=== PATIENT | female | born 1980 | race African-American/Black ===

== ENCOUNTER → 2024-08-22 | Outpatient (CLI) | payer MEDICAID, SELFPAY ==
--- NOTE | 2024-08-22 14:37 | CT_ITS ---
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 TECHNIQUE: CT of the paranasal sinuses without contrast. Coronal and Sagittal reconstruction series were provided. One or more dose reduction techniques were used (e.g., Automated exposure control, adjustment of the mA and/or kV according to patient size, use of iterative reconstruction technique). COMPARISON: None FINDINGS: There is a 4.5 cm 3.9 cm by 4.2 cm soft tissue mass arising in the region of the left maxilla with bony destruction and invasion of the left maxillary sinus extending into the left nasal fossa as well as in the posterior aspect of the right nasal fossa and into the nasopharynx posteriorly. This also extends into the base of the posterior aspect of the left orbit with bony destruction. CT/Sinus/Facial Bone IMPRESSION: Large mass as described with bony destruction. Reading Location: [place] [id number]
== END | disposition home or self-care (01) ==
LOC: CT 14:35
PROVIDERS: Referring Provider Otolaryngology; Visit Provider Otolaryngology
DX: C05.0 Malignant neoplasm of hard palate (principal); C31.0 Malignant neoplasm of maxillary sinus
CPT/HCPCS: 70486

== ENCOUNTER 2024-11-08 11:38 | Emergency (ER) | payer OTHER, MEDICAID, SELFPAY ==
[2024-11-08] VITALS (13 sets, daily range): BP systolic 95–171; BP diastolic 15–107; PULSE 56–108; RESP 13–35; TEMP 36.4–37; O2SAT 98–100; BMI 16.3
--- NOTE | 2024-11-08 13:17 | RAD_ITS ---
PROCEDURE: CHEST 1 VIEW (PORTABLE) 11/08/2024 REASON FOR EXAM: SOB TECHNIQUE: Frontal view of the chest. COMPARISON: None FINDINGS: Hardware: EKG electrodes are seen. Heart: Cardiac and mediastinal contours are stable. Lungs: The lungs are clear. Bones: The bones are unremarkable. Other: RAD/Chest 1 View (Portable) IMPRESSION: No Acute Findings. Reading Location: [id number]
--- NOTE | 2024-11-08 13:17 | EKG12_ITS ---
Test Reason : SOB Blood Pressure : */* mmHG Vent. Rate : 74 BPM Atrial Rate : 74 BPM P-R Int : 166 ms QRS Dur : 74 ms QT Int : 370 ms P-R-T Axes : 63 68 57 degrees QTcB Int : 410 ms Sinus rhythm with marked sinus arrhythmia Otherwise normal ECG When compared with ECG of 22-Sep-2003 10:02, [place] interval has decreased Left anterior fascicular block is no longer Present Nonspecific T wave abnormality no longer evident in Inferior leads Confirmed by Osei Valdivia ([id number]), purchasing expeditor SHAI SHARIF ([id number]) on 11/14/2024 6:33:41 AM Referred By: Confirmed By: Osei Valdivia
--- NOTE | 2024-11-08 13:18 | EX.ED.DYSGE1 ---
HPI History of Present Illness Chief Complaint: Shortness of Breath Informant: patient Narrative Narrative: Patient is a 44-year-old female with history of left facial cancer (unclear what type) who follows with Dr. Fuller through . She recently had dental extractions and is currently on chemotherapy (last chemo 3 days ago). States she was feeling unwell yesterday but today started to feel short of breath and also left-sided abdominal pain. She has nausea and vomiting this morning is not been able to take her regular medications which include morphine sulfate and oxycodone. She tried to take Zofran but threw that up. She states she have a bowel movement this morning but was constipated. She notes she did have blood in her stool and states the blood was mixed in. She does report a history of blood clots ( 6 years also) but is not on any anticoagulation. She denies any fever or chills. She denies any chest pain, leg swelling or sick contacts. PFSH PFSH Allergy/AdvReac Type Severity Reaction Status Date / Time No Known Allergies Allergy Verified 11/08/24 11:46 Social History Smoking Status: Former smoker ROS ROS ED Constitutional Constitutional ED: Reports chills; Denies fever(s) ENT ENT ED: Reports other Details: Muffled voice?associate with her cancer. Left facial pain?chronic and cancer related ; Denies sore throat Cardiovascular Cardiovascular: Denies chest pain or palpitations Respiratory/Chest Respiratory/Chest: Reports cough and dyspnea; Denies sputum Gastrointestinal Gastrointestinal: Reports melena, nausea and vomiting; Denies abdominal pain or diarrhea Genitourinary Genitourinary ED: Denies dysuria or hematuria Musculoskeletal Musculoskeletal: Denies arthralgias or myalgias Integumentary Denies rash Neurologic Neurologic: Reports weakness Hematologic/Lymphatic Hematologic/Lymphatic: Denies easy bleeding or easy bruising EXAM Physical Exam Const Vital Signs: 11/08/24 11:39 11/08/24 11:39 11/08/24 12:21 Temperature 98.6 F Temperature Source Oral Pulse Rate 101 H 93 Respiratory Rate 17 14 Respiratory Effort Normal Non-Labored Respiratory Depth Normal Respiratory Pattern Normal Blood Pressure 127/92 H Blood Pressure Mean 103 Pulse Ox 99 100 Oxygen Delivery Method Room Air Room Air 11/08/24 12:30 11/08/24 12:45 11/08/24 13:00 Temperature Temperature Source Pulse Rate 64 81 Respiratory Rate 14 13 Respiratory Effort Respiratory Depth Respiratory Pattern Blood Pressure 131/85 H 141/92 H 145/107 H Blood Pressure Mean 100 104 120 Pulse Ox 98 98 Oxygen Delivery Method 11/08/24 13:15 11/08/24 13:30 11/08/24 13:45 Temperature Temperature Source Pulse Rate 93 108 H 82 Respiratory Rate 20 H 35 H 18 Respiratory Effort Respiratory Depth Respiratory Pattern Blood Pressure 126/15 H 95/43 L 129/85 H Blood Pressure Mean 39 54 98 Pulse Ox 99 Oxygen Delivery Method 11/08/24 15:00 11/08/24 16:00 11/08/24 17:22 Temperature Temperature Source Pulse Rate 80 56 L 78 Respiratory Rate 15 16 18 Respiratory Effort Respiratory Depth Respiratory Pattern Blood Pressure 154/85 H 171/94 H 159/92 H Blood Pressure Mean 108 119 114 Pulse Ox 100 100 100 Oxygen Delivery Method Room Air Room Air 11/08/24 18:00 11/08/24 18:56 Temperature 97.6 F L Temperature Source Pulse Rate 68 68 Respiratory Rate 18 18 Respiratory Effort Respiratory Depth Respiratory Pattern Blood Pressure 157/103 H 156/94 H Blood Pressure Mean 121 114 Pulse Ox 100 100 Oxygen Delivery Method Room Air Positive well nourished and well developed Constitutional Narrative: Mildly uncomfortable appearing. Chronically ill-appearing General Appearance ED: well developed and NAD HEENT Reports dry mucous membranes HEENT Narrative: Edentulous, no trismus. Normal visualized oropharynx. Uvula is midline. Mildly muffled speech. Mouth ED: Yes dry mucous membranes Mouth: dry mucous membranes Eyes PERRL and EOMs intact bilaterally Neck supple and no JVD Chest Wall inspection of chest normal and palpation of chest normal Resp normal respiratory effort and clear to auscultation bilaterally Cardio regular rate, regular rhythm and no murmurs GI normal to inspection, nondistended, normoactive bowel sounds GI Narrative: Mild diffuse tenderness palpation. Does not localize. No guarding or rebound tenderness. Auscultation: normoactive bowel sounds Extremity normal to inspection General Extremety ED: Negative for edema General Extremity: Negative for edema Neuro oriented x3, CN's II-XII intact bilaterally and no sensory deficits noted Sensorium / Orientation: alert Motor Exam: strength 5/5 throughout and general weakness Psych mental status grossly normal Skin no rashes or lesions noted and no wounds MDM MDM MDM Narrative Medical decision making narrative: Patient evaluated for generalized weakness, shortness of breath, nausea and vomiting. Also reports some slight blood in her stool. She is currently undergoing chemotherapy. Differential includes chemotherapy reaction, dehydration, colitis, bowel obstruction, pneumonia, ACS and pulmonary emboli. In addition she is on chronic pain medications possible with her symptoms states she is going into some opioid withdrawal as well. Patient given IV fluids, morphine and Zofran. Patient does need retreated with morphine. On repeat evaluation she states she is feeling much better and feels that she is at her baseline. Is now mildly hypertensive. Heart rate is also improved. Does have a leukocytosis of 21.6 however she did receive shot from her oncologist that could have root cause that. Her D-dimer is mildly elevated at 0.72 and CTAs obtained of the chest. Also obtain CT of the abdomen and pelvis looking for intra-abdominal abdominal process that could be causing her pain. Remainder of lab work largely normal. Urinalysis does show 150 ketones consistent with dehydration but no signs of infection. Her CT imaging does not show any acute process to explain her presentation today. No source of infection is found. I spoke with oncology at , Dr. Zach Sandoval. 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 It includes carboplatin which is a high likelihood of causing nausea and vomiting. She is at the highest time of having the symptoms. She has prescription for olanzapine and dexamethasone which she wants to ensure that she is taking to help with her nausea. Does not think she requires admission at this time or transfer. We reviewed her labs and he was not concerned about her leukocytosis. She will follow-up outpatient for infusions. Encouraged to call them if she has further complications or concerns and they can also arrange further outpatient infusions. On repeat evaluation patient is feeling much better. She would like to go home. She feels that she is at her baseline. Given return precautions. Discussed recommendations from oncology. Discharged home in stable improved condition Lab Data Attestation: I reviewed the patient's lab results. Labs: Laboratory Results - last 24 hr 11/08/24 11/08/24 11/08/24 14:05 15:44 15:45 WBC 21.6 H RBC 4.42 Hgb 12.0 Hct 37.4 MCV 84.6 MCH 27.1 MCHC 32.1 RDW Std Deviation 54.4 H RDW Coeff of Chay 18.3 H Plt Count 600 H MPV 9.3 Immature Gran % (Auto) 0.400 Neut % (Auto) 91.3 H Lymph % (Auto) 4.9 L Nelson % (Auto) 2.9 Eos % (Auto) 0.3 Baso % (Auto) 0.2 Absolute Neuts (auto) 19.8 H Absolute Lymphs (auto) 1.05 Nucleated RBC % 0 D-Dimer Quant (PE/DVT) 0.72 H* Sodium 140 Potassium 4.1 Chloride 100 Carbon Dioxide 21.9 Anion Gap 18 H BUN 12 Creatinine 0.56 L Estim Creat Clear Calc 89.25 Est GFR (MDRD) Non-Af 117 BUN/Creatinine Ratio 22.3 H Glucose 109 H Lactic Acid 1.7 Calcium 9.8 Total Bilirubin 0.29 AST 29 ALT 14 Alkaline Phosphatase 77 Troponin T High Sens 7 Troponin T Hi Sens 2 Hr 7 Total Protein 7.2 Albumin 4.2 Globulin 3.0 Albumin/Globulin Ratio 1.4 Lipase 24 Urine Color Yellow Urine Clarity Clear Urine pH 7.0 Ur Specific [place] 1.010 Urine Protein 30 H Urine Glucose (UA) Normal Urine Ketones 150 A* Urine Occult Blood Negative Urine Nitrite Negative Urine Bilirubin Negative Urine Urobilinogen Normal Ur Leukocyte Esterase Negative Urine RBC 0-5 SEEN Urine WBC 0-5 SEEN Ur Squamous Epith Cells 0-5 SEEN Urine Bacteria 0 SEEN Urine Mucus 0 SEEN Radiography Diagnostic Testing: Clinical Impression(s) from Imaging Studies Chest X-Ray 11/08/24 13:17 IMPRESSION: No Acute Findings. Reading Location: [id number] Abdomen/Pelvis CT 11/08/24 14:38 IMPRESSION: NO ACUTE FINDINGS IN THE ABDOMEN OR PELVIS. Reading Location: [id number] Chest CTA 11/08/24 14:38 IMPRESSION: No demonstrated PE, or thoracic aortic aneurysm or dissection Hyperexpanded lungs with evidence of chronic bronchitis but no superimposed infiltrate effusion or suspicious noncalcified mass or nodule No suspicious adenopathy Reading Location: [facility] Rhythm Strip Rhythm Strip: Sinus Rhythm Rate: 74 Ectopy: None EKG Initial EKG: Attestation: I personally reviewed and interpreted this EKG as follows: Interpretation: Sinus Rhythm Comments: Normal sinus rhythm at a rate of 74 bpm with marked sinus arrhythmia Normal axis Normal intervals Normal ST segments Management Discussion w/another healthcare provider: Quick Print Operator ( oncology-Dr. Zach Sandoval) Discharge Plan Triage Chief Complaint: Shortness of Breath ED Provider: Deborah Posadas Dx/Rx/DC Orders Clinical Impression: Acute dyspnea, Nausea and vomiting Instructions: ED Dyspnea, ED Vomiting (Adult) Primary Care Provider: Torie Diego Referrals: Torie Diego, [employer] [Primary Care Provider] - Activity Restrictions/Additional Instructions: Please continue to follow-up with oncology. Is very important that you continue to take your prescribed olanzapine and dexamethasone to help with your symptoms in addition to your pain medications as needed. If you have further concerns or symptoms please call the oncology nurse line for recommendations. Please follow-up with your infusion on Tuesday. Call them to see if you need your infusion sooner if your symptoms are worsening or if you have further concerns. Print Language: Bahraini Disposition Disposition: Home, Self Care Discharge Date/Time: 11/08/24 18:57
[2024-11-08] MEDS: 0.9% Normal Saline (1000mL) 1,000 ML 1000 ML IV (14:16)
[2024-11-08 14:21] LABS: Hematocrit 37.4 % (37-47); Hemoglobin 12.0 g/dL (12.0-15.0); Immature Granulocytes Count 0.080 X10^3/uL (0.0-0.0); Mean Corp Hgb Conc 32.1 g/dL (32-36); Mean Corpuscular Volume 84.6 fL (81-99); Mean Platelet Vol. 9.3 fl (6.2-12.0); NRBC Flagged by Analyzer 0 % (0-5); Platelet Count 600 K/mm3 (150-450); RBC Distribution Width CV 18.3 % (11.6-14.6); RBC Distribution Width SD 54.4 fl (35.1-43.9); Red Blood Count 4.42 M/mm3 (4.2-5.4); White Blood Count 21.6 K/mm3 (4.4-11.0)
[2024-11-08 14:30] LABS: D-Dimer Quantitative (DVT/PE) 0.72 FEU/ug/m (0.27-0.49)
--- NOTE | 2024-11-08 14:38 | CT_ITS ---
PROCEDURE: CTA CHEST W/WO CONTRAST 11/08/2024 REASON FOR EXAM: SOB, ELEVATED DIMER TECHNIQUE: CTA CHEST W/WO CONTRAST Multiplanar Sagittal and Coronal images were obtained. 3D post processing was performed CONTRAST: Isovue 370 VOLUME: 100 mL One or more dose reduction techniques were used (e.g., Automated exposure control, adjustment of the mA and/or kV according to patient size, use of iterative reconstruction technique). RADIATION DOSE SUMMARY: CTDlvol: 23.27 mGy DLP: 514.03 mGycm COMPARISON: None # of known CTs in the past 12 months: 1 # of known Cardiac Nuclear Medicine Studies in the past 12 months: 0 FINDINGS: The thoracic aorta tapers normally without aneurysm or dissection. Pulmonary arteries enhance avidly without evidence of low-density filling defect to suspect PE. The thyroid gland is unremarkable, no suspicious axillary, mediastinal or perihilar adenopathy. Lung windows show underlying emphysema with chronic bronchitis but no superimposed infiltrate or effusion, no suspicious noncalcified mass or nodule. Limited cuts through the upper abdomen do not show a suspicious abnormality. Bony structures are normal CT/CTA Chest W/WO Contrast IMPRESSION: No demonstrated PE, or thoracic aortic aneurysm or dissection Hyperexpanded lungs with evidence of chronic bronchitis but no superimposed inf iltrate effusion or suspicious noncalcified mass or nodule No suspicious adenopathy Reading Location: [id number]
--- NOTE | 2024-11-08 14:38 | CT_ITS ---
PROCEDURE: ABDOMEN/PELVIS W IV CONT ONLY 11/08/2024 REASON FOR EXAM: ABD PAIN TECHNIQUE: ABDOMEN/PELVIS W IV CONT ONLY Coronal and Sagittal reconstruction series were provided. CONTRAST: Isovue 370 VOLUME: 100 mL One or more dose reduction techniques were used (e.g., Automated exposure control, adjustment of the mA and/or kV according to patient size, use of iterative reconstruction technique. RADIATION DOSE SUMMARY: CTDlvol: 23.27, 6.04, 6.06 mGy DLP: 514.03 mGycm COMPARISON: None FINDINGS: LUNG BASES: No basilar airspace consolidation or pleural effusion. LIVER: Hypodense 5.4 mm lesion in the inferior right lobe, likely a cyst. GALLBLADDER: Unremarkable. No calcified stone. BILE DUCTS: No ductal dilation. PANCREAS: Unremarkable. SPLEEN: Unremarkable. ADRENAL GLANDS: Unremarkable. KIDNEYS: Unremarkable. The kidneys enhance symmetrically. No hydronephrosis or hydroureter. STOMACH AND BOWEL: No obstruction or perforation. No wall thickening. No CT evidence of colitis or acute diverticulitis. APPENDIX: No CT evidence for appendicitis. RETRO/PERITONEUM: Mild pelvic fluid, possibly physiologic. No free air or fluid collections. LYMPH NODES: No lymphadenopathy. PELVIC ORGANS: Unremarkable as visualized. VASCULATURE: No aortic aneurysm. ABDOMINAL WALL AND SOFT TISSUES: Unremarkable. BONES: No fracture or suspicious osseous abnormality. CT/Abdomen/Pelvis W IV Cont ONLY IMPRESSION: NO ACUTE FINDINGS IN THE ABDOMEN OR PELVIS. Reading Location: [id number]
[2024-11-08 14:59] LABS: Troponin T High Sensitivity 7 ng/L (<=14)
[2024-11-08 15:00] LABS: Lipase 24 U/L (13-75)
[2024-11-08 15:03] LABS: AST(SGOT) 29 U/L (<=31); Alanine Aminotransfer ALT/SGPT 14 U/L (<=34); Albumin, Serum 4.2 g/dL (3.5-5.0); Alkaline Phosphatase 77 U/L (35-104); Anion Gap 18 (5-15); BUN 12 mg/dL (4-19); BUN/Creat Ratio 22.3 RATIO (10-20); Calcium,Total 9.8 mg/dL (7.6-11.0); Carbon Dioxide 21.9 mmol/L (21.0-32.0); Chloride 100 mmol/L (98-108); Estimated Creatinine Clearance 89.25 ml/min (50-250); Globulin 3.0 g/dL (2.2-4.2); Glucose 109 mg/dL (70-99); Potassium 4.1 mmol/L (3.3-5.1)
[2024-11-08 15:48] LABS: Mucous, Urine 0 SEEN /hpf (<or=2+)
[2024-11-08 15:52] LABS: Color, Urine Yellow (Yellow); Glucose, Dipstick Normal (Normal); Leukocyte Esterase-Dipstick Negative /ul (Negative); Nitrite-Dipstick Negative (Negative); Occult Blood-Urine Negative /ul (Negative); Protein-Dipstick 30 mg/dl (Negative); Specific Gravity, Urine 1.010 (1.002-1.030); Urine Bilirubin Dipstick Negative (Negative)
[2024-11-08 16:02] LABS: Ketone-Dipstick 150 mg/dl (Negative)
[2024-11-08 16:27] LABS: Troponin T High Sens 2 HR 7 ng/L (<=14)
[2024-11-08 16:40] LABS: Red Blood Cells-Urine 0-5 SEEN /hpf (0-5); Squamous Epithelial Cells - UA 0-5 SEEN /hpf (5-10)
== END 2024-11-08 18:57 | disposition home or self-care (01) ==
PROVIDERS: Emergency Provider Emergency Medicine; Visit Provider Emergency Medicine
DX: R06.00 Dyspnea, unspecified (principal); R11.2 Nausea with vomiting, unspecified; G89.29 Other chronic pain; Z87.891 Personal history of nicotine dependence; Z85.89 Personal history of malignant neoplasm of other organs and systems; Z79.891 Long term (current) use of opiate analgesic
CPT/HCPCS: 71045; 71275; 74177; 80053; 81001; 83605; 83690; 84484; 85025; 85379; 93005; 96361; 96374; 96375; 96376; 99285; Q9967; A4216; J2405

== ENCOUNTER 2025-02-11 10:37 | Emergency (ER) | payer MEDICAID, SELFPAY ==
[2025-02-11] VITALS (25 sets, daily range): BP systolic 109–138; BP diastolic 81–93; PULSE 54–91; RESP 15–24; TEMP 36.4–36.9; O2SAT 97–100; BMI 13.7
--- NOTE | 2025-02-11 10:56 | EKG12_ITS ---
Test Reason : GEN ILLNESS Blood Pressure : */* mmHG Vent. Rate : 70 BPM Atrial Rate : 70 BPM P-R Int : 160 ms QRS Dur : 74 ms QT Int : 382 ms P-R-T Axes : 78 76 71 degrees QTcB Int : 412 ms Normal sinus rhythm Normal ECG Confirmed by Osei Valdivia ([id number]), offline editor SHAI SHARIF ([id number]) on 02/13/2025 8:40:14 AM Referred By: Confirmed By: Osei Valdivia
--- NOTE | 2025-02-11 11:18 | EX.ED.DYSGE1 ---
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 Thomas through presents for evaluation of general malaise. Patient states she is to be on chemotherapy in which she completed on 01/30/2025. Currently getting radiation to the left face, last treatment 1 week ago. Patient states she was scheduled to receive treatment today. Patient states she has been around a sick contact with viral type symptoms. Patient states today developed general malaise including intermittent cough/shortness of breath, body aches, chills, nausea and vomiting. She denies any fever, chest pain, abdominal pain, dysuria. States she has decreased appetite and is concerned about dehydration. Review of systems: See HPI Medications: As listed on the chart Allergies: As listed on the chart PFSH: Per chart Vital signs: As listed on the chart. Reviewed. Physical exam: Gen: A&O x3, NAD Head: Normocephalic, atraumatic Eyes: No sclera icterus, conjunctiva clear, PERRL, EOMI ENT: TMs clear BL, mdryucous membranes, posterior oropharynx unremarkable, uvula midline Neck: Trachea midline, No JVD, Full ROM, No meningismus CV: RRR, no murmurs, no peripheral edema Resp: Lungs CTA BL, no w/r/c GI: Cachectic, abd soft, non-distended, non-tender, no r/r/g Musc: Moves all extremities, no deformity Skin: Warm, dry, no rash Neuro: Alert, oriented, grossly intact, sensation intact Psych: Cooperative, appropriate mood and affect [facility] Home Medications ?Medication ?Instructions ?Recorded ?Last Taken ?Type gabapentin 300 mg capsule 300 mg PO TID 02/11/25 02/11/25 08:00 History gabapentin 600 mg tablet 600 mg PO TID 02/11/25 02/11/25 08:00 History morphine 30 mg tablet,extended 30 mg PO BID 02/11/25 02/11/25 History release olanzapine 5 mg tablet 5 mg PO QHS 02/11/25 02/10/25 History oxycodone 10 mg tablet 10 mg PO Q6H PRN PRN moderate pain 02/11/25 02/11/25 History sennosides 8.6 mg-docusate sodium 1 tab PO DAILY 02/11/25 02/11/25 08:00 History 50 mg tablet (Stimulant Laxative Plus) zinc sulfate 50 mg zinc (220 mg) 50 mg PO DAILY 02/11/25 02/11/25 08:00 History capsule Allergy/AdvReac Type Severity Reaction Status Date / Time No Known Allergies Allergy Verified 02/11/25 10:44 Social History Smoking Status: Former smoker EXAM Physical Exam Const Vital Signs: 02/11/25 10:38 02/11/25 10:43 02/11/25 11:43 Temperature 98.5 F 98.5 F 97.6 F L Temperature Source Oral Oral Temporal Pulse Rate 91 91 65 Respiratory Rate 22 H 22 H 15 Respiratory Pattern Blood Pressure 109/86 H 109/86 H 122/84 H Blood Pressure Mean 93 93 96 Pulse Ox 100 100 100 Oxygen Delivery Method Room Air Room Air 02/11/25 11:52 02/11/25 12:00 02/11/25 13:00 Temperature 98.1 F 97.9 F Temperature Source Temporal Temporal Pulse Rate 65 62 Respiratory Rate 18 15 Respiratory Pattern Normal Blood Pressure 123/85 H 138/93 H Blood Pressure Mean 97 108 Pulse Ox 97 99 Oxygen Delivery Method Room Air Room Air 02/11/25 14:00 02/11/25 14:05 02/11/25 14:36 Temperature Temperature Source Pulse Rate 67 68 71 Respiratory Rate 24 H 24 H Respiratory Pattern Blood Pressure 138/91 H Blood Pressure Mean 106 Pulse Ox 98 98 Oxygen Delivery Method 02/11/25 14:45 02/11/25 15:00 Temperature Temperature Source Pulse Rate 67 70 Respiratory Rate 20 H 21 H Respiratory Pattern Blood Pressure Blood Pressure Mean Pulse Ox 99 100 Oxygen Delivery Method MDM MDM MDM Narrative Medical decision making narrative: 45-year-old female with 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 Herrera through presents for evaluation of general malaise. Patient states she is to be on chemotherapy in which she completed on 01/30/2025. Currently getting radiation to the left face, last treatment 1 week ago. Patient states she was scheduled to receive treatment today. Patient states she has been around a sick contact with viral type symptoms. Patient states today developed general malaise including intermittent cough/shortness of breath, body aches, chills, nausea and vomiting. Differential diagnosis includes but is not limited to symptomatic cancer, viral illness, pneumonia, PE, electrolyte abnormality, dehydration, UTI. NS bolus, Zofran, morphine ordered for symptoms. Laboratory workup ordered including CTA chest. CBC with leukopenia and anemia. Platelets unremarkable. Patient not neutropenic. Coagulation panel unremarkable. CMP unremarkable without NELA. Lactic acid unremarkable. Magnesium level unremarkable. Lipase unremarkable. UA positive for ketones which is consistent with mild dehydration. Negative for UTI. However patient has leuk esterase and 1+ bacteria but no nitrates, WBC, RBCs. Will send for culture given this. CT of the chest negative for PE. Patient has tree-in-bud and airspace opacities in the lower left lobe consistent with pneumonia. Patient's vitals have remained stable. She is not hypoxic. Patient states she would like to discharge home. Will contact her oncologist to confirm if patient is okay to discharge home on p.o. antibiotics. I spoke with the patient's oncologist Dr. Herrera. Patient is in need of continued radiation for her cancer. Recommended IV antibiotics and transfer to their facility. Patient was updated of the plan and confirmed understanding. Will cover her broadly with vancomycin and Zosyn given frequent hospital visits and cancer. EKG: Interpreted by me/EM physician: EKG shows normal sinus rhythm without any acute ischemic changes. Heart rate 70 Impression: 1. Left lower lobe pneumonia 2. History of cancer, completed chemotherapy currently with radiation 3. Mild dehydration Lab Data Labs: Laboratory Results - last 24 hr 02/11/25 02/11/25 11:38 14:20 WBC 2.9 L RBC 3.63 L Hgb 10.4 L Hct 32.4 L MCV 89.3 MCH 28.7 MCHC 32.1 RDW Std Deviation 63.7 H RDW Coeff of Chay 19.6 H Plt Count 435 MPV 8.6 Immature Gran % (Auto) 0.300 Neut % (Auto) 71.8 H Lymph % (Auto) 6.[address] [place] % (Auto) 20.6 H Eos % (Auto) 0.0 Baso % (Auto) 0.7 Absolute Neuts (auto) 2.1 Absolute Lymphs (auto) 0.19 L Nucleated RBC % 0 PT 14.1 INR 1.1 APTT 31.9 Sodium 136 Potassium 3.6 Chloride 98 Carbon Dioxide 24.7 Anion Gap 14 BUN 9 Creatinine 0.34 L Estim Creat Clear Calc 122.26 Est GFR (MDRD) Non-Af 131 BUN/Creatinine Ratio 27.5 H Glucose 85 Lactic Acid < 1.0 Calcium 8.2 Magnesium 1.5 Total Bilirubin 0.26 AST 13 ALT 6 Alkaline Phosphatase 73 Total Protein 5.0 L Albumin 2.4 L Globulin 2.7 Albumin/Globulin Ratio 0.9 Lipase 15 Urine Color Yellow Urine Clarity Sl. Cloudy Urine pH 6.5 Ur Specific [place] 1.010 Urine Protein 30 H Urine Glucose (UA) Normal Urine Ketones 150 A* Urine Occult Blood 10 H Urine Nitrite Negative Urine Bilirubin Negative Urine Urobilinogen 1 H Ur Leukocyte Esterase 25 H Urine RBC 0 SEEN Urine WBC 0-5 SEEN Ur Squamous Epith Cells 10-25 SEEN Urine Bacteria 1+ Urine Mucus 0 SEEN Radiography Diagnostic Testing: Clinical Impression(s) from Imaging Studies Chest CTA 02/11/25 12:11 IMPRESSION: Tree-in-bud and airspace opacities in the lower left lobe consistent with pneumonia. No evidence of pulmonary embolism. Reading Location: [facility] Discharge Plan Triage Chief Complaint: General Illness ED Provider: Alfredo Sinclair Dx/Rx/DC Orders Prescriptions: No Action gabapentin 600 mg tablet 600 mg PO TID morphine 30 mg tablet extended release 30 mg PO BID gabapentin 300 mg capsule 300 mg PO TID zinc sulfate 50 mg zinc (220 mg) capsule 50 mg PO DAILY oxycodone 10 mg tablet 10 mg PO Q6H PRN PRN (Reason: moderate pain) sennosides-docusate sodium [Stimulant Laxative Plus] 8.6-50 mg tablet 1 tab PO DAILY olanzapine 5 mg tablet 5 mg PO QHS Primary Care Provider: Torie Diego Referrals: Torie Diego, [employer] [Primary Care Provider, Family Practice] Print Language: [place] Citizen
[2025-02-11] MEDS: 0.9% Normal Saline (1000mL) 1,000 ML 1000 ML IV (11:43)
[2025-02-11 11:51] LABS: Hematocrit 32.4 % (37-47); Hemoglobin 10.4 g/dL (12.0-15.0); Immature Granulocytes Count 0.010 X10^3/uL (0.0-0.0); Mean Corp Hgb Conc 32.1 g/dL (32-36); Mean Corpuscular Volume 89.3 fL (81-99); Mean Platelet Vol. 8.6 fl (6.2-12.0); NRBC Flagged by Analyzer 0 % (0-5); POSITIVE DIFFERENTIAL YES; Platelet Count 435 K/mm3 (150-450); RBC Distribution Width CV 19.6 % (11.6-14.6); RBC Distribution Width SD 63.7 fl (35.1-43.9); Red Blood Count 3.63 M/mm3 (4.2-5.4); White Blood Count 2.9 K/mm3 (4.4-11.0)
[2025-02-11 11:58] LABS: Differential Indicated SCAN CRITERIA MET
[2025-02-11 12:02] LABS: Prothrombin Time (Protime)PT. 14.1 SECONDS (11.7-14.9)
[2025-02-11 12:03] LABS: Partial Thromboplast Time 31.9 Seconds (24.1-36.2)
--- NOTE | 2025-02-11 12:11 | CT_ITS ---
PROCEDURE: CTA CHEST W/WO CONTRAST 02/11/2025 REASON FOR EXAM: PE, HX OF CANCER TECHNIQUE: Procedure Code: [id number] Modality: CT Procedure: CTA CHEST W/WO CONTRAST Multiplanar Sagittal and Coronal images were obtained. CONTRAST: Isovue 370 VOLUME: 75 mL One or more dose reduction techniques were used (e.g., Automated exposure control, adjustment of the mA and/or kV according to patient size, use of iterative reconstruction technique). RADIATION DOSE SUMMARY: CTDlvol:3.18 mGy DLP: 150.0 mGycm COMPARISON: CTA chest 11/08/2024. # of known CTs in the past 12 months: 1 # of known Cardiac Nuclear Medicine Studies in the past 12 months: 0 FINDINGS: Thoracic Aorta: No aneurysm. No dissection. Heart: No cardiomegaly. Pulmonary Vessels: No evidence of pulmonary embolism. Hardware: None. Lymph nodes: No lymphadenopathy. Lungs and Airways: Tree-in-bud and airspace opacities in the lower left lobe consistent with pneumonia. Pleura: No pleural effusion or pneumothorax Upper Abdomen: Unremarkable Bones: No acute bony abnormalities. CT/CTA Chest W/WO Contrast IMPRESSION: Tree-in-bud and airspace opacities in the lower left lobe consistent with pneum onia. No evidence of pulmonary embolism. Reading Location: [facility]
[2025-02-11 12:22] LABS: AST(SGOT) 13 U/L (<=31); Alanine Aminotransfer ALT/SGPT 6 U/L (<=34); Albumin, Serum 2.4 g/dL (3.5-5.0); Alkaline Phosphatase 73 U/L (35-104); Anion Gap 14 (5-15); BUN 9 mg/dL (4-19); BUN/Creat Ratio 27.5 RATIO (10-20); Calcium,Total 8.2 mg/dL (7.6-11.0); Carbon Dioxide 24.7 mmol/L (21.0-32.0); Chloride 98 mmol/L (98-108); Estimated Creatinine Clearance 122.26 ml/min (50-250); Globulin 2.7 g/dL (2.2-4.2); Glucose 85 mg/dL (70-99); Lipase 15 U/L (13-75); Magnesium 1.5 mg/dL (1.5-2.2); Potassium 3.6 mmol/L (3.3-5.1)
[2025-02-11 14:26] LABS: Mucous, Urine 0 SEEN /hpf (<or=2+); Red Blood Cells-Urine 0 SEEN /hpf (0-5)
[2025-02-11 14:39] LABS: Color, Urine Yellow (Yellow); Glucose, Dipstick Normal (Normal); Leukocyte Esterase-Dipstick 25 /ul (Negative); Nitrite-Dipstick Negative (Negative); Occult Blood-Urine 10 /ul (Negative); Protein-Dipstick 30 mg/dl (Negative); Specific Gravity, Urine 1.010 (1.002-1.030); Urine Bilirubin Dipstick Negative (Negative)
[2025-02-11 14:43] LABS: Ketone-Dipstick 150 mg/dl (Negative)
[2025-02-11 14:47] LABS: Squamous Epithelial Cells - UA 10-25 SEEN /hpf (5-10)
--- NOTE | 2025-02-11 15:18 | ED.RN ---
Patient's family member came out to the nurses station to request that patient be admitted for antibiotics due to patient's noncompliance at home with medications. Family member states that she thinks trying to add additional medications will be problematic for providing patient care due to patient's increased dependency at home. Dr. Capellan notified.
--- NOTE | 2025-02-11 15:41 | PCA ---
ACCEPTED AT [facility] @ 0756 JUST WAITING FOR A BED
[2025-02-11] MEDS: Piperacil/Tazobactam 4.5 GM in 0.9% Normal Saline (100mL MB+) 100 ML IV (16:02)
[2025-02-11] MEDS: Vancomycin HCl 1,000 MG in 0.9% Normal Saline (250mL Bag) 250 ML 250 MG IV (17:35)
--- NOTE | 2025-02-11 19:10 | ED.RN ---
THIS RN WENT IN TO PT. ROOM TO RESTART AN ULTRASOUND IV PT STATES SHE DOES NOT WANT ANY MORE IV'S. STATES SHE WILL WAIT TILL [place].
--- NOTE | 2025-02-11 20:37 | HP.PCM_ITS ---
HPI - General General Date of Admission: 02/11/25 Date of Service: 02/11/25 Chief Complaint: General malaise, cough with shortness of breath HPI Narrative LEXII KRUEGER, is a 45 F who presents who presents emergency room with chief complaint of generalized malaise, fatigue, shortness of breath with bodyaches, chills and nausea and vomiting that began yesterday. 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 Thomas at [facility]. Patient completed a course of chemotherapy on 01/30/2025 and is currently receiving radiation treatments to her face the last treatment being 1 week ago. Patient does admit to being near sick contact with some viral type symptoms.. Patient currently denies any fever, chest pain, abdominal pain or dysuria. She does have a decrease in appetite and is concerned for her dehydration. Laboratory studies reveal white blood cell count 2.9, hemoglobin 10.4, hematocrit 32.4, platelets 435, sodium 136, potassium 3.6, chloride 98, bicarb 24.7, BUN 9, creatinine 0.34, glucose 85, UA 1+ bacteria with 25 leukocyte esterase, CT angiogram of chest shows left lower lobe pneumonia. In discussing CODE STATUS with the patient she does wish to have CPR if necessary but does not want to be intubated. Transfer arrangements were made for [facility] from the emergency room however no bed was available at the time after 10 hours of waiting in the emergency room patient was admitted upstairs pending her transfer to [facility]. [facility] Medical History (Updated 02/11/25 @ 20:[address] Gurmeet Prater MD) Cancer Medical History no medical history Home Medications ?Medication ?Instructions ?Recorded ?Last Taken ?Type gabapentin 300 mg capsule 300 mg PO TID 02/11/2502/11 08:00 History gabapentin 600 mg tablet 600 mg PO TID 02/11/2502/11 08:00 History morphine 30 mg tablet,extended 30 mg PO BID 02/11/25 1 04/14/24 History release olanzapine 5 mg tablet 5 mg PO QHS 02/11/25 5 History oxycodone 10 mg tablet 10 mg PO Q6H PRN PRN moderat e pain 02/11/25 02/11/25 History sennosides 8.6 mg-docusate sodium 1 tab PO DAILY 02/1102/11/25 08:00 History 50 mg tablet (Stimulant Laxative Plus) zinc sulfate 50 mg zinc (220 mg) 50 mg PO DAILY 02/11/25 08:00 History capsule Allergy/AdvReac Type Severity Reaction Status Date / Time No Known Allergies Allergy Verified 02/11/25 10:44 Surgical History no surgical history Social History Smoking Status: Former smoker ROS Constitutional Constitutional: Reports chills, fatigue and malaise; Denies fever(s) Eyes Eyes: Denies blurry vision or erythema ENT HEENT: Denies abnormal hearing, dysphagia or sore throat Cardiovascular Cardiovascular: Denies chest pain Respiratory/Chest Respiratory/Chest: Reports cough and shortness of breath with exertion Gastrointestinal Gastrointestinal: Reports nausea and vomiting; Denies abdominal pain Genitourinary Genitourinary: Denies dysuria Musculoskeletal Musculoskeletal: Denies back pain Integumentary Integumentary: Reports dry skin Neurologic Neurologic: Denies abnormal speech Psychiatric Psychiatric: Denies anxiety Hematologic/Lymphatic Hematologic/Lymphatic: Denies anemia Vital Signs Vital Signs Vital Signs: 02/11/25 10:38 02/11/25 10:43 02/11/25 11:43 Temperature 98.5 F 98.5 F 97.6 F L Temperature Source Oral Oral Temporal Pulse Rate 91 91 65 Respiratory Rate 22 H 22 H 15 Respiratory Pattern Blood Pressure 109/86 H 109/86 H 122/84 H Blood Pressure Mean 93 93 96 Pulse Ox 100 100 100 Oxygen Delivery Method Room Air Room Air 02/11/25 11:52 02/11/25 12:00 02/11/25 13:00 Temperature 98.1 F 97.9 F Temperature Source Temporal Temporal Pulse Rate 65 62 Respiratory Rate 18 15 Respiratory Pattern Normal Blood Pressure 123/85 H 138/93 H Blood Pressure Mean 97 108 Pulse Ox 97 99 Oxygen Delivery Method Room Air Room Air 02/11/25 14:00 02/11/25 14:05 02/11/25 14:36 Temperature Temperature Source Pulse Rate 67 68 71 Respiratory Rate 24 H 24 H Respiratory Pattern Blood Pressure 138/91 H Blood Pressure Mean 106 Pulse Ox 98 98 Oxygen Delivery Method 02/11/25 14:45 02/11/25 15:00 02/11/25 15:15 Temperature Temperature Source Pulse Rate 67 70 72 Respiratory Rate 20 H 21 H 19 H Respiratory Pattern Blood Pressure Blood Pressure Mean Pulse Ox 99 100 100 Oxygen Delivery Method 02/11/25 15:30 02/11/25 15:45 02/11/25 16:00 Temperature Temperature Source Pulse Rate 70 67 70 Respiratory Rate 18 17 18 Respiratory Pattern Blood Pressure Blood Pressure Mean Pulse Ox 100 100 98 Oxygen Delivery Method 02/11/25 16:15 02/11/25 16:30 02/11/25 16:45 Temperature Temperature Source Pulse Rate 66 68 65 Respiratory Rate 17 19 H 21 H Respiratory Pattern Blood Pressure Blood Pressure Mean Pulse Ox 98 98 98 Oxygen Delivery Method 02/11/25 17:00 02/11/25 17:15 02/11/25 17:30 Temperature Temperature Source Pulse Rate 55 L 59 L 54 L Respiratory Rate 20 H 21 H 17 Respiratory Pattern Blood Pressure Blood Pressure Mean Pulse Ox 99 97 97 Oxygen Delivery Method 02/11/25 19:00 02/11/25 20:00 Temperature Temperature Source Pulse Rate 71 63 Respiratory Rate 19 H 18 Respiratory Pattern Blood Pressure 118/89 H 118/81 H Blood Pressure Mean 98 93 Pulse Ox 98 98 Oxygen Delivery Method Room Air Room Air Weight Weight: 80 lb 0.445 oz Body Mass Index (BMI) 13.7 Physical Exam Const alert and oriented x3 General Appearance: cooperative and well developed HEENT head/scalp atraumatic Eyes PERRL and EOMs intact bilaterally Neck no lymphadenopathy Lymph Lymphatic: no lymphedema noted Resp normal respiratory effort Auscultation: rhonchi left lower Cardio regular rate, regular rhythm, S1 normal heart sound, S2 normal heart sound and no murmurs GI normal to inspection, nondistended, normoactive bowel sounds Extremity normal capillary refill Skin Skin Narrative: left facial deformity from cancer Neuro CN's II-XII intact bilaterally, no focal motor deficits and no sensory deficits noted Psych thought process normal, cooperative and affect normal Results Lab / Micro Data 02/11/25 11:38 02/11/25 11:38 Labs: Laboratory Results - last 24 hr 02/11/25 11:38: WBC 2.9 L, RBC 3.63 L, Hgb 10.4 L, Hct 32.4 L, MCV 89.3, MCH 28.7, MCHC 32.1, RDW Std Deviation 63.7 H, RDW Coeff of Chay 19.6 H, Plt Count 435, MPV 8.6, Immature Gran % (Auto) 0.300, Neut % (Auto) 71.8 H, Lymph % (Auto) 6.6 L, [place] % (Auto) 20.6 H, Eos % (Auto) 0.0, Baso % (Auto) 0.7, Absolute Neuts (auto) 2.1, Absolute Lymphs (auto) 0.19 L, Nucleated RBC % 0, PT 14.1, INR 1.1, APTT 31.9, Sodium 136, Potassium 3.6, Chloride 98, Carbon Dioxide 24.7, Anion Gap 14, BUN 9, Creatinine 0.34 L, Estim Creat Clear Calc 122.26, Est GFR (MDRD) Non-Af 131, BUN/Creatinine Ratio 27.5 H, Glucose 85, Lactic Acid < 1.0, Calcium 8.2, Magnesium 1.5, Total Bilirubin 0.26, AST 13, ALT 6, Alkaline Phosphatase 73, Total Protein 5.0 L, Albumin 2.4 L, Globulin 2.7, Albumin/Globulin Ratio 0.9, Lipase 15 02/11/25 14:20: Urine Color Yellow, Urine Clarity Sl. Cloudy, Urine pH 6.5, Ur Specific [place] 1.010, Urine Protein 30 H, Urine Glucose (UA) Normal, Urine Ketones 150 A*, Urine Occult Blood 10 H, Urine Nitrite Negative, Urine Bilirubin Negative, Urine Urobilinogen 1 H, Ur Leukocyte Esterase 25 H, Urine RBC 0 SEEN, Urine WBC 0-5 SEEN, Ur Squamous Epith Cells 10-25 SEEN, Urine Bacteria 1+, Urine Mucus 0 SEEN Micro: Microbiology 02/11/25 11:09 Mucosa - Nose SARS-CoV-2, Influenza & RSV (PCR) - Final Imaging Radiology Impression Chest CTA 02/11/25 12:11 IMPRESSION: Tree-in-bud and airspace opacities in the lower left lobe consistent with pneumonia. No evidence of pulmonary embolism. Reading Location: [facility] Assessment & Plan Assessment/Plan (1) Neutropenia: (2) Cancer: (3) Pneumonia: PLAN: Plan 1 left facial cancer with known metastatic cyst to the lungs?patient has been accepted as a transfer patient to [facility] under Dr. Thomas, however, due to bed not being available at [facility] at this time patient will be admitted to general medical floor pending transfer. 2. Neutropenia?institute neutropenic cautions, repeat CBC in the a.m. 3. Pneumonia?patient is undergoing recent chemotherapy and is neutropenic therefore we will continue vancomycin and Zosyn initiated in the emergency room and continue supportive IV fluids and repeat BMP in the morning 4. DVT prophylaxis?low molecular weight heparin 5. CODE STATUS?patient wishes to have CPR but does not want intubation confirmed directly with patient Charges/Coding Visit Charges Inpatient E&M: 94689 Init Hosp L2
--- NOTE | 2025-02-11 21:00 | ED.RN ---
This RN went into the patient's room to initiate new IV access since the patient was to be admitted to our hospital to await her transfer bed inpatient. This RN educated the patient that the patient requires a new IV since the last IV infiltrated and the patient requires IV antibiotics for her pneumonia. The patient refused another IV at this time, stating you guys already poked me 7 times, I am not getting poked again because you guys don't know how to do your job, I just want to rest and not be poked, you can give me oral antibiotics and send me home. This RN educated the patient that she would lose her spot in line for a bed at . The patient states, no I won't, I have a spot at the and I'll get that bed tomorrow when I go to to my appointment tomorrow. But you are not going to stick me with another needle because clearly you guys do not know what you are doing and I am tired of it. I want to leave, I want to go home, I am not doing this. This RN educated the patient on signing out AMA and advised against it. The patient stated, I don't care, my mom will come and pick me up, but I am leaving, you guys cannot keep me here. This RN notified Dr. Donaldson. Dr. Donaldson stated that the patient cannot sign out AMA at this time without a way to leave and no family members present in order to take her home. This RN went into the patient's room, this RN talked at length with the patient and the patient's mother who is the patient's continuum of care manager, both the patient and the patient's mother verbalized understanding of this. The patient stated that her mom would be on her way to talk with the doctor.
--- OUTSIDE RECORDS SUMMARY | 2025-02-11 21:04 | XMS RPT_ITS | CCD ---
Author Organization [facility] Care Team Providers Care Spindle Frame Carver Name Role Phone Dr. Rambo Ramon MD Attending Provider Dr. Rambo Ramon MD Referring Provider [phone] DEPUT[facility], [place] Primary Care Provider Beam, [place] Primary Care Provider Rambo Ramon MD Unavailable [phone] Macrina Montano MD Unavailable [phone] Sunny Cruz MD Unavailable Sophie [place], Laura Unavailable Unava ilable EJ MARTINEZ Attending Unavailable BEAM, ZEBULUN Primary Care Unavailable Dr. Deborah Posadas DO Emergency Provider Eloisa JIMENEZW-S, Dorinda S Unavailable Unav ailable Rambo Ramon Referring Unavailable Beam, [place]ebulun Primary Care Unavailable Rambo Ramon Attending Unavailable Beam, [place]ul[place] Primary Care Unavailable Deborah Posadas Attending Unavailable Sunny Cruz MD Unavailable SIDRA ORTIZ Referring Unavailable BEAM, ZEBULUN Primary Care Unavailable SIDRA ORTIZ Referring Unavailable BEAM, ZEBULUN Primary Care Unavailable SUNNY CRUZ Attending Unavailable EJ MARTINEZ Referring Unavailable BEAM, ZEBULUN Primary Care Unavailable BEAM, ZEBULUN Primary Care Unavailable EJ MARTINEZ Referring Unavailable BEAM, ZEBULUN Primary Care Unavailable EJ MARTINEZ Attending Unavailable BEAM, ZEBULUN Primary Care Unavailable SUNNY CRUZ Referring Unavailable BEAM, ZEBULUN Primary Care Unavailable SUNNY CRUZ Referring Unavailable BEAM, ZEBULUN Primary Care Unavailable MACRINA MONTANO Attending Unavailable KYLIE MARTINEZRE Referring Unavailable BEAM, ZEBULUN Primary Care Unavailable SUNNY CRUZ Attending Unavailable SUNNY CRUZ Referring Unavailable BEAM, ZEBULUN Primary Care Unavailable KYLIE MARTINEZRE Referring Unavailable BEAM, ZEBULUN Primary Care Unavailable BEAM, ZEBULUN Primary Care Unavailable SUNNY CRUZ Referring Unavailable BEAM, ZEBULUN Primary Care Unavailable SUNNY CRUZ Referring Unavailable BEAM, ZEBULUN Primary Care Unavailable BEAM, ZEBULUN Primary Care Unavailable SIDRA ORTIZ Attending Unavailable SUNNY CRUZ Referring Unavailable BEAM, ZEBULUN Primary Care Unavailable SUNNY CRUZ Referring Unavailable BEAM, ZEBULUN Primary Care Unavailable BEAM, ZEBULUN Primary Care Unavailable SUNNY CRUZ Referring Unavailable BEAM, ZEBULUN Primary Care Unavailable SUNNY CRUZ Attending Unavailable SUNNY CRUZ Referring Unavailable BEAM, ZEBULUN Primary Care Unavailable BEAM, ZEBULUN Primary Care Unavailable SUNNY CRUZ Referring Unavailable BEAM, ZEBULUN Primary Care Unavailable BEAM, ZEBULUN Primary Care Unavailable SIDRA ORTIZ Attending Unavailable SUNNY CRUZ Referring Unavailable BEAM, ZEBULUN Primary Care Unavailable SUNNY CRUZ Referring Unavailable BEAM, ZEBULUN Primary Care Unavailable MACRINA MONTANO Referring Unavailable BEAM, ZEBULUN Primary Care Unavailable BEAM, ZEBULUN Primary Care Unavailable SIDRA ORTIZ Attending Unavailable SUNNY CRUZ Referring Unavailable BEAM, ZEBULUN Primary Care Unavailable SUNNY CRUZ Referring Unavailable BEAM, ZEBULUN Primary Care Unavailable MACRINA MONTANO Attending Unavailable KYLIE MARTINEZRE Referring Unavailable BEAM, ZEBULUN Primary Care Unavailable LAVKYLIE RGRE Referring Unavailable BEAM, ZEBULUN Primary Care Unavailable BEAM, ZEBULUN Primary Care Unavailable SIDRA ORTIZ Attending Unavailable SUNNY CRUZ Referring Unavailable BEAM, ZEBULUN Primary Care Unavailable SUNNY CRUZ Referring Unavailable BEAM, ZEBULUN Primary Care Unavailable BEAM, ZEBULUN Primary Care Unavailable SUNNY RCUZ Referring Unavailable BEAM, ZEBULUN Primary Care Unavailable MACRINA MONTANO Referring Unavailable BEAM, ZEBULUN Primary Care Unavailable MACRINA MONTANO Referring Unavailable BEAM, ZEBULUN Primary Care Unavailable BEAM, ZEBULUN Primary Care Unavailable SUNNY CRUZ Referring Unavailable BEAM, ZEBULUN Primary Care Unavailable BEAM, ZEBULUN Primary Care Unavailable LAVERTU, JE Referring Unavailable BEAM, ZEBULUN Primary Care Unavailable LAVERTU, EJ Referring Unavailable BEAM, ZEBULUN Primary Care Unavailable LAVERTU, EJ Referring Unavailable BEAM, ZEBULUN Primary Care Unavailable LAVERTU, EJ Referring Unavailable BEAM, ZEBULUN Primary Care Unavailable LAVERTU, EJ Referring Unavailable BEAM, ZEBULUN Primary Care Unavailable SUNNY CRUZ Referring Unavailable BEAM, ZEBULUN Primary Care Unavailable LAVERTU, EJ Referring Unavailable BEAM, ZEBULUN Primary Care Unavailable SUNNY CRUZ Referring Unavailable BEAM, ZEBULUN Primary Care Unavailable SUNNY CRUZ Attending Unavailable BEAM, ZEBULUN Primary Care Unavailable LAVERTU, EJ Referring Unavailable BEAM, ZEBULUN Primary Care Unavailable LAVERTU, EJ Referring Unavailable BEAM, ZEBULUN Primary Care Unavailable MACRINA MONTANO Referring Unavailable BEAM, ZEBULUN Primary Care Unavailable LAVERTU, EJ Referring Unavailable BEAM, ZEBULUN Primary Care Unavailable MACRINA MONTANO A Referring Unavailable BEAM, ZEBULUN Primary Care Unavailable SUNNY CRUZ Referring Unavailable BEAM, ZEBULUN Primary Care Unavailable BEAM, ZEBULUN Primary Care Unavailable SUNNY CRUZ Referring Unavailable BEAM, ZEBULUN Primary Care Unavailable SIDRA ORTIZ Attending Unavailable SUNNY CRUZ Referring Unavailable BEAM, ZEBULUN Primary Care Unavailable MACRINA MONTANO A Referring Unavailable BEAM, ZEBULUN Primary Care Unavailable LAVERTU, EJ Referring Unavailable BEAM, ZEBULUN Primary Care Unavailable LAVERTU, EJ Referring Unavailable BEAM, ZEBULUN Primary Care Unavailable LAVERTU, EJ Referring Unavailable BEAM, ZEBULUN Primary Care Unavailable LAVERTU, EJ Referring Unavailable BEAM, ZEBULUN Primary Care Unavailable SUNNY CRUZ Referring Unavailable BEAM, ZEBULUN Primary Care Unavailable LAVERTU, EJ Referring Unavailable BEAM, ZEBULUN Primary Care Unavailable BEAM, ZEBULUN Primary Care Unavailable SIDRA ORTIZ Attending Unavailable SUNNY CRUZ Referring Unavailable BEAM, ZEBULUN Primary Care Unavailable SUNNY CRUZ Referring Unavailable BEAM, ZEBULUN Primary Care Unavailable LAVERTU, EJ Referring Unavailable BEAM, ZEBULUN Primary Care Unavailable LAVERTU, EJ Referring Unavailable BEAM, ZEBULUN Primary Care Unavailable LAVERTU, EJ Referring Unavailable BEAM, ZEBULUN Primary Care Unavailable LAVERTU, EJ Referring Unavailable BEAM, ZEBULUN Primary Care Unavailable SUNNY CRUZ Referring Unavailable BEAM, ZEBULUN Primary Care Unavailable LAVERTU, EJ Referring Unavailable BEAM, ZEBULUN Primary Care Unavailable LAVERTU, EJ Referring Unavailable BEAM, ZEBULUN Primary Care Unavailable LAVERTU, EJ Referring Unavailable BEAM, ZEBULUN Primary Care Unavailable BEAM, ZEBULUN Primary Care Unavailable SUNNY CRUZ Referring Unavailable BEAM, ZEBULUN Primary Care Unavailable SIDRA ORTIZ Attending Unavailable SUNNY CRUZ Referring Unavailable BEAM, ZEBULUN Primary Care Unavailable LAVERTU, EJ Referring Unavailable BEAM, ZEBULUN Primary Care Unavailable LAVERTU, EJ Referring Unavailable BEAM, ZEBULUN Primary Care Unavailable LAVERTU, EJ Referring Unavailable BEAM, ZEBULUN Primary Care Unavailable SUNNY CRUZ Referring Unavailable BEAM, ZEBULUN Primary Care Unavailable LAVERTU, EJ Referring Unavailable BEAM, ZEBULUN Primary Care Unavailable LAVERTU, EJ Referring Unavailable BEAM, ZEBULUN Primary Care Unavailable LAVERTU, EJ Referring Unavailable BEAM, ZEBULUN Primary Care Unavailable BEAM, ZEBULUN Primary Care Unavailable SUNNY CRUZ Referring Unavailable BEAM, ZEBULUN Primary Care Unavailable SIDRA ORTIZ Attending Unavailable SUNNY CRUZ Referring Unavailable BEAM, ZEBULUN Primary Care Unavailable LAVERTU, EJ Referring Unavailable BEAM, ZEBULUN Primary Care Unavailable LAVERTU, EJ Referring Unavailable BEAM, ZEBULUN Primary Care Unavailable SUNNY CRUZ Referring Unavailable BEAM, ZEBULUN Primary Care Unavailable LAVERTU, EJ Referring Unavailable BEAM, ZEBULUN Primary Care Unavailable LAVERTU, EJ Referring Unavailable BEAM, ZEBULUN Primary Care Unavailable LAVERTU, EJ Referring Unavailable BEAM, ZEBULUN Primary Care Unavailable SUNNY CRUZ Referring Unavailable BEAM, ZEBULUN Primary Care Unavailable BEAM, ZEBULUN Primary Care Unavailable SIDRA ORTIZ Attending Unavailable MIRSKY, SUNNY M Referring Unavailable [facility] Primary Care Unavailable EJ MARTINEZ Referring Unavailable [facility] Primary Care Unavailable Medications Current Medications Medication Drug Class(es) Dates Sig (Normalized) Sig (Original) bisacodyl 5 mg delayed release oral tablet (10 sources) Stimulant Laxative Start: 10-16-2024 End: 11-15-2024 take 1 tablet by mouth once daily as needed for constipation bisacodyl (Dulcolax) 5 mg EC tablet Indications: Malignant 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, unspecified laterality (Multi) Take 1 tablet (5 mg) by mouth once daily as needed for constipation. Do not crush, chew, or split. 30 tablet 2 10/16/2024 5:20 PM EDT 10/16/2024 11/15/2024 Active dexamethasone 4 mg oral tablet (20 sources) Corticosteroid Start: 09-18-2024 End: 09-18-2024 take 2 tablets by mouth once daily dexAMETHasone (Decadron) 4 mg tablet Indications: Mass of hard palate Take 2 tablets (8 mg) by mouth once daily. For 3 days starting the day after treatment. 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 360 mL 3 01/15/2025 01/15/2025 Discontinued docusate sodium 50 mg / sennosides, mcc 8.6 mg oral tablet (20 sources) Start: 12-25-2024 End: 12-25-2025 take 1 tablet by mouth once daily for constipation sennosides-docusate sodium (Senokot-S) 8.6-50 mg tablet Indications: Drug-induced constipation Take 1 tablet by mouth once daily. For Constipation 30 tablet 11 01/07/2025 10:42 AM EDT 12/25/2024 12/25/2025 Active escitalopram 10 mg oral tablet (20 sources) Serotonin Reuptake Inhibitor Start: 12-07-2024 End: 03-18-2025 take 1 tablet by mouth once daily in the evening escitalopram (Lexapro) 10 mg tablet Indications: Current mild episode of major depressive disorder without prior episode Take 1 tablet (10 mg) by mouth once daily. 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 Start with 1 capsule at bedtime for 2 days, then add 1 capsule in the morning for 2 days, then add the mid-day dose. 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 Do not crush, chew, or split. 120 tablet 11 09/25/2024 4:16 PM EDT 09/25/2024 09/25/2025 Active loratadine 10 mg oral tablet (20 sources) Start: 10-16-2024 End: 10-16-2025 take 1 tablet by mouth once daily in the evening loratadine (Claritin) 10 mg tablet Indications: Malignant 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, unspecified laterality (Multi) Take 1 tablet (10 mg) by mouth once daily. 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 Do not crush, chew, or split. 56 tablet 01/21/2025 Active Start: 09-19-2024 End: 10-09-2024 take 1 tablet by mouth twice daily morphine CR (MS Contin) 15 mg 12 hr tablet Indications: Squamous cell carcinoma of maxillary sinus , Malignant 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, unspecified laterality (Multi) , Secondary malignant neoplasm of bone and bone marrow , Mass of hard palate Take 1 tablet (15 mg) by mouth 2 times a day for 14 days. Do not crush, chew, or split. 28 tablet 09/25/2024 09/28/2024 Discontinued (Reorder) Start: 09-18-2024 End: 10-18-2024 take 2 tablets by mouth twice daily morphine CR (MS Contin) 15 mg 12 hr tablet Indications: Mass of hard palate Take 2 tablets (30 mg) by mouth 2 times a day. Do not crush, chew, or split. 120 tablet 09/18/2024 10/18/2024 Active naloxone hydrochloride 40 mg/ml nasal spray (20 sources) Opioid Antagonist Start: 09-18-2024 End: 09-19-2025 naloxone (Narcan) 4 mg/0.1 mL nasal spray Indications: opioid overdose , opioid-induced respiratory depression Administer 1 spray (4 mg) into affected nostril(s) if needed for opioid reversal or respiratory depression. May repeat every 2-3 minutes if needed, alternating nostrils, until medical assistance becomes available. 2 each 11 09/19/2024 09/19/2025 Active OLANZapine 5 mg oral tablet (20 sources) Atypical Antipsychotic Start: 09-18-2024 End: 01-08-2025 take 1 tablet by mouth once daily at bedtime OLANZapine (ZyPREXA) 5 mg tablet Indications: Mass of hard palate Take 1 tablet (5 mg) by mouth once daily at bedtime. 30 tablet 2 01/08/2025 2:36 PM EDT 01/08/2025 Active ondansetron 8 mg oral tablet (20 sources) Serotonin-3 Receptor Antagonist Start: 11-26-2024 take 1 tablet by mouth every eight hours for nausea ondansetron (Zofran) 8 mg tablet Indications: Mass of hard palate Take 1 tablet (8 mg) by mouth every 8 hours if needed for nausea or vomiting. 60 tablet 2 11/27/2024 10:40 AM EDT 11/26/2024 Active Start: 09-19-2024 End: 09-19-2025 take 1 tablet by mouth every eight hours for nausea ondansetron ODT (Zofran-ODT) 8 mg disintegrating tablet Indications: Mass of hard palate Dissolve 1 tablet (8 mg) in the mouth every 8 hours if needed for nausea or vomiting. 20 tablet 09/19/2024 09/19/2025 Active Start: 09-18-2024 take 1 tablet by cate th every eight hours in the evening for nausea ondansetron (Zofran) 8 mg tablet Indications: Mass of hard palate Take 1 tablet (8 mg) by mouth every 8 hours if needed for nausea or vomiting. 30 tablet 5 09/25/2024 4:16 PM EDT 09/18/2024 Active Start: 09-18-2024 End: 09-18-2024 take 1 tablet by mouth twice daily as needed for nausea ondansetron (Zofran) 8 mg tablet Indications: Mass of hard palate Take 1 tablet (8 mg) by mouth 2 times a day as needed for nausea for up to 21 days. 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 56 tablet 11/27/2024 10:40 AM EDT 11/26/2024 12/11/2024 Active Start: 09-19-2024 End: 10-10-2024 take 0.5 tablet by mouth every six hours for pain oxyCODONE (Roxicodone) 10 mg immediate release tablet Indications: Squamous cell carcinoma of maxillary sinus , Malignant 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, unspecified laterality (Multi) , Secondary malignant neoplasm of bone and bone marrow , Mass of hard palate Take 0.5 tablets (5 mg) by mouth every 6 hours if needed for severe pain (7 - 10) for up to 15 days. 30 tablet 09/25/2024 09/28/2024 Discontinued (Reorder) Start: 09-18-2024 End: 09-18-2024 take 10 mg by mouth once as needed for pain 10 mg, oral, Once, On Tue09/18/24 at 1600, For 1 dose, If ordered PRN for pain, nurse is permitted to administer this medication for higher pain scores based on patient preference? Yes Start: 09-18-2024 End: 09-18-2024 take 10 mg by mouth once as needed for pain 10 mg, oral, Once, On Tue09/18/24 at 1600, For 1 dose, If ordered PRN for pain, nurse is permitted to administer this medication for higher pain scores based on patient preference? Yes Start: 09-18-2024 End: 11-22-2024 take 1 tablet by mouth every six hours in the evening for pain oxyCODONE (Roxicodone) 10 mg immediate release tablet Indications: Squamous cell carcinoma of maxillary sinus , Malignant 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, unspecified laterality (Multi) , Secondary malignant neoplasm of bone and bone marrow , Mass of hard palate , Neoplasm related pain Take 1 tablet (10 mg) by mouth every 6 hours if needed for severe pain (7 - 10) (Every 4-6 hours as needed for pain) for up to 21 days. 60 tablet 11/01/2024 2:41 PM EDT 11/01/2024 11/22/2024 Start: 09-11-2024 End: 09-18-2024 take 1 tablet by mouth every four hours for pain oxyCODONE (Roxicodone) 10 mg immediate release tablet Indications: Mass of hard palate Take 1 tablet (10 mg) by mouth every 4 hours if needed for severe pain (7 - 10) for up to 7 days. 42 tablet 09/11/2024 09/18/2024 Discontinued (Therapy completed) Start: 08-29-2024 End: 09-05-2024 take 1 tablet by mouth every six hours for pain oxyCODONE (Roxicodone) 5 mg immediate release tablet Indications: Mass of hard palate Take 1 tablet (5 mg) by mouth every 6 hours if needed for severe pain (7 - 10) for up to 7 days. 28 tablet 08/29/2024 09/05/2024 Active pantoprazole 40 mg delayed release oral tablet (20 sources) Proton Pump Inhibitor Start: 11-20-2024 End: 06-23-2025 take 1 tablet by mouth once daily pantoprazole (ProtoNix) 40 mg EC tablet Indications: Squamous cell carcinoma of maxillary sinus , Gastroesophageal reflux disease, unspecified whether esophagitis present Take 1 tablet (40 mg) by mouth once daily. For Acid Reflux. Do not crush, chew, or split. 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 100 tablet 12/18/2024 01/27/2025 Active prochlorperazine 10 mg oral tablet (20 sources) Phenothiazine Start: 09-18-2024 take 1 tablet by mouth every six hours in the evening for nausea prochlorperazine (Compazine) 10 mg tablet Indications: Mass of hard palate Take 1 tablet (10 mg) by mouth every 6 hours if needed for nausea or vomiting. 30 tablet 5 09/25/2024 4:16 PM EDT 09/18/2024 Active zinc sulfate 220 mg oral capsule (9 sources) Start: 01-15-2025 End: 01-15-2025 take 1 capsule by mouth once daily at mealtime zinc sulfate (Zincate) 220 mg (50 mg elemental) capsule Indications: Squamous cell carcinoma of maxillary sinus , Dysgeusia Take 1 capsule by mouth once daily. with Food. 60 capsule 2 01/16/2025 11:26 AM EST 01/15/2025 Active Completed/Discontinued Medications Medication Drug Class(es) Dates Sig (Normalized) Sig (Original) fludeoxyglucose F-18 injection 10.5 millicurie (1 source) Start: 09-18-2024 End: 09-18-2024 10.5 millicurie, intravenous, Once in imaging, Starting on Tue09/18/24 at 1238, For 1 dose, Administer 60 minutes and up to 3 hours prior to imaging unless otherwise indicated. gadoterate meglumine (Dotarem) 0.5 mmol/mL contrast injection 8 mL (1 source) Start: 11-22-2024 End: 11-22-2024 inject 8 mL intravenously once 8 mL, intravenous, Once in imaging, Starting on Marybel 11/22/24 at 1506, For 1 dose, Administer undiluted as rapid I.V. bolus injection gadoterate meglumine (Dotarem) 0.5 mmol/mL contrast injection 9 mL (2 sources) Start: 11-05-2024 End: 11-05-2024 inject 9 mL intravenously once 9 mL, intravenous, Once in imaging, Starting on Tue11/05/24 at 1630, For 1 dose, Administer undiluted as rapid I.V. bolus injection Start: 09-18-2024 End: 09-18-2024 inject 9 mL intravenously once 9 mL, intravenous, Once in imaging, Starting on Tue09/18/24 at 1758, For 1 dose, Administer undiluted as rapid I.V. bolus injection iohexol (OMNIPaque) 350 mg iodine/mL solution 72 mL (1 source) Start: 11-05-2024 End: 11-05-2024 72 mL, intravenous, Once in imaging, Starting on Tue11/05/24 at 1549, For 1 dose iohexol (OMNIPaque) 350 mg iodine/mL solution 75 mL (1 source) Start: 09-11-2024 End: 09-11-2024 75 mL, intravenous, Once in imaging, Starting on Tue09/11/24 at 1500, For 1 dose 10 ml lidocaine hydrochloride 20 mg/ml injection (6 sources) Antiarrhythmic, Amide Local Anesthetic Start: 11-06-2024 End: 11-06-2024 lidocaine PF (Xylocaine) 20 mg/mL (2 %) injection 40 mg Start: 11-06-2024 End: 11-06-2024 40 mg (2 mL), injection, Onc e, On Tue11/06/24 at 1315, For 1 dose Start: 11-06-2024 End: 11-06-2024 lidocaine PF (Xylocaine) 20 mg/mL (2 %) injection 40 mg Start: 11-06-2024 End: 11-06-2024 40 mg (2 mL), injection, Onc e, On Tue11/06/24 at 1315, For 1 dose Start: 11-06-2024 End: 11-06-2024 Starting on Tue11/06/24 at 1 312, For 1 dose, Created by eli kelly phenylephrine hydrochloride 5 mg/ml nasal spray (6 sources) alpha-1 Adrenergic Agonist Start: 11-06-2024 End: 11-06-2024 phenylephrine (Elias-Synephrine) 0.5 % nasal spray 2 spray Start: 11-06-2024 End: 11-06-2024 take 2 spray(s) nasal route once 2 spray, Each Nostril, Once, On Tue11/06/24 at 1315, For 1 dose Start: 11-06-2024 End: 11-06-2024 phenylephrine (Elias-Synephrin e) 0.5 % nasal spray 2 spray Start: 11-06-2024 End: 11-06-2024 take 2 spray(s) nasal route once 2 spray, Each Nostril, Once, On Tue11/06/24 at 1315, For 1 dose Start: 11-06-2024 End: 11-06-2024 Starting on Tue11/06/24 at 1 312, For 1 dose, Created by cabinet override sulfamethoxazole 400 mg / trimethoprim 80 mg oral tablet (14 sources) Dihydrofolate Reductase Inhibitor Antibacterial, Sulfonamide Antimicrobial Start: 12-05-2024 End: 12-25-2024 take 1 tablet by mouth once daily in the evening sulfamethoxazole-trimethoprim (Bactrim) 400-80 mg tablet Indications: 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 20 tablet 12/05/2024 5:40 PM EDT 12/05/2024 12/25/2024 Problems Active Problems Problem Classification Problem Date Documented Da te Episodic/Chronic Cancer of head and neck (20 sources) Malignant neoplasm of maxillary sinus; Translations: [Malignant neoplasm of maxillary sinus] Onset: 09-19-2024 Chronic E Codes: Adverse effects of medical care (2 sources) Radiological procedure and radiotherapy as the cause of abnormal reaction of the patient, or of later complication, without mention of misadventure at the time of the procedure; Translations: [Radiological procedure and radiotherapy as the cause of abnormal reaction of the patient, or of later complication, without mention of misadventure at the time of the procedure] Onset: Episodic E Codes: Adverse effects of medical drugs (2 sources) Adverse effect of antineoplastic and immunosuppressive drugs, initial encounter; Translations: [Adverse effect of antineoplastic and immunosuppressive drugs, initial encounter] Onset: 5 Episodic Esophageal disorders (6 sources) Gastroesophageal reflux disease; Translations: [Gastro-esophageal reflux disease without esophagitis] Onset: 5 12-25-2024 Chronic Fluid and electrolyte disorders (3 sources) Hypokalemia; Translations: [Hypokalemia] Onset: 5 01-08-2025 Episodic Maintenance chemotherapy; radiotherapy (20 sources) Patient encounter status; Translations: [Encounter for antineoplastic radiation therapy] Onset: 5 12-05-2024 Chronic Mood disorders (4 sources) Mild major depression, single episode; Translations: [Major depressive disorder, single episode, mild] Onset: 5 12-18-2024 Chronic Nausea and vomiting (7 sources) Nausea and vomiting; Translations: [Nausea with vomiting, unspecified] Onset: 5 11-08-2024 Episodic Other circulatory disease (1 source) Low blood pressure; Translations: [Hypotension, unspecified] 10-02-2024 Episodic Other gastrointestinal disorders (20 sources) Oropharyngeal dysphagia; Translations: [Dysphagia, oropharyngeal phase] Onset: 5 12-19-2024 Episodic Other gastrointestinal disorders (2 sources) Drug-induced constipation; Translations: [Drug induced constipation] 12-25-2024 Episodic Other gastrointestinal disorders (2 sources) Drug induced constipation; Translations: [Drug induced constipation] Onset: Episodic Other gastrointestinal disorders (2 sources) Dysphagia, oropharyngeal phase; Translations: [Dysphagia, oropharyngeal phase] Onset: Episodic Other lower respiratory disease (1 source) Dyspnea; Translations: [Dyspnea, unspecified] 11-08-2024 Episodic Other lower respiratory disease (1 source) Dyspnea, unspecified; Translations: [Dyspnea, unspecified] Onset: Episodic Other nervous system disorders (10 sources) Pain due to neoplastic disease; Translations: [Neoplasm related pain (acute) (chronic)] 10-02-2024 Chronic Other nervous system disorders (2 sources) Neoplasm related pain (acute) (chronic); Translations: [Neoplasm related pain (acute) (chronic)] Onset: Chronic Other nervous system disorders (5 sources) Facial nerve disorder; Translations: [Disorder of facial nerve, unspecified] 10-23-2024 Episodic Other nervous system disorders (1 source) Taste sense altered; Translations: [Parageusia] 01-15-2025 Episodic Other nervous system disorders (2 sources) Parageusia; Translations: [Parageusia] Onset: Episodic Other nutritional; endocrine; and metabolic disorders (2 sources) Hypomagnesemia; Translations: [Hypomagnesemia] Onset: Chronic Other nutritional; endocrine; and metabolic disorders (1 source) Hypomagnesemia; Translations: [Hypomagnesemia] 01-22-2025 Chronic Other nutritional; endocrine; and metabolic disorders (1 source) Loss of appetite; Translations: [Anorexia] 01-11-2025 Episodic Other nutritional; endocrine; and metabolic disorders (2 sources) Anorexia; Translations: [Anorexia] Onset: Episodic Other skin disorders (4 sources) Facial swelling ; Translations: [Localized swelling, mass and lump, head] 10-02-2024 Episodic Poisoning by other medications and drugs (5 sources) Mucositis following therapy; Translations: [Oral mucositis (ulcerative) due to radiation] Onset: 5 01-01-2025 Episodic Secondary malignancies (20 sources) Secondary malignant neoplasm of lung; Translations: [Secondary malignant neoplasm of unspecified lung] Onset: 5 09-25-2024 Chronic Secondary malignancies (20 sources) Secondary malignant neoplasm of bone; Translations: [Secondary malignant neoplasm of bone] Onset: 5 09-25-2024 Chronic Secondary malignancies (4 sources) Secondary malignant neoplasm of unspecified lung; Translations: [Secondary malignant neoplasm of unspecified lung (Multi)] Onset: 5 Chronic Secondary malignancies (4 sources) Secondary malignant neoplasm of bone; Translations: [Secondary malignant neoplasm of bone (Multi)] Onset: 5 Chronic Secondary malignancies (4 sources) Secondary malignant neoplasm of bone marrow; Translations: [Secondary malignant neoplasm of bone marrow (Multi)] Onset: 5 Chronic Unclassified (8 sources) 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 Unclassified (2 sources) OTV; Translations: [OTV] Onset: 5 Unclassified (2 sources) Error (VOID this visit); Translations: [Error (VOID this visit)] Onset: 5 Past or Other Problems Problem Classification Problem Date Documented Da te Episodic/Chronic Cardiac dysrhythmias (3 sources) Tachycardia; Translations: [Tachycardia, unspecified] Onset: 10-02-2024 10-02-2024 Episodic Conditions associated with dizziness or vertigo (3 sources) Dizziness; Translations: [Dizziness and giddiness] Onset: 10-02-2024 10-02-2024 Episodic Disorders of teeth and jaw (3 sources) Tooth disorder; Translations: [Disorder of teeth and supporting structures, unspecified] Onset: 10-23-2024 10-23-2024 Episodic Other bone disease and musculoskeletal deformities (20 sources) Other specified disorders of bone density and structure, other site; Translations: [Swelling, mass, or lump in head and neck] Onset: 08-29-2024 08-29-2024 Episodic Other circulatory disease (2 sources) Hypotension, unspecified; Translations: [Hypotension, unspecified] Onset: 10-02-2024 Episodic Other nervous system disorders (2 sources) Disorder of facial nerve, unspecified; Translations: [Disorder of facial nerve, unspecified] Onset: 10-23-2024 Episodic Other skin disorders (2 sources) Localized swelling, mass and lump, head; Translations: [Localized swelling, mass and lump, head] Onset: 10-02-2024 Episodic Unclassified (20 sources) Onset: 08-29-2024 Resolved: 09-18-2024 08-29-2024 Unclassified (7 sources) Mass of hard palate 09-11-2024 Results Test Name Value Interpretation Reference Range Facility CBC W Auto Differential pane l (Bld)on 01-22-2025 Basophils (Bld) [#/Vol] 0.02 x10*3/uL Normal 0.00-0.10 [facility] Comment on above: Performed By: #### 5 7021-8 ####LIANE [place] ([id number])[facility] (ANNA)[address] [place] [address] Basophils/100 WBC (Bld) 0.4 % Normal 0.0-2.0 [facility] Comment on above: Performed By: #### 5 7021-8 ####LIANE [place] ([id number])[facility] (ANNA)[address] [place] [address] Eosinophils (Bld) [#/Vol] 0.03 x10*3/uL Normal 0.00-0.70 [facility] Comment on above: Performed By: #### 5 7021-8 ####LIANE [place] ([id number])[facility] (ANNA)[address] [place] [address] Eosinophils/100 WBC (Bld) 0.6 % Normal 0.0-6.0 [facility] Comment on above: Performed By: #### 5 7021-8 ####LIANE [place] ([id number])[facility] (ANNA)[address] [place] [address] Erythrocyte distribution width (RBC) [Ratio] 20.1 % High 11.5-14.5 [facility] Comment on above: Performed By: #### 5 7021-8 ####LIANE [place] ([id number])[facility] (ANNA)[address] [place] [address] Hematocrit (Bld) [Volume fraction] 36.5 % Normal 36.0-46.0 [facility] Comment on above: Performed By: #### 5 7021-8 ####LIANE [place] ([id number])[facility] (ANNA)[address] [place] [address] Hemoglobin (Bld) [Mass/Vol] 11.5 g/dL Low 12.0-16.0 [facility] Comment on above: Performed By: #### 5 7021-8 ####[facility] [place] ([id number])[facility] (ANNA)[address] [place] [address] Immature granulocytes (Bld) [#/Vol] 0.02 x10*3/uL Normal 0.00-0.70 [facility] Comment on above: Performed By: #### 5 7021-8 ####[facility] [place] ([id number])[facility] (ANNA)[address] [place] [address] Immature granulocytes/100 WBC (Bld) 0.4 % Normal 0.0-0.9 [facility] Comment on above: Result Comment: Joelle ture Granulocyte Count (IG) includes promyelocytes, myelocytes and metamyelocytes but does not include bands. Percent differential counts (%) should be interpreted in the context of the absolute cell counts (cells/UL). Performed By: #### 5 7021-8 ####[facility] [place] ([id number])[facility] (ANNA)[address] [place] [address] Lymphocytes (Bld) [#/Vol] 0.13 x10*3/uL Low 1.20-4.80 [facility] Comment on above: Performed By: #### 5 7021-8 ####[facility] [place] ([id number])[facility] (ANNA)[address] [place] [address] Lymphocytes/100 WBC (Bld) 2.5 % Normal 13.0-44.0 [facility] Comment on above: Performed By: #### 5 7021-8 ####[facility] [place] ([id number])[facility] (ANNA)[address] [place] [address] MCH (RBC) [Entitic mass] 29.5 pg Normal 26.0-34.0 [facility] Comment on above: Performed By: #### 5 7021-8 ####[facility] [place] ([id number])[facility] (ANNA)[address] [place] [address] MCHC (RBC) [Mass/Vol] 31.5 g/dL Low 32.0-36.0 [facility] Comment on above: Performed By: #### 5 7021-8 ####LIANE Steinberg'PETRA ([id number])[facility] (ANNA)[address] [place] [address] MCV (RBC) [Entitic vol] 94 fL Normal 80-100 [facility] Comment on above: Performed By: #### 5 7021-8 ####LIANE Steinberg'PETRA ([id number])[facility] (ANNA)[address] [place] [address] Monocytes (Bld) [#/Vol] 0.58 x10*3/uL Normal 0.10-1.00 [facility] Comment on above: Performed By: #### 5 7021-8 ####LIANE Steinberg'PETRA ([id number])[facility] (ANNA)[address] [place] [address] Monocytes/100 WBC (Bld) 11.1 % Normal 2.0-10.0 [facility] Comment on above: Performed By: #### 5 7021-8 ####LIANE O'PETRA ([id number])[facility] (ANNA)[address] [place] [address] Neutrophils (Bld) [#/Vol] 4.46 x10*3/uL Normal 1.20-7.70 [facility] Comment on above: Result Comment: Perc ent differential counts (%) should be interpreted in the context of the absolute cell counts (cells/uL). Performed By: #### 5 7021-8 ####LIANE Steinberg'PETRA ([id number])[facility] (ANNA)[address] [place] [address] Neutrophils/100 WBC (Bld) 85.0 % Normal 40.0-80.0 [facility] Comment on above: Performed By: #### 5 7021-8 ####LIANE Steinberg'PETRA ([id number])[facility] (ANNA)[address] [place] [address] Nucleated RBC/100 WBC (Bld) [Ratio] 0.0 /100 WBCs Normal 0.0-0.0 [facility] Comment on above: Performed By: #### 5 7021-8 ####[facility] [place] ([id number])[facility] (ANNA)[address] [place] [address] Platelets (Bld) [#/Vol] 485 x10*3/uL High 150-450 [facility] Comment on above: Performed By: #### 5 7021-8 ####[facility] [place] ([id number])[facility] (ANNA)[address] [place] [address] RBC (Bld) [#/Vol] 3.90 x10*6/uL Low 4.00-5.20 [facility] Comment on above: Performed By: #### 5 7021-8 ####[facility] [place] ([id number])[facility] (ANNA)[address] [place] [address] WBC (Bld) [#/Vol] 5.2 x10*3/uL Normal 4.4-11.3 [facility] Comment on above: Performed By: #### 5 7021-8 ####[facility] [place] ([id number])[facility] (ANNA)[address] [place] [address] Comprehensive metabolic 2000 panelon 01-22-2025 Albumin BCP dye [Mass/Vol] 3.0 g/dL Low 3.4-5.0 [facility] Comment on above: Performed By: #### 2 4323-8 ####[facility] [place] ([id number])[facility] (ANNA)[address] [place] [address] ALP [Catalytic activity/Vol] 52 U/L Normal 33-110 [facility] Comment on above: Performed By: #### 2 4323-8 ####[facility] [place] ([id number])[facility] (ANNA)[address] [place] [address] ALT With P-5'-P [Catalytic activity/Vol] 10 U/L Normal 7-45 [facility] Comment on above: Result Comment: Cara ents treated with Sulfasalazine may generate falsely decreased results for ALT. Performed By: #### 2 4323-8 ####LIANE Steinberg'PETRA ([id number])[facility] (ANNA)[address] [place] [address] Anion gap [Moles/Vol] 13 mmol/L Normal 10-20 [facility] Comment on above: Performed By: #### 2 4323-8 ####LIANE Steinberg'PETRA ([id number])[facility] (ANNA)[address] [place] [address] AST With P-5'-P [Catalytic activity/Vol] 14 U/L Normal 9-39 [facility] Comment on above: Performed By: #### 2 4323-8 ####LIANE O'PETRA ([id number])[facility] (ANNA)[address] [place] [address] Bilirubin [Mass/Vol] 0.3 mg/dL Normal 0.0-1.2 [facility] Comment on above: Performed By: #### 2 4323-8 ####LIANE Steinberg'PETRA ([id number])[facility] (ANNA)[address] [place] [address] Calcium [Mass/Vol] 8.2 mg/dL Low 8.6-10.3 [facility] Comment on above: Performed By: #### 2 4323-8 ####LIANE O'PETRA ([id number])[facility] (ANNA)[address] [place] [address] Chloride [Moles/Vol] 102 mmol/L Normal 98-107 [facility] Comment on above: Performed By: #### 2 4323-8 ####LIANE O'PETRA ([id number])[facility] (ANNA)[address] [place] [address] CO2 [Moles/Vol] 28 mmol/L Normal 21-[address] [facility] Comment on above: Result Comment: Bica rbonate results may be falsely elevated when Lactate Dehydrogenase (LDH) concentrations exceed 2,000 U/L due to a temporary reagent manufacturing issue. If significantly elevated LDH levels are suspected, interpret bicarbonate results with caution, correlate with the patient's clinical status, and consider confirming CO2 values using a blood gas analyzer. Performed By: #### 2 4323-8 ####LIANE Steinberg'PETRA ([id number])[facility] (ANNA)[address] [place] [address] Creatinine [Mass/Vol] 0.41 mg/dL Low 0.50-1.05 [facility] Comment on above: Performed By: #### 2 4323-8 ####LIANE O'PETRA ([id number])[facility] (ANNA)[address] [place] [address] Glomerular filtration rate >90 Normal >60 [facility] Comment on above: Result Comment: Calc ulations of estimated GFR are performed using the 2020 CKD-EPI Study Refit equation without the race variable for the IDMS-Traceable creatinine methods.https://jasn.asnjournals.org/content/early/A SN.2314119014 Performed By: #### 2 4323-8 ####LIANE O'PETRA ([id number])[facility] (ANNA)[address] [place] [address] Glucose [Mass/Vol] 141 mg/dL High 74-99 [facility] Comment on above: Performed By: #### 2 4323-8 ####LIANE O'PETRA ([id number])[facility] (ANNA)[address] [place] [address] Potassium [Moles/Vol] 3.6 mmol/L Normal 3.5-5.3 [facility] Comment on above: Performed By: #### 2 4323-8 ####LIANE Steinberg'PETRA ([id number])[facility] (ANNA)[address] [place] [address] Protein [Mass/Vol] 5.3 g/dL Low 6.4-8.2 [facility] Comment on above: Performed By: #### 2 4323-8 ####LIANE Steinberg'PETRA ([id number])[facility] (ANNA)[address] [place] [address] Sodium [Moles/Vol] 139 mmol/L Normal 136-145 [facility] Comment on above: Performed By: #### 2 4323-8 ####LIANE Steinberg'PETRA ([id number])[facility] (ANNA)[address] [place] [address] Urea nitrogen [Mass/Vol] 10 mg/dL Normal 6-23 [facility] Comment on above: Performed By: #### 2 4323-8 ####LIANE Steinberg'PETRA ([id number])[facility] (ANNA)[address] [place] [address] Magnesiumon 01-22-2025 Magnesium [Mass/Vol] 1.53 mg/dL Low 1.60-2.40 [facility] Comment on above: Performed By: #### 1 9123-9 ####[facility] [place] ([id number])[facility] (ANNA)[address] [place] [address] RBC shape Nom (Bld)on 2024 Mika cells LM Ql (Bld) Few Normal Un [facility] Comment on above: Performed By: #### 1 8225-3 ####[facility] [place] ([id number])[facility] (ANNA)[address] [place] [address] Dacrocytes LM Ql (Bld) Few Normal Un [facility] Comment on above: Performed By: #### 1 8225-3 ####LIANE O'PETRA ([id number])[facility] (ANNA)[address] [place] [address] Ovalocytes LM Ql (Bld) Few [facility] Comment on above: Performed By: #### 1 8225-3 ####LIANE O'PETRA ([id number])[facility] (ANNA)[address] [place] [address] Polychromasia LM Ql (Bld) Mild [facility] Comment on above: Performed By: #### 1 8225-3 ####LIANE O'PETRA ([id number])[facility] (ANNA)[address] [place] [address] RBC morphology finding Nom (Bld) See Below [facility] Comment on above: Performed By: #### 1 8225-3 ####LIANE O'PETRA ([id number])[facility] (ANNA)[address] [place] [address] Schistocytes LM Ql (Bld) Few [facility] Comment on above: Performed By: #### 1 8225-3 ####LIANE O'PETRA ([id number])[facility] (ANNA)[address] [place] [address] Rad Onc Msq Treatment Summar yon 01-21-2025 Actual Fractions Delivered 8 [facility] Actual Session Delivered Dose 200 cGray [facility] Actual Total Dose 1600 [facility] Course Number 1 [facility] Elapsed Days 12 [facility] Last Date 01/21/2025 [facility] Prescribed Fractional Dose 200 cGray [facility] Prescribed Number of Fractions 19 [facility] Prescribed Technique VMAT [facility] Prescribed Total Dose 3800 cGray [facility] Prescription Pattern Comment CBCT daily, align orbit and C7, chemo [facility] Start Date 01/09/2025 [facility] Treatment Site sinonasal+neckRP [facility] Rad Onc Msq Treatment Summar yon 01-18-2025 Actual Fractions Delivered 7 [facility] Actual Session Delivered Dose 200 cGray [facility] Actual Total Dose 1400 [facility] Course Number 1 [facility] Elapsed Days 9 [facility] Last Date 01/18/2025 [facility] Prescribed Fractional Dose 200 cGray [facility] Prescribed Number of Fractions 19 [facility] Prescribed Technique VMAT [facility] Prescribed Total Dose 3800 cGray [facility] Prescription Pattern Comment CBCT daily, align orbit and C7, chemo [facility] Start Date 01/09/2025 [facility] Treatment Site sinonasal+neckRP [facility] Rad Onc Msq Treatment Summar yon 01-16-2025 Actual Fractions Delivered 6 [facility] Actual Session Delivered Dose 200 cGray [facility] Actual Total Dose 1200 [facility] Course Number 1 [facility] Elapsed Days 7 [facility] Last Date 01/16/2025 [facility] Prescribed Fractional Dose 200 cGray [facility] Prescribed Number of Fractions 19 [facility] Prescribed Technique VMAT [facility] Prescribed Total Dose 3800 cGray [facility] Prescription Pattern Comment CBCT daily, align orbit and C7, chemo [facility] Start Date 01/09/2025 [facility] Treatment Site sinonasal+neckRP [facility] CBC W Auto Differential pane l (Bld)on 01-15-2025 Basophils (Bld) [#/Vol] 0.01 x10*3/uL Normal 0.00-0.10 [facility] Comment on above: Result Comment: Auto mated WBC differential has been confirmed by manual smear review Performed By: #### 5 7021-8 ####LIANE [place] ([id number])[facility] (ANNA)[address] [place] [address] Basophils/100 WBC (Bld) 0.4 % Normal 0.0-2.0 [facility] Comment on above: Performed By: #### 5 7021-8 ####LIANE [place] ([id number])[facility] (ANNA)[address] [place] [address] Eosinophils (Bld) [#/Vol] 0.02 x10*3/uL Normal 0.00-0.70 [facility] Comment on above: Performed By: #### 5 7021-8 ####LIANE Steinberg'PETRA ([id number])[facility] (ANNA)[address] [place] [address] Eosinophils/100 WBC (Bld) 0.7 % Normal 0.0-6.0 [facility] Comment on above: Performed By: #### 5 7021-8 ####LIANE Steinberg'PETRA ([id number])[facility] (ANNA)[address] [place] [address] Erythrocyte distribution width (RBC) [Ratio] 21.1 % High 11.5-14.5 [facility] Comment on above: Performed By: #### 5 7021-8 ####LIANE [place] ([id number])[facility] (ANNA)[address] [place] [address] Hematocrit (Bld) [Volume fraction] 34.1 % Low 36.0-46.0 [facility] Comment on above: Performed By: #### 5 7021-8 ####LIANE Steinberg'PETRA ([id number])[facility] (ANNA)[address] [place] [address] Hemoglobin (Bld) [Mass/Vol] 10.7 g/dL Low 12.0-16.0 [facility] Comment on above: Performed By: #### 5 7021-8 ####LIANE Steinberg'PETRA ([id number])[facility] (ANNA)[address] [place] [address] Immature granulocytes (Bld) [#/Vol] 0.02 x10*3/uL Normal 0.00-0.70 [facility] Comment on above: Performed By: #### 5 7021-8 ####LIANE [place] ([id number])[facility] (ANNA)[address] [place] [address] Immature granulocytes/100 WBC (Bld) 0.7 % Normal 0.0-0.9 [facility] Comment on above: Result Comment: Joelle ture Granulocyte Count (IG) includes promyelocytes, myelocytes and metamyelocytes but does not include bands. Percent differential counts (%) should be interpreted in the context of the absolute cell counts (cells/UL). Performed By: #### 5 7021-8 ####LIANE [place] ([id number])[facility] (ANNA)[address] [place] [address] Lymphocytes (Bld) [#/Vol] 0.37 x10*3/uL Low 1.20-4.80 [facility] Comment on above: Performed By: #### 5 7021-8 ####LIANE [place] ([id number])[facility] (ANNA)[address] [place] [address] Lymphocytes/100 WBC (Bld) 13.5 % Normal 13.0-44.0 [facility] Comment on above: Performed By: #### 5 7021-8 ####LIANE [place] ([id number])[facility] (ANNA)[address] [place] [address] MCH (RBC) [Entitic mass] 29.5 pg Normal 26.0-34.0 [facility] Comment on above: Performed By: #### 5 7021-8 ####LIANE [place] ([id number])[facility] (ANNA)[address] [place] [address] MCHC (RBC) [Mass/Vol] 31.4 g/dL Low 32.0-36.0 [facility] Comment on above: Performed By: #### 5 7021-8 ####LIANE Steinberg'PETRA ([id number])[facility] (ANNA)[address] [place] [address] MCV (RBC) [Entitic vol] 94 fL Normal 80-100 [facility] Comment on above: Performed By: #### 5 7021-8 ####LIANE Steinberg'PETRA ([id number])[facility] (ANNA)[address]33 [place] [address] Monocytes (Bld) [#/Vol] 0.48 x10*3/uL Normal 0.10-1.00 [facility] Comment on above: Performed By: #### 5 7021-8 ####LIANE Steinberg'PETRA ([id number])[facility] (ANNA)[address] [place] [address] Monocytes/100 WBC (Bld) 17.5 % Normal 2.0-10.0 [facility] Comment on above: Performed By: #### 5 7021-8 ####LIANE Steinberg'PETRA ([id number])[facility] (ANNA)[address] [place] [address] Neutrophils (Bld) [#/Vol] 1.84 x10*3/uL Normal 1.20-7.70 [facility] Comment on above: Result Comment: Perc ent differential counts (%) should be interpreted in the context of the absolute cell counts (cells/uL). Performed By: #### 5 7021-8 ####LIANE Steinberg'PETRA ([id number])[facility] (ANNA)[address] [place] [address] Neutrophils/100 WBC (Bld) 67.2 % Normal 40.0-80.0 [facility] Comment on above: Performed By: #### 5 7021-8 ####LIANE Steinberg'PETRA ([id number])[facility] (ANNA)[address] [place] [address] Nucleated RBC/100 WBC (Bld) [Ratio] 0.0 /100 WBCs Normal 0.0-0.0 [facility] Comment on above: Performed By: #### 5 7021-8 ####LIANE FRANCE ([id number])[facility] (ANNA)[address] [place] [address] Platelets (Bld) [#/Vol] 362 x10*3/uL Normal 150-450 [facility] Comment on above: Performed By: #### 5 7021-8 ####LIANE FR[place] ([id number])[facility] (ANNA)[address] [place] [address] RBC (Bld) [#/Vol] 3.63 x10*6/uL Low 4.00-5.20 [facility] Comment on above: Performed By: #### 5 7021-8 ####LIANE FRANCE ([id number])[facility] (ANNA)[address]35 [place] [address] WBC (Bld) [#/Vol] 2.7 x10*3/uL Low 4.4-11.3 [facility] Comment on above: Performed By: #### 5 7021-8 ####LIANE FRANCE ([id number])[facility] (ANNA)[address]000 [place] [address] Comprehensive metabolic 2000 panelon 01-15-2025 Albumin BCP dye [Mass/Vol] 3.1 g/dL Low 3.4-5.0 [facility] Comment on above: Performed By: #### 2 4323-8 ####LIANE FRANEC ([id number])[facility] (ANNA)[address]97 [place] [address] ALP [Catalytic activity/Vol] 40 U/L Normal 33-110 [facility] Comment on above: Performed By: #### 2 4323-8 ####LIANE FR[place] ([id number])[facility] (ANNA)[address] [place] [address] ALT With P-5'-P [Catalytic activity/Vol] 11 U/L Normal 7-45 [facility] Comment on above: Result Comment: Cara ents treated with Sulfasalazine may generate falsely decreased results for ALT. Performed By: #### 2 4323-8 ####LIANE Steinberg'PETRA ([id number])[facility] (ANNA)[address] [place] [address] Anion gap [Moles/Vol] 11 mmol/L Normal 10-20 [facility] Comment on above: Performed By: #### 2 4323-8 ####LIANE O'PETRA ([id number])[facility] (ANNA)[address]01 [place] [address] AST With P-5'-P [Catalytic activity/Vol] 14 U/L Normal 9-39 [facility] Comment on above: Performed By: #### 2 4323-8 ####LIANE O'PETRA ([id number])[facility] (ANNA)[address]89 [place] [address] Bilirubin [Mass/Vol] 0.2 mg/dL Normal 0.0-1.2 [facility] Comment on above: Performed By: #### 2 4323-8 ####LIANE Steinberg'PETRA ([id number])[facility] (ANNA)[address] [place] [address] Calcium [Mass/Vol] 8.5 mg/dL Low 8.6-10.3 [facility] Comment on above: Performed By: #### 2 4323-8 ####LIANE O'PETRA ([id number])[facility] (ANNA)[address]808 [place] [address] Chloride [Moles/Vol] 104 mmol/L Normal 98-107 [facility] Comment on above: Performed By: #### 2 4323-8 ####LIANE O'PETRA ([id number])[facility] (ANNA)[address] [place] [address] CO2 [Moles/Vol] 30 mmol/L Normal 21-[address] [facility] Comment on above: Result Comment: Bica rbonate results may be falsely elevated when Lactate Dehydrogenase (LDH) concentrations exceed 2,000 U/L due to a temporary reagent manufacturing issue. If significantly elevated LDH levels are suspected, interpret bicarbonate results with caution, correlate with the patient's clinical status, and consider confirming CO2 values using a blood gas analyzer. Performed By: #### 2 4323-8 ####LIANE O'PETRA ([id number])[facility] (ANNA)16595 [place] [address] Creatinine [Mass/Vol] 0.38 mg/dL Low 0.50-1.05 [facility] Comment on above: Performed By: #### 2 4323-8 ####LIANE Steinberg'PETRA ([id number])[facility] (ANNA)[address] [place] [address] Glomerular filtration rate >90 Normal >60 [facility] Comment on above: Result Comment: Calc ulations of estimated GFR are performed using the 2020 CKD-EPI Study Refit equation without the race variable for the IDMS-Traceable creatinine methods.https://jasn.asnjournals.org/content/early/A SN.7055352627 Performed By: #### 2 4323-8 ####LIANE O'PETRA ([id number])[facility] (ANNA)[address] [place] [address] Glucose [Mass/Vol] 119 mg/dL High 74-99 [facility] Comment on above: Performed By: #### 2 4323-8 ####LIANE Steinberg'PETRA ([id number])[facility] (ANNA)[address] [place] [address] Potassium [Moles/Vol] 3.6 mmol/L Normal 3.5-5.3 [facility] Comment on above: Performed By: #### 2 4323-8 ####LIANE Steinberg'PETRA ([id number])[facility] (ANNA)[address]13 [place] [address] Protein [Mass/Vol] 5.4 g/dL Low 6.4-8.2 [facility] Comment on above: Performed By: #### 2 4323-8 ####LIANE Steinberg'PETRA ([id number])[facility] (ANNA)[address]42 [place] [address] Sodium [Moles/Vol] 141 mmol/L Normal 136-145 [facility] Comment on above: Performed By: #### 2 4323-8 ####LIANE Steinberg'PETRA ([id number])[facility] (ANNA)[address] [place] [address] Urea nitrogen [Mass/Vol] 13 mg/dL Normal 6-23 [facility] Comment on above: Performed By: #### 2 4323-8 ####LIANE Steinberg'PETRA ([id number])[facility] (ANNA)[address]365 [place] [address] Magnesiumon 01-15-2025 Magnesium [Mass/Vol] 1.67 mg/dL Normal 1.60-2.40 [facility] Comment on above: Performed By: #### 1 9123-9 ####LIANE [place] ([id number])[facility] (ANNA)[address]806 [place] [address] RBC shape Nom (Bld)on 2024 [place] cells LM Ql (Bld) Few Normal Un [facility] Comment on above: Performed By: #### 1 8225-3 ####LIANE Steinberg'PETRA ([id number])[facility] (ANNA)[address] [place] [address] Dacrocytes LM Ql (Bld) Few Normal Un [facility] Comment on above: Performed By: #### 1 8225-3 ####LIANE O'PETRA ([id number])[facility] (ANNA)[address] [place] [address] Ovalocytes LM Ql (Bld) Few [facility] Comment on above: Performed By: #### 1 8225-3 ####LIANE O'PETRA ([id number])[facility] (ANNA)[address]394 [place] [address] RBC morphology finding Nom (Bld) See Below [facility] Comment on above: Performed By: #### 1 8225-3 ####LIANE O'PETRA ([id number])[facility] (ANNA)[address] [place] [address] Schistocytes LM Ql (Bld) Few [facility] Comment on above: Performed By: #### 1 8225-3 ####LIANE O'PETRA ([id number])[facility] (ANNA)[address] [place] [address] Rad Onc Msq Treatment Summar yon 01-15-2025 Actual Fractions Delivered 5 [facility] Actual Session Delivered Dose 200 cGray [facility] Actual Total Dose 1000 [facility]Gray [facility] Course Number 1 [facility] Elapsed Days 6 [facility] Last Date 01/15/2025 [facility] Prescribed Fractional Dose 200 cGray [facility] Prescribed Number of Fractions 19 [facility] Prescribed Technique VMAT [facility] Prescribed Total Dose 3800 cGray [facility] Prescription Pattern Comment CBCT daily, align orbit and C7, chemo [facility] Start Date 01/09/2025 [facility] Treatment Site sinonasal+neckRP [facility] Rad Onc Msq Treatment Summar yon 01-14-2025 Actual Fractions Delivered 4 [facility] Actual Session Delivered Dose 200 cGray [facility] Actual Total Dose 800 [facility] Course Number 1 [facility] Elapsed Days 5 [facility] Last Date 01/14/2025 [facility] Prescribed Fractional Dose 200 cGray [facility] Prescribed Number of Fractions 19 [facility] Prescribed Technique VMAT [facility] Prescribed Total Dose 3800 cGray [facility] Prescription Pattern Comment CBCT daily, align orbit and C7, chemo [facility] Start Date 01/09/2025 [facility] Treatment Site sinonasal+neckRP [facility] Rad Onc Msq Treatment Summar yon 01-11-2025 Actual Fractions Delivered 3 [facility] Actual Session Delivered Dose 200 cGray [facility] Actual Total Dose 600 [facility] Course Number 1 [facility] Elapsed Days 2 [facility] Last Date 01/11/2025 [facility] Prescribed Fractional Dose 200 cGray [facility] Prescribed Number of Fractions 19 [facility] Prescribed Technique VMAT [facility] Prescribed Total Dose 3800 cGray [facility] Prescription Pattern Comment CBCT daily, align orbit and C7, chemo [facility] Start Date 01/09/2025 [facility] Treatment Site sinonasal+neckRP [facility] Rad Onc Msq Treatment Summar yon 01-10-2025 Actual Fractions Delivered 2 [facility] Actual Session Delivered Dose 200 cGray [facility] Actual Total Dose 400 [facility] Course Number 1 [facility] Elapsed Days 1 [facility] Last Date 01/10/2025 [facility] Prescribed Fractional Dose 200 cGray [facility] Prescribed Number of Fractions 19 [facility] Prescribed Technique VMAT [facility] Prescribed Total Dose 3800 cGray [facility] Prescription Pattern Comment CBCT daily, align orbit and C7, chemo [facility] Start Date 01/09/2025 [facility] Treatment Site sinonasal+neckRP [facility] Rad Onc Msq Treatment Summar yon 01-09-2025 Actual Fractions Delivered 1 [facility] Actual Session Delivered Dose 200 cGray [facility] Actual Total Dose 200 [facility] Course Number 1 [facility] Elapsed Days 0 [facility] Last Date 01/09/2025 [facility] Prescribed Fractional Dose 200 cGray [facility] Prescribed Number of Fractions 19 [facility] Prescribed Technique VMAT [facility] Prescribed Total Dose 3800 cGray [facility] Prescription Pattern Comment CBCT daily, align orbit and C7, chemo [facility] Start Date 01/09/2025 [facility] Treatment Site sinonasal+neckRP [facility] CBC W Auto Differential pane l (Bld)on 01-08-2025 Basophils (Bld) [#/Vol] 0.02 x10*3/uL Normal 0.00-0.10 [facility] Comment on above: Result Comment: Auto mated WBC differential has been confirmed by manual smear review Performed By: #### 5 7021-8 ####LIANE [place] ([id number])[facility] (ANNA)[address] [place] [address] Basophils/100 WBC (Bld) 0.8 % Normal 0.0-2.0 [facility] Comment on above: Performed By: #### 5 7021-8 ####LIANE FR[place] ([id number])[facility] (ANNA)[address]251 [place] [address] Eosinophils (Bld) [#/Vol] 0.01 x10*3/uL Normal 0.00-0.70 [facility] Comment on above: Performed By: #### 5 7021-8 ####LIANE FR[place] ([id number])[facility] (ANNA)80649 [place] [address] Eosinophils/100 WBC (Bld) 0.4 % Normal 0.0-6.0 [facility] Comment on above: Performed By: #### 5 7021-8 ####LIANE FR[place] ([id number])[facility] (ANNA)56856 [place] [address] Erythrocyte distribution width (RBC) [Ratio] 20.3 % High 11.5-14.5 [facility] Comment on above: Performed By: #### 5 7021-8 ####LIANE FR[place] ([id number])[facility] (ANNA)[address] [place] [address] Hematocrit (Bld) [Volume fraction] 35.5 % Low 36.0-46.0 [facility] Comment on above: Performed By: #### 5 7021-8 ####LIANE [place] ([id number])[facility] (ANNA)[address]22 [place] [address] Hemoglobin (Bld) [Mass/Vol] 11.1 g/dL Low 12.0-16.0 [facility] Comment on above: Performed By: #### 5 7021-8 ####LIANE [place] ([id number])[facility] (ANNA)61768 [place] [address] Immature granulocytes (Bld) [#/Vol] 0.00 x10*3/uL Normal 0.00-0.70 [facility] Comment on above: Performed By: #### 5 7021-8 ####LIANE [place] ([id number])[facility] (ANNA)47781 [place] [address] Immature granulocytes/100 WBC (Bld) 0.0 % Normal 0.0-0.9 [facility] Comment on above: Result Comment: Joelle ture Granulocyte Count (IG) includes promyelocytes, myelocytes and metamyelocytes but does not include bands. Percent differential counts (%) should be interpreted in the context of the absolute cell counts (cells/UL). Performed By: #### 5 7021-8 ####LIANE [place] ([id number])[facility] (ANNA)[address]30 [place] [address] Lymphocytes (Bld) [#/Vol] 0.21 x10*3/uL Low 1.20-4.80 [facility] Comment on above: Performed By: #### 5 7021-8 ####LIANE [place] ([id number])[facility] (ANNA)17230 [place] [address] Lymphocytes/100 WBC (Bld) 8.5 % Normal 13.0-44.0 [facility] Comment on above: Performed By: #### 5 7021-8 ####LIANE Steinberg'PETRA ([id number])[facility] (ANNA)[address] [place] [address] MCH (RBC) [Entitic mass] 28.8 pg Normal 26.0-34.0 [facility] Comment on above: Performed By: #### 5 7021-8 ####LIANE Steinberg'PETRA ([id number])[facility] (ANNA)79629 [place] [address] MCHC (RBC) [Mass/Vol] 31.3 g/dL Low 32.0-36.0 [facility] Comment on above: Performed By: #### 5 7021-8 ####LIANE Steinberg'PETRA ([id number])[facility] (ANNA)[address]89 [place] [address] MCV (RBC) [Entitic vol] 92 fL Normal 80-100 [facility] Comment on above: Performed By: #### 5 7021-8 ####LIANE Steinberg'PETRA ([id number])[facility] (ANNA)[address]44 [place] [address] Monocytes (Bld) [#/Vol] 0.34 x10*3/uL Normal 0.10-1.00 [facility] Comment on above: Performed By: #### 5 7021-8 ####LIANE Steinberg'PETRA ([id number])[facility] (ANNA)[address]175 [place] [address] Monocytes/100 WBC (Bld) 13.8 % Normal 2.0-10.0 [facility] Comment on above: Performed By: #### 5 7021-8 ####LIANE Steinberg'PETRA ([id number])[facility] (ANNA)[address]360 [place] [address] Neutrophils (Bld) [#/Vol] 1.89 x10*3/uL Normal 1.20-7.70 [facility] Comment on above: Result Comment: Perc ent differential counts (%) should be interpreted in the context of the absolute cell counts (cells/uL). Performed By: #### 5 7021-8 ####LIANE Steinberg'PETRA ([id number])[facility] (ANNA)[address] [place] [address] Neutrophils/100 WBC (Bld) 76.5 % Normal 40.0-80.0 [facility] Comment on above: Performed By: #### 5 7021-8 ####LIANE Steinberg'PETRA ([id number])[facility] (ANNA)[address]44 [place] [address] Nucleated RBC/100 WBC (Bld) [Ratio] 0.0 /100 WBCs Normal 0.0-0.0 [facility] Comment on above: Performed By: #### 5 7021-8 ####LIANE Steinberg'PETRA ([id number])[facility] (ANNA)04282 [place] [address] Platelets (Bld) [#/Vol] 340 x10*3/uL Normal 150-450 [facility] Comment on above: Performed By: #### 5 7021-8 ####LIANE Steinberg'PETRA ([id number])[facility] (ANNA)11216 [place] [address] RBC (Bld) [#/Vol] 3.86 x10*6/uL Low 4.00-5.20 [facility] Comment on above: Performed By: #### 5 7021-8 ####LIANE Steinberg'PETRA ([id number])[facility] (ANNA)37380 [place] [address] WBC (Bld) [#/Vol] 2.5 x10*3/uL Low 4.4-11.3 [facility] Comment on above: Performed By: #### 5 7021-8 ####LIANE FR[place] (30326)[facility] (ANNA)15128 [place] [address] Comprehensive metabolic 2000 panelon 01-08-2025 Albumin BCP dye [Mass/Vol] 3.1 g/dL Low 3.4-5.0 [facility] Comment on above: Performed By: #### 2 4323-8 ####LIANE [place] ([id number])[facility] (ANNA)[address]368 [place] [address] ALP [Catalytic activity/Vol] 36 U/L Normal 33-110 [facility] Comment on above: Performed By: #### 2 4323-8 ####LIANE [place] (98395)[facility] (ANNA)[address] [place] [address] ALT With P-5'-P [Catalytic activity/Vol] 13 U/L Normal 7-45 [facility] Comment on above: Result Comment: Cara ents treated with Sulfasalazine may generate falsely decreased results for ALT. Performed By: #### 2 4323-8 ####LIANE [place] (88454)[facility] (ANNA)26403 [place] [address] Anion gap [Moles/Vol] 11 mmol/L Normal 10-20 [facility] Comment on above: Performed By: #### 2 4323-8 ####LIANE [place] ([id number])[facility] (ANNA)[address] [place] [address] AST With P-5'-P [Catalytic activity/Vol] 13 U/L Normal 9-39 [facility] Comment on above: Performed By: #### 2 4323-8 ####LIANE O'PETRA ([id number])[facility] (ANNA)67609 [place] [address] Bilirubin [Mass/Vol] 0.4 mg/dL Normal 0.0-1.2 [facility] Comment on above: Performed By: #### 2 4323-8 ####LIANE O'PETRA ([id number])[facility] (ANNA)50033 [place] [address] Calcium [Mass/Vol] 8.5 mg/dL Low 8.6-10.3 [facility] Comment on above: Performed By: #### 2 4323-8 ####LIANE O'PETRA (52311)[facility] (ANNA)68863 [place] [address] Chloride [Moles/Vol] 104 mmol/L Normal 98-107 [facility] Comment on above: Performed By: #### 2 4323-8 ####LIANE O'PETRA ([id number])[facility] (ANNA)78954 [place] [address] CO2 [Moles/Vol] 30 mmol/L Normal 21-[address] [facility] Comment on above: Result Comment: Bica rbonate results may be falsely elevated when Lactate Dehydrogenase (LDH) concentrations exceed 2,000 U/L due to a temporary reagent manufacturing issue. If significantly elevated LDH levels are suspected, interpret bicarbonate results with caution, correlate with the patient's clinical status, and consider confirming CO2 values using a blood gas analyzer. Performed By: #### 2 4323-8 ####LIANE O'PETRA (76727)[facility] (ANNA)87154 [place] [address] Creatinine [Mass/Vol] 0.42 mg/dL Low 0.50-1.05 [facility] Comment on above: Performed By: #### 2 4323-8 ####LIANE O'PETRA (85240)[facility] (ANNA)[address] [place] [address] Glomerular filtration rate >90 Normal >60 [facility] Comment on above: Result Comment: Calc ulations of estimated GFR are performed using the 2020 CKD-EPI Study Refit equation without the race variable for the IDMS-Traceable creatinine methods.https://jasn.asnjournals.org/content//A SN.9054058017 Performed By: #### 2 4323-8 ####LIANE Steinberg'PETRA (64209)[facility] (ANNA)35625 [place] [address] Glucose [Mass/Vol] 85 mg/dL Normal 74-99 [facility] Comment on above: Performed By: #### 2 4323-8 ####LIANE O'PETRA ([id number])[facility] (ANNA)57739 [place] [address] Potassium [Moles/Vol] 3.4 mmol/L Low 3.5-5.3 [facility] Comment on above: Performed By: #### 2 4323-8 ####LIANE O'PETRA ([id number])[facility] (ANNA)[address] [place] [address] Protein [Mass/Vol] 5.2 g/dL Low 6.4-8.2 [facility] Comment on above: Performed By: #### 2 4323-8 ####LIANE O'PETRA ([id number])[facility] (ANNA)[address]34 [place] [address] Sodium [Moles/Vol] 142 mmol/L Normal 136-145 [facility] Comment on above: Performed By: #### 2 4323-8 ####LIANE O'PETRA (70266)[facility] (ANNA)29180 [place] [address] Urea nitrogen [Mass/Vol] 14 mg/dL Normal 6-23 [facility] Comment on above: Performed By: #### 2 4323-8 ####LIANE O'PETRA ([id number])[facility] (ANNA)57201 [place] [address] Magnesiumon 01-08-2025 Magnesium [Mass/Vol] 1.64 mg/dL Normal 1.60-2.40 [facility] Comment on above: Performed By: #### 1 9123-9 ####LIANE Steinberg'PETRA (98552)[facility] (ANNA)[address]998 [place] [address] RBC shape Nom (Bld)on 2024 [place] cells LM Ql (Bld) Few Normal [facility] Comment on above: Performed By: #### 1 8225-3 ####LIANE Steinberg'PETRA (03137)[facility] (ANAN)81304 [place] [address] Dacrocytes LM Ql (Bld) Few Normal [facility] Comment on above: Performed By: #### 1 8225-3 ####LIANE Steinberg'PETRA ([id number])[facility] (ANNA)[address] [place] [address] Ovalocytes LM Ql (Bld) Few [facility] Comment on above: Performed By: #### 1 8225-3 ####LIANE Steinberg'PETRA ([id number])[facility] (ANNA)23755 [place] [address] Platelet clump LM Ql (Bld) Present [facility] Comment on above: Performed By: #### 1 8225-3 ####LIANE Steinberg'PETRA ([id number])[facility] (ANNA)[address]31 [place] [address] Polychromasia LM Ql (Bld) Mild [facility] Comment on above: Performed By: #### 1 8225-3 ####LIANE SteinbergSEVERIANO ([id number])[facility] (ANNA)[address] [facility] [address] RBC morphology finding Nom (Bld) See Below Normal [facility] Comment on above: Performed By: #### 1 8225-3 ####LIANE [place] (58326)[facility] (ANNA)[address] [place] [address] Rad Onc Msq Treatment Summar yon 01-08-2025 Actual Fractions Delivered 16 [facility] Actual Session Delivered Dose 200 cGray [facility] Actual Total Dose 3200 [facility]Gray [facility] Course Number 1 [facility] Elapsed Days 34 [facility] Last Date 01/08/2025 [facility] Prescribed Fractional Dose 200 cGray [facility] Prescribed Number of Fractions 16 [facility] Prescribed Technique VMAT [facility] Prescribed Total Dose 3200 cGray [facility] Prescription Pattern Comment CBCT daily, align orbit and C7, chemo [facility] Start Date 12/05/2024 [facility] [place] 01-07-2025 Actual Fractions Delivered 15 [facility] Actual Session Delivered Dose 200 cGray [facility] Actual Total Dose 3000 [facility] Course Number 1 [facility] Elapsed Days 33 [facility] Last Date 01/07/2025 [facility] Prescribed Fractional Dose 200 cGray [facility] Prescribed Number of Fractions 35 [facility] Prescribed Technique VMAT [facility] Prescribed Total Dose 7000 cGray [facility] Prescription Pattern Comment CBCT daily, align orbit and C7, chemo [facility] Start Date 12/05/2024 [facility] Msq Treatment [place] yo01-04-2025 Actual Fractions Delivered 14 [facility] Actual Session Delivered Dose 200 cGray [facility] Actual Total Dose 2800 [facility] Course Number 1 [facility] Elapsed Days 30 [facility] Last Date 01/04/2025 [facility] Prescribed Fractional Dose 200 cGray [facility] Prescribed Number of Fractions 35 [facility] Prescribed Technique VMAT [facility] Prescribed Total Dose 7000 cGray [facility] Prescription Pattern Comment CBCT daily, align orbit and C7, chemo [facility] Start Date 12/05/2024 [facility] Treatment Site sinonasal+neck [facility] Rad Onc Msq Treatment [place] yon 01-03-2025 Actual Fractions Delivered 13 [facility] Actual Session Delivered Dose 200 cGray [facility] Actual Total Dose 2600 [facility] Course Number 1 [facility] Elapsed Days 29 [facility] Last Date 01/03/2025 [facility] Prescribed Fractional Dose 200 cGray [facility] Prescribed Number of Fractions 35 [facility] Prescribed Technique VMAT [facility] Prescribed Total Dose 7000 cGray [facility] Prescription Pattern Comment CBCT daily, align orbit and C7, [facility] Start Date 12/05/2024 [facility] Treatment Site sinonasal+neck [facility] Rad Onc Msq Treatment [place] yon 01-02-2025 Actual Fractions Delivered 12 [facility] Actual Session Delivered Dose 200 cGray [facility] Actual Total Dose 2400 [facility] Course Number 1 [facility] Elapsed Days 28 [facility] Last Date 01/02/2025 [facility] Prescribed Fractional Dose 200 cGray [facility] Prescribed Number of Fractions 35 [facility] Prescribed Technique VMAT [facility] Prescribed Total Dose 7000 cGray [facility] Prescription Pattern Comment CBCT daily, align orbit and C7, chemo [facility] Start Date 12/05/2024 [facility] Treatment Site sinonasal+neck [facility] CBC W Auto Differential pane l (Bld)on 01-01-2025 Basophils (Bld) [#/Vol] 0.01 x10*3/uL Normal 0.00-0.10 [facility] Comment on above: Result Comment: Auto mated WBC differential has been confirmed by manual smear review Performed By: #### 5 7021-8 ####LIANE [place] ([id number])[facility] ([facility]NA)[address] [place] [address] Basophils/100 WBC (Bld) 0.3 % Normal 0.0-2.0 [facility] Comment on above: Performed By: #### 5 7021-8 ####[facility] [place] ([id number])[facility] (ANNA)[address] [place] [address] Eosinophils (Bld) [#/Vol] 0.02 x10*3/uL Normal 0.00-0.70 [facility] Comment on above: Performed By: #### 5 7021-8 ####[facility] [place] ([id number])[facility] (ANNA)[address] [place] [address] Eosinophils/100 WBC (Bld) 0.6 % Normal 0.0-6.0 [facility] Comment on above: Performed By: #### 5 7021-8 ####[facility] [place] ([id number])[facility] (ANNA)[address] [place] [address] Erythrocyte distribution width (RBC) [Ratio] 20.4 % High 11.5-14.5 [facility] Comment on above: Performed By: #### 5 7021-8 ####[facility] [place] ([id number])[facility] (ANNA)[address] [place] [address] Hematocrit (Bld) [Volume fraction] 36.0 % Normal 36.0-46.0 [facility] Comment on above: Performed By: #### 5 7021-8 ####[facility] [place] ([id number])[facility] (ANNA)[address] [place] [address] Hemoglobin (Bld) [Mass/Vol] 11.5 g/dL Low 12.0-16.0 [facility] Comment on above: Performed By: #### 5 7021-8 ####[place] ([id number])[facility] (ANNA)[address] [place] [address] Immature granulocytes (Bld) [#/Vol] 0.01 x10*3/uL Normal 0.00-0.70 [facility] Comment on above: Performed By: #### 5 7021-8 ####LIANE Steinberg'PETRA ([id number])[facility] (ANNA)[address] [place] [address] Immature granulocytes/100 WBC (Bld) 0.3 % Normal 0.0-0.9 [facility] Comment on above: Result Comment: Joelle ture Granulocyte Count (IG) includes promyelocytes, myelocytes and metamyelocytes but does not include bands. Percent differential counts (%) should be interpreted in the context of the absolute cell counts (cells/UL). Performed By: #### 5 7021-8 ####[place] ([id number])[facility] (ANNA)[address] [place] [address] Lymphocytes (Bld) [#/Vol] 0.60 x10*3/uL Low 1.20-4.80 [facility] Comment on above: Performed By: #### 5 7021-8 ####[place] ([id number])[facility] (ANNA)[address] [place] [address] Lymphocytes/100 WBC (Bld) 19.5 % Normal 13.0-44.0 [facility] Comment on above: Performed By: #### 5 7021-8 ####LIANE Steinberg'PETRA ([id number])[facility] (ANNA)[address] [place] [address] MCH (RBC) [Entitic mass] 28.5 pg Normal 26.0-34.0 [facility] Comment on above: Performed By: #### 5 7021-8 ####[place] ([id number])[facility] (ANNA)[address] [place] [address] MCHC (RBC) [Mass/Vol] 31.9 g/dL Low 32.0-36.0 [facility] Comment on above: Performed By: #### 5 7021-8 ####LIANE Steinberg'PETRA ([id number])[facility] (ANNA)[address] [place] [address] MCV (RBC) [Entitic vol] 89 fL Normal 80-100 [facility] Comment on above: Performed By: #### 5 7021-8 ####LIANE Steinberg'PETRA ([id number])[facility] (ANNA)[address] [place] [address] Monocytes (Bld) [#/Vol] 0.23 x10*3/uL Normal 0.10-1.00 [facility] Comment on above: Performed By: #### 5 7021-8 ####[place] ([id number])[facility] (ANNA)[address] [place] [address] Monocytes/100 WBC (Bld) 7.5 % Normal 2.0-10.0 [facility] Comment on above: Performed By: #### 5 7021-8 ####LIANE Steinberg'PETRA ([id number])[facility] (ANNA)[address] [place] [address] Neutrophils (Bld) [#/Vol] 2.21 x10*3/uL Normal 1.20-7.70 [facility] Comment on above: Result Comment: Perc ent differential counts (%) should be interpreted in the context of the absolute cell counts (cells/uL). Performed By: #### 5 7021-8 ####[place] ([id number])[facility] (ANNA)[address] [place] [address] Neutrophils/100 WBC (Bld) 71.8 % Normal 40.0-80.0 [facility] Comment on above: Performed By: #### 5 7021-8 ####[place] ([id number])[facility] (ANNA)[address] [place] [address] Nucleated RBC/100 WBC (Bld) [Ratio] 0.0 /100 WBCs Normal 0.0-0.0 [facility] Comment on above: Performed By: #### 5 7021-8 ####[place] ([id number])[facility] (ANNA)[address] [place] [address] Platelets (Bld) [#/Vol] 328 x10*3/uL Normal 150-450 [facility] Comment on above: Performed By: #### 5 7021-8 ####[place] ([id number])[facility] (ANNA)[address] [place] [address] RBC (Bld) [#/Vol] 4.04 x10*6/uL Normal 4.00-5.20 [facility] Comment on above: Performed By: #### 5 7021-8 ####[place] ([id number])[facility] (ANNA)[address] [place] [address] WBC (Bld) [#/Vol] 3.1 x10*3/uL Low 4.4-11.3 [facility] Comment on above: Performed By: #### 5 7021-8 ####LIANE Steinberg'PETRA ([id number])[facility] (ANNA)[address] [place] [address] Comprehensive metabolic 2000 panelon 01-01-2025 Albumin BCP dye [Mass/Vol] 2.8 g/dL Low 3.4-5.0 [facility] Comment on above: Performed By: #### 2 4323-8 ####[place] ([id number])[facility] (ANNA)[address] [place] [address] ALP [Catalytic activity/Vol] 39 U/L Normal 33-110 [facility] Comment on above: Performed By: #### 2 4323-8 ####LIANE Steinberg'PETRA ([id number])[facility] (ANNA)[address] [place] [address] ALT With P-5'-P [Catalytic activity/Vol] 16 U/L Normal 7-45 [facility] Comment on above: Result Comment: Cara ents treated with Sulfasalazine may generate falsely decreased results for ALT. Performed By: #### 2 4323-8 ####[place] ([id number])[facility] (ANNA)[address] [place] [address] Anion gap [Moles/Vol] 11 mmol/L Normal 10-20 [facility] Comment on above: Performed By: #### 2 4323-8 ####[place] ([id number])[facility] (ANNA)[address] [place] [address] AST With P-5'-P [Catalytic activity/Vol] 14 U/L Normal 9-39 [facility] Comment on above: Performed By: #### 2 4323-8 ####[place] ([id number])[facility] (ANNA)[address] [place] [address] Bilirubin [Mass/Vol] 0.3 mg/dL Normal 0.0-1.2 [facility] Comment on above: Performed By: #### 2 4323-8 ####LIANE Steinberg'PETRA ([id number])[facility] (ANNA)[address] [place] [address] Calcium [Mass/Vol] 7.6 mg/dL Low 8.6-10.3 [facility] Comment on above: Performed By: #### 2 4323-8 ####LIANE O'PETRA ([id number])[facility] (ANNA)[address] [place] [address] Chloride [Moles/Vol] 104 mmol/L Normal 98-107 [facility] Comment on above: Performed By: #### 2 4323-8 ####LIANE O'PETRA ([id number])[facility] (ANNA)[address] [place] [address] CO2 [Moles/Vol] 29 mmol/L Normal 21-[address] [facility] Comment on above: Performed By: #### 2 4323-8 ####LIANE O'PETRA ([id number])[facility] (ANNA)[address] [place] [address] Creatinine [Mass/Vol] 0.36 mg/dL Low 0.50-1.05 [facility] Comment on above: Performed By: #### 2 4323-8 ####LIANE O'PETRA ([id number])[facility] (ANNA)[address] [place] [address] Glomerular filtration rate >90 Normal >60 [facility] Comment on above: Result Comment: Calc ulations of estimated GFR are performed using the 2020 CKD-EPI Study Refit equation without the race variable for the IDMS-Traceable creatinine methods.https://jasn.asnjournals.org/content/early/A SN.8882441415 Performed By: #### 2 4323-8 ####LIANE O'PETRA ([id number])[facility] (ANNA)[address] [place] [address] Glucose [Mass/Vol] 90 mg/dL Normal 74-99 [facility] Comment on above: Performed By: #### 2 4323-8 ####LIANE O'PETRA ([id number])[facility] (ANNA)[address] [place] [address] Potassium [Moles/Vol] 3.7 mmol/L Normal 3.5-5.3 [facility] Comment on above: Performed By: #### 2 4323-8 ####LIANE Steinberg'PETRA ([id number])[facility] (ANNA)[address] [place] [address] Protein [Mass/Vol] 4.8 g/dL Low 6.4-8.2 [facility] Comment on above: Performed By: #### 2 4323-8 ####LIANE Steinberg'PETRA ([id number])[facility] (ANNA)[address] [place] [address] Sodium [Moles/Vol] 140 mmol/L Normal 136-145 [facility] Comment on above: Performed By: #### 2 4323-8 ####LIANE Steinberg'PETRA ([id number])[facility] (ANNA)[address] [place] [address] Urea nitrogen [Mass/Vol] 17 mg/dL Normal 6-23 [facility] Comment on above: Performed By: #### 2 4323-8 ####LIANE Steinberg'PETRA ([id number])[facility] (ANNA)[address] [place] [address] Magnesiumon 01-01-2025 Magnesium [Mass/Vol] 1.51 mg/dL Low 1.60-2.40 [facility] Comment on above: Performed By: #### 1 9123-9 ####LIANE Steinberg'PETRA ([id number])[facility] (ANNA)[address] [place] [address] RBC shape Nom (Bld)on 2024 Basophilic stippling LM Ql (Bld) Present Normal [facility] Comment on above: Performed By: #### 1 8225-3 ####LIANE Steinberg'PETRA ([id number])[facility] (ANNA)[address] [place] [address] Mika cells LM Ql (Bld) Few Normal [facility] Comment on above: Performed By: #### 1 8225-3 ####LIANE O'PETRA ([id number])[facility] (ANNA)[address] [place] [address] Dacrocytes LM Ql (Bld) Few Normal [facility] Comment on above: Performed By: #### 1 8225-3 ####LIANE O'PETRA ([id number])[facility] (ANNA)[address] [place] [address] Ovalocytes LM Ql (Bld) Few Normal [facility] Comment on above: Performed By: #### 1 8225-3 ####LIANE O'[place] ([id number])[facility] (ANNA)[address] [place] [address] Polychromasia LM Ql (Bld) Mild [facility] Comment on above: Performed By: #### 1 8225-3 ####LIANE O'[place] ([id number])[facility] (ANNA)[address] [place] [address] RBC morphology finding Nom (Bld) See Below [facility] Comment on above: Performed By: #### 1 8225-3 ####LIANE O'[place] ([id number])[facility] (ANNA)[address] [place] [address] Rad Onc Msq Treatment [place]mar yon 01-01-2025 Actual Fractions Delivered 11 [facility] Actual Session Delivered Dose 200 cGray [facility] Actual Total Dose 2200 [facility]Gray [facility] Course Number 1 [facility] Elapsed Days [facility] Last Date 01/01/2025 [facility] Prescribed Fractional Dose 200 cGray [facility] Prescribed Number of Fractions 35 [facility] Prescribed Technique VMAT [facility] Prescribed Total Dose 7000 cGray [facility] Prescription Pattern Comment CBCT daily, align orbit and C7, chemo [facility] Start Date 12/05/2024 [facility] Treatment Site sinonasal+neck [facility] Rad Onc Msq Treatment [place]mar yon 12-28-2024 Actual Fractions Delivered 10 [facility] Actual Session Delivered Dose 200 cGray [facility] Actual Total Dose 2000 [facility] Course Number 1 [facility] Elapsed Days 23 [facility] Last Date 12/28/2024 [facility] Prescribed Fractional Dose 200 cGray [facility] Prescribed Number of Fractions 35 [facility] Prescribed Technique VMAT [facility] Prescribed Total Dose 7000 cGray [facility] Prescription Pattern Comment CBCT daily, align orbit and C7, chemo [facility] Start Date 12/05/2024 [facility] Treatment Site sinonasal+neck [facility] Rad Onc Msq Treatment [place] yon 12-27-2024 Actual Fractions Delivered 9 [facility] Actual Session Delivered Dose 200 cGray [facility] Actual Total Dose 1800 [facility] Course Number 1 [facility] Elapsed Days 22 [facility] Last Date 12/27/2024 [facility] Prescribed Fractional Dose 200 cGray [facility] Prescribed Number of Fractions 35 [facility] Prescribed Technique VMAT [facility] Prescribed Total Dose 7000 cGray [facility] Prescription Pattern Comment CBCT daily, align orbit and C7, chemo [facility] Start Date 12/05/2024 [facility] No Panel Informationon 12-26 These images are not reportable by radiology and will not be interpreted by Radiologists. IMAGING RAD ONC CT SIM IMAGES ONLYon 12-26-[address] SIM IMAGES ONLY These images are not reportable by radiology and will not be interpreted by Radiologists. Normal [facility] Rad Onc Msq Treatment [place]mar yon 12-26-2024 Actual Fractions Delivered 8 [facility] Actual Session Delivered Dose 200 cGray [facility] Actual Total Dose 1600 [facility]Gray [facility] Course Number 1 [facility] Elapsed Days [facility] Last Date 12/26/2024 [facility] Prescribed Fractional Dose 200 cGray [facility] Prescribed Number of Fractions 35 [facility] Prescribed Technique VMAT [facility] Prescribed Total Dose 7000 cGray [facility] Prescription Pattern Comment CBCT daily, align orbit and C7, chemo [facility] Start Date 12/05/2024 [facility] Treatment Site sinonasal+neck [facility] CBC W Auto Differential pane l (Bld)on 12-25-2024 Basophils (Bld) [#/Vol] 0.01 x10*3/uL Normal 0.00-0.10 [facility] Comment on above: Performed By: #### 5 7021-8 ####[place] ([id number])[facility] (ANNA)[address] [place] [address] Basophils/100 WBC (Bld) 0.3 % Normal 0.0-2.0 [facility] Comment on above: Performed By: #### 5 7021-8 ####[place] ([id number])[facility] (ANNA)[address] [place] [address] Eosinophils (Bld) [#/Vol] 0.02 x10*3/uL Normal 0.00-0.70 [facility] Comment on above: Performed By: #### 5 7021-8 ####LIANE Steinberg'PETRA ([id number])[facility] (ANNA)[address] [place] [address] Eosinophils/100 WBC (Bld) 0.6 % Normal 0.0-6.0 [facility] Comment on above: Performed By: #### 5 7021-8 ####LIANE Steinberg'PETRA ([id number])[facility] (ANNA)[address] [place] [address] Erythrocyte distribution width (RBC) [Ratio] 19.9 % High 11.5-14.5 [facility] Comment on above: Performed By: #### 5 7021-8 ####[place] ([id number])[facility] (ANNA)[address] [place] [address] Hematocrit (Bld) [Volume fraction] 38.4 % Normal 36.0-46.0 [facility] Comment on above: Performed By: #### 5 7021-8 ####[place] ([id number])[facility] (ANNA)[address] [place] [address] Hemoglobin (Bld) [Mass/Vol] 12.3 g/dL Normal 12.0-16.0 [facility] Comment on above: Performed By: #### 5 7021-8 ####[place] ([id number])[facility] (ANNA)[address]120 [place] [address] Immature granulocytes (Bld) [#/Vol] 0.01 x10*3/uL Normal 0.00-0.70 [facility] Comment on above: Performed By: #### 5 7021-8 ####[place] ([id number])[facility] (ANNA)[address] [place] [address] Immature granulocytes/100 WBC (Bld) 0.3 % Normal 0.0-0.9 [facility] Comment on above: Result Comment: Joelle ture Granulocyte Count (IG) includes promyelocytes, myelocytes and metamyelocytes but does not include bands. Percent differential counts (%) should be interpreted in the context of the absolute cell counts (cells/UL). Performed By: #### 5 7021-8 ####[place] (85759)[facility] (ANNA)[address] [place] [address] Lymphocytes (Bld) [#/Vol] 0.86 x10*3/uL Low 1.20-4.80 [facility] Comment on above: Performed By: #### 5 7021-8 ####[place] ([id number])[facility] (ANNA)[address] [place] [address] Lymphocytes/100 WBC (Bld) 24.6 % Normal 13.0-44.0 [facility] Comment on above: Performed By: #### 5 7021-8 ####[place] ([id number])[facility] (ANNA)[address] [place] [address] MCH (RBC) [Entitic mass] 28.4 pg Normal 26.0-34.0 [facility] Comment on above: Performed By: #### 5 7021-8 ####[place] ([id number])[facility] (ANNA)[address]60 [place] [address] MCHC (RBC) [Mass/Vol] 32.0 g/dL Normal 32.0-36.0 [facility] Comment on above: Performed By: #### 5 7021-8 ####[place] ([id number])[facility] (ANNA)[address] [place] [address] MCV (RBC) [Entitic vol] 89 fL Normal 80-100 [facility] Comment on above: Performed By: #### 5 7021-8 ####[place] ([id number])[facility] (ANNA)[address] [place] [address] Monocytes (Bld) [#/Vol] 0.39 x10*3/uL Normal 0.10-1.00 [facility] Comment on above: Performed By: #### 5 7021-8 ####[place] ([id number])[facility] (ANNA)52497 [place] [address] Monocytes/100 WBC (Bld) 11.1 % Normal 2.0-10.0 [facility] Comment on above: Performed By: #### 5 7021-8 ####LIANE Steinberg'PETRA ([id number])[facility] (ANNA)[address] [place] [address] Neutrophils (Bld) [#/Vol] 2.21 x10*3/uL Normal 1.20-7.70 [facility] Comment on above: Result Comment: Perc ent differential counts (%) should be interpreted in the context of the absolute cell counts (cells/uL). Performed By: #### 5 7021-8 ####LIANE Steinberg'PETRA ([id number])[facility] (ANNA)[address] [place] [address] Neutrophils/100 WBC (Bld) 63.1 % Normal 40.0-80.0 [facility] Comment on above: Performed By: #### 5 7021-8 ####LIANE Steinberg'PETRA ([id number])[facility] (ANNA)[address] [place] [address] Nucleated RBC/100 WBC (Bld) [Ratio] 0.0 /100 WBCs Normal 0.0-0.0 [facility] Comment on above: Performed By: #### 5 7021-8 ####LIANE Steinberg'PETRA ([id number])[facility] (ANNA)[address] [place] [address] Platelets (Bld) [#/Vol] 345 x10*3/uL Normal 150-450 [facility] Comment on above: Performed By: #### 5 7021-8 ####LIANE O'PETRA ([id number])[facility] (ANNA)[address] [place] [address] RBC (Bld) [#/Vol] 4.33 x10*6/uL Normal 4.00-5.20 [facility] Comment on above: Performed By: #### 5 7021-8 ####LIANE Steinberg'PETRA ([id number])[facility] (ANNA)[address]456 [place] [address] WBC (Bld) [#/Vol] 3.5 x10*3/uL Low 4.4-11.3 [facility] Comment on above: Performed By: #### 5 7021-8 ####LIANE [place] ([id number])[facility] (ANNA)[address] [place] [address] Comprehensive metabolic 2000 panelon 12-25-2024 Albumin BCP dye [Mass/Vol] 3.1 g/dL Low 3.4-5.0 [facility] Comment on above: Performed By: #### 2 4323-8 ####LIANE [place] ([id number])[facility] (ANNA)[address] [place] [address] ALP [Catalytic activity/Vol] 41 U/L Normal 33-110 [facility] Comment on above: Performed By: #### 2 4323-8 ####LIANE [place] ([id number])[facility] (ANNA)[address] [place] [address] ALT With P-5'-P [Catalytic activity/Vol] 20 U/L Normal 7-45 [facility] Comment on above: Result Comment: Cara ents treated with Sulfasalazine may generate falsely decreased results for ALT. Performed By: #### 2 4323-8 ####LIANE [place] ([id number])[facility] (ANNA)[address] [place] [address] Anion gap [Moles/Vol] 11 mmol/L Normal 10-20 [facility] Comment on above: Performed By: #### 2 4323-8 ####LIANE [place] ([id number])[facility] (ANNA)[address] [place] [address] AST With P-5'-P [Catalytic activity/Vol] 16 U/L Normal 9-39 [facility] Comment on above: Performed By: #### 2 4323-8 ####LIANE O'PETRA ([id number])[facility] (ANNA)[address] [place] [address] Bilirubin [Mass/Vol] 0.3 mg/dL Normal 0.0-1.2 [facility] Comment on above: Performed By: #### 2 4323-8 ####LIANE O'PETRA ([id number])[facility] (ANNA)[address] [place] [address] Calcium [Mass/Vol] 8.2 mg/dL Low 8.6-10.3 [facility] Comment on above: Performed By: #### 2 4323-8 ####LIANE O'PETRA ([id number])[facility] (ANNA)[address] [place] [address] Chloride [Moles/Vol] 106 mmol/L Normal 98-107 [facility] Comment on above: Performed By: #### 2 4323-8 ####LIANE O'PETRA ([id number])[facility] (ANNA)[address] [place] [address] CO2 [Moles/Vol] 30 mmol/L Normal 21-[address] [facility] Comment on above: Performed By: #### 2 4323-8 ####LIANE O'PETRA ([id number])[facility] (ANNA)[address] [place] [address] Creatinine [Mass/Vol] 0.44 mg/dL Low 0.50-1.05 [facility] Comment on above: Performed By: #### 2 4323-8 ####LIANE O'PERTA ([id number])[facility] (ANNA)[address] [place] [address] Glomerular filtration rate >90 Normal >60 [facility] Comment on above: Result Comment: Calc ulations of estimated GFR are performed using the 2020 CKD-EPI Study Refit equation without the race variable for the IDMS-Traceable creatinine methods.https://jasn.asnjournals.org/content//A SN.6283726144 Performed By: #### 2 4323-8 ####LIANE O'PETRA ([id number])[facility] (ANNA)[address] [place] [address] Glucose [Mass/Vol] 94 mg/dL Normal 74-99 [facility] Comment on above: Performed By: #### 2 4323-8 ####LIANE O'PETRA ([id number])[facility] (ANNA)[address] [place] [address] Potassium [Moles/Vol] 3.5 mmol/L Normal 3.5-5.3 [facility] Comment on above: Performed By: #### 2 4323-8 ####LIANE O'PETRA (49798)[facility] (ANNA)[address] [place] [address] Protein [Mass/Vol] 5.1 g/dL Low 6.4-8.2 [facility] Comment on above: Performed By: #### 2 4323-8 ####LIANE O'PETRA ([id number])[facility] (ANNA)[address] [place] [address] Sodium [Moles/Vol] 143 mmol/L Normal 136-145 [facility] Comment on above: Performed By: #### 2 4323-8 ####LIANE O'PETRA ([id number])[facility] (ANNA)[address] [place] [address] Urea nitrogen [Mass/Vol] 18 mg/dL Normal 6-23 [facility] Comment on above: Performed By: #### 2 4323-8 ####LIANE O'PETRA ([id number])[facility] (ANNA)[address] [place] [address] Magnesiumon 12-25-2024 Magnesium [Mass/Vol] 1.81 mg/dL Normal 1.60-2.40 [facility] Comment on above: Performed By: #### 1 9123-9 ####LIANE [place] ([id number])[facility] (ANNA)72046 [place] [address] SIM IMAGES ONLYon 12-21-[address] SIM IMAGES ONLY These images are not reportable by radiology and will not be interpreted by Radiologists. Normal [facility] Rad Onc CT Sim Imageson 12-12 These images are not reportable by radiology and will not be interpreted by Radiologists. IMAGING Rad Onc Msq Treatment Summar yon 12-20-2024 Actual Fractions Delivered 7 [facility] Actual Session Delivered Dose 200 cGray [facility] Actual Total Dose 1400 [facility] Course Number 1 [facility] Elapsed Days 15 [facility] Last Date 12/20/2024 [facility] Prescribed Fractional Dose 200 cGray [facility] Prescribed Number of Fractions 35 [facility] Prescribed Technique VMAT [facility] Prescribed Total Dose 7000 cGray [facility] Prescription Pattern Comment CBCT daily, align orbit and C7, chemo [facility] Start Date 12/05/2024 [facility] Treatment Site sinonasal+neck [facility] Rad Onc Msq Treatment Summar yon 12-19-2024 Actual Fractions Delivered 6 [facility] Actual Session Delivered Dose 200 cGray [facility] Actual Total Dose 1200 [facility] Course Number 1 [facility] Elapsed Days 14 [facility] Last Date 12/19/2024 [facility] Prescribed Fractional Dose 200 cGray [facility] Prescribed Number of Fractions 35 [facility] Prescribed Technique VMAT [facility] Prescribed Total Dose 7000 cGray [facility] Prescription Pattern Comment CBCT daily, align orbit and C7, chemo [facility] Start Date 12/05/2024 [facility] Treatment Site sinonasal+neck [facility] CBC W Auto Differential pane l (Bld)on 12-18-2024 Basophils (Bld) [#/Vol] 0.00 x10*3/uL Normal 0.00-0.10 [facility] Comment on above: Performed By: #### 5 7021-8 ####LIANE [place] ([id number])[facility] (ANNA)[address] [place] [address] Basophils/100 WBC (Bld) 0.0 % Normal 0.0-2.0 [facility] Comment on above: Performed By: #### 5 7021-8 ####[place]ANE [place] (85572)[facility] (ANNA)[address] [place] [address] Eosinophils (Bld) [#/Vol] 0.00 x10*3/uL Normal 0.00-0.70 [facility] Comment on above: Performed By: #### 5 7021-8 ####LIANE Steinberg'PETRA ([id number])[facility] (ANNA)[address] [place] [address] Eosinophils/100 WBC (Bld) 0.0 % Normal 0.0-6.0 [facility] Comment on above: Performed By: #### 5 7021-8 ####LIANE [place] ([id number])[facility] (ANNA)[address] [place] [address] Erythrocyte distribution width (RBC) [Ratio] 19.7 % High 11.5-14.5 [facility] Comment on above: Performed By: #### 5 7021-8 ####LIANE Steinberg'PETRA (05454)[facility] (ANNA)[address] [place] [address] Hematocrit (Bld) [Volume fraction] 39.4 % Normal 36.0-46.0 [facility] Comment on above: Performed By: #### 5 7021-8 ####[place]ANE [place] ([id number])[facility] (ANNA)[address] [place] [address] Hemoglobin (Bld) [Mass/Vol] 12.7 g/dL Normal 12.0-16.0 [facility] Comment on above: Performed By: #### 5 7021-8 ####LIANE Steinberg'PETRA ([id number])[facility] (ANNA)[address] [place] [address] Immature granulocytes (Bld) [#/Vol] 0.02 x10*3/uL Normal 0.00-0.70 [facility] Comment on above: Performed By: #### 5 7021-8 ####LIANE Steinberg'PETRA ([id number])[facility] (ANNA)[address] [place] [address] Immature granulocytes/100 WBC (Bld) 0.3 % Normal 0.0-0.9 [facility] Comment on above: Result Comment: Joelle ture Granulocyte Count (IG) includes promyelocytes, myelocytes and metamyelocytes but does not include bands. Percent differential counts (%) should be interpreted in the context of the absolute cell counts (cells/UL). Performed By: #### 5 7021-8 ####LIANE Steinberg'PETRA (49273)[facility] (ANNA)[address] [place] [address] Lymphocytes (Bld) [#/Vol] 0.56 x10*3/uL Low 1.20-4.80 [facility] Comment on above: Performed By: #### 5 7021-8 ####LIANE [place] (44036)[facility] (ANNA)[address] [place] [address] Lymphocytes/100 WBC (Bld) 9.2 % Normal 13.0-44.0 [facility] Comment on above: Performed By: #### 5 7021-8 ####LIANE Steinberg'PETRA ([id number])[facility] (ANNA)[address] [place] [address] MCH (RBC) [Entitic mass] 27.8 pg Normal 26.0-34.0 [facility] Comment on above: Performed By: #### 5 7021-8 ####LIANE [place] ([id number])[facility] (ANNA)[address] [place] [address] MCHC (RBC) [Mass/Vol] 32.2 g/dL Normal 32.0-36.0 [facility] Comment on above: Performed By: #### 5 7021-8 ####LIANE [place] ([id number])[facility] (ANNA)[address] [place] [address] MCV (RBC) [Entitic vol] 86 fL Normal 80-100 [facility] Comment on above: Performed By: #### 5 7021-8 ####LIANE [place] ([id number])[facility] (ANNA)[address] [place] [address] Monocytes (Bld) [#/Vol] 0.28 x10*3/uL Normal 0.10-1.00 [facility] Comment on above: Performed By: #### 5 7021-8 ####LIANE [place] ([id number])[facility] (ANNA)[address]34 [place] [address] Monocytes/100 WBC (Bld) 4.6 % Normal 2.0-10.0 [facility] Comment on above: Performed By: #### 5 7021-8 ####LIANE [place] ([id number])[facility] (ANNA)[address] [place] [address] Neutrophils (Bld) [#/Vol] 5.21 x10*3/uL Normal 1.20-7.70 [facility] Comment on above: Result Comment: Perc ent differential counts (%) should be interpreted in the context of the absolute cell counts (cells/uL). Performed By: #### 5 7021-8 ####LIANE Steinberg'PETRA ([id number])[facility] (ANNA)[address] [place] [address] Neutrophils/100 WBC (Bld) 85.9 % Normal 40.0-80.0 [facility] Comment on above: Performed By: #### 5 7021-8 ####LIANE Steinberg'PETRA ([id number])[facility] (ANNA)[address] [place] [address] Nucleated RBC/100 WBC (Bld) [Ratio] 0.0 /100 WBCs Normal 0.0-0.0 [facility] Comment on above: Performed By: #### 5 7021-8 ####LIANE Steinberg'PETRA ([id number])[facility] (ANNA)[address] [place] [address] Platelets (Bld) [#/Vol] 378 x10*3/uL Normal 150-450 [facility] Comment on above: Performed By: #### 5 7021-8 ####LIANE Steinberg'PETRA ([id number])[facility] (ANNA)[address] [place] [address] RBC (Bld) [#/Vol] 4.57 x10*6/uL Normal 4.00-5.20 [facility] Comment on above: Performed By: #### 5 7021-8 ####LIANE Steinberg'PETRA (39555)[facility] (ANNA)[address] [place] [address] WBC (Bld) [#/Vol] 6.1 x10*3/uL Normal 4.4-11.3 [facility] Comment on above: Performed By: #### 5 7021-8 ####LIANE Steinberg'PETRA ([id number])[facility] (ANNA)[address] [place] [address] Comprehensive metabolic 2000 panelon 12-18-2024 Albumin BCP dye [Mass/Vol] 3.3 g/dL Low 3.4-5.0 [facility] Comment on above: Performed By: #### 2 4323-8 ####LIANE [place] ([id number])[facility] (ANNA)[address] [place] [address] ALP [Catalytic activity/Vol] 33 U/L Normal 33-110 [facility] Comment on above: Performed By: #### 2 4323-8 ####LIANE Steinberg'PETRA (15265)[facility] (ANNA)[address] [place] [address] ALT With P-5'-P [Catalytic activity/Vol] 15 U/L Normal 7-45 [facility] Comment on above: Result Comment: Cara ents treated with Sulfasalazine may generate falsely decreased results for ALT. Performed By: #### 2 4323-8 ####LIANE Steinberg'PETRA (38750)[facility] (ANNA)[address] [place] [address] Anion gap [Moles/Vol] 10 mmol/L Normal 10-20 [facility] Comment on above: Performed By: #### 2 4323-8 ####LIANE [place] ([id number])[facility] (ANNA)[address]014 [place] [address] AST With P-5'-P [Catalytic activity/Vol] 16 U/L Normal 9-39 [facility] Comment on above: Performed By: #### 2 4323-8 ####LIANE Steinberg'PETRA (41950)[facility] (ANNA)[address] [place] [address] Bilirubin [Mass/Vol] 0.4 mg/dL Normal 0.0-1.2 [facility] Comment on above: Performed By: #### 2 4323-8 ####LIANE Steinberg'PETRA ([id number])[facility] (ANNA)[address] [place] [address] Calcium [Mass/Vol] 8.5 mg/dL Low 8.6-10.3 [facility] Comment on above: Performed By: #### 2 4323-8 ####LIANE O'PETRA (68121)[facility] (ANNA)[address] [place] [address] Chloride [Moles/Vol] 103 mmol/L Normal 98-107 [facility] Comment on above: Performed By: #### 2 4323-8 ####LIANE O'PETRA ([id number])[facility] (ANNA)[address] [place] [address] CO2 [Moles/Vol] 30 mmol/L Normal 21-[address] [facility] Comment on above: Performed By: #### 2 4323-8 ####LIANE O'PETRA (49262)[facility] (ANNA)[address] [place] [address] Creatinine [Mass/Vol] 0.49 mg/dL Low 0.50-1.05 [facility] Comment on above: Performed By: #### 2 4323-8 ####LIANE O'PETRA (16779)[facility] (ANNA)[address] [place] [address] Glomerular filtration rate >90 Normal >60 [facility] Comment on above: Result Comment: Calc ulations of estimated GFR are performed using the 2020 CKD-EPI Study Refit equation without the race variable for the IDMS-Traceable creatinine methods.https://jasn.asnjournals.org/content/early//A SN.4131089117 Performed By: #### 2 4323-8 ####LIANE O'PETRA (37962)[facility] (ANNA)[address] [place] [address] Glucose [Mass/Vol] 95 mg/dL Normal 74-99 [facility] Comment on above: Performed By: #### 2 4323-8 ####LIANE O'PETRA (69425)[facility] (ANNA)[address] [place] [address] Potassium [Moles/Vol] 3.2 mmol/L Low 3.5-5.3 [facility] Comment on above: Performed By: #### 2 4323-8 ####LIANE O'PETRA (14063)[facility] (ANNA)634[address] [place] [address] Protein [Mass/Vol] 5.1 g/dL Low 6.4-8.2 [facility] Comment on above: Performed By: #### 2 4323-8 ####LIANE O'PETRA (67304)[facility] (ANNA)[address] [place] [address] Sodium [Moles/Vol] 140 mmol/L Normal 136-145 [facility] Comment on above: Performed By: #### 2 4323-8 ####LIANE O'PETRA ([id number])[facility] (ANNA)[address] [place] [address] Urea nitrogen [Mass/Vol] 17 mg/dL Normal 6-23 [facility] Comment on above: Performed By: #### 2 4323-8 ####LIANE O'PETRA ([id number])[facility] (ANNA)[address] [place] [address] Magnesiumon 12-18-2024 Magnesium [Mass/Vol] 1.87 mg/dL Normal 1.60-2.40 [facility] Comment on above: Performed By: #### 1 9123-9 ####LIANE O'PETRA (74879)[facility] (ANNA)[address] [place] [address] Rad Onc Msq Treatment Summar yon 12-18-2024 Actual Fractions Delivered 5 [facility] Actual Session Delivered Dose 200 cGray [facility] Actual Total Dose 1000 [facility] Course Number 1 [facility] Elapsed Days 13 [facility] Last Date 12/18/2024 [facility] Prescribed Fractional Dose 200 cGray [facility] Prescribed Number of Fractions 35 [facility] Prescribed Technique VMAT [facility] Prescribed Total Dose 7000 cGray [facility] Prescription Pattern Comment CBCT daily, align orbit and C7, chemo [facility] Start Date 12/05/2024 [facility] Msq Treatment Summar yon 12-17-2024 Actual Fractions Delivered 4 [facility] Actual Session Delivered Dose 200 cGray [facility] Actual Total Dose 800 [facility] Course Number 1 [facility] Elapsed Days 12 [facility] Last Date 12/17/2024 [facility] Prescribed Fractional Dose 200 cGray [facility] Prescribed Number of Fractions 35 [facility] Prescribed Technique VMAT [facility] Prescribed Total Dose 7000 cGray [facility] Prescription Pattern Comment CBCT daily, align orbit and C7, chemo [facility] Start Date 12/05/2024 [facility] Treatment Site sinonasal+neck [facility] Rad Onc Msq Treatment Summar yon 12-07-2024 Actual Fractions Delivered 3 [facility] Actual Session Delivered Dose 200 cGray [facility] Actual Total Dose 600 [facility] Course Number 1 [facility] Elapsed Days 2 [facility] Last Date 12/07/2024 [facility] Prescribed Fractional Dose 200 cGray [facility] Prescribed Number of Fractions 35 [facility] Prescribed Technique VMAT [facility] Prescribed Total Dose 7000 cGray [facility] Prescription Pattern Comment CBCT daily, align orbit and C7, [facility] Start Date 12/05/2024 [facility] Rad Onc Msq Treatment Summar yon 12-06-2024 Actual Fractions Delivered 2 [facility] Actual Session Delivered Dose 200 cGray [facility] Actual Total Dose 400 [facility] Course Number 1 [facility] Elapsed Days 1 [facility] Last Date 12/06/2024 [facility] Prescribed Fractional Dose 200 cGray [facility] Prescribed Number of Fractions 35 [facility] Prescribed Technique VMAT [facility] Prescribed Total Dose 7000 cGray [facility] Prescription Pattern Comment CBCT daily, align orbit and C7, chemo [facility] Start Date 12/05/2024 [facility] Treatment Site sinonasal+neck [facility] CBC W Auto Differential pane l (Bld)on 12-05-2024 Basophils (Bld) [#/Vol] 0.04 x10*3/uL Normal 0.00-0.10 [facility] Comment on above: Performed By: #### 5 7021-8 ####LIANE [place] ([id number])[facility] (ANNA)[address] [place] [address] Basophils/100 WBC (Bld) 0.2 % Normal 0.0-2.0 [facility] Comment on above: Performed By: #### 5 7021-8 ####LIANE [place] ([id number])[facility] (ANNA)[address]73 [place] [address] Eosinophils (Bld) [#/Vol] 0.08 x10*3/uL Normal 0.00-0.70 [facility] Comment on above: Performed By: #### 5 7021-8 ####LIANE [place] ([id number])[facility] (ANNA)[address] [place] [address] Eosinophils/100 WBC (Bld) 0.5 % Normal 0.0-6.0 [facility] Comment on above: Performed By: #### 5 7021-8 ####LIANE [place] ([id number])[facility] (ANNA)[address] [place] [address] Erythrocyte distribution width (RBC) [Ratio] 18.2 % High 11.5-14.5 [facility] Comment on above: Performed By: #### 5 7021-8 ####LIANE [place] ([id number])[facility] (ANNA)[address]133 [place] [address] Hematocrit (Bld) [Volume fraction] 40.6 % Normal 36.0-46.0 [facility] Comment on above: Performed By: #### 5 7021-8 ####LIANE [place] ([id number])[facility] (ANNA)[address] [place] [address] Hemoglobin (Bld) [Mass/Vol] 13.6 g/dL Normal 12.0-16.0 [facility] Comment on above: Performed By: #### 5 7021-8 ####LIANE [place] ([id number])[facility] (ANNA)[address] [place] [address] Immature granulocytes (Bld) [#/Vol] 0.10 x10*3/uL Normal 0.00-0.70 [facility] Comment on above: Performed By: #### 5 7021-8 ####LIANE [place] (74608)[facility] (ANNA)[address] [place] [address] Immature granulocytes/100 WBC (Bld) 0.6 % Normal 0.0-0.9 [facility] Comment on above: Result Comment: Joelle ture Granulocyte Count (IG) includes promyelocytes, myelocytes and metamyelocytes but does not include bands. Percent differential counts (%) should be interpreted in the context of the absolute cell counts (cells/UL). Performed By: #### 5 7021-8 ####LIANE [place] ([id number])[facility] (ANNA)[address] [place] [address] Lymphocytes (Bld) [#/Vol] 1.17 x10*3/uL Low 1.20-4.80 [facility] Comment on above: Performed By: #### 5 7021-8 ####LIANE Steinberg'PETRA ([id number])[facility] (ANNA)[address]1985 [place] [address] Lymphocytes/100 WBC (Bld) 7.2 % Normal 13.0-44.0 [facility] Comment on above: Performed By: #### 5 7021-8 ####LIANE Steinberg'PETRA (15904)[facility] (ANNA)[address] [place] [address] MCH (RBC) [Entitic mass] 27.6 pg Normal 26.0-34.0 [facility] Comment on above: Performed By: #### 5 7021-8 ####LIANE Steinberg'PETRA (24799)[facility] (ANNA)[address] [place] [address] MCHC (RBC) [Mass/Vol] 33.5 g/dL Normal 32.0-36.0 [facility] Comment on above: Performed By: #### 5 7021-8 ####LIANE Steinberg'PETRA (70051)[facility] (ANNA)[address] [place] [address] MCV (RBC) [Entitic vol] 82 fL Normal 80-100 [facility] Comment on above: Performed By: #### 5 7021-8 ####LIANE Steinberg'PETRA (55596)[facility] (ANNA)[address]77 [place] [address] Monocytes (Bld) [#/Vol] 0.90 x10*3/uL Normal 0.10-1.00 [facility] Comment on above: Performed By: #### 5 7021-8 ####LIANE Steinberg'PETRA (21627)[facility] (ANNA)[address]304 [place] [address] Monocytes/100 WBC (Bld) 5.5 % Normal 2.0-10.0 [facility] Comment on above: Performed By: #### 5 7021-8 ####LIANE Steinberg'PETRA (90710)[facility] (ANNA)[address] [place] [address] Neutrophils (Bld) [#/Vol] 14.07 x10*3/uL High 1.20-7.70 [facility] Comment on above: Result Comment: Perc ent differential counts (%) should be interpreted in the context of the absolute cell counts (cells/uL). Performed By: #### 5 7021-8 ####LIANE Steinberg'PETRA (57265)[facility] (ANNA)[address]35 [place] [address] Neutrophils/100 WBC (Bld) 86.0 % Normal 40.0-80.0 [facility] Comment on above: Performed By: #### 5 7021-8 ####LIANE Steinberg'PETRA ([id number])[facility] (ANNA)[address] [place] [address] Nucleated RBC/100 WBC (Bld) [Ratio] 0.0 /100 WBCs Normal 0.0-0.0 [facility] Comment on above: Performed By: #### 5 7021-8 ####LIANE Steinberg'PETRA ([id number])[facility] (ANNA)[address] [place] [address] Platelets (Bld) [#/Vol] 533 x10*3/uL High 150-450 [facility] Comment on above: Performed By: #### 5 7021-8 ####LINAE O'PETRA ([id number])[facility] (ANNA)[address] [place] [address] RBC (Bld) [#/Vol] 4.93 x10*6/uL Normal 4.00-5.20 [facility] Comment on above: Performed By: #### 5 7021-8 ####LIANE Steinberg'PETRA ([id number])[facility] (ANNA)[address]750 [place] [address] WBC (Bld) [#/Vol] 16.4 x10*3/uL High 4.4-11.3 [facility] Comment on above: Performed By: #### 5 7021-8 ####LIANE FRANCE ([id number])[facility] (ANNA)55586 [place] [address] Choriogonadotropin.beta subu niton 12-05-2024 HCG.beta subunit Qn m[IU]/mL Normal <5 [facility] Comment on above: Order Comment: Total HCG measurement is performed using the [employer] immunoassay which detects intact HCG and free beta HCG subunit. This test is not indicated for use as a tumor marker. HCG testing is performed using a different test methodology at [facility] than other [facility]. Direct result comparison should only be made within the same method. Performed By: #### 2 1198-7 ####REESE Baez ([id number])[facility] ([facility])[address] [place] [address] Comprehensive metabolic 2000 panelon 12-05-2024 Albumin BCP dye [Mass/Vol] 2.7 g/dL Low 3.4-5.0 [facility] Comment on above: Performed By: #### 2 4323-8 ####LIANE FRANCE ([id number])[facility] (ANNA)[address]236 [place] [address] ALP [Catalytic activity/Vol] 44 U/L Normal 33-110 [facility] Comment on above: Performed By: #### 2 4323-8 ####LIANE FRANCE ([id number])[facility] (ANNA)52786 [place] [address] ALT With P-5'-P [Catalytic activity/Vol] 7 U/L Normal 7-45 [facility] Comment on above: Result Comment: Cara ents treated with Sulfasalazine may generate falsely decreased results for ALT. Performed By: #### 2 4323-8 ####LIANE FRANCE ([id number])[facility] (ANNA)[address] [place] [address] Anion gap [Moles/Vol] 13 mmol/L Normal 10-20 [facility] Comment on above: Performed By: #### 2 4323-8 ####LIANE Steinberg'PETRA ([id number])[facility] (ANNA)[address] [place] [address] AST With P-5'-P [Catalytic activity/Vol] 15 U/L Normal 9-39 [facility] Comment on above: Performed By: #### 2 4323-8 ####LIANE Steinberg'PETRA ([id number])[facility] (ANNA)[address]241 [place] [address] Bilirubin [Mass/Vol] 0.3 mg/dL Normal 0.0-1.2 [facility] Comment on above: Performed By: #### 2 4323-8 ####LIANE Steinberg'PETRA ([id number])[facility] (ANNA)[address] [place] [address] Calcium [Mass/Vol] 8.2 mg/dL Low 8.6-10.3 [facility] Comment on above: Performed By: #### 2 4323-8 ####LIANE Steinberg'PETRA ([id number])[facility] (ANNA)26038 [place] [address] Chloride [Moles/Vol] 95 mmol/L Low 98-107 [facility] Comment on above: Performed By: #### 2 4323-8 ####LIANE Steinberg'PETRA ([id number])[facility] (ANNA)[address] [place] [address] CO2 [Moles/Vol] 26 mmol/L Normal 21-[address] [facility] Comment on above: Performed By: #### 2 4323-8 ####LIANE Steinberg'PETRA ([id number])[facility] (ANNA)[address] [place] [address] Creatinine [Mass/Vol] 0.47 mg/dL Low 0.50-1.05 [facility] Comment on above: Performed By: #### 2 4323-8 ####LIANE Steinberg'PETRA ([id number])[facility] (ANNA)[address] [place] [address] Glomerular filtration rate >90 Normal >60 [facility] Comment on above: Result Comment: Calc ulations of estimated GFR are performed using the 2020 CKD-EPI Study Refit equation without the race variable for the IDMS-Traceable creatinine methods.https://jasn.asnjournals.org/content//A SN.0444836873 Performed By: #### 2 4323-8 ####LIANE O'PETRA (61050)[facility] (ANNA)[address]657 [place] [address] Glucose [Mass/Vol] 94 mg/dL Normal 74-99 [facility] Comment on above: Performed By: #### 2 4323-8 ####LIANE O'PETRA ([id number])[facility] (ANNA)49433 [place] [address] Potassium [Moles/Vol] 3.7 mmol/L Normal 3.5-5.3 [facility] Comment on above: Performed By: #### 2 4323-8 ####LIANE O'PETRA ([id number])[facility] (ANNA)[address] [place] [address] Protein [Mass/Vol] 4.9 g/dL Low 6.4-8.2 [facility] Comment on above: Performed By: #### 2 4323-8 ####LIANE O'PETRA ([id number])[facility] (ANNA)[address] [place] [address] Sodium [Moles/Vol] 130 mmol/L Low 136-145 [facility] Comment on above: Performed By: #### 2 4323-8 ####LIANE FRANCE ([id number])[facility] (ANNA)[address] [place] [address] Urea nitrogen [Mass/Vol] 15 mg/dL Normal 6-23 [facility] Comment on above: Performed By: #### 2 4323-8 ####LIANE Steinberg'PETRA ([id number])[facility] (ANNA)[address] [place] [address] Magnesiumon 12-05-2024 Magnesium [Mass/Vol] 1.62 mg/dL Normal 1.60-2.40 [facility] Comment on above: Performed By: #### 1 9123-9 ####LIANE Steinberg'PETRA ([id number])[facility] (ANNA)[address] [place] [address] Rad Onc Msq Treatment Summar yon 12-05-2024 Actual Fractions Delivered 1 [facility] Actual Session Delivered Dose 200 cGray [facility] Actual Total Dose 200 [facility] Course Number 1 [facility] Elapsed Days 0 [facility] Last Date 12/05/2024 [facility] Prescribed Fractional Dose 200 cGray [facility] Prescribed Number of Fractions 35 [facility] Prescribed Technique VMAT [facility] Prescribed Total Dose 7000 cGray [facility] Prescription Pattern Comment CBCT daily, align orbit and C7, chemo [facility] Start Date 12/05/2024 [facility] Treatment Site sinonasal+neck [facility] TSH WITH REFLEX TO FREE T4 I F ABNORMALon 12-05-2024 TSH Qn 1.28 m[IU]/L Normal 0.44-3.98 [facility] Comment on above: Order Comment: TSH t esting is performed using different testing methodology at [facility] than at other [facility]. Direct result comparisons should only be made within the same method. Performed By: #### T HYDS ####REESE Baez ([id number])[facility] ([facility])[address] [place] [address] MR CERVICAL SPINE W AND WO I V CONTRASTon 11-22-2024 MR CERVICAL SPINE W AND WO IV CONTRAST Normal [facility] MR THORACIC SPINE W AND WO I V CONTRASTon 11-22-2024 MR THORACIC SPINE W AND WO IV CONTRAST Normal [facility] CBC W Auto Differential pane l (Bld)on 11-20-2024 Basophils (Bld) [#/Vol] 0.07 x10*3/uL Normal 0.00-0.10 [facility] Comment on above: Performed By: #### 5 7021-8 ####LIANE FRANCE ([id number])[facility] ([facility])[address] [place] [address] Basophils/100 WBC (Bld) 0.5 % Normal 0.0-2.0 [facility] Comment on above: Performed By: #### 5 7021-8 ####LIANE FRANCE ([id number])[facility] (ANNA)[address]53 [place] [address] Eosinophils (Bld) [#/Vol] 0.23 x10*3/uL Normal 0.00-0.70 [facility] Comment on above: Performed By: #### 5 7021-8 ####LIANE FRANCE ([id number])[facility] (ANNA)[address]160 [place] [address] Eosinophils/100 WBC (Bld) 1.5 % Normal 0.0-6.0 [facility] Comment on above: Performed By: #### 5 7021-8 ####LIANE FRANCE ([id number])[facility] (ANNA)78996 [place] [address] Erythrocyte distribution width (RBC) [Ratio] 19.2 % High 11.5-14.5 [facility] Comment on above: Performed By: #### 5 7021-8 ####LIANE FRANCE ([id number])[facility] (ANNA)[address]47 [place] [address] Hematocrit (Bld) [Volume fraction] 42.5 % Normal 36.0-46.0 [facility] Comment on above: Performed By: #### 5 7021-8 ####LIANE Steinberg'PETRA ([id number])[facility] (ANNA)[address]95 [place] [address] Hemoglobin (Bld) [Mass/Vol] 14.0 g/dL Normal 12.0-16.0 [facility] Comment on above: Performed By: #### 5 7021-8 ####LIANE Steinberg'PETRA ([id number])[facility] (ANNA)[address]24 [place] [address] Immature granulocytes (Bld) [#/Vol] 0.04 x10*3/uL Normal 0.00-0.70 [facility] Comment on above: Performed By: #### 5 7021-8 ####LIANE Steinberg'PETRA ([id number])[facility] (ANNA)[address]97 [place] [address] Immature granulocytes/100 WBC (Bld) 0.3 % Normal 0.0-0.9 [facility] Comment on above: Result Comment: Joelle ture Granulocyte Count (IG) includes promyelocytes, myelocytes and metamyelocytes but does not include bands. Percent differential counts (%) should be interpreted in the context of the absolute cell counts (cells/UL). Performed By: #### 5 7021-8 ####LIANE Steinberg'PETRA ([id number])[facility] (ANNA)[address]958 [place] [address] Lymphocytes (Bld) [#/Vol] 1.51 x10*3/uL Normal 1.20-4.80 [facility] Comment on above: Performed By: #### 5 7021-8 ####LIANE Steinberg'PETRA ([id number])[facility] (ANNA)[address]50 [place] [address] Lymphocytes/100 WBC (Bld) 9.7 % Normal 13.0-44.0 [facility] Comment on above: Performed By: #### 5 7021-8 ####LIANE Steinberg'PETRA ([id number])[facility] (ANNA)35383 [place] [address] MCH (RBC) [Entitic mass] 27.8 pg Normal 26.0-34.0 [facility] Comment on above: Performed By: #### 5 7021-8 ####LIANE Steinberg'PETRA ([id number])[facility] (ANNA)[address]27 [place] [address] MCHC (RBC) [Mass/Vol] 32.9 g/dL Normal 32.0-36.0 [facility] Comment on above: Performed By: #### 5 7021-8 ####LIANE Steinberg'PETRA (14871)[facility] (ANNA)[address] [place] [address] MCV (RBC) [Entitic vol] 84 fL Normal 80-100 [facility] Comment on above: Performed By: #### 5 7021-8 ####LIANE Steinberg'PETRA (99273)[facility] (ANNA)[address]71 [place] [address] Monocytes (Bld) [#/Vol] 1.55 x10*3/uL High 0.10-1.00 [facility] Comment on above: Performed By: #### 5 7021-8 ####LIANE Steinberg'PETRA (24261)[facility] (ANNA)[address] [place] [address] Monocytes/100 WBC (Bld) 10.0 % Normal 2.0-10.0 [facility] Comment on above: Performed By: #### 5 7021-8 ####LIANE Steinberg'PETRA ([id number])[facility] (ANNA)[address] [place] [address] Neutrophils (Bld) [#/Vol] 12.15 x10*3/uL High 1.20-7.70 [facility] Comment on above: Result Comment: Perc ent differential counts (%) should be interpreted in the context of the absolute cell counts (cells/uL). Performed By: #### 5 7021-8 ####LIANE Steinberg'PETRA (07808)[facility] (ANNA)[address] [place] [address] Neutrophils/100 WBC (Bld) 78.0 % Normal 40.0-80.0 [facility] Comment on above: Performed By: #### 5 7021-8 ####LIANE Steinberg'PETRA (28599)[facility] (ANNA)[address] [place] [address] Nucleated RBC/100 WBC (Bld) [Ratio] 0.0 /100 WBCs Normal 0.0-0.0 [facility] Comment on above: Performed By: #### 5 7021-8 ####LIANE Steinberg'PETRA (54717)[facility] (ANNA)62000 [place] [address] Platelets (Bld) [#/Vol] 609 x10*3/uL High 150-450 [facility] Comment on above: Performed By: #### 5 7021-8 ####LIANE FRANCE ([id number])[facility] (ANNA)[address] [place] [address] RBC (Bld) [#/Vol] 5.04 x10*6/uL Normal 4.00-5.20 [facility] Comment on above: Performed By: #### 5 7021-8 ####LIANE Steinberg'PETRA ([id number])[facility] (ANNA)[address]23 [place] [address] WBC (Bld) [#/Vol] 15.6 x10*3/uL High 4.4-11.3 [facility] Comment on above: Performed By: #### 5 7021-8 ####LIANE FRANCE (77299)[facility] (ANNA)[address] [place] [address] Comprehensive metabolic 2000 panelon 11-20-2024 Albumin BCP dye [Mass/Vol] 3.6 g/dL Normal 3.4-5.0 [facility] Comment on above: Performed By: #### 2 4323-8 ####LIANE FRANCE (02530)[facility] (ANNA)[address] [place] [address] ALP [Catalytic activity/Vol] 33 U/L Normal 33-110 [facility] Comment on above: Performed By: #### 2 4323-8 ####LIANE FRANCE (23091)[facility] (ANNA)[address] [place] [address] ALT With P-5'-P [Catalytic activity/Vol] 6 U/L Low 7-45 [facility] Comment on above: Result Comment: Cara ents treated with Sulfasalazine may generate falsely decreased results for ALT. Performed By: #### 2 4323-8 ####LIANE FRANCE (76025)[facility] (ANNA)[address] [place] [address] Anion gap [Moles/Vol] 16 mmol/L Normal 10-20 [facility] Comment on above: Performed By: #### 2 4323-8 ####LIANE FRANCE ([id number])[facility] (ANNA)[address] [place] [address] AST With P-5'-P [Catalytic activity/Vol] 15 U/L Normal 9-39 [facility] Comment on above: Performed By: #### 2 4323-8 ####LIANE FRANCE (69931)[facility] (ANNA)[address] [place] [address] Bilirubin [Mass/Vol] 0.5 mg/dL Normal 0.0-1.2 [facility] Comment on above: Performed By: #### 2 4323-8 ####LIANE O'PETRA (93059)[facility] (ANNA)[address] [place] [address] Calcium [Mass/Vol] 9.1 mg/dL Normal 8.6-10.3 [facility] Comment on above: Performed By: #### 2 4323-8 ####LIANE O'PETRA (37965)[facility] (ANNA)[address] [place] [address] Chloride [Moles/Vol] 98 mmol/L Normal 98-107 [facility] Comment on above: Performed By: #### 2 4323-8 ####LIANE O'PETRA (79443)[facility] (ANNA)[address] [place] [address] CO2 [Moles/Vol] 26 mmol/L Normal 21-[address] [facility] Comment on above: Performed By: #### 2 4323-8 ####LIANE O'PETRA (04026)[facility] (ANNA)[address] [place] [address] Creatinine [Mass/Vol] 0.67 mg/dL Normal 0.50-1.05 [facility] Comment on above: Performed By: #### 2 4323-8 ####LIANE O'PETRA (69786)[facility] (ANNA)[address] [place] [address] Glomerular filtration rate >90 Normal >60 [facility] Comment on above: Result Comment: Calc ulations of estimated GFR are performed using the 2020 CKD-EPI Study Refit equation without the race variable for the IDMS-Traceable creatinine methods.https://jasn.asnjournals.org/content//A SN.6647446737 Performed By: #### 2 4323-8 ####LIANE Steinberg'PETRA ([id number])[facility] (NANA)[address] [place] [address] Glucose [Mass/Vol] 120 mg/dL High 74-99 [facility] Comment on above: Performed By: #### 2 4323-8 ####LIANE O'PETRA (56041)[facility] (ANNA)[address] [place] [address] Potassium [Moles/Vol] 3.8 mmol/L Normal 3.5-5.3 [facility] Comment on above: Performed By: #### 2 4323-8 ####LIANE O'PETRA (36503)[facility] (ANNA)[address] [place] [address] Protein [Mass/Vol] 5.7 g/dL Low 6.4-8.2 [facility] Comment on above: Performed By: #### 2 4323-8 ####LIANE O'PETRA (67351)[facility] (ANNA)[address] [place] [address] Sodium [Moles/Vol] 136 mmol/L Normal 136-145 [facility] Comment on above: Performed By: #### 2 4323-8 ####LIANE O'PETRA (87002)[facility] (ANNA)[address] [place] [address] Urea nitrogen [Mass/Vol] 24 mg/dL High 6-23 [facility] Comment on above: Performed By: #### 2 4323-8 ####LIANE O'PETRA (49512)[facility] (ANNA)[address] [place] [address] Magnesiumon 11-20-2024 Magnesium [Mass/Vol] 1.72 mg/dL Normal 1.60-2.40 [facility] Comment on above: Performed By: #### 1 9123-9 ####LIANE Steinberg'PETRA (51744)[facility] (ANNA)[address] [place] [address] CBC W Auto Differential pane l (Bld)on 11-13-2024 Basophils (Bld) [#/Vol] 0.07 x10*3/uL Normal 0.00-0.10 [facility] Comment on above: Performed By: #### 5 7021-8 ####LIANE FRANCE (27225)[facility] (ANNA)[address] [place] [address] Basophils/100 WBC (Bld) 0.4 % Normal 0.0-2.0 [facility] Comment on above: Performed By: #### 5 7021-8 ####LIANE FRANCE (53408)[facility] (ANNA)[address]60 [place] [address] Eosinophils (Bld) [#/Vol] 0.43 x10*3/uL Normal 0.00-0.70 [facility] Comment on above: Performed By: #### 5 7021-8 ####LIANE FRANCE (79432)[facility] (ANNA)[address] [place] [address] Eosinophils/100 WBC (Bld) 2.2 % Normal 0.0-6.0 [facility] Comment on above: Performed By: #### 5 7021-8 ####LIANE FRANCE (69219)[facility] (ANNA)[address] [place] [address] Erythrocyte distribution width (RBC) [Ratio] 18.7 % High 11.5-14.5 [facility] Comment on above: Performed By: #### 5 7021-8 ####LIANE FRANCE (32052)[facility] (ANNA)[address] [place] [address] Hematocrit (Bld) [Volume fraction] 42.5 % Normal 36.0-46.0 [facility] Comment on above: Performed By: #### 5 7021-8 ####LIANE Steinberg'PETRA (34288)[facility] (ANNA)[address]82 [place] [address] Hemoglobin (Bld) [Mass/Vol] 13.7 g/dL Normal 12.0-16.0 [facility] Comment on above: Performed By: #### 5 7021-8 ####LIANE Steinberg'PETRA (55158)[facility] (ANNA)[address] [place] [address] Immature granulocytes (Bld) [#/Vol] 0.09 x10*3/uL Normal 0.00-0.70 [facility] Comment on above: Performed By: #### 5 7021-8 ####LIANE Steinberg'PETRA (80654)[facility] (ANNA)[address] [place] [address] Immature granulocytes/100 WBC (Bld) 0.5 % Normal 0.0-0.9 [facility] Comment on above: Result Comment: Joelle ture Granulocyte Count (IG) includes promyelocytes, myelocytes and metamyelocytes but does not include bands. Percent differential counts (%) should be interpreted in the context of the absolute cell counts (cells/UL). Performed By: #### 5 7021-8 ####LIANE Steinberg'PETRA ([id number])[facility] (ANNA)[address] [place] [address] Lymphocytes (Bld) [#/Vol] 1.40 x10*3/uL Normal 1.20-4.80 [facility] Comment on above: Performed By: #### 5 7021-8 ####LIANE Steinberg'PETRA (66669)[facility] (ANNA)[address]47 [place] [address] Lymphocytes/100 WBC (Bld) 7.1 % Normal 13.0-44.0 [facility] Comment on above: Performed By: #### 5 7021-8 ####LIANE Steinberg'PETRA (94913)[facility] (ANNA)19759 [place] [address] MCH (RBC) [Entitic mass] 27.5 pg Normal 26.0-34.0 [facility] Comment on above: Performed By: #### 5 7021-8 ####LIANE FRANCE (81654)[facility] (ANNA)[address] [place] [address] MCHC (RBC) [Mass/Vol] 32.2 g/dL Normal 32.0-36.0 [facility] Comment on above: Performed By: #### 5 7021-8 ####LIANE Steinberg'PETRA ([id number])[facility] (ANNA)[address]24 [place] [address] MCV (RBC) [Entitic vol] 85 fL Normal 80-100 [facility] Comment on above: Performed By: #### 5 7021-8 ####LIANE FRANCE (24032)[facility] (ANNA)[address]800 [place] [address] Monocytes (Bld) [#/Vol] 1.69 x10*3/uL High 0.10-1.00 [facility] Comment on above: Performed By: #### 5 7021-8 ####LIANE FR[place] (31445)[facility] (ANNA)[address] [place] [address] Monocytes/100 WBC (Bld) 8.6 % Normal 2.0-10.0 [facility] Comment on above: Performed By: #### 5 7021-8 ####LIANE Steinberg'PETRA (50506)[facility] (ANNA)[address] [place] [address] Neutrophils (Bld) [#/Vol] 16.05 x10*3/uL High 1.20-7.70 [facility] Comment on above: Result Comment: Perc ent differential counts (%) should be interpreted in the context of the absolute cell counts (cells/uL). Performed By: #### 5 7021-8 ####LIANE Steinberg'PETRA (66086)[facility] (ANNA)[address] [place] [address] Neutrophils/100 WBC (Bld) 81.2 % Normal 40.0-80.0 [facility] Comment on above: Performed By: #### 5 7021-8 ####LIANE Steinberg'PETRA (08334)[facility] (ANNA)[address]65 [place] [address] Nucleated RBC/100 WBC (Bld) [Ratio] 0.0 /100 WBCs Normal 0.0-0.0 [facility] Comment on above: Performed By: #### 5 7021-8 ####LIANE Steinberg'PETRA (63486)[facility] (ANNA)[address]75 [place] [address] Platelets (Bld) [#/Vol] 602 x10*3/uL High 150-450 [facility] Comment on above: Performed By: #### 5 7021-8 ####LIANE Steinberg'PETRA (39412)[facility] (ANNA)[address]679 [place] [address] RBC (Bld) [#/Vol] 4.98 x10*6/uL Normal 4.00-5.20 [facility] Comment on above: Performed By: #### 5 7021-8 ####LIANE Steinberg'PETRA (35228)[facility] (ANNA)11272 [place] [address] WBC (Bld) [#/Vol] 19.7 x10*3/uL High 4.4-11.3 [facility] Comment on above: Performed By: #### 5 7021-8 ####LIANE Steinberg'PETRA (78531)[facility] (ANNA)[address] [place] [address] Comprehensive metabolic 2000 panelon 11-13-2024 Albumin BCP dye [Mass/Vol] 4.1 g/dL Normal 3.4-5.0 [facility] Comment on above: Performed By: #### 2 4323-8 ####LIANE [place] ([id number])[facility] (ANNA)[address] [place] [address] ALP [Catalytic activity/Vol] 44 U/L Normal 33-110 [facility] Comment on above: Performed By: #### 2 4323-8 ####[facility] [place] ([id number])[facility] (ANNA)[address]114 [place] [address] ALT With P-5'-P [Catalytic activity/Vol] 8 U/L Normal 7-45 [facility] Comment on above: Result Comment: Cara ents treated with Sulfasalazine may generate falsely decreased results for ALT. Performed By: #### 2 4323-8 ####[facility] [place] ([id number])[facility] (ANNA)[address]88 [place] [address] Anion gap [Moles/Vol] 13 mmol/L Normal 10-20 [facility] Comment on above: Performed By: #### 2 4323-8 ####[facility] [place] ([id number])[facility] (ANNA)[address]120 [place] [address] AST With P-5'-P [Catalytic activity/Vol] 14 U/L Normal 9-39 [facility] Comment on above: Performed By: #### 2 4323-8 ####[facility] [place] ([id number])[facility] (ANNA)[address]014 [place] [address] Bilirubin [Mass/Vol] 0.5 mg/dL Normal 0.0-1.2 [facility] Comment on above: Performed By: #### 2 4323-8 ####[facility] [place] ([id number])[facility] (ANNA)[address]324 [place] [address] Calcium [Mass/Vol] 9.5 mg/dL Normal 8.6-10.3 [facility] [facility] Comment on above: Performed By: #### 2 4323-8 ####LIANE Steinberg'PETRA ([id number])[facility] (ANNA)[address] [place] [address] Chloride [Moles/Vol] 97 mmol/L Low 98-107 [facility] Comment on above: Performed By: #### 2 4323-8 ####LIANE Steinberg'PETRA ([id number])[facility] (ANNA)[address] [place] [address] CO2 [Moles/Vol] 28 mmol/L Normal 21-[address] [facility] Comment on above: Performed By: #### 2 4323-8 ####LIANE Steinberg'PETRA ([id number])[facility] (ANNA)[address]958 [place] [address] Creatinine [Mass/Vol] 0.71 mg/dL Normal 0.50-1.05 [facility] Comment on above: Performed By: #### 2 4323-8 ####LIANE Steinberg'PETRA ([id number])[facility] (ANNA)[address]34 [place] [address] Glomerular filtration rate >90 Normal >60 [facility] Comment on above: Result Comment: Calc ulations of estimated GFR are performed using the 2020 CKD-EPI Study Refit equation without the race variable for the IDMS-Traceable creatinine methods.https://jasn.asnjournals.org/content//A SN.1282774455 Performed By: #### 2 4323-8 ####LIANE Steinberg'PETRA ([id number])[facility] (ANNA)[address] [place] [address] Glucose [Mass/Vol] 141 mg/dL High 74-99 [facility] Comment on above: Performed By: #### 2 4323-8 ####LIANE O'PETRA ([id number])[facility] (ANNA)[address] [place] [address] Potassium [Moles/Vol] 3.7 mmol/L Normal 3.5-5.3 [facility] Comment on above: Performed By: #### 2 4323-8 ####LIANE O'PETRA ([id number])[facility] (ANNA)[address] [place] [address] Protein [Mass/Vol] 6.6 g/dL Normal 6.4-8.2 [facility] Comment on above: Performed By: #### 2 4323-8 ####LIANE O'PETRA ([id number])[facility] (ANNA)[address] [place] [address] Sodium [Moles/Vol] 134 mmol/L Low 136-145 [facility] Comment on above: Performed By: #### 2 4323-8 ####LIANE Steinbreg'PETRA ([id number])[facility] (ANNA)[address] [place] [address] Urea nitrogen [Mass/Vol] 26 mg/dL High 6-23 [facility] Comment on above: Performed By: #### 2 4323-8 ####LIANE O'PETRA ([id number])[facility] (ANNA)[address] [place] [address] Magnesiumon 11-13-2024 Magnesium [Mass/Vol] 1.79 mg/dL Normal 1.60-2.40 [facility] Comment on above: Performed By: #### 1 9123-9 ####LIANE O'PETRA ([id number])[facility] (ANNA)[address] [place] [address] 12 Lead EKGon 11-08-2024 12 Lead EKG [facility] Cardiovascular Services [address] [place] [address] 12 Lead EKG 11/08/24 1417 MR#: [id number] Acct: [id number] Name: ARLINE KRUEGER Rep #: [id number] : 1980 44 From: Osei Valdivia MD Attending Dr: Dr. Deborah Posadas DO Status: DEP ER Ordering Dr: Deborah Posadas DO Date: 11/08/24 Location: ED Sex: F AA Admitted: Test Reason : SOB Blood Pressure : */* mmHG Vent. Rate : 74 BPM Atrial Rate : 74 BPM P-R Int : 166 ms QRS Dur : 74 ms QT Int : 370 ms P-R-T Axes : 63 68 57 degrees QTcB Int : 410 ms Sinus rhythm with marked sinus arrhythmia Otherwise normal ECG When compared with ECG of 22-Sep-2003 10:02, NM interval has decreased Left anterior fascicular block is no longer Present Nonspecific T wave abnormality no longer evident in Inferior leads Confirmed by Osei Valdivia ([id number]), makeup editor SHAI SHARIF ([id number]) on 11/14/2024 6:33:41 AM Referred By: Confirmed By: Osei Valdivia 11/14/24 0633 Date Osei Valdivia MD CC: Dr. Deborah Posadas DO; Torie PAEZ COURT DEPUTY-C Johnathon Signed Normal [facility] Abdomen/Pelvis W IV Cont ONLY [facility] Imaging Services [address] [place] [address] Abdomen/Pelvis W IV Cont ONLY MR#: [id number] Acct: [id number] Name: ARLINE KRUEGER Rep #: [id number] : 1980 F 44 From: Mylene Willson MD PCP: Torie Diego COURT DEPUTY-C Status: REG ER Study: Abdomen/Pelvis W IV Cont ONLY Date of Exam: Exam# [id number] Ordering Dr: Deborah Posadas DO PROCEDURE: ABDOMEN/PELVIS W IV CONT ONLY 11/08/2024 REASON FOR EXAM: ABD PAIN TECHNIQUE: ABDOMEN/PELVIS W IV CONT ONLY Coronal and Sagittal reconstruction series were provided. CONTRAST: Isovue 370 VOLUME: 100 mL One or more dose reduction techniques were used (e.g., Automated exposure control, adjustment of the mA and/or kV according to patient size, use of iterative reconstruction technique. RADIATION DOSE SUMMARY: CTDlvol: 23.27, 6.04, 6.06 mGy DLP: 514.03 mGycm COMPARISON: None FINDINGS: LUNG BASES: No basilar airspace consolidation or pleural effusion. LIVER: Hypodense 5.4 mm lesion in the inferior right lobe, likely a cyst. GALLBLADDER: Unremarkable. No calcified stone. BILE DUCTS: No ductal dilation. PANCREAS: Unremarkable. SPLEEN: Unremarkable. ADRENAL GLANDS: Unremarkable. KIDNEYS: Unremarkable. The kidneys enhance symmetrically. No hydronephrosis or hydroureter. STOMACH AND BOWEL: No obstruction or perforation. No wall thickening. No CT evidence of colitis or acute diverticulitis. APPENDIX: No CT evidence for appendicitis. RETRO/PERITONEUM: Mild pelvic fluid, possibly physiologic. No free air or fluid collections. LYMPH NODES: No lymphadenopathy. PELVIC ORGANS: Unremarkable as visualized. VASCULATURE: No aortic aneurysm. ABDOMINAL WALL AND SOFT TISSUES: Unremarkable. BONES: No fracture or suspicious osseous abnormality. CT/Abdomen/Pelvis W IV Cont ONLY IMPRESSION: NO ACUTE FINDINGS IN THE ABDOMEN OR PELVIS. Reading Location: [facility] CC: POPPY Haque [facility] COURT DEPUTY-C Beam Pole Inspector: Signed Normal [facility] Absolute lymphocyte countOrd ered By: Deborah Posadas on 11-08-2024 Lymphocytes Auto (Unsp spec) [#/Vol] 1.05 10*3/uL 0.83-4.51 [facility] Absolute neutrophil countOrd ered By: Deborah Posadas on 11-08-2024 Neutrophils (Bld) [#/Vol] 19.8 10*3/uL High 2.0-7.7 [facility] Anion gap in Serum or Plasma Ordered By: Deborah Posadas on 11-08-2024 Anion gap [Moles/Vol] 18 mmol/L High 5-15 [facility] Automated lymphocyte count a s percentage of total leukocytesOrdered By: Deborah Posadas on 11-08-2024 Lymphocytes/100 WBC Auto (Unsp spec) 4.9 % Low 19-41 [facility] BUN/creatinine ratioOrdered By: Deborah Posadas on 11-08-2024 Urea nitrogen/Creatinine [Mass ratio] 22.3 mg/mg High 10-20 [facility] Basophil percentageOrdered B y: Deborah Posadas on 11-08-2024 Basophils/100 WBC (Bld) 0.2 % 0-1 [facility] Bilirubin Test strip Ql (U)O rdered By: Deborah Posadas on 11-08-2024 Bilirubin Ql (U) Negative Negative [facility] Bilirubin, totalOrdered By: Deborah Posadas on 11-08-2024 Bilirubin [Mass/Vol] 0.29 mg/dL 0.00-1.30 [facility] CBC W/Diff, Automatedon 10-13 Absolute Lymph 1.05 X10 3/uL Normal 0.83-4.51 [facility] Comment on above: Performed By: #### L 500.4050, L503.6005, L501.2450, L100.0100, L300.8000 #### [facility] [address] [place], [address] Absolute Neut 19.8 X10 3/uL High 2.0-7.7 [facility] Comment on above: Performed By: #### L 500.4050, L503.6005, L501.2450, L100.0100, L300.8000 #### [facility] [address] [place], [address] Basophils/100 WBC (Bld) 0.2 % Normal 0-1 [facility] Comment on above: Performed By: #### L 500.4050, L503.6005, L501.2450, L100.0100, L300.8000 #### [facility] [address] [place], [address] Eosinophils/100 WBC (Bld) 0.3 % Normal 0-5 [facility] Comment on above: Performed By: #### L 500.4050, L503.6005, L501.2450, L100.0100, L300.8000 #### [facility] [address] [place], [address] Erythrocyte distribution width (RBC) [Ratio] 18.3 % High 11.6-14.6 [facility] Comment on above: Performed By: #### L 500.4050, L503.6005, L501.2450, L100.0100, L300.8000 #### [facility] [address] [place], [address] Hematocrit (Bld) [Volume fraction] 37.4 % Normal 37-47 [facility] Comment on above: Performed By: #### L 500.4050, L503.6005, L501.2450, L100.0100, L300.8000 #### [facility] [address] [place], [address] Hemoglobin (Bld) [Mass/Vol] 12.0 g/dL Normal 12.0-15.0 [facility] Comment on above: Performed By: #### L 500.4050, L503.6005, L501.2450, L100.0100, L300.8000 #### [facility] [address] [place], [address] IG% 0.400 Normal 0.0-0.9 [facility] Comment on above: Result Comment: IG% - Immature Granulocytes (promyelocytes, myelocytes and metamyelocytes) > 1% indicates that a LEFT SHIFT is Present. Performed By: #### L 500.4050, L503.6005, L501.2450, L100.0100, L300.8000 #### [facility] [address] [place], [address] Lymphocytes/100 WBC (Bld) 4.9 % Low 19-41 [facility] Comment on above: Performed By: #### L 500.4050, L503.6005, L501.2450, L100.0100, L300.8000 #### [facility] [address] [place], [address] MCH (RBC) [Entitic mass] 27.1 pg Normal 27.0-32.0 [facility] Comment on above: Performed By: #### L 500.4050, L503.6005, L501.2450, L100.0100, L300.8000 #### [facility] [address] [place], [address] MCHC (RBC) [Mass/Vol] 32.1 g/dL Normal 32-36 [facility] Comment on above: Performed By: #### L 500.4050, L503.6005, L501.2450, L100.0100, L300.8000 #### [facility] [address] [place], [address] MCV (RBC) [Entitic vol] 84.6 fL Normal 81-99 [facility] Comment on above: Performed By: #### L 500.4050, L503.6005, L501.2450, L100.0100, L300.8000 #### [facility] [address] [place], [address] Monocytes/100 WBC (Bld) 2.9 % Normal 0-10 [facility] Comment on above: Performed By: #### L 500.4050, L503.6005, L501.2450, L100.0100, L300.8000 #### [facility] [address] [place], [address] Neutrophils/100 WBC (Bld) 91.3 % High 47-70 [facility] Comment on above: Performed By: #### L 500.4050, L503.6005, L501.2450, L100.0100, L300.8000 #### [facility] [address] [place], [address] Nucleated RBC (Bld) [#/Vol] 0 10*3/uL Normal 0-5 [facility] Comment on above: Performed By: #### L 500.4050, L503.6005, L501.2450, L100.0100, L300.8000 #### [facility] [address] [place], [address] Platelet mean volume (Bld) [Entitic vol] 9.3 fL Normal 6.2-12.0 [facility] Comment on above: Performed By: #### L 500.4050, L503.6005, L501.2450, L100.0100, L300.8000 #### [facility] [address] [place], [address] Platelets (Bld) [#/Vol] 600 10*3/uL High 150-450 [facility] Comment on above: Performed By: #### L 500.4050, L503.6005, L501.2450, L100.0100, L300.8000 #### [facility] [address] [place], [address] RBC (Bld) [#/Vol] 4.42 10*6/uL Normal 4.2-5.4 [facility] Comment on above: Performed By: #### L 500.4050, L503.6005, L501.2450, L100.0100, L300.8000 #### [facility] [address] [place], [address] RDW SD 54.4 fl High 35.1-43.9 [facility] Comment on above: Performed By: #### L 500.4050, L503.6005, L501.2450, L100.0100, L300.8000 #### [facility] [address] [place], [address] WBC (Bld) [#/Vol] 21.6 10*3/uL High 4.4-11.0 [facility] Comment on above: Performed By: #### L 500.4050, L503.6005, L501.2450, L100.0100, L300.8000 #### [facility] [address] [place], [address] CTA Chest W/WO Contraston CTA Chest W/WO Contrast [facility] Imaging Services [address] [place] [address] CTA Chest W/WO Contrast MR#: [id number] Acct: [id number] Name: ARLINE KRUEGER Rep #: [id number] : 1980 F 44 From: Dillan Gould MD PCP: Torie Diego COURT DEPUTY-C Status: [facility] ER Study: CTA Chest W/WO Contrast Date of Exam: 11/08/24 Exam# [id number] Ordering Dr: Deborah Posadas DO PROCEDURE: CTA CHEST W/WO CONTRAST 11/08/2024 REASON FOR EXAM: SOB, ELEVATED DIMER TECHNIQUE: CTA CHEST W/WO CONTRAST Multiplanar Sagittal and Coronal images were obtained. 3D post processing was performed CONTRAST: Isovue 370 VOLUME: 100 mL One or more dose reduction techniques were used (e.g., Automated exposure control, adjustment of the mA and/or kV according to patient size, use of iterative reconstruction technique). RADIATION DOSE SUMMARY: CTDlvol: 23.27 mGy DLP: 514.03 mGycm COMPARISON: None # of known CTs in the past 12 months: 1 # of known Cardiac Nuclear Medicine Studies in the past 12 months: 0 FINDINGS: The thoracic aorta tapers normally without aneurysm or dissection. Pulmonary arteries enhance avidly without evidence of low-density filling defect to suspect PE. The thyroid gland is unremarkable, no suspicious axillary, mediastinal or perihilar adenopathy. Lung windows show underlying emphysema with chronic bronchitis but no superimposed infiltrate or effusion, no suspicious noncalcified mass or nodule. Limited cuts through the upper abdomen do not show a suspicious abnormality. Bony structures are normal CT/CTA Chest W/WO Contrast IMPRESSION: No demonstrated PE, or thoracic aortic aneurysm or dissection Hyperexpanded lungs with evidence of chronic bronchitis but no superimposed infiltrate effusion or suspicious noncalcified mass or nodule No suspicious adenopathy Reading Location: [id number] CC: Dr. Deborah Posadas DO; Torie [facility] COURT DEPUTY-C Beam Pole Inspector: Signed Normal [facility] Carbon dioxide, total [Moles /volume] in Central venous bloodOrdered By: Deborah Posadas on 11-08-2024 CO2 [Moles/Vol] 21.9 mmol/L 21.0-32.0 [facility] Chest 1 View (Portable)on Chest 1 View (Portable) [facility] Imaging Services [address] [place] [address] Chest 1 View (Portable) MR#: [id number] Acct: [id number] Name: ARLINE KRUEGER Rep #: [id number] : 1980 F 44 From: Ranjit king MD PCP: Torie Diego COURT DEPUTYBenC Status: REG ER Study: Chest 1 View (Portable) Date of Exam: 11/08/24 Exam# [id number] Ordering Dr: Deborah Posadas DO PROCEDURE: CHEST 1 VIEW (PORTABLE) 11/08/2024 REASON FOR EXAM: SOB TECHNIQUE: Frontal view of the chest. COMPARISON: None FINDINGS: Hardware: EKG electrodes are seen. Heart: Cardiac and mediastinal contours are stable. Lungs: The lungs are clear. Bones: The bones are unremarkable. Other: RAD/Chest 1 View (Portable) IMPRESSION: No Acute Findings. Reading Location: [id number] CC: Dr. Deborah Posadas DO; Torie PAEZ COURT DEPUTY-C Beam Pole Inspector: Signed Normal [facility] Chloride assayOrdered By: Silvino Posadas on 11-08-2024 Chloride [Moles/Vol] 100 mmol/L 98-108 [facility] Comprehensive Metabolic Prof ilon 11-08-2024 Albumin [Mass/Vol] 4.2 g/dL Normal 3.5-5.0 [facility] Comment on above: Performed By: #### L 500.4050, L503.6005, L501.2450, L100.0100, L300.8000 #### [facility] [address] [place], [address] Albumin/Globulin [Mass ratio] 1.4 {ratio} Normal 0.9-2.4 [facility] Comment on above: Performed By: #### L 500.4050, L503.6005, L501.2450, L100.0100, L300.8000 #### [facility] [address] [place], [address] ALK PHOS 77 U/L Normal 35-104 [facility] Comment on above: Performed By: #### L 500.4050, L503.6005, L501.2450, L100.0100, L300.8000 #### [facility] [address] [place], [address] ALT [Catalytic activity/Vol] 14 U/L Normal <=34 [facility] Comment on above: Performed By: #### L 500.4050, L503.6005, L501.2450, L100.0100, L300.8000 #### [facility] [address] [place], [address] AST [Catalytic activity/Vol] 29 U/L Normal <=31 [facility] Comment on above: Result Comment: Hemo lysis present, Results??could be affected. ?? Performed By: #### L 500.4050, L503.6005, L501.2450, L100.0100, L300.8000 #### [facility] [address] [place], [address] Bilirubin [Mass/Vol] 0.29 mg/dL Normal 0.00-1.30 [facility] Comment on above: Performed By: #### L 500.4050, L503.6005, L501.2450, L100.0100, L300.8000 #### [facility] [address] [place], [address] BUN/CRE 22.3 RATIO High 10-20 [facility] Comment on above: Performed By: #### L 500.4050, L503.6005, L501.2450, L100.0100, L300.8000 #### [facility] [address] [place], [address] Calcium [Mass/Vol] 9.8 mg/dL Normal 7.6-11.0 [facility] Comment on above: Performed By: #### L 500.4050, L503.6005, L501.2450, L100.0100, L300.8000 #### [facility] [address] [place], [address] Chloride [Moles/Vol] 100 mmol/L Normal 98-108 [facility] Comment on above: Performed By: #### L 500.4050, L503.6005, L501.2450, L100.0100, L300.8000 #### [facility] [address] [place], [address] CO2 [Moles/Vol] 21.9 mmol/L Normal 21.0-32.0 [facility] Comment on above: Performed By: #### L 500.4050, L503.6005, L501.2450, L100.0100, L300.8000 #### [facility] [address] [place], [address] Creatinine [Mass/Vol] 0.56 mg/dL Low 0.70-1.20 [facility] Comment on above: Performed By: #### L 500.4050, L503.6005, L501.2450, L100.0100, L300.8000 #### [facility] [address] [place], [address] ECRCL 89.25 ml/min Normal 50-250 [facility] Comment on above: Performed By: #### L 500.4050, L503.6005, L501.2450, L100.0100, L300.8000 #### [facility] [address] [place], [address] GAP 18 High 5-15 [facility] Comment on above: Performed By: #### L 500.4050, L503.6005, L501.2450, L100.0100, L300.8000 #### [facility] [address] [place], [address] GFR/1.73 sq M.predicted among non-blacks MDRD (S/P/Bld) [Vol rate/Area] 117 mL/min/{1.73_m2} Normal >60 [facility] Comment on above: Result Comment: mL/m in/1.73m2 CKD-EPI Creatinine Equation (2020) Performed By: #### L 500.4050, L503.6005, L501.2450, L100.0100, L300.8000 #### [facility] [address] [place], [address] Globulin (S) [Mass/Vol] 3.0 g/dL Normal 2.2-4.2 [facility] Comment on above: Performed By: #### L 500.4050, L503.6005, L501.2450, L100.0100, L300.8000 #### [facility] [address] [place], [address] Glucose [Mass/Vol] 109 mg/dL High 70-99 [facility] Comment on above: Performed By: #### L 500.4050, L503.6005, L501.2450, L100.0100, L300.8000 #### [facility] [address] [place], [address] Potassium [Moles/Vol] 4.1 mmol/L Normal 3.3-5.1 [facility] Comment on above: Result Comment: Hemo lysis present, Results??could be affected. ?? Performed By: #### L 500.4050, L503.6005, L501.2450, L100.0100, L300.8000 #### [facility] [address] [place], [address] Sodium [Moles/Vol] 140 mmol/L Normal 133-145 [facility] Comment on above: Performed By: #### L 500.4050, L503.6005, L501.2450, L100.0100, L300.8000 #### [facility] [address] [place], [address] T PROT 7.2 g/dL Normal 5.9-8.4 [facility] Comment on above: Performed By: #### L 500.4050, L503.6005, L501.2450, L100.0100, L300.8000 #### [facility] [address] [place], [address] Urea nitrogen [Mass/Vol] 12 mg/dL Normal 4-19 [facility] Comment on above: Performed By: #### L 500.4050, L503.6005, L501.2450, L100.0100, L300.8000 #### [facility] [address] [place], [address] D-Dimer Quantitative (DVT/PE )on 11-08-2024 D-DIMER QUANT 0.72 FEU/ug/m Invalid Interpretation Code 0.27-0.49 [facility] Comment on above: Result Comment: D-Di dana ELEVATED (>0.49): Additional studies and clinical assessments are indicated to conclude diagnosis of: Deep Vein Thrombosis (DVT) or Pulmonary Embolism (PE) CRITICAL VALUE CALLED TO ALEJANDRA CHO (ER) 11/08/24 1430 Sunny Quinn. RESULTS READ BACK BY SAME. Performed By: #### L 500.4050, L503.6005, L501.2450, L100.0100, L300.8000 #### [facility] [address] [place], [address] Emergency Department Summary on 11-08-2024 Emergency Department Summary [facility] Medical Records Department [address] [facility] [place] [address] Emergency Department Summary 11/08/24 MR#: [id number] Acct: [id number] Name: ARLINE KRUEGER Rep #: [id number] : 1980 44 From: Deborah Posadas DO PCP: Torie Diego COURT DEPUTY-C Status:DEP ER Location: ED HPI History of Present Illness Chief Complaint: Shortness of Breath Informant: patient Narrative Narrative: Patient is a 44-year-old female with history of left facial cancer (unclear what type) who follows with Dr. Fuller through . She recently had dental extractions and is currently on chemotherapy (last chemo 3 days ago). States she was feeling unwell yesterday but today started to feel short of breath and also left-sided abdominal pain. She has nausea and vomiting this morning is not been able to take her regular medications which include morphine sulfate and oxycodone. She tried to take Zofran but threw that up. She states she have a bowel movement this morning but was constipated. She notes she did have blood in her stool and states the blood was mixed in. She does report a history of blood clots ( 6 years also) but is not on any anticoagulation. She denies any fever or chills. She denies any chest pain, leg swelling or sick contacts. PFSH PFSH Allergy/AdvReac Type Severity Reaction Status Date / Time No Known Allergies Allergy Verified 11/08/24 11:46 Social History Smoking Status: Former smoker ROS ROS ED Constitutional Constitutional ED: Reports chills; Denies fever(s) ENT ENT ED: Reports other Details: Muffled voice???associate with her cancer. Left facial pain???chronic and cancer related ; Denies sore throat Cardiovascular Cardiovascular: Denies chest pain or palpitations Respiratory/Chest Respiratory/Chest: Reports cough and dyspnea; Denies sputum Gastrointestinal Gastrointestinal: Reports melena, nausea and vomiting; Denies abdominal pain or diarrhea Genitourinary Genitourinary ED: Denies dysuria or hematuria Musculoskeletal Musculoskeletal: Denies arthralgias or myalgias Integumentary Denies rash Neurologic Neurologic: Reports weakness Hematologic/Lymphatic Hematologic/Lymphatic: Denies easy bleeding or easy bruising EXAM Physical Exam Const Vital Signs: 11/08/24 11:39 11/08/24 11:39 11/08/24 12:21 Temperature 98.6 F Temperature Source Oral Pulse Rate 101 H 93 Respiratory Rate 17 14 Respiratory Effort Normal Non-Labored Respiratory Depth Normal Respiratory Pattern Normal Blood Pressure 127/92 H Blood Pressure Mean 103 Pulse Ox 99 100 Oxygen Delivery Method Room Air Room Air 11/08/24 12:30 11/08/24 12:45 11/08/24 13:00 Temperature Temperature Source Pulse Rate 64 81 Respiratory Rate 14 13 Respiratory Effort Respiratory Depth Respiratory Pattern Blood Pressure 131/85 H 141/92 H 145/107 H Blood Pressure Mean 100 104 120 Pulse Ox 98 98 Oxygen Delivery Method 11/08/24 13:15 11/08/24 13:30 11/08/24 13:45 Temperature Temperature Source Pulse Rate 93 108 H 82 Respiratory Rate 20 H 35 H 18 Respiratory Effort Respiratory Depth Respiratory Pattern Blood Pressure 126/15 H 95/43 L 129/85 H Blood Pressure Mean 39 54 98 Pulse Ox 99 Oxygen Delivery Method 11/08/24 15:00 11/08/24 16:00 11/08/24 17:22 Temperature Temperature Source Pulse Rate 80 56 L 78 Respiratory Rate 15 16 18 Respiratory Effort Respiratory Depth Respiratory Pattern Blood Pressure 154/85 H 171/94 H 159/92 H Blood Pressure Mean 108 119 114 Pulse Ox 100 100 100 Oxygen Delivery Method Room Air Room Air 11/08/24 18:00 11/08/24 18:56 Temperature 97.6 F L Temperature Source Pulse Rate 68 68 Respiratory Rate 18 18 Respiratory Effort Respiratory Depth Respiratory Pattern Blood Pressure 157/103 H 156/94 H Blood Pressure Mean 121 114 Pulse Ox 100 100 Oxygen Delivery Method Room Air Positive well nourished and well developed Constitutional Narrative: Mildly uncomfortable appearing. Chronically ill-appearing General Appearance ED: well developed and NAD HEENT Reports dry mucous membranes HEENT Narrative: Edentulous, no trismus. Normal visualized oropharynx. Uvula is midline. Mildly muffled speech. Mouth ED: Yes dry mucous membranes Mouth: dry mucous membranes Eyes PERRL and EOMs intact bilaterally Neck supple and no JVD Chest Wall inspection of chest normal and palpation of chest normal Resp normal respiratory effort and clear to auscultation bilaterally Cardio regular rate, regular rhythm and no murmurs GI normal to inspection, nondistended, normoactive bowel sounds GI Narrative: Mild (more content not included)... Normal [facility] Eosinophil percentageOrdered By: Deborah Posadas on 11-08-2024 Eosinophils/100 WBC (Bld) 0.3 % 0-5 [facility] Erythrocyte distribution wid th ratioOrdered By: Deborah Posadas on 11-08-2024 Erythrocyte distribution width (RBC) [Ratio] 18.3 % High 11.6-14.6 [facility] Erythrocyte distribution wid th standard deviationOrdered By: Deborah Posadas on 11-08-2024 Erythrocyte distribution width (RBC) [Ratio] 54.4 fl High 35.1-43.9 [facility] Glomerular filtration rate ( GFR) estimation/1.73 sq m using serum, plasma, or whole bOrdered By: Deborah Posadas on 11-08-2024 GFR/1.73 sq M.predicted among non-blacks MDRD (S/P/Bld) [Vol rate/Area] 117 mL/min/{1.73_m2} >60 [facility] Comment on above: mL/min/1.73m2 CKD-EP I Creatinine Equation (2020) Hematocrit Auto (Bld) [Volum e fraction]Ordered By: Deborah Posdaas on 11-08-2024 Hematocrit (Bld) [Volume fraction] 37.4 % 37-47 [facility] Hemoglobin measurementOrdere d By: Deborah Posadas on 11-08-2024 Hemoglobin (Bld) [Mass/Vol] 12.0 g/dL 12.0-15.0 [facility] Immature granulocytes/100 WB C Auto (Bld)Ordered By: Deborah Posadas on 11-08-2024 Immature granulocytes/100 WBC (Bld) 0.400 % 0.0-0.9 [facility] Comment on above: IG% - Immature Granu locytes (promyelocytes, myelocytes and metamyelocytes) > 1% indicates that a LEFT SHIFT is Present. Ketones Test strip Ql (U)Ord ered By: Deborah Posadas on 11-08-2024 Ketones Ql (U) 150 mg/dl Abnormal Negative [facility] Comment on above: CRITICAL VALUE TEIXEIRA D TO TANESHA BARRIENTOSABRITE11/08/24 1600 Nena Rogers.RESULTS READ BACK BY SAME. L501.4021on 11-08-2024 Trop T High Sen 7 ng/L Normal <=14 [facility] Comment on above: Performed By: #### L 500.4050, L503.6005, L501.2450, L100.0100, L300.8000 #### [facility] [address] [place], [place], [id number] Laboratory - Chemistry and C hemistry - challengeOrdered By: Deobrah Posadas on 11-08-2024 AST [Catalytic activity/Vol] 29 U/L <32 [facility] Comment on above: Hemolysis present, R esults could be affected. Lactic Acidon 11-08-2024 Lactate [Moles/Vol] 1.7 mmol/L Normal 0.0-2.0 [facility] Comment on above: Order Comment: Y Performed By: #### L 500.4050, L503.6005, L501.2450, L100.0100, L300.8000 #### [facility] [address] [place], [place], [id number] Lactic acid measurementOrder ed By: Deborah Posadas on 11-08-2024 Lactate [Moles/Vol] 1.7 mmol/L 0.0-2.0 [facility] Lipase measurementOrdered By : Deborah Posadas on 11-08-2024 Lipase [Catalytic activity/Vol] 24 U/L Normal 13-75 [facility] Comment on above: Please note:LIPASE r evised reference range effective 22. New Lipase methodology. Expected to produce lower values than the previous assay method. NEW Reference Range: 13 - 75 U/L Result Comment: Chelita jay note: LIPASE revised reference range effective 22. New Lipase methodology. Expected to produce lower values than the previous assay method. NEW Reference Range: 13 - 75 U/L Performed By: #### L 500.4050, L503.6005, L501.2450, L100.0100, L300.8000 #### [facility] [address] [place], [address] MCV (mean corpuscular volume ) determinationOrdered By: Deborah Posadas on 11-08-2024 MCV (RBC) [Entitic vol] 84.6 fL 81-99 [facility] Mean corpuscular hemoglobin (MCH) determinationOrdered By: Deborha Posadas on 11-08-2024 MCH (RBC) [Entitic mass] 27.1 pg 27.0-32.0 [facility] Mean corpuscular hemoglobin concentration (MCHC) determinationOrdered By: Deborah Posadas on 11-08-2024 MCHC (RBC) [Mass/Vol] 32.1 g/dL 32-36 [facility] Mean platelet volume determi nationOrdered By: Deborah Posadas on 11-08-2024 Platelet mean volume (Bld) [Entitic vol] 9.3 fL 6.2-12.0 [facility] Microscopic analysis of urin e for red blood cells (RBC)Ordered By: Deborah Posadas on 11-08-2024 Microscopic analysis of urine for red blood cells (RBC) 0-5 SEEN /hpf 0-5 [facility] Monocyte percentageOrdered B y: Deborah Posadas on 11-08-2024 Monocytes/100 WBC (Bld) 2.9 % 0-10 [facility] Mucus LM Ql (Urine sed)Order ed By: Deborah Posadas on 11-08-2024 Mucus Ql (Urine sed) 0 SEEN /hpf [facility] Neutrophil percentageOrdered By: Deborah Posadas on 11-08-2024 Neutrophils/100 WBC (Bld) 91.3 % High 47-70 [facility] Nitrite Test strip Ql (U)Ord ered By: Deboarh Posadas on 11-08-2024 Nitrite Ql (U) Negative Negative [facility] Nucleated red blood cell per centageOrdered By: Deborah Posadas on 11-08-2024 Nucleated RBC/100 WBC (Bld) [Ratio] 0 % 0-5 [facility] Platelet countOrdered By: Silvino Posadas on 11-08-2024 Platelets (Bld) [#/Vol] 600 10*3/uL High 150-450 [facility] Potassium measurement (mass/ volume)Ordered By: Deborah Posadas on 11-08-2024 Potassium (Unsp spec) [Mass/Vol] 4.1 mmol/L 3.3-5.1 [facility] Comment on above: Hemolysis present, R esults could be affected. Protein Test strip Ql (U)Ord ered By: Deborah Posadas on 11-08-2024 Protein Ql (U) 30 mg/dl High Negative [facility] RBC Auto (Bld) [#/Vol]Ordere d By: Deborah Posadas on 11-08-2024 RBC (Bld) [#/Vol] 4.42 10*6/uL 4.2-5.4 [facility] Serum creatinine measurement (mass/volume)Ordered By: Deborah Posadas on 11-08-2024 Creatinine [Mass/Vol] 0.56 mg/dL Low 0.70-1.20 [facility] Serum globulin measurementOr dered By: Deborah Posadas on 11-08-2024 Globulin (S) [Mass/Vol] 3.0 g/dL 2.2-4.2 [facility] Serum glucose measurement (m ass/volume)Ordered By: Deborah Posadas on 11-08-2024 Glucose [Mass/Vol] 109 mg/dL High 70-99 [facility] Serum or plasma alanine thomas otransferase (ALT) measurementOrdered By: Deborah Posadas on 11-08-2024 ALT [Catalytic activity/Vol] 14 U/L <35 [facility] Serum or plasma albumin manjinder urement (mass/volume)Ordered By: Deborah Posadas on 11-08-2024 Albumin [Mass/Vol] 4.2 g/dL 3.5-5.0 [facility] Serum or plasma albumin/glob ulin mass ratioOrdered By: Deborah Posadas on 11-08-2024 Albumin/Globulin [Mass ratio] 1.4 {ratio} 0.9-2.4 [facility] Serum or plasma alkaline maria antonia sphatase measurementOrdered By: Deborah Posadas on 11-08-2024 ALP [Catalytic activity/Vol] 77 U/L 35-104 [facility] Serum or plasma calcium manjinder urement (mass/volume)Ordered By: Deborah Posadas on 11-08-2024 Calcium [Mass/Vol] 9.8 mg/dL 7.6-11.0 [facility] Serum or plasma urea nitroge n measurement (mass/volume)Ordered By: Deborah Posadas on 11-08-2024 Urea nitrogen [Mass/Vol] 12 mg/dL 4-19 [facility] Sodium levelOrdered By: Guero Posadas on 11-08-2024 Sodium [Moles/Vol] 140 mmol/L 133-145 [facility] Squamous epithelial cells de tection in urine sediment by light microscopyOrdered By: Deborah Posadas on 11-08-2024 Epithelial cells.squamous LM Ql (Urine sed) 0-5 SEEN /hpf 5-10 [facility] Total proteinOrdered By: Georgina Posadas on 11-08-2024 Protein [Mass/Vol] 7.2 g/dL 5.9-8.4 [facility] Troponin T HS 2 HRon 025 Trop T High Sen 7 ng/L Normal <=14 [facility] Comment on above: Performed By: #### L 500.4050, L503.6005, L501.2450, L100.0100, L300.8000 #### [facility] [place], [address] Troponin T HS 4 HRon 025 Trop T High Sen Normal <=14 [facility] Comment on above: Result Comment: CARA ENT DISCHARGED Performed By: #### L 500.4050, L503.6005, L501.2450, L100.0100, L300.8000 #### [facility] [address] [place], [address] Troponin T.cardiac [Mass/vol ume] in Serum or Plasma by High sensitivity methodOrdered By: Deborah Posadas on 11-08-2024 Troponin T.cardiac High sensitivity method [Mass/Vol] 7 ng/L <14 [facility] Troponin T.cardiac High sensitivity method [Mass/Vol] 7 ng/L <14 [facility] Urinalysis, Completeon 11-08 EPI,SQUAMOUS 0-5 SEEN Normal 5-10 [facility] Comment on above: Order Comment: CLEAN CATCH Performed By: #### L 500.4050, L503.6005, L501.2450, L100.0100, L300.8000 #### [facility] [address] [place], [address] RBC 0-5 SEEN Normal 0-5 [facility] Comment on above: Order Comment: CLEAN CATCH Performed By: #### L 500.4050, L503.6005, L501.2450, L100.0100, L300.8000 #### [facility] [address] [place], [address] WBC 0-5 SEEN Normal 0-5 [facility] Comment on above: Order Comment: CLEAN CATCH Performed By: #### L 500.4050, L503.6005, L501.2450, L100.0100, L300.8000 #### [facility] [address] [place], [address] BACTERIA 0 SEEN Normal None Seen [facility] Comment on above: Order Comment: CLEAN CATCH Performed By: #### L 500.4050, L503.6005, L501.2450, L100.0100, L300.8000 #### [facility] [address] [place], [address] Mucus Ql (Urine sed) 0 SEEN Normal [facility] Comment on above: Order Comment: CLEAN CATCH Performed By: #### L 500.4050, L503.6005, L501.2450, L100.0100, L300.8000 #### [facility] [address] [place], [address] Urine clarityOrdered By: Georgina Posadas on 11-08-2024 Clarity (U) Clear Clear [facility] Urine color determinationOrd ered By: Deborah Posadas on 11-08-2024 Color (U) Yellow Yellow [facility] Urine glucose detectionOrder ed By: Deborah Posadas on 11-08-2024 Glucose Ql (U) Normal mg/dl Normal [facility] Urine leukocyte esterase det ection by dipstickOrdered By: Deborah Posadas on 11-08-2024 Leukocyte esterase Test strip Ql (U) Negative Negative [facility] Urine pHOrdered By: Deborah crocker on 11-08-2024 pH (U) 7.0 [pH] 5.0 - 8.0 [facility] Urine sediment bacteria coun t by microscopy (number/high power field)Ordered By: Deborah Posadas on 11-08-2024 Bacteria LM.HPF (Urine sed) [#/Area] 0 /[HPF] None Seen [facility] Urine specific gravity measu rementOrdered By: Deborah Posadas on 11-08-2024 Specific gravity (U) [Rel density] 1.010 1.002-1.030 [facility] Urine urobilinogen measureme ntOrdered By: Deborah Posadas on 11-08-2024 Urobilinogen Ql (U) Normal mg/dl Normal [facility] White blood cell (WBC) count Ordered By: Deborah Posadas on 11-08-2024 WBC (Bld) [#/Vol] 21.6 10*3/uL High 4.4-11.0 [facility] White blood cell countOrdere d By: Deborah Posadas on 11-08-2024 White blood cell count 0-5 SEEN /hpf 0-5 [facility] CBC W Auto Differential pane l (Bld)on 11-06-2024 Basophils (Bld) [#/Vol] 0.05 x10*3/uL Normal 0.00-0.10 [facility] Comment on above: Performed By: #### 5 7021-8 ####LIANE FR[place] ([id number])[facility] (ANNA)[address] [place] [address] Basophils/100 WBC (Bld) 0.3 % Normal 0.0-2.0 [facility] Comment on above: Performed By: #### 5 7021-8 ####LIANE [place] ([id number])[facility] (ANNA)[address] [place] [address] Eosinophils (Bld) [#/Vol] 0.10 x10*3/uL Normal 0.00-0.70 [facility] Comment on above: Performed By: #### 5 7021-8 ####LIANE [place] ([id number])[facility] (ANNA)[address] [place] [address] Eosinophils/100 WBC (Bld) 0.6 % Normal 0.0-6.0 [facility] Comment on above: Performed By: #### 5 7021-8 ####LIANE [place] ([id number])[facility] (ANNA)[address] [place] [address] Erythrocyte distribution width (RBC) [Ratio] 17.7 % High 11.5-14.5 [facility] Comment on above: Performed By: #### 5 7021-8 ####LIANE [place] ([id number])[facility] (ANNA)[address] [place] [address] Hematocrit (Bld) [Volume fraction] 34.5 % Low 36.0-46.0 [facility] Comment on above: Performed By: #### 5 7021-8 ####LIANE [place] ([id number])[facility] (ANNA)[address] [place] [address] Hemoglobin (Bld) [Mass/Vol] 11.0 g/dL Low 12.0-16.0 [facility] Comment on above: Performed By: #### 5 7021-8 ####LIANE [place] ([id number])[facility] (ANNA)[address] [place] [address] Immature granulocytes (Bld) [#/Vol] 0.05 x10*3/uL Normal 0.00-0.70 [facility] Comment on above: Performed By: #### 5 7021-8 ####[place] [place] ([id number])[facility] (ANNA)[address] [place] [address] Immature granulocytes/100 WBC (Bld) 0.3 % Normal 0.0-0.9 [facility] Comment on above: Result Comment: Joelle ture Granulocyte Count (IG) includes promyelocytes, myelocytes and metamyelocytes but does not include bands. Percent differential counts (%) should be interpreted in the context of the absolute cell counts (cells/UL). Performed By: #### 5 7021-8 ####[facility] [place] ([id number])[facility] (ANNA)[address] [place] [address] Lymphocytes (Bld) [#/Vol] 1.17 x10*3/uL Low 1.20-4.80 [facility] Comment on above: Performed By: #### 5 7021-8 ####[place] ([id number])[facility] (ANNA)[address] [place] [address] Lymphocytes/100 WBC (Bld) 7.6 % Normal 13.0-44.0 [facility] Comment on above: Performed By: #### 5 7021-8 ####[place] ([id number])[facility] (ANNA)[address] [place] [address] MCH (RBC) [Entitic mass] 27.2 pg Normal 26.0-34.0 [facility] Comment on above: Performed By: #### 5 7021-8 ####[facility] [place] ([id number])[facility] (ANNA)[address] [place] [address] MCHC (RBC) [Mass/Vol] 31.9 g/dL Low 32.0-36.0 [facility] Comment on above: Performed By: #### 5 7021-8 ####LIANE [place] ([id number])[facility] (ANNA)[address] [place] [address] MCV (RBC) [Entitic vol] 85 fL Normal 80-100 [facility] Comment on above: Performed By: #### 5 7021-8 ####[place] ([id number])[facility] (ANNA)[address] [place] [address] Monocytes (Bld) [#/Vol] 1.10 x10*3/uL High 0.10-1.00 [facility] Comment on above: Performed By: #### 5 7021-8 ####[place] ([id number])[facility] (ANNA)[address] [place] [address] Monocytes/100 WBC (Bld) 7.1 % Normal 2.0-10.0 [facility] Comment on above: Performed By: #### 5 7021-8 ####[place] ([id number])[facility] (ANNA)[address] [place] [address] Neutrophils (Bld) [#/Vol] 13.00 x10*3/uL High 1.20-7.70 [facility] Comment on above: Result Comment: Perc ent differential counts (%) should be interpreted in the context of the absolute cell counts (cells/uL). Performed By: #### 5 7021-8 ####[place] ([id number])[facility] (ANNA)[address] [place] [address] Neutrophils/100 WBC (Bld) 84.1 % Normal 40.0-80.0 [facility] Comment on above: Performed By: #### 5 7021-8 ####[place] ([id number])[facility] (ANNA)[address] [place] [address] Nucleated RBC/100 WBC (Bld) [Ratio] 0.0 /100 WBCs Normal 0.0-0.0 [facility] Comment on above: Performed By: #### 5 7021-8 ####[place] ([id number])[facility] (ANNA)[address] [place] [address] Platelets (Bld) [#/Vol] 505 x10*3/uL High 150-450 [facility] Comment on above: Performed By: #### 5 7021-8 ####[place] ([id number])[facility] (ANNA)[address] [place] [address] RBC (Bld) [#/Vol] 4.04 x10*6/uL Normal 4.00-5.20 [facility] Comment on above: Performed By: #### 5 7021-8 ####[place] ([id number])[facility] (ANNA)[address] [place] [address] WBC (Bld) [#/Vol] 15.5 x10*3/uL High 4.4-11.3 [facility] Comment on above: Performed By: #### 5 7021-8 ####[place] ([id number])[facility] (ANNA)[address] [place] [address] Choriogonadotropin.beta subu niton 11-06-2024 HCG.beta subunit Qn m[IU]/mL Normal <5 [facility] Comment on above: Order Comment: Total HCG measurement is performed using the [employer] immunoassay which detects intact HCG and free beta HCG subunit. This test is not indicated for use as a tumor marker. HCG testing is performed using a different test methodology at [facility] than other [facility]. Direct result comparison should only be made within the same method. Performed By: #### 2 1198-7 ####REESE Baez ([id number])[facility] ([facility])[address] [place] [address] Comprehensive metabolic 2000 panelon 11-06-2024 Albumin BCP dye [Mass/Vol] 4.2 g/dL Normal 3.4-5.0 [facility] Comment on above: Performed By: #### 2 4323-8 ####LIANE Steinberg'PETRA ([id number])[facility] ([facility])[address] [place] [address] ALP [Catalytic activity/Vol] 69 U/L Normal 33-110 [facility] Comment on above: Performed By: #### 2 4323-8 ####LIANE Steinberg'PETRA ([id number])[facility] ([facility])[address] [place] [address] ALT With P-5'-P [Catalytic activity/Vol] 13 U/L Normal 7-45 [facility] Comment on above: Result Comment: Cara ents treated with Sulfasalazine may generate falsely decreased results for ALT. Performed By: #### 2 4323-8 ####LIANE Steinberg'PETRA ([id number])[facility] (ANNA)[address] [place] [address] Anion gap [Moles/Vol] 15 mmol/L Normal 10-20 [facility] Comment on above: Performed By: #### 2 4323-8 ####LIANE Steinberg'PETRA ([id number])[facility] (ANNA)[address] [place] [address] AST With P-5'-P [Catalytic activity/Vol] 23 U/L Normal 9-39 [facility] Comment on above: Performed By: #### 2 4323-8 ####LIANE Steinberg'PETRA ([id number])[facility] (ANNA)[address] [place] [address] Bilirubin [Mass/Vol] 0.5 mg/dL Normal 0.0-1.2 [facility] Comment on above: Performed By: #### 2 4323-8 ####LIANE O'PETRA ([id number])[facility] (ANNA)[address] [place] [address] Calcium [Mass/Vol] 9.8 mg/dL Normal 8.6-10.3 [facility] Comment on above: Performed By: #### 2 4323-8 ####LIANE O'PETRA (86276)[facility] (ANNA)[address] [place] [address] Chloride [Moles/Vol] 97 mmol/L Low 98-107 [facility] Comment on above: Performed By: #### 2 4323-8 ####LIANE O'PETRA (70230)[facility] (ANNA)[address] [place] [address] CO2 [Moles/Vol] 28 mmol/L Normal 21-[address] [facility] Comment on above: Performed By: #### 2 4323-8 ####LIANE O'PETRA ([id number])[facility] (ANNA)[address] [place] [address] Creatinine [Mass/Vol] 0.66 mg/dL Normal 0.50-1.05 [facility] Comment on above: Performed By: #### 2 4323-8 ####LIANE O'PETRA ([id number])[facility] (ANNA)[address] [place] [address] Glomerular filtration rate >90 Normal >60 [facility] Comment on above: Result Comment: Calc ulations of estimated GFR are performed using the 2020 CKD-EPI Study Refit equation without the race variable for the IDMS-Traceable creatinine methods.https://sadesn.asnjournals.org/content/early//A SN.6087432828 Performed By: #### 2 4323-8 ####LIANE Steinberg'PETRA ([id number])[facility] (ANNA)[address] [place] [address] Glucose [Mass/Vol] 87 mg/dL Normal 74-99 [facility] Comment on above: Performed By: #### 2 4323-8 ####LIANE Steinberg'PETRA ([id number])[facility] (ANNA)[address] [place] [address] Potassium [Moles/Vol] 4.0 mmol/L Normal 3.5-5.3 [facility] Comment on above: Performed By: #### 2 4323-8 ####LIANE Steinberg'PETRA ([id number])[facility] (ANNA)[address] [place] [address] Protein [Mass/Vol] 7.1 g/dL Normal 6.4-8.2 [facility] Comment on above: Performed By: #### 2 4323-8 ####LIANE Steinberg'PETRA ([id number])[facility] (ANNA)[address] [place] [address] Sodium [Moles/Vol] 136 mmol/L Normal 136-145 [facility] Comment on above: Performed By: #### 2 4323-8 ####LIANE Steinberg'PETRA ([id number])[facility] (ANNA)[address] [place] [address] Urea nitrogen [Mass/Vol] 16 mg/dL Normal 6-23 [facility] Comment on above: Performed By: #### 2 4323-8 ####LIANE Steinberg'PETRA ([id number])[facility] (ANNA)[address] [place] [address] Corticotropinon 11-06-2024 Corticotropin (P) [Mass/Vol] 40.1 pg/mL Normal 7.2-63.3 [facility] Comment on above: Result Comment: INTE RPRETIVE INFORMATION: Adrenocorticotropic HormoneReference interval based on samples collected between 7 a.m. and10 a.m. No reference intervals established for p.m. collections.Pediatric reference values are the same as adults (Acta PaediatrScand 1981;70:341-345). This assay measures intact ACTH 1-39;some types of synthetic ACTH and ACTH fragments are not detectedby this assay.Performed By: [id number] [place], [place] [id number] Director: Shaheen Rueda MD, PhDCLIA Number: [id number] Performed By: #### 2 141-0 ####[facility] (DIANA) ([id number])[address] [place] [address] Cortisol^AM peak specimenon 11-06-2024 Cortisol AM peak specimen [Mass/Vol] 22.6 ug/dL High 5.0-20.0 [facility] Health Comment on above: Performed By: #### 9 813-7 ####REESE Baez ([id number])[facility] ([facility])[address] [place] [address] Magnesiumon 11-06-2024 Magnesium [Mass/Vol] 1.52 mg/dL Low 1.60-2.40 [facility] Comment on above: Performed By: #### 1 9123-9 ####LIANE FRANCE ([id number])[facility] (ANNA)[address] [place] [address] No Panel Informationon 11-06 These images are not reportable by radiology and will not be interpreted by Radiologists. IMAGING RAD ONC CT SIM IMAGES ONLYon 11-06-[address] SIM IMAGES ONLY These images are not reportable by radiology and will not be interpreted by Radiologists. Normal [facility] TSH WITH REFLEX TO FREE T4 I F ABNORMALon 11-06-2024 TSH Qn 0.25 m[IU]/L Low 0.44-3.98 [facility] Comment on above: Order Comment: TSH t esting is performed using different testing methodology at [facility] than at other [facility]. Direct result comparisons should only be made within the same method. Performed By: #### T HYDS ####REESE Baez ([id number])[facility] ([facility])[address] [place] [address] Thyroxine.freeon 11-06-2024 Free T4 [Mass/Vol] 1.13 ng/dL Normal 0.78-1.48 [facility] Comment on above: Order Comment: Thyro xine Free testing is performed using different testing methodology at [facility] than at [facility]. Direct result comparisons should only be made within the same method. 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 FDG PET-CT 09/18/2024. MR sinus 09/18/2024.. ACCESSION NUMBER(S): [id number] ORDERING CLINICIAN: SIDRA ORTIZ TECHNIQUE: Axial CT images of the neck were obtained. The patient received 72 ML of Omnipaque 350 intravenous contrast agent. The images were reformatted in angled axial, coronal and sagittal planes. FINDINGS: Oral Cavity, Pharynx and Larynx: Evaluation oral cavity is limited by streak artifact from dental hardware. There is interval decrease in size previously seen heterogenous lesion arising in the left nasal fossa and maxillary sinus. Posttherapy changes with soft tissue thickening and edema is seen within left maxillary sinus, left alignment technician, left pterygopalatine fossa and pterygoid muscles. Interval resolution previously seen thickening and expansion of left cavernous sinus. Nonenhancing soft tissue thickening and edematous changes within the soft palate. Bilateral nasal cavities are clear. Interval increase in asymmetrical thickening within left tonsillar region causing effacement of left vallecula. Redemonstration of erosive changes involving left maxillary sinus swanson, left pterygoid plates, left zygomatic arch and floor of left orbit. Interval extraction of left mandibular dentition and bilateral maxillary dentition. Retropharyngeal and Prevertebral Soft Tissues: Unremarkable. Lymph nodes: Interval decrease in size with persistent peripherally enhancing necrotic bilateral cervical (left more than right) lymph nodes. For example: Left level 1 B measuring 1.3 x 1.2 cm (series 3, image 64), previously 1.4 x 1.2 cm; left level 2A 1 cm x 0.8 cm, previously 1 cm x 0.9 cm), left level 2 B 1.4 cm x 0.8 cm, previously 2 cm x 1.5 cm), right level 2A 0.8 cm x 0.7 cm, previously 1.4 cm x 1.0 cm. Neck vessels: Bilateral neck vessels are normal in course and caliber and appear patent. Thyroid gland: The thyroid gland is unremarkable in size and appearance. Parotid and submandibular glands: Bilateral parotid and submandibular glands are unremarkable in appearance. Paranasal Sinuses and Mastoids: Opacification of left mastoid air cells. Polypoidal mucosal thickening within bilateral sphenoid sinuses. Mild circumferential thickening within right maxillary sinus. Rest of the visualized paranasal sinuses and right mastoid air cells are clear. Visualized orbital structures are unremarkable. Mild scarring bilateral apical regions. No suspicious pulmonary nodule. No suspicious bony lesion. IMPRESSION: 1. Interval decrease in size of heterogeneously enhancing lesion arising within left maxillary sinus. Non enhancing soft tissue thickening/edematous changes are seen within left maxillary sinus, left alignment technician space, left pterygopalatine fossa, pterygoid muscles and soft palate when compared to prior CT 09/11/2024, likely posttherapy. No residual measurable mass appreciated. 2. Interval decreased with persistent enlarged necrotic bilateral cervical (left more than right) lymph nodes as detailed above, consistent with treatment response but persistent disease. 3. Stable erosive changes involving left maxillary sinus swanson, left pterygoid plate, left zygomatic arch and floor of left wall orbit when compared to prior. I personally reviewed the images/study and I agree with the findings as stated by Sherron Campos MD. This study was interpreted at [facility], [place], [place]. 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 ACCESSION NUMBER(S): [id number] ORDERING CLINICIAN: SIDRA ORTIZ TECHNIQUE: The paranasal sinuses, supra hyoid neck and adjacent structures were studied in the axial and coronal planes utilizing T1 and T2 weighted images both before and after contrast injection. INTRAVENOUS CONTRAST DOSE: 10 ML Dotarem. FINDINGS: Significant interval decrease in size of heterogeneously enhancing 7 cm mass arising in the left maxillary sinus. Persistent ill-defined enhancement without measurable enhancing lesion seen within left nasal cavity and maxillary sinus on current imaging. Diffuse T2 hypointense signal with mild post contrast enhancement involving left pterygomaxillary fissure, pterygopalatine fossa, left parapharyngeal space, alignment technician space, pre maxillary and zygomatic region. Altered signal intensity is seen within left soft palate. No measurable enhancing lesion is seen. Redemonstration of postobstructive changes in the left middle ear and mastoid air cells. Decreased extension tumor into the left inferior extraconal space currently measuring approximate 3 mm in thickness (series 7, image 28), previously 5 mm.. Left cavernous sinus appears unremarkable. There is interval decrease in size of previously seen bilateral cervical lymph node (left more than right) at level 2 and 3. For example: Left level 2A, measuring 1.3 cm x 1.3 cm (series 9, image 1), previously 1.4 cm x 1.3 cm, left level 2 B, measuring 1.2 cm x 1.1 cm (series 9, image 7), previously 1.5 cm x 1.3 cm. No new significant cervical lymph node seen. Status post extraction of left posterior mandibular dentition. Decreased T1 signal within the left mandibular body noted. Bilateral parotid and submandibular glands appear unremarkable. Large left mastoid effusion. ORBITS: The globes, retrobulbar fat, extraocular muscles, and optic nerve sheath complexes are intact and normal in morphology. VISUALIZED BRAIN: Unremarkable. IMPRESSION: 1. 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 Altered signal intensity with mild post contrast enhancement seen involving left parapharyngeal and alignment technician space with extensions as described, likely posttherapy changes. No measurable enhancing lesion seen. 2. Persistent abnormal appearance but interval decrease in size of cervical lymph nodes at level 2 and 3 bilaterally (left more than right), consistent with treatment response. 3. Status post extraction multiple left mandibular dentition. Edema/enhancement within the left mandibular body may represent a combination of postsurgical and posttreatment change. I personally reviewed the images/study and I agree with the findings as stated by Sherron Campos MD. This study was interpreted at [facility], [place], [place]. Signed by: Denny Head 11/07/2024 10:02 AM Dictation workstation: [id number] Normal [facility] CBC W Auto Differential pane l (Bld)on 10-23-2024 Basophils (Bld) [#/Vol] 0.12 x10*3/uL High 0.00-0.10 [facility] Comment on above: Result Comment: Auto mated WBC differential has been confirmed by manual smear review Performed By: #### 5 7021-8 ####LIANE FRANCE ([id number])[facility] (ANNA)[address] [place] [address] Basophils/100 WBC (Bld) 0.6 % Normal 0.0-2.0 [facility] Comment on above: Performed By: #### 5 7021-8 ####LIANE FRANCE ([id number])[facility] ([facility]NA)[address] [place] [place] [address] Eosinophils (Bld) [#/Vol] 0.11 x10*3/uL Normal 0.00-0.70 [facility] Comment on above: Performed By: #### 5 7021-8 ####LIANE FRANCE ([id number])[facility] (ANNA)[address] [place] [address] Eosinophils/100 WBC (Bld) 0.6 % Normal 0.0-6.0 [facility] Comment on above: Performed By: #### 5 7021-8 ####LIANE FRANCE ([id number])[facility] (ANNA)[address] [place] [address] Erythrocyte distribution width (RBC) [Ratio] 16.8 % High 11.5-14.5 [facility] Comment on above: Performed By: #### 5 7021-8 ####LIANE Steinberg'PETRA ([id number])[facility] (ANNA)[address] [place] [address] Hematocrit (Bld) [Volume fraction] 33.5 % Low 36.0-46.0 [facility] Comment on above: Performed By: #### 5 7021-8 ####LIANE FRANCE ([id number])[facility] (ANNA)[address] [place] [address] Hemoglobin (Bld) [Mass/Vol] 10.5 g/dL Low 12.0-16.0 [facility] Comment on above: Performed By: #### 5 7021-8 ####LIANE FRANCE ([id number])[facility] (ANNA)[address] [place] [address] Immature granulocytes (Bld) [#/Vol] 0.20 x10*3/uL Normal 0.00-0.70 [facility] Comment on above: Performed By: #### 5 7021-8 ####LIANE Steinberg'PETRA ([id number])[facility] (ANNA)[address] [place] [address] Immature granulocytes/100 WBC (Bld) 1.0 % High 0.0-0.9 [facility] Comment on above: Result Comment: Joelle ture Granulocyte Count (IG) includes promyelocytes, myelocytes and metamyelocytes but does not include bands. Percent differential counts (%) should be interpreted in the context of the absolute cell counts (cells/UL). Performed By: #### 5 7021-8 ####LIANE FRANCE ([id number])[facility] (ANNA)[address] [place] [address] Lymphocytes (Bld) [#/Vol] 1.20 x10*3/uL Normal 1.20-4.80 [facility] Comment on above: Performed By: #### 5 7021-8 ####LIANE FRANCE ([id number])[facility] (ANNA)[address] [place] [address] Lymphocytes/100 WBC (Bld) 6.1 % Normal 13.0-44.0 [facility] Comment on above: Performed By: #### 5 7021-8 ####LIANE FRANCE ([id number])[facility] (ANNA)[address] [place] [address] MCH (RBC) [Entitic mass] 26.9 pg Normal 26.0-34.0 [facility] Comment on above: Performed By: #### 5 7021-8 ####LIANE FRANCE ([id number])[facility] (ANNA)[address] [place] [address] MCHC (RBC) [Mass/Vol] 31.3 g/dL Low 32.0-36.0 [facility] Comment on above: Performed By: #### 5 7021-8 ####LIANE FRANCE ([id number])[facility] (ANNA)[address] [place] [address] MCV (RBC) [Entitic vol] 86 fL Normal 80-100 [facility] Comment on above: Performed By: #### 5 7021-8 ####LIANE FRANCE ([id number])[facility] (ANNA)[address] [place] [address] Monocytes (Bld) [#/Vol] 1.98 x10*3/uL High 0.10-1.00 [facility] Comment on above: Performed By: #### 5 7021-8 ####LIANE Steinberg'PETRA ([id number])[facility] (ANNA)[address] [place] [address] Monocytes/100 WBC (Bld) 10.0 % Normal 2.0-10.0 [facility] Comment on above: Performed By: #### 5 7021-8 ####LIANE Steinberg'PETRA ([id number])[facility] (ANNA)[address] [place] [address] Neutrophils (Bld) [#/Vol] 16.19 x10*3/uL High 1.20-7.70 [facility] Comment on above: Result Comment: Perc ent differential counts (%) should be interpreted in the context of the absolute cell counts (cells/uL). Performed By: #### 5 7021-8 ####LIANE FRANCE ([id number])[facility] (ANNA)[address] [place] [address] Neutrophils/100 WBC (Bld) 81.7 % Normal 40.0-80.0 [facility] Comment on above: Performed By: #### 5 7021-8 ####LIANE FARNCE ([id number])[facility] (NANA)[address] [place] [address] Nucleated RBC/100 WBC (Bld) [Ratio] 0.0 /100 WBCs Normal 0.0-0.0 [facility] Comment on above: Performed By: #### 5 7021-8 ####LIANE Steinberg'PETRA ([id number])[facility] (ANNA)[address] [place] [address] Platelets (Bld) [#/Vol] 479 x10*3/uL High 150-450 [facility] Comment on above: Performed By: #### 5 7021-8 ####LIANE FRANCE ([id number])[facility] (ANNA)[address] [place] [address] RBC (Bld) [#/Vol] 3.90 x10*6/uL Low 4.00-5.20 [facility] Comment on above: Performed By: #### 5 7021-8 ####LIANE FRANCE (98606)[facility] (ANNA)[address] [place] [address] WBC (Bld) [#/Vol] 19.8 x10*3/uL High 4.4-11.3 [facility] Comment on above: Performed By: #### 5 7021-8 ####LIANE FRANCE ([id number])[facility] (ANNA)[address] [place] [address] Comprehensive metabolic 2000 panelon 10-23-2024 Albumin BCP dye [Mass/Vol] 4.4 g/dL Normal 3.4-5.0 [facility] Comment on above: Performed By: #### 2 4323-8 ####LIANE FRANCE ([id number])[facility] (ANNA)[address] [place] [address] ALP [Catalytic activity/Vol] 123 U/L High 33-110 [facility] Comment on above: Performed By: #### 2 4323-8 ####LIANE FRANCE ([id number])[facility] (ANNA)[address] [place] [address] ALT With P-5'-P [Catalytic activity/Vol] 13 U/L Normal 7-45 [facility] Comment on above: Result Comment: Cara ents treated with Sulfasalazine may generate falsely decreased results for ALT. Performed By: #### 2 4323-8 ####LIANE FRANCE ([id number])[facility] (ANNA)[address] [place] [address] Anion gap [Moles/Vol] 12 mmol/L Normal 10-20 [facility] Comment on above: Performed By: #### 2 4323-8 ####LIANE Steinberg'PETRA ([id number])[facility] (ANNA)[address] [place] [address] AST With P-5'-P [Catalytic activity/Vol] 20 U/L Normal 9-39 [facility] Comment on above: Performed By: #### 2 4323-8 ####LIANE Steinberg'PETRA ([id number])[facility] (ANNA)[address] [place] [address] Bilirubin [Mass/Vol] 0.2 mg/dL Normal 0.0-1.2 [facility] Comment on above: Performed By: #### 2 4323-8 ####LIANE Steinberg'PETRA ([id number])[facility] (ANNA)[address] [place] [address] Calcium [Mass/Vol] 9.9 mg/dL Normal 8.6-10.3 [facility] Comment on above: Performed By: #### 2 4323-8 ####LIANE Steinberg'PETRA ([id number])[facility] (ANNA)[address] [place] [address] Chloride [Moles/Vol] 99 mmol/L Normal 98-107 [facility] Comment on above: Performed By: #### 2 4323-8 ####LIANE Steinberg'PETRA ([id number])[facility] (ANNA)[address] [place] [address] CO2 [Moles/Vol] 29 mmol/L Normal 21-[address] [facility] Comment on above: Performed By: #### 2 4323-8 ####LIANE Steinberg'PETRA ([id number])[facility] (ANNA)[address] [place] [address] Creatinine [Mass/Vol] 0.62 mg/dL Normal 0.50-1.05 [facility] Comment on above: Performed By: #### 2 4323-8 ####LIANE Steinberg'PETRA ([id number])[facility] (ANNA)[address] [place] [address] Glomerular filtration rate >90 Normal >60 [facility] Comment on above: Result Comment: Calc ulations of estimated GFR are performed using the 2020 CKD-EPI Study Refit equation without the race variable for the IDMS-Traceable creatinine methods.https://jasn.asnjournals.org/content///A SN.3453259762 Performed By: #### 2 4323-8 ####LIANE Steinberg'PETRA ([id number])[facility] (ANNA)[address] [place] [address] Glucose [Mass/Vol] 83 mg/dL Normal 74-99 [facility] Comment on above: Performed By: #### 2 4323-8 ####LIANE Steinberg'PETRA ([id number])[facility] (ANNA)[address] [place] [address] Potassium [Moles/Vol] 4.3 mmol/L Normal 3.5-5.3 [facility] Comment on above: Performed By: #### 2 4323-8 ####LIANE Steinberg'PETRA ([id number])[facility] (ANNA)[address] [place] [address] Protein [Mass/Vol] 7.6 g/dL Normal 6.4-8.2 [facility] Comment on above: Performed By: #### 2 4323-8 ####LIANE O'PETRA ([id number])[facility] (ANNA)[address] [place] [address] Sodium [Moles/Vol] 136 mmol/L Normal 136-145 [facility] Comment on above: Performed By: #### 2 4323-8 ####LIANE Steinberg'PETRA ([id number])[facility] (ANNA)[address] [place] [address] Urea nitrogen [Mass/Vol] 19 mg/dL Normal 6-23 [facility] Comment on above: Performed By: #### 2 4323-8 ####LIANE Steinberg'PETRA ([id number])[facility] (ANNA)[address] [place] [address] Magnesiumon 10-23-2024 Magnesium [Mass/Vol] 1.85 mg/dL Normal 1.60-2.40 [facility] Comment on above: Performed By: #### 1 9123-9 ####LIANE Steinberg'PETRA ([id number])[facility] (ANNA)[address] [place] [address] RBC shape Nom (Bld)on 2024 Dohle body LM Ql (Bld) Present Normal [facility] Comment on above: Performed By: #### 1 8225-3 ####LIANE Steinberg'PETRA ([id number])[facility] (ANNA)[address] [place] [address] Ovalocytes LM Ql (Bld) Few Normal [facility] Comment on above: Performed By: #### 1 8225-3 ####LIANE Steinberg'PETRA ([id number])[facility] (ANNA)[address] [place] [address] RBC morphology finding Nom (Bld) See Below Normal [facility] Comment on above: Performed By: #### 1 8225-3 ####LIANE Steinberg'PETRA ([id number])[facility] (ANNA)[address] [place] [address] CBC W Auto Differential pane l (Bld)on 10-16-2024 Basophils (Bld) [#/Vol] 0.04 x10*3/uL Normal 0.00-0.10 [facility] Comment on above: Performed By: #### 5 7021-8 ####LIANE FRANCE ([id number])[facility] (ANNA)[address] [place] [address] Basophils/100 WBC (Bld) 0.3 % Normal 0.0-2.0 [facility] Comment on above: Performed By: #### 5 7021-8 ####LIANE FRANCE ([id number])[facility] (ANNA)[address] [place] [address] Eosinophils (Bld) [#/Vol] 0.08 x10*3/uL Normal 0.00-0.70 [facility] Comment on above: Performed By: #### 5 7021-8 ####LIANE FRANCE ([id number])[facility] (ANNA)[address] [place] [address] Eosinophils/100 WBC (Bld) 0.6 % Normal 0.0-6.0 [facility] Comment on above: Performed By: #### 5 7021-8 ####LIANE FRANCE ([id number])[facility] (ANNA)[address] [place] [address] Erythrocyte distribution width (RBC) [Ratio] 16.7 % High 11.5-14.5 [facility] Comment on above: Performed By: #### 5 7021-8 ####LIANE FRANCE (54324)[facility] (ANNA)[address] [place] [address] Hematocrit (Bld) [Volume fraction] 33.0 % Low 36.0-46.0 [facility] Comment on above: Performed By: #### 5 7021-8 ####LIANE FRANCE ([id number])[facility] (ANNA)[address] [place] [address] Hemoglobin (Bld) [Mass/Vol] 10.1 g/dL Low 12.0-16.0 [facility] Comment on above: Performed By: #### 5 7021-8 ####LIANE Steinberg'PETRA (17689)[facility] (ANNA)[address] [place] [address] Immature granulocytes (Bld) [#/Vol] 0.06 x10*3/uL Normal 0.00-0.70 [facility] Comment on above: Performed By: #### 5 7021-8 ####LIANE Steinberg'PETRA ([id number])[facility] (ANNA)[address] [place] [address] Immature granulocytes/100 WBC (Bld) 0.5 % Normal 0.0-0.9 [facility] Comment on above: Result Comment: Joelle ture Granulocyte Count (IG) includes promyelocytes, myelocytes and metamyelocytes but does not include bands. Percent differential counts (%) should be interpreted in the context of the absolute cell counts (cells/UL). Performed By: #### 5 7021-8 ####LIANE Steinberg'PETRA ([id number])[facility] (ANNA)[address] [place] [address] Lymphocytes (Bld) [#/Vol] 1.30 x10*3/uL Normal 1.20-4.80 [facility] Comment on above: Performed By: #### 5 7021-8 ####LIANE Steinberg'PETRA ([id number])[facility] (ANNA)[address] [place] [address] Lymphocytes/100 WBC (Bld) 9.8 % Normal 13.0-44.0 [facility] Comment on above: Performed By: #### 5 7021-8 ####LIANE Steinberg'PETRA ([id number])[facility] (ANNA)[address] [place] [address] MCH (RBC) [Entitic mass] 27.1 pg Normal 26.0-34.0 [facility] Comment on above: Performed By: #### 5 7021-8 ####LIANE Steinberg'PETRA ([id number])[facility] (ANNA)[address] [place] [address] MCHC (RBC) [Mass/Vol] 30.6 g/dL Low 32.0-36.0 [facility] Comment on above: Performed By: #### 5 7021-8 ####LIANE Steinberg'PETRA (12760)[facility] (ANNA)[address] [place] [address] MCV (RBC) [Entitic vol] 89 fL Normal 80-100 [facility] Comment on above: Performed By: #### 5 7021-8 ####LIANE Steinberg'PETRA ([id number])[facility] (ANNA)[address] [place] [address] Monocytes (Bld) [#/Vol] 1.28 x10*3/uL High 0.10-1.00 [facility] Comment on above: Performed By: #### 5 7021-8 ####LIANE Steinberg'PETRA ([id number])[facility] (ANNA)[address] [place] [address] Monocytes/100 WBC (Bld) 9.7 % Normal 2.0-10.0 [facility] Comment on above: Performed By: #### 5 7021-8 ####LIANE Steinberg'PETRA ([id number])[facility] (ANNA)[address] [place] [address] Neutrophils (Bld) [#/Vol] 10.49 x10*3/uL High 1.20-7.70 [facility] Comment on above: Result Comment: Perc ent differential counts (%) should be interpreted in the context of the absolute cell counts (cells/uL). Performed By: #### 5 7021-8 ####LIANE Steinberg'PETRA ([id number])[facility] (ANNA)[address] [place] [address] Neutrophils/100 WBC (Bld) 79.1 % Normal 40.0-80.0 [facility] Comment on above: Performed By: #### 5 7021-8 ####LIANE FRANCE ([id number])[facility] (ANNA)[address] [place] [address] Nucleated RBC/100 WBC (Bld) [Ratio] 0.0 /100 WBCs Normal 0.0-0.0 [facility] Comment on above: Performed By: #### 5 7021-8 ####LIANE FRANCE ([id number])[facility] (ANNA)[address] [place] [address] Platelets (Bld) [#/Vol] 621 x10*3/uL High 150-450 [facility] Comment on above: Performed By: #### 5 7021-8 ####LIANE FRANCE ([id number])[facility] (ANNA)[address] [place] [address] RBC (Bld) [#/Vol] 3.73 x10*6/uL Low 4.00-5.20 [facility] Comment on above: Performed By: #### 5 7021-8 ####LIANE FRANCE ([id number])[facility] (ANNA)[address] [place] [address] WBC (Bld) [#/Vol] 13.3 x10*3/uL High 4.4-11.3 [facility] Comment on above: Performed By: #### 5 7021-8 ####LIANE FRANCE ([id number])[facility] (ANNA)[address] [place] [address] Choriogonadotropin.beta subu niton 10-16-2024 HCG.beta subunit Qn 3 m[IU]/mL Normal <5 [facility] Comment on above: Order Comment: Total HCG measurement is performed using the Siemens Atellica immunoassay which detects intact HCG and free beta HCG subunit. This test is not indicated for use as a tumor marker. HCG testing is performed using a different test methodology at [facility] than other [facility]. Direct result comparison should only be made within the same method. Performed By: #### 2 1198-7 ####REESE Baez ([id number])[facility] ([facility])[address] [place] [address] Comprehensive metabolic 2000 panelon 10-16-2024 Albumin BCP dye [Mass/Vol] 3.9 g/dL Normal 3.4-5.0 [facility] Comment on above: Performed By: #### 2 4323-8 ####LIANE FRANCE ([id number])[facility] (ANNA)[address] [place] [address] ALP [Catalytic activity/Vol] 77 U/L Normal 33-110 [facility] Comment on above: Performed By: #### 2 4323-8 ####LIANE Steinberg'PETRA ([id number])[facility] (ANNA)[address] [place] [address] ALT With P-5'-P [Catalytic activity/Vol] 11 U/L Normal 7-45 [facility] Comment on above: Result Comment: Cara ents treated with Sulfasalazine may generate falsely decreased results for ALT. Performed By: #### 2 4323-8 ####LIANE FRANCE ([id number])[facility] (ANNA)[address] [place] [address] Anion gap [Moles/Vol] 12 mmol/L Normal 10-20 [facility] Comment on above: Performed By: #### 2 4323-8 ####LIANE Steinberg'PETRA ([id number])[facility] (ANNA)[address] [place] [address] AST With P-5'-P [Catalytic activity/Vol] 15 U/L Normal 9-39 [facility] Comment on above: Performed By: #### 2 4323-8 ####LIANE Steinberg'PETRA ([id number])[facility] (ANNA)[address] [place] [address] Bilirubin [Mass/Vol] 0.2 mg/dL Normal 0.0-1.2 [facility] Comment on above: Performed By: #### 2 4323-8 ####LIANE Steinberg'PETRA ([id number])[facility] (ANNA)[address] [place] [address] Calcium [Mass/Vol] 9.6 mg/dL Normal 8.6-10.3 [facility] Comment on above: Performed By: #### 2 4323-8 ####LIANE Steinberg'PETRA ([id number])[facility] (ANNA)[address] [place] [address] Chloride [Moles/Vol] 101 mmol/L Normal 98-107 [facility] Comment on above: Performed By: #### 2 4323-8 ####LIANE Steinberg'PETRA ([id number])[facility] (ANNA)[address] [place] [address] CO2 [Moles/Vol] 30 mmol/L Normal 21-[address] [facility] Comment on above: Performed By: #### 2 4323-8 ####LIANE O'PETRA ([id number])[facility] (ANNA)[address] [place] [address] Creatinine [Mass/Vol] 0.69 mg/dL Normal 0.50-1.05 [facility] Comment on above: Performed By: #### 2 4323-8 ####LIANE Steinberg'PETRA ([id number])[facility] (ANNA)[address] [place] [address] Glomerular filtration rate >90 Normal >60 [facility] Comment on above: Result Comment: Calc ulations of estimated GFR are performed using the 2020 CKD-EPI Study Refit equation without the race variable for the IDMS-Traceable creatinine methods.https://jasn.asnjournals.org/content//A .5992193347 Performed By: #### 2 4323-8 ####LIANE O'PETRA (02563)[facility] (ANNA)[address] [place] [address] Glucose [Mass/Vol] 72 mg/dL Low 74-99 [facility] Comment on above: Performed By: #### 2 4323-8 ####LIANE O'PETRA ([id number])[facility] (ANNA)[address] [place] [address] Potassium [Moles/Vol] 4.2 mmol/L Normal 3.5-5.3 [facility] Comment on above: Performed By: #### 2 4323-8 ####LIANE O'PETRA ([id number])[facility] (ANNA)[address] [place] [address] Protein [Mass/Vol] 7.4 g/dL Normal 6.4-8.2 [facility] Comment on above: Performed By: #### 2 4323-8 ####LIANE O'PETRA ([id number])[facility] (ANNA)[address] [place] [address] Sodium [Moles/Vol] 139 mmol/L Normal 136-145 [facility] Comment on above: Performed By: #### 2 4323-8 ####LIANE O'PETRA (45930)[facility] (ANNA)[address] [place] [address] Urea nitrogen [Mass/Vol] 11 mg/dL Normal 6-23 [facility] Comment on above: Performed By: #### 2 4323-8 ####LIANE O'PETRA ([id number])[facility] (ANNA)[address] [place] [address] Corticotropinon 10-16-2024 Corticotropin (P) [Mass/Vol] 5.1 pg/mL Low 7.2-63.3 [facility] Comment on above: Result Comment: INTE RPRETIVE INFORMATION: Adrenocorticotropic HormoneReference interval based on samples collected between 7 a.m. and10 a.m. No reference intervals established for p.m. collections.Pediatric reference values are the same as adults (Acta PaediatrScand 1981;70:341-345). This assay measures intact ACTH 1-39;some types of synthetic ACTH and ACTH fragments are not detectedby this assay.Performed By: [address] [place], [place] [address]Gegnuvnqrs Director: Shaheen Rueda MD, PhDCLIA Number: [id number] Performed By: #### 2 141-0 ####[facility] (DIANA) ([id number])[address] [place] [address] Cortisol^AM peak specimenon 10-16-2024 Cortisol AM peak specimen [Mass/Vol] 8.3 ug/dL Normal 5.0-20.0 [facility] Comment on above: Performed By: #### 9 813-7 ####REESE Baez ([id number])[facility] ([facility])[address] [place] [address] Magnesiumon 10-16-2024 Magnesium [Mass/Vol] 1.68 mg/dL Normal 1.60-2.40 [facility] Comment on above: Performed By: #### 1 9123-9 ####LIANE FRANCE ([id number])[facility] (ANNA)[address] [place] [address] TSH WITH REFLEX TO FREE T4 I F ABNORMALon 10-16-2024 TSH Qn 0.71 m[IU]/L Normal 0.44-3.98 [facility] Comment on above: Order Comment: TSH t esting is performed using different testing methodology at [facility] than at other [facility]. Direct result comparisons should only be made within the same method. Performed By: #### T HYDS ####REESE Baez ([id number])[facility] ([facility])[address] [place] [address] CBC W Auto Differential pane l (Bld)on 10-09-2024 Basophils (Bld) [#/Vol] 0.04 x10*3/uL Normal 0.00-0.10 [facility] Comment on above: Performed By: #### 5 7021-8 ####LIANE FRANCE (49909)[facility] (ANNA)[address] [place] [address] Basophils/100 WBC (Bld) 0.3 % Normal 0.0-2.0 [facility] Comment on above: Performed By: #### 5 7021-8 ####LIANE FRANCE ([id number])[facility] (ANNA)[address] [place] [address] Eosinophils (Bld) [#/Vol] 0.02 x10*3/uL Normal 0.00-0.70 [facility] Comment on above: Performed By: #### 5 7021-8 ####LIANE FRANCE ([id number])[facility] (ANNA)[address] [place] [address] Eosinophils/100 WBC (Bld) 0.1 % Normal 0.0-6.0 [facility] Comment on above: Performed By: #### 5 7021-8 ####LIANE FR[place] ([id number])[facility] (ANNA)[address] [place] [address] Erythrocyte distribution width (RBC) [Ratio] 15.9 % High 11.5-14.5 [facility] Comment on above: Performed By: #### 5 7021-8 ####LIANE FRANCE ([id number])[facility] (ANNA)[address] [place] [address] Hematocrit (Bld) [Volume fraction] 30.4 % Low 36.0-46.0 [facility] Comment on above: Performed By: #### 5 7021-8 ####LIANE Steinberg'PETRA ([id number])[facility] (ANNA)[address] [place] [address] Hemoglobin (Bld) [Mass/Vol] 9.2 g/dL Low 12.0-16.0 [facility] Comment on above: Performed By: #### 5 7021-8 ####LIANE FRANCE ([id number])[facility] (ANNA)[address] [place] [address] Immature granulocytes (Bld) [#/Vol] 0.10 x10*3/uL Normal 0.00-0.70 [facility] Comment on above: Performed By: #### 5 7021-8 ####LIANE FR[place] (96513)[facility] (ANNA)[address] [place] [address] Immature granulocytes/100 WBC (Bld) 0.7 % Normal 0.0-0.9 [facility] Comment on above: Result Comment: Joelle ture Granulocyte Count (IG) includes promyelocytes, myelocytes and metamyelocytes but does not include bands. Percent differential counts (%) should be interpreted in the context of the absolute cell counts (cells/UL). Performed By: #### 5 7021-8 ####LIANE FRANCE ([id number])[facility] (ANNA)[address] [place] [address] Lymphocytes (Bld) [#/Vol] 1.85 x10*3/uL Normal 1.20-4.80 [facility] Comment on above: Performed By: #### 5 7021-8 ####LIANE FRANCE ([id number])[facility] (ANNA)[address] [place] [address] Lymphocytes/100 WBC (Bld) 12.2 % Normal 13.0-44.0 [facility] Comment on above: Performed By: #### 5 7021-8 ####LIANE FRANCE ([id number])[facility] (ANNA)[address] [place] [address] MCH (RBC) [Entitic mass] 26.8 pg Normal 26.0-34.0 [facility] Comment on above: Performed By: #### 5 7021-8 ####LIANE FRANCE ([id number])[facility] (ANNA)[address] [place] [address] MCHC (RBC) [Mass/Vol] 30.3 g/dL Low 32.0-36.0 [facility] Comment on above: Performed By: #### 5 7021-8 ####LIANE Steinberg'PETRA (08057)[facility] (ANNA)[address] [place] [address] MCV (RBC) [Entitic vol] 89 fL Normal 80-100 [facility] Comment on above: Performed By: #### 5 7021-8 ####LIANE FRANCE ([id number])[facility] (ANNA)[address] [place] [address] Monocytes (Bld) [#/Vol] 1.10 x10*3/uL High 0.10-1.00 [facility] Comment on above: Performed By: #### 5 7021-8 ####LIANE Steinberg'PETRA (87237)[facility] (ANNA)[address] [place] [address] Monocytes/100 WBC (Bld) 7.2 % Normal 2.0-10.0 [facility] Comment on above: Performed By: #### 5 7021-8 ####LIANE Steinberg'PETRA (60995)[facility] (ANNA)[address] [place] [address] Neutrophils (Bld) [#/Vol] 12.10 x10*3/uL High 1.20-7.70 [facility] Comment on above: Result Comment: Perc ent differential counts (%) should be interpreted in the context of the absolute cell counts (cells/uL). Performed By: #### 5 7021-8 ####LIANE Steinberg'PETRA (74469)[facility] (ANNA)[address] [place] [address] Neutrophils/100 WBC (Bld) 79.5 % Normal 40.0-80.0 [facility] Comment on above: Performed By: #### 5 7021-8 ####LIANE FRANCE (16349)[facility] (ANNA)[address] [place] [address] Nucleated RBC/100 WBC (Bld) [Ratio] 0.0 /100 WBCs Normal 0.0-0.0 [facility] Comment on above: Performed By: #### 5 7021-8 ####LIANE FRANCE (65566)[facility] (ANNA)[address] [place] [address] Platelets (Bld) [#/Vol] 485 x10*3/uL High 150-450 [facility] Comment on above: Performed By: #### 5 7021-8 ####LIANE FRANCE (76051)[facility] (ANNA)[address] [place] [address] RBC (Bld) [#/Vol] 3.43 x10*6/uL Low 4.00-5.20 [facility] Comment on above: Performed By: #### 5 7021-8 ####LIANE FRANCE (90045)[facility] (ANNA)[address] [place] [address] WBC (Bld) [#/Vol] 15.2 x10*3/uL High 4.4-11.3 [facility] Comment on above: Performed By: #### 5 7021-8 ####LIANE FRANCE (48967)[facility] (ANNA)[address] [place] [address] Comprehensive metabolic 2000 panelon 10-09-2024 Albumin BCP dye [Mass/Vol] 3.8 g/dL Normal 3.4-5.0 [facility] Comment on above: Performed By: #### 2 4323-8 ####LIANE FRANCE ([id number])[facility] (ANNA)[address] [place] [address] ALP [Catalytic activity/Vol] 96 U/L Normal 33-110 [facility] Comment on above: Performed By: #### 2 4323-8 ####LIANE Steinberg'PETRA (22955)[facility] (ANNA)[address] [place] [address] ALT With P-5'-P [Catalytic activity/Vol] 15 U/L Normal 7-45 [facility] Comment on above: Result Comment: Cara ents treated with Sulfasalazine may generate falsely decreased results for ALT. Performed By: #### 2 4323-8 ####LIANE Steinberg'PETRA (95157)[facility] (ANNA)[address] [place] [address] Anion gap [Moles/Vol] 12 mmol/L Normal 10-20 [facility] Comment on above: Performed By: #### 2 4323-8 ####LIANE Steinberg'PETRA (32384)[facility] (ANNA)[address] [place] [address] AST With P-5'-P [Catalytic activity/Vol] 14 U/L Normal 9-39 [facility] Comment on above: Performed By: #### 2 4323-8 ####LIANE Steinberg'PETRA (50750)[facility] (ANNA)[address] [place] [address] Bilirubin [Mass/Vol] 0.2 mg/dL Normal 0.0-1.2 [facility] Comment on above: Performed By: #### 2 4323-8 ####LIANE Steinberg'PETRA (03135)[facility] (ANNA)[address] [place] [address] Calcium [Mass/Vol] 9.7 mg/dL Normal 8.6-10.3 [facility] Comment on above: Performed By: #### 2 4323-8 ####LIANE O'PETRA (24643)[facility] (ANNA)[address] [place] [address] Chloride [Moles/Vol] 100 mmol/L Normal 98-107 [facility] Comment on above: Performed By: #### 2 4323-8 ####LIANE O'PETRA (36762)[facility] (ANNA)[address] [place] [address] CO2 [Moles/Vol] 33 mmol/L High 21-[address] [facility] Comment on above: Performed By: #### 2 4323-8 ####LIANE O'PETRA (06745)[facility] (ANNA)[address] [place] [address] Creatinine [Mass/Vol] 0.67 mg/dL Normal 0.50-1.05 [facility] Comment on above: Performed By: #### 2 4323-8 ####LIANE O'PETRA (12996)[facility] (ANNA)[address] [place] [address] Glomerular filtration rate >90 Normal >60 [facility] Comment on above: Result Comment: Calc ulations of estimated GFR are performed using the 2020 CKD-EPI Study Refit equation without the race variable for the IDMS-Traceable creatinine methods.https://jasn.asnjournals.org/content//A .6584960712 Performed By: #### 2 4323-8 ####LIANE O'PETRA (00423)[facility] (ANNA)[address] [place] [address] Glucose [Mass/Vol] 110 mg/dL High 74-99 [facility] Comment on above: Performed By: #### 2 4323-8 ####LIANE O'PETRA (17076)[facility] (ANNA)[address] [place] [address] Potassium [Moles/Vol] 3.9 mmol/L Normal 3.5-5.3 [facility] Comment on above: Performed By: #### 2 4323-8 ####LIANE FRANCE (56786)[facility] (ANNA)[address] [place] [address] Protein [Mass/Vol] 7.3 g/dL Normal 6.4-8.2 [facility] Comment on above: Performed By: #### 2 4323-8 ####LIANE FRANCE (77144)[facility] (ANNA)[address] [place] [address] Sodium [Moles/Vol] 141 mmol/L Normal 136-145 [facility] Comment on above: Performed By: #### 2 4323-8 ####LIANE FRANCE ([id number])[facility] (ANNA)[address] [place] [address] Urea nitrogen [Mass/Vol] 13 mg/dL Normal 6-23 [facility] Comment on above: Performed By: #### 2 4323-8 ####LIANE FRANCE (37872)[facility] (ANNA)[address] [place] [address] Magnesiumon 10-09-2024 Magnesium [Mass/Vol] 1.82 mg/dL Normal 1.60-2.40 [facility] Comment on above: Performed By: #### 1 9123-9 ####LIANE FRANCE (65820)[facility] (ANNA)[address] [place] [address] CBC W Auto Differential pane l (Bld)on 10-02-2024 Erythrocyte distribution width (RBC) [Ratio] 15.9 % High 11.5 - 14.5 % [facility] Hematocrit (Bld) [Volume fraction] 36.0 % 36.0 - 46.0 % [facility] Hemoglobin (Bld) [Mass/Vol] 11.1 g/dL Low 12.0 - 16.0 g/dL [facility] Immature granulocytes (Bld) [#/Vol] 0.28 10*3/uL [facility] Immature granulocytes/100 WBC (Bld) 1.6 % High 0.0 - 0.9 % [facility] Comment on above: Immature Granulocyte Count (IG) includes promyelocytes, myelocytes and metamyelocytes but does not include bands. Percent differential counts (%) should be interpreted in the context of the absolute cell counts (cells/UL). Interpretation and review of laboratory results Abnormal [facility] MCH (RBC) [Entitic mass] 26.9 pg 26.0 - 34.0 pg [facility] MCHC (RBC) [Mass/Vol] 30.8 g/dL Low 32.0 - 36.0 g/dL [facility] MCV (RBC) [Entitic vol] 87 fL 80 - 100 fL [facility] Nucleated RBC/100 WBC (Bld) [Ratio] 0.0 % [facility] Platelets (Bld) [#/Vol] 580 10*3/uL High [facility] RBC (Bld) [#/Vol] 4.13 10*6/uL [facility] WBC (Bld) [#/Vol] 17.3 10*3/uL High [facility] The previously reported component Neutrophils % is no longer being reported.The previously reported component Lymphocytes % is no longer being reported.The previously reported component Monocytes % is no longer being reported.The previously reported component Eosinophils % is no longer being reported.The previously reported component Basophils % is no longer being reported.The previously reported component Absolute Neutrophils is no longer being reported.The previously reported component Absolute Lymphocytes is no longer being reported.The previously reported component Absolute Monocytes is no longer being reported.The previously reported component Absolute Eosinophils is no longer being reported.The previously reported component Absolute Basophils is no longer being reported. [facility] Erythrocyte distribution width (RBC) [Ratio] 15.9 % High 11.5-14.5 [facility] Comment on above: Order Comment: The p reviously reported component Neutrophils % is no longer being reported.The previously reported component Lymphocytes % is no longer being reported.The previously reported component Monocytes % is no longer being reported.The previously reported component Eosinophils % is no longer being reported.The previously reported component Basophils % is no longer being reported.The previously reported component Absolute Neutrophils is no longer being reported.The previously reported component Absolute Lymphocytes is no longer being reported.The previously reported component Absolute Monocytes is no longer being reported.The previously reported component Absolute Eosinophils is no longer being reported.The previously reported component Absolute Basophils is no longer being reported. Performed By: #### 5 7021-8 ####LIANE FRANCE ([id number])[facility] (ANNA)[address]70 [place] [address] Hematocrit (Bld) [Volume fraction] 36.0 % Normal 36.0-46.0 [facility] Comment on above: Order Comment: The p reviously reported component Neutrophils % is no longer being reported.The previously reported component Lymphocytes % is no longer being reported.The previously reported component Monocytes % is no longer being reported.The previously reported component Eosinophils % is no longer being reported.The previously reported component Basophils % is no longer being reported.The previously reported component Absolute Neutrophils is no longer being reported.The previously reported component Absolute Lymphocytes is no longer being reported.The previously reported component Absolute Monocytes is no longer being reported.The previously reported component Absolute Eosinophils is no longer being reported.The previously reported component Absolute Basophils is no longer being reported. Performed By: #### 5 7021-8 ####LIANE FRANCE ([id number])[facility] (ANNA)[address] [place] [address] Hemoglobin (Bld) [Mass/Vol] 11.1 g/dL Low 12.0-16.0 [facility] Comment on above: Order Comment: The p reviously reported component Neutrophils % is no longer being reported.The previously reported component Lymphocytes % is no longer being reported.The previously reported component Monocytes % is no longer being reported.The previously reported component Eosinophils % is no longer being reported.The previously reported component Basophils % is no longer being reported.The previously reported component Absolute Neutrophils is no longer being reported.The previously reported component Absolute Lymphocytes is no longer being reported.The previously reported component Absolute Monocytes is no longer being reported.The previously reported component Absolute Eosinophils is no longer being reported.The previously reported component Absolute Basophils is no longer being reported. Performed By: #### 5 7021-8 ####LIANE FRANCE ([id number])[facility] (ANNA)[address]60 [place] [address] Immature granulocytes (Bld) [#/Vol] 0.28 x10*3/uL Normal 0.00-0.70 [facility] Comment on above: Order Comment: The p reviously reported component Neutrophils % is no longer being reported.The previously reported component Lymphocytes % is no longer being reported.The previously reported component Monocytes % is no longer being reported.The previously reported component Eosinophils % is no longer being reported.The previously reported component Basophils % is no longer being reported.The previously reported component Absolute Neutrophils is no longer being reported.The previously reported component Absolute Lymphocytes is no longer being reported.The previously reported component Absolute Monocytes is no longer being reported.The previously reported component Absolute Eosinophils is no longer being reported.The previously reported component Absolute Basophils is no longer being reported. Performed By: #### 5 7021-8 ####LIANE FRANCE ([id number])[facility] (ANNA)[address]17 [place] [address] Immature granulocytes/100 WBC (Bld) 1.6 % High 0.0-0.9 [facility] Comment on above: Order Comment: The p reviously reported component Neutrophils % is no longer being reported.The previously reported component Lymphocytes % is no longer being reported.The previously reported component Monocytes % is no longer being reported.The previously reported component Eosinophils % is no longer being reported.The previously reported component Basophils % is no longer being reported.The previously reported component Absolute Neutrophils is no longer being reported.The previously reported component Absolute Lymphocytes is no longer being reported.The previously reported component Absolute Monocytes is no longer being reported.The previously reported component Absolute Eosinophils is no longer being reported.The previously reported component Absolute Basophils is no longer being reported. Result Comment: Joelle ture Granulocyte Count (IG) includes promyelocytes, myelocytes and metamyelocytes but does not include bands. Percent differential counts (%) should be interpreted in the context of the absolute cell counts (cells/UL). Performed By: #### 5 7021-8 ####LIANE FRANCE ([id number])[facility] (ANNA)[address] [place] [place] [address] MCH (RBC) [Entitic mass] 26.9 pg Normal 26.0-34.0 [facility] Comment on above: Order Comment: The p reviously reported component Neutrophils % is no longer being reported.The previously reported component Lymphocytes % is no longer being reported.The previously reported component Monocytes % is no longer being reported.The previously reported component Eosinophils % is no longer being reported.The previously reported component Basophils % is no longer being reported.The previously reported component Absolute Neutrophils is no longer being reported.The previously reported component Absolute Lymphocytes is no longer being reported.The previously reported component Absolute Monocytes is no longer being reported.The previously reported component Absolute Eosinophils is no longer being reported.The previously reported component Absolute Basophils is no longer being reported. Performed By: #### 5 7021-8 ####LIANE FRANCE ([id number])[facility] ([facility])[address] [facility] [address] MCHC (RBC) [Mass/Vol] 30.8 g/dL Low 32.0-36.0 [facility] Comment on above: Order Comment: The p reviously reported component Neutrophils % is no longer being reported.The previously reported component Lymphocytes % is no longer being reported.The previously reported component Monocytes % is no longer being reported.The previously reported component Eosinophils % is no longer being reported.The previously reported component Basophils % is no longer being reported.The previously reported component Absolute Neutrophils is no longer being reported.The previously reported component Absolute Lymphocytes is no longer being reported.The previously reported component Absolute Monocytes is no longer being reported.The previously reported component Absolute Eosinophils is no longer being reported.The previously reported component Absolute Basophils is no longer being reported. Performed By: #### 5 7021-8 ####LIANE FRANCE ([id number])[facility] (ANNA)[address] [place] [address] MCV (RBC) [Entitic vol] 87 fL Normal 80-100 [facility] Comment on above: Order Comment: The p reviously reported component Neutrophils % is no longer being reported.The previously reported component Lymphocytes % is no longer being reported.The previously reported component Monocytes % is no longer being reported.The previously reported component Eosinophils % is no longer being reported.The previously reported component Basophils % is no longer being reported.The previously reported component Absolute Neutrophils is no longer being reported.The previously reported component Absolute Lymphocytes is no longer being reported.The previously reported component Absolute Monocytes is no longer being reported.The previously reported component Absolute Eosinophils is no longer being reported.The previously reported component Absolute Basophils is no longer being reported. Performed By: #### 5 7021-8 ####LIANE FRANCE ([id number])[facility] (ANNA)[address]01 [place] [address] Nucleated RBC/100 WBC (Bld) [Ratio] 0.0 /100 WBCs Normal 0.0-0.0 [facility] Comment on above: Order Comment: The p reviously reported component Neutrophils % is no longer being reported.The previously reported component Lymphocytes % is no longer being reported.The previously reported component Monocytes % is no longer being reported.The previously reported component Eosinophils % is no longer being reported.The previously reported component Basophils % is no longer being reported.The previously reported component Absolute Neutrophils is no longer being reported.The previously reported component Absolute Lymphocytes is no longer being reported.The previously reported component Absolute Monocytes is no longer being reported.The previously reported component Absolute Eosinophils is no longer being reported.The previously reported component Absolute Basophils is no longer being reported. Performed By: #### 5 7021-8 ####LIANE FRANCE ([id number])[facility] (ANNA)[address] [place] [address] Platelets (Bld) [#/Vol] 580 x10*3/uL High 150-450 [facility] Comment on above: Order Comment: The p reviously reported component Neutrophils % is no longer being reported.The previously reported component Lymphocytes % is no longer being reported.The previously reported component Monocytes % is no longer being reported.The previously reported component Eosinophils % is no longer being reported.The previously reported component Basophils % is no longer being reported.The previously reported component Absolute Neutrophils is no longer being reported.The previously reported component Absolute Lymphocytes is no longer being reported.The previously reported component Absolute Monocytes is no longer being reported.The previously reported component Absolute Eosinophils is no longer being reported.The previously reported component Absolute Basophils is no longer being reported. Performed By: #### 5 7021-8 ####LIANE FRANCE ([id number])[facility] (ANNA)[address] [facility] [address] RBC (Bld) [#/Vol] 4.13 x10*6/uL Normal 4.00-5.20 [facility] Comment on above: Order Comment: The p reviously reported component Neutrophils % is no longer being reported.The previously reported component Lymphocytes % is no longer being reported.The previously reported component Monocytes % is no longer being reported.The previously reported component Eosinophils % is no longer being reported.The previously reported component Basophils % is no longer being reported.The previously reported component Absolute Neutrophils is no longer being reported.The previously reported component Absolute Lymphocytes is no longer being reported.The previously reported component Absolute Monocytes is no longer being reported.The previously reported component Absolute Eosinophils is no longer being reported.The previously reported component Absolute Basophils is no longer being reported. Performed By: #### 5 7021-8 ####LIANE FRANCE ([id number])[facility] (ANNA)[address] [facility] [address] WBC (Bld) [#/Vol] 17.3 x10*3/uL High 4.4-11.3 [facility] Comment on above: Order Comment: The p reviously reported component Neutrophils % is no longer being reported.The previously reported component Lymphocytes % is no longer being reported.The previously reported component Monocytes % is no longer being reported.The previously reported component Eosinophils % is no longer being reported.The previously reported component Basophils % is no longer being reported.The previously reported component Absolute Neutrophils is no longer being reported.The previously reported component Absolute Lymphocytes is no longer being reported.The previously reported component Absolute Monocytes is no longer being reported.The previously reported component Absolute Eosinophils is no longer being reported.The previously reported component Absolute Basophils is no longer being reported. Performed By: #### 5 7021-8 ####LIANE FRANCE ([id number])[facility] (ANNA)[address] [place] [address] Comprehensive metabolic 2000 panelon 10-02-2024 Albumin BCP dye [Mass/Vol] 4.0 g/dL 3.4 - 5.0 g/dL [facility] ALP [Catalytic activity/Vol] 115 U/L High 33 - 110 U/L [facility] ALT With P-5'-P [Catalytic activity/Vol] 18 U/L 7 - 45 U/L [facility] Comment on above: Patients treated wit h Sulfasalazine may generate falsely decreased results for ALT. Anion gap [Moles/Vol] 13 mmol/L 10 - 2 0 mmol/L [facility] AST With P-5'-P [Catalytic activity/Vol] 14 U/L 9 - 39 U/L [facility] Bilirubin [Mass/Vol] 0.3 mg/dL 0.0 - 1 .2 mg/dL [facility] Calcium [Mass/Vol] 9.9 mg/dL 8.6 - 10. 3 mg/dL [facility] Chloride [Moles/Vol] 94 mmol/L Low 98 - 10 7 mmol/L [facility] CO2 [Moles/Vol] 32 mmol/L 21 - 32 mmol/L [facility] Creatinine [Mass/Vol] 0.66 mg/dL 0.50 - 1.05 mg/dL [facility] eGFR - PINF [facility] Comment on above: Calculations of lauren mated GFR are performed using the 2020 CKD-EPI Study Refit equation without the race variable for the IDMS-Traceable creatinine methods. https://jasn.asnjournals.org/content//ASN.43210 19018 Glucose [Mass/Vol] 155 mg/dL High 74 - 99 mg/dL [facility] Interpretation and review of laboratory results Abnormal [facility] Potassium [Moles/Vol] 3.7 mmol/L 3.5 - 5.3 mmol/L [facility] Protein [Mass/Vol] 7.9 g/dL 6.4 - 8.2 g/dL [facility] Sodium [Moles/Vol] 135 mmol/L Low 136 - 145 mmol/L [facility] Urea nitrogen [Mass/Vol] 20 mg/dL 6 - 23 mg/dL [facility] Albumin BCP dye [Mass/Vol] 4.0 g/dL Normal 3.4-5.0 [facility] Comment on above: Performed By: #### 2 4323-8 ####LIANE FRANCE ([id number])[facility] (ANNA)[address] [place] [address] ALP [Catalytic activity/Vol] 115 U/L High 33-110 [facility] Comment on above: Performed By: #### 2 4323-8 ####LIANE FRANCE ([id number])[facility] (ANNA)[address]23 [place] [address] ALT With P-5'-P [Catalytic activity/Vol] 18 U/L Normal 7-45 [facility] Comment on above: Result Comment: Cara ents treated with Sulfasalazine may generate falsely decreased results for ALT. Performed By: #### 2 4323-8 ####LIANE FRANCE ([id number])[facility] (ANNA)[address] [place] [address] Anion gap [Moles/Vol] 13 mmol/L Normal 10-20 [facility] Comment on above: Performed By: #### 2 4323-8 ####LIANE FRANCE ([id number])[facility] (ANNA)[address] [place] [address] AST With P-5'-P [Catalytic activity/Vol] 14 U/L Normal 9-39 [facility] Comment on above: Performed By: #### 2 4323-8 ####LIANE FRANCE ([id number])[facility] (ANNA)[address] [place] [address] Bilirubin [Mass/Vol] 0.3 mg/dL Normal 0.0-1.2 [facility] Comment on above: Performed By: #### 2 4323-8 ####LIANE FRANCE ([id number])[facility] (ANNA)[address]99 [place] [address] Calcium [Mass/Vol] 9.9 mg/dL Normal 8.6-10.3 [facility] Comment on above: Performed By: #### 2 4323-8 ####LIANE O'PETRA ([id number])[facility] (ANNA)[address]90 [place] [address] Chloride [Moles/Vol] 94 mmol/L Low 98-107 [facility] Comment on above: Performed By: #### 2 4323-8 ####LIANE O'PETRA ([id number])[facility] (ANNA)[address] [place] [address] CO2 [Moles/Vol] 32 mmol/L Normal 21-[address] [facility] Comment on above: Performed By: #### 2 4323-8 ####LIANE O'PETRA ([id number])[facility] (ANNA)[address] [place] [address] Creatinine [Mass/Vol] 0.66 mg/dL Normal 0.50-1.05 [facility] Comment on above: Performed By: #### 2 4323-8 ####LIANE O'PETRA ([id number])[facility] (ANNA)[address]70 [place] [address] GFR/1.73 sq M.predicted MDRD (S/P/Bld) [Vol rate/Area] mL/min/{1.73_m2} Normal >60 [facility] Comment on above: Result Comment: Calc ulations of estimated GFR are performed using the 2020 CKD-EPI Study Refit equation without the race variable for the IDMS-Traceable creatinine methods.https://jasn.asnjournals.org/content/early/A SN.2607987935 Performed By: #### 2 4323-8 ####LIANE O'PETRA ([id number])[facility] (ANNA)[address]95 [place] [address] Glucose [Mass/Vol] 155 mg/dL High 74-99 [facility] Comment on above: Performed By: #### 2 4323-8 ####LIANE FRANCE ([id number])[facility] (ANNA)94709 [place] [address] Potassium [Moles/Vol] 3.7 mmol/L Normal 3.5-5.3 [facility] Comment on above: Performed By: #### 2 4323-8 ####LIANE Steinberg'PETRA ([id number])[facility] (ANNA)31396 [place] [address] Protein [Mass/Vol] 7.9 g/dL Normal 6.4-8.2 [facility] Comment on above: Performed By: #### 2 4323-8 ####LIANE Steinberg'PETRA ([id number])[facility] (ANNA)[address]856 [place] [address] Sodium [Moles/Vol] 135 mmol/L Low 136-145 [facility] Comment on above: Performed By: #### 2 4323-8 ####LIANE Steinberg'PETRA ([id number])[facility] (ANNA)[address] [place] [address] Urea nitrogen [Mass/Vol] 20 mg/dL Normal 6-23 [facility] Comment on above: Performed By: #### 2 4323-8 ####LIANE Steinberg'PETRA ([id number])[facility] (ANNA)[address]36 [place] [address] Magnesiumon 10-02-2024 Magnesium [Mass/Vol] 2.02 mg/dL 1.60 - 2.40 mg/dL [facility] Magnesium [Mass/Vol] 2.02 mg/dL Normal 1.60-2.40 [facility] Comment on above: Performed By: #### 1 9123-9 ####LIANE FRANCE ([id number])[facility] (ANNA)[address]11 [place] [address] Magnesium [Mass/Vol]on 10-02 Interpretation and review of laboratory results Normal [facility] Manual differential performe d Ql (Bld)on 10-02-2024 Band form neutrophils (Bld) [#/Vol] 4.50 x10*3/uL High 0.00-0.70 [facility] Comment on above: Performed By: #### 5 0957-0 ####LIANE Steinberg'PETRA ([id number])[facility] (ANNA)[address]17 [place] [address] Band form neutrophils/100 WBC (Bld) 26.0 % Normal 0.0-5.0 [facility] Comment on above: Performed By: #### 5 0957-0 ####LIANE Steinberg'PETRA ([id number])[facility] (ANNA)[address]247 [place] [address] Basophils (Bld) [#/Vol] 0.00 x10*3/uL Normal 0.00-0.10 [facility] Comment on above: Performed By: #### 5 0957-0 ####LIANE FRANCE ([id number])[facility] (ANNA)56035 [place] [address] Basophils/100 WBC (Bld) 0.0 % Normal 0.0-2.0 [facility] Comment on above: Performed By: #### 5 0957-0 ####LIANE Steinberg'PETRA ([id number])[facility] (ANNA)[address] [place] [address] Cells Counted Total (Bld) [#] 100 Normal [facility] Comment on above: Performed By: #### 5 0957-0 ####LIANE FRANCE ([id number])[facility] (ANNA)[address]64 [place] [address] Dohle body LM Ql (Bld) Present Normal Un [facility] Comment on above: Performed By: #### 5 0957-0 ####LIANE Steinberg'PETRA ([id number])[facility] (ANNA)33283 [place] [address] Eosinophils (Bld) [#/Vol] 0.17 x10*3/uL Normal 0.00-0.70 [facility] Comment on above: Performed By: #### 5 57-0 ####LIANE Steinberg'PETRA ([id number])[facility] (ANNA)[address]328 [place] [address] Eosinophils/100 WBC (Bld) 1.0 % Normal 0.0-6.0 [facility] Comment on above: Performed By: #### 5 57-0 ####LIANE Steinberg'PETRA (25206)[facility] (ANNA)41455 [place] [address] Lymphocytes (Bld) [#/Vol] 1.90 x10*3/uL Normal 1.20-4.80 [facility] Comment on above: Performed By: #### 5 57-0 ####LIANE Steinberg'PETRA ([id number])[facility] (ANNA)[address]771 [place] [address] Lymphocytes/100 WBC (Bld) 11.0 % Normal 13.0-44.0 [facility] Comment on above: Performed By: #### 5 57-0 ####LIANE Steinberg'PETRA ([id number])[facility] (ANNA)23531 [place] [address] Metamyelocytes (Bld) [#/Vol] 0.52 x10*3/uL Normal 0.00-0.00 [facility] Comment on above: Performed By: #### 5 0957-0 ####LIANE Steinberg'PETRA ([id number])[facility] (ANNA)[address]319 [place] [address] Metamyelocytes/100 WBC (Bld) 3.0 % Normal 0.0-0.0 [facility] Comment on above: Performed By: #### 5 0957-0 ####LIANE Steinberg'PETRA ([id number])[facility] (ANNA)[address]73 [place] [address] Monocytes (Bld) [#/Vol] 1.38 x10*3/uL High 0.10-1.00 [facility] Comment on above: Performed By: #### 5 0957-0 ####LIANE Steinberg'PETRA ([id number])[facility] (ANNA)27131 [place] [address] Monocytes/100 WBC (Bld) 8.0 % Normal 2.0-10.0 [facility] Comment on above: Performed By: #### 5 0957-0 ####LIANE Steinberg'PETRA ([id number])[facility] (ANNA)32568 [place] [address] Neutrophils (Bld) [#/Vol] 13.32 x10*3/uL High 1.20-7.70 [facility] Comment on above: Performed By: #### 5 0957-0 ####LIANE Steinberg'PETRA ([id number])[facility] (ANNA)[address] [place] [address] Ovalocytes LM Ql (Bld) Few [facility]: Performed By: #### 5 0957-0 ####LIANE Steinberg'PETRA ([id number])[facility] (ANNA)[address]58 [place] [address] Platelet clump LM Ql (Bld) Present [facility] Comment on above: Performed By: #### 5 0957-0 ####LIANE Steinberg'PETRA ([id number])[facility] (ANNA)29996 [place] [address] RBC morphology finding Nom (Bld) See Below [facility] Comment on above: Performed By: #### 5 0957-0 ####LIANE Steinberg'PETRA ([id number])[facility] (ANNA)76865 [place] [address] Segmented neutrophils (Bld) [#/Vol] 8.82 x10*3/uL High 1.20-7.00 [facility] Comment on above: Performed By: #### 5 0957-0 ####LIANE Steinberg'PETRA ([id number])[facility] (ANNA)[address]107 [place] [address] Segmented neutrophils/100 WBC (Bld) 51.0 % Normal 40.0-80.0 [facility] Comment on above: Result Comment: Perc ent differential counts (%) should be interpreted in the context of the absolute cell counts (cells/uL). Performed By: #### 5 0957-0 ####LIANE Steinberg'PETRA ([id number])[facility] (ANNA)[address]88 [place] [address] CBC W Auto Differential pane l (Bld)on 09-25-2024 Basophils (Bld) [#/Vol] 0.06 x10*3/uL Normal 0.00-0.10 [facility] Comment on above: Performed By: #### 5 7021-8 ####LIANE Steinberg'PETRA ([id number])[facility] (ANNA)[address]47 [place] [address] Basophils/100 WBC (Bld) 0.4 % Normal 0.0-2.0 [facility] Comment on above: Performed By: #### 5 7021-8 ####LIANE Steinberg'PETRA ([id number])[facility] (ANNA)48966 [place] [address] Eosinophils (Bld) [#/Vol] 0.30 x10*3/uL Normal 0.00-0.70 [facility] Comment on above: Performed By: #### 5 7021-8 ####LIANE Steinberg'PETRA ([id number])[facility] (ANNA)[address]47 [place] [address] Eosinophils/100 WBC (Bld) 2.1 % Normal 0.0-6.0 [facility] Comment on above: Performed By: #### 5 7021-8 ####LIANE Steinberg'PETRA ([id number])[facility] (ANNA)63058 [place] [address] Erythrocyte distribution width (RBC) [Ratio] 15.9 % High 11.5-14.5 [facility] Comment on above: Performed By: #### 5 7021-8 ####LIANE Steinberg'PETRA ([id number])[facility] (ANNA)18958 [place] [address] Hematocrit (Bld) [Volume fraction] 34.2 % Low 36.0-46.0 [facility] Comment on above: Performed By: #### 5 7021-8 ####LIANE Steinberg'PETRA ([id number])[facility] (ANNA)33602 [place] [address] Hemoglobin (Bld) [Mass/Vol] 10.8 g/dL Low 12.0-16.0 [facility] Comment on above: Performed By: #### 5 7021-8 ####LIANE Steinberg'PETRA ([id number])[facility] (ANNA)[address]47 [place] [address] Immature granulocytes (Bld) [#/Vol] 0.08 x10*3/uL Normal 0.00-0.70 [facility] Comment on above: Performed By: #### 5 7021-8 ####LIANE Steinberg'PETRA ([id number])[facility] (ANNA)[address]46 [place] [address] Immature granulocytes/100 WBC (Bld) 0.6 % Normal 0.0-0.9 [facility] Comment on above: Result Comment: Joelle ture Granulocyte Count (IG) includes promyelocytes, myelocytes and metamyelocytes but does not include bands. Percent differential counts (%) should be interpreted in the context of the absolute cell counts (cells/UL). Performed By: #### 5 7021-8 ####LIANE Steinberg'PETRA ([id number])[facility] (ANNA)[address]82 [place] [address] Lymphocytes (Bld) [#/Vol] 1.17 x10*3/uL Low 1.20-4.80 [facility] Comment on above: Performed By: #### 5 7021-8 ####LIANE Steinberg'PETRA ([id number])[facility] (ANNA)[address]18 [place] [address] Lymphocytes/100 WBC (Bld) 8.1 % Normal 13.0-44.0 [facility] Comment on above: Performed By: #### 5 7021-8 ####LIANE Steinberg'PETRA ([id number])[facility] (ANNA)50248 [place] [address] MCH (RBC) [Entitic mass] 27.3 pg Normal 26.0-34.0 [facility] Comment on above: Performed By: #### 5 7021-8 ####LIANE Steinberg'PETRA ([id number])[facility] (ANNA)[address]56 [place] [address] MCHC (RBC) [Mass/Vol] 31.6 g/dL Low 32.0-36.0 [facility] Comment on above: Performed By: #### 5 7021-8 ####LIANE Steinberg'PETRA ([id number])[facility] (ANNA)[address]94 [place] [address] MCV (RBC) [Entitic vol] 86 fL Normal 80-100 [facility] Comment on above: Performed By: #### 5 7021-8 ####LIANE Steinberg'PETRA ([id number])[facility] (ANNA)06468 [place] [address] Monocytes (Bld) [#/Vol] 1.38 x10*3/uL High 0.10-1.00 [facility] Comment on above: Performed By: #### 5 7021-8 ####LIANE FRANCE ([id number])[facility] (ANNA)05015 [place] [address] Monocytes/100 WBC (Bld) 9.5 % Normal 2.0-10.0 [facility] Comment on above: Performed By: #### 5 7021-8 ####LIANE FRANCE ([id number])[facility] (ANNA)79480 [place] [address] Neutrophils (Bld) [#/Vol] 11.47 x10*3/uL High 1.20-7.70 [facility] Comment on above: Result Comment: Perc ent differential counts (%) should be interpreted in the context of the absolute cell counts (cells/uL). Performed By: #### 5 7021-8 ####LIANE FRANCE ([id number])[facility] (ANNA)[address] [place] [address] Neutrophils/100 WBC (Bld) 79.3 % Normal 40.0-80.0 [facility] Comment on above: Performed By: #### 5 7021-8 ####LIANE FRANCE ([id number])[facility] (ANNA)56268 [place] [address] Nucleated RBC/100 WBC (Bld) [Ratio] 0.0 /100 WBCs Normal 0.0-0.0 [facility] Comment on above: Performed By: #### 5 7021-8 ####LIANE FRANCE ([id number])[facility] (ANNA)[address]558 [place] [address] Platelets (Bld) [#/Vol] 792 x10*3/uL High 150-450 [facility] Comment on above: Performed By: #### 5 7021-8 ####LIANE FRANCE ([id number])[facility] (ANNA)[address] [place] [address] RBC (Bld) [#/Vol] 3.96 x10*6/uL Low 4.00-5.20 [facility] Comment on above: Performed By: #### 5 7021-8 ####LIANE FRANCE ([id number])[facility] (ANNA)[address] [address] WBC (Bld) [#/Vol] 14.5 x10*3/uL High 4.4-11.3 [facility] Comment on above: Performed By: #### 5 7021-8 ####LIANE FRANCE ([id number])[facility] (ANNA)[address]03 [place] [address] Choriogonadotropin.beta subu niton 09-25-2024 HCG.beta subunit Qn m[IU]/mL Normal <5 [facility] Comment on above: Order Comment: Total HCG measurement is performed using the Siemens Atellica immunoassay which detects intact HCG and free beta HCG subunit. This test is not indicated for use as a tumor marker. HCG testing is performed using a different test methodology at [facility] than other [facility]. Direct result comparison should only be made within the same method. Performed By: #### 2 1198-7 ####REESE Baez ([id number])[facility] ([facility])[address] [place] [address] Comprehensive metabolic 2000 panelon 09-25-2024 Albumin BCP dye [Mass/Vol] 4.3 g/dL Normal 3.4-5.0 [facility] Comment on above: Performed By: #### 2 4323-8 ####LIANE FRANCE ([id number])[facility] (ANNA)[address] [place] [address] ALP [Catalytic activity/Vol] 59 U/L Normal 33-110 [facility] Comment on above: Performed By: #### 2 4323-8 ####LIANE Steinberg'PETRA ([id number])[facility] (ANNA)[address] [place] [address] ALT With P-5'-P [Catalytic activity/Vol] 9 U/L Normal 7-45 [facility] Comment on above: Result Comment: Cara ents treated with Sulfasalazine may generate falsely decreased results for ALT. Performed By: #### 2 4323-8 ####LIANE Steinberg'PETRA ([id number])[facility] (ANNA)[address] [place] [address] Anion gap [Moles/Vol] 15 mmol/L Normal 10-20 [facility] Comment on above: Performed By: #### 2 4323-8 ####LIANE Steinberg'PETRA ([id number])[facility] (ANNA)[address] [place] [address] AST With P-5'-P [Catalytic activity/Vol] 13 U/L Normal 9-39 [facility] Comment on above: Performed By: #### 2 4323-8 ####LIANE FRANCE ([id number])[facility] (ANNA)[address] [place] [address] Bilirubin [Mass/Vol] 0.4 mg/dL Normal 0.0-1.2 [facility] Comment on above: Performed By: #### 2 4323-8 ####LIANE FRANCE ([id number])[facility] (ANNA)[address] [place] [address] Calcium [Mass/Vol] 12.1 mg/dL High 8.6-10.3 [facility] Comment on above: Performed By: #### 2 4323-8 ####LIANE FRANCE ([id number])[facility] (ANNA)[address] [place] [address] Chloride [Moles/Vol] 95 mmol/L Low 98-107 [facility] Comment on above: Performed By: #### 2 4323-8 ####LIANE O'PETRA ([id number])[facility] (ANNA)[address] [place] [address] CO2 [Moles/Vol] 30 mmol/L Normal 21-[address] [facility] Comment on above: Performed By: #### 2 4323-8 ####LIANE O'PETRA ([id number])[facility] (ANNA)[address] [place] [address] Creatinine [Mass/Vol] 0.56 mg/dL Normal 0.50-1.05 [facility] Comment on above: Performed By: #### 2 4323-8 ####LIANE Steinberg'PETRA ([id number])[facility] (ANNA)[address] [place] [address] GFR/1.73 sq M.predicted MDRD (S/P/Bld) [Vol rate/Area] mL/min/{1.73_m2} Normal >60 [facility] Comment on above: Result Comment: Calc ulations of estimated GFR are performed using the 2020 CKD-EPI Study Refit equation without the race variable for the IDMS-Traceable creatinine methods.https://jasn.asnjournals.org/content//A SN.4558797854 Performed By: #### 2 4323-8 ####LIANE Steinberg'PETRA ([id number])[facility] (ANNA)[address] [place] [address] Glucose [Mass/Vol] 110 mg/dL High 74-99 [facility] Comment on above: Performed By: #### 2 4323-8 ####LIANE Steinberg'PETRA ([id number])[facility] (ANNA)[address] [place] [address] Potassium [Moles/Vol] 3.9 mmol/L Normal 3.5-5.3 [facility] Comment on above: Performed By: #### 2 4323-8 ####LIANE O'PETRA ([id number])[facility] (ANNA)[address] [place] [address] Protein [Mass/Vol] 8.4 g/dL High 6.4-8.2 [facility] Comment on above: Performed By: #### 2 4323-8 ####LIANE O'PETRA ([id number])[facility] (ANNA)[address] [place] [address] Sodium [Moles/Vol] 136 mmol/L Normal 136-145 [facility] Comment on above: Performed By: #### 2 4323-8 ####LIANE O'PETRA ([id number])[facility] (ANNA)[address] [place] [address] Urea nitrogen [Mass/Vol] 13 mg/dL Normal 6-23 [facility] Comment on above: Performed By: #### 2 4323-8 ####LIANE O'PETRA ([id number])[facility] (ANNA)[address] [place] [address] Corticotropinon 09-25-2024 Corticotropin (P) [Mass/Vol] 46.0 pg/mL Normal 7.2-63.3 [facility] Comment on above: Result Comment: INTE RPRETIVE INFORMATION: Adrenocorticotropic HormoneReference interval based on samples collected between 7 a.m. and10 a.m. No reference intervals established for p.m. collections.Pediatric reference values are the same as adults (Acta PaediatrScand 1981;70:341-345). This assay measures intact ACTH 1-39;some types of synthetic ACTH and ACTH fragments are not detectedby this assay.Performed By: [address] [place] [id number] Director: Shaheen Rueda MD, PhDCLIA Number: [id number] Performed By: #### 2 141-0 ####JOEUP ROHIT HARDEN) ([id number])[address] [place] [address] Cortisol^AM peak specimenon 09-25-2024 Cortisol AM peak specimen [Mass or moles/Vol] 25.8 ug/dL High 5.0-20.0 [facility] Comment on above: Performed By: #### 6 6735-2 ####REESE Baez ([id number])[facility] ([facility])[address] [place] [address] Hepatitis B virus core Abon 09-25-2024 HBV core Ab Ql (S) Non-Reactive Normal Nonreactive [facility] Comment on above: Performed By: #### 1 6933-4 ####REESE Baez ([id number])[facility] ([facility])[address] [place] [address] Hepatitis B virus surface Ab on 09-25-2024 HBV surface Ab Qn (S) 3.2 mIU/mL Normal <10.0 [facility] Comment on above: Result Comment: Inte rpretive Criteria: <10 mIU/mL Nonreactive >=10 mIU/mL ReactiveBiotin interference may cause falsely decreased results. Patients taking a Biotin dose of up to 5 mg/day should refrain from taking Biotin for 24 hours before sample collection. Providers may contact their local laboratory for further information. Performed By: #### 1 6935-9 ####REESE Baez ([id number])[facility] ([facility])[address] [place] [address] Hepatitis B virus surface Ag on 09-25-2024 HBV surface Ag IA Ql Non-Reactive Normal Nonreactive [facility] Comment on above: Result Comment: Biot in interference may cause falsely decreased results. Patients taking a Biotin dose of up to 5 mg/day should refrain from taking Biotin for 24 hours before sample collection. Providers may contact their local laboratory forfurther information. Performed By: #### 5 196-1 ####REESE Baez ([id number])[facility] ([facility])[address] [place] [address] Magnesiumon 09-25-2024 Magnesium [Mass/Vol] 1.81 mg/dL Normal 1.60-2.40 [facility] Comment on above: Performed By: #### 1 9123-9 ####LIANE FRANCE ([id number])[facility] (ANNA)[address] [place] [id number] TSH WITH REFLEX TO FREE T4 I F ABNORMALon 09-25-2024 TSH Qn 0.43 m[IU]/L Low 0.44-3.98 [facility] Comment on above: Order Comment: TSH t esting is performed using different testing methodology at [facility] than at [facility]. Direct result comparisons should only be made within the same method. Performed By: #### T DARRYL ####RESEE Baez ([id number])[facility] ([facility])[address] [place], [place] [address] Thyroxine.freeon 09-25-2024 Free T4 [Mass/Vol] 1.18 ng/dL Normal 0.78-1.48 [facility] Comment on above: Order Comment: Thyro xine Free testing is performed using different testing methodology at [facility] than at [facility]. Direct result comparisons should only be made within the same method. Performed By: #### 3 024-7 ####REESE Baez ([id number])[facility] ([facility])[address] [place], [place] [address] Glucose Test strip manual (B ld) [Mass/Vol]on 09-18-2024 Glucose [Mass/Vol] 109 mg/dL High 74 - 99 mg/dL [facility] Interpretation and review of laboratory results Abnormal [facility] Glucose [Mass/Vol] 109 mg/dL High 74-99 [facility] Comment on above: Performed By: #### 2 341-6 ####REESE Baez ([id number])[facility] ([facility])[address] [place] [address] MR SINUSES W AND WO IV CONTR Elia 09-18-2024 MR SINUSES W AND WO IV CONTRAST Normal [facility] NM PET CT FDG ONCOLOGYon NM PET CT FDG ONCOLOGY Normal Un [facility] PT Guidance for radiation tr eatment of Unspecified body regionon 09-18-2024 1. FDG avid large heterogeneous mass likely arising in the left nasal fossa or left maxillary sinus is a site of biopsy-proven squamous cell carcinoma. 2. Left level 2 cervical lymph nodes are consistent with max metastases. Right level II and left submental lymph node are also highly suspicious for max metastases. 3. FDG avid lytic changes involving the left C1 vertebral body, is suggestive of an osseous metastases. 4. FDG avid right upper lobe pulmonary nodule, is concerning for a site of lung metastases. I personally reviewed the image(s) / study and agree with the findings and interpretation as stated. This study was interpreted at [facility]. Signed by: David Rothman 09/18/2024 4:02 PM Dictation workstation: [id number] [facility] Interpreted By: David Rothman, STUDY: NM PET CT FDG ONCOLOGY; 09/18/2024 1:57 pm INDICATION: Newly diagnosed squamous cell carcinoma. Large mass involving the sinuses, orbits, skull base and avid cervical lymph nodes. COMPARISON: CT head and neck 09/11/2024 ACCESSION NUMBER(S): [id number] ORDERING CLINICIAN: SUNNY CRUZ TECHNIQUE: DIVISION OF NUCLEAR MEDICINE POSITRON EMISSION TOMOGRAPHY (PET-CT) The patient received an intravenous dose of 10.5 mCi of Fluorine-18 fluorodeoxyglucose (FDG). Positron emission tomographic (PET) images from mid thigh to skull base were then acquired after a one hour delay. Also acquired was a contemporaneous low dose non-contrast CT scan performed for attenuation correction of PET images and anatomic localization. The PET and CT images were digitally fused for display. All images were acquired on a combined PET-CT scanner unit. Some areas of FDG accumulation may be described in standardized uptake value (SUV) units. CODING: Initial Treatment Strategy (PI) CALIBRATION: Dose Xhmircski-kp-Wfrp Interval (mins): 65 min Mediastinal bloodpool SUV (normal 1.5-2.5): 1.3 Blood glucose: 109 mg/dL FINDINGS: HEAD AND NECK: Heterogeneous large FDG avid mass involving the left nasal fossa and maxillary sinus extending into the floor of left orbit, left alignment technician space, hard palate and oral cavity. Multiple bilateral FDG avid level 1 and 2 lymph node. Left level 2 cervical lymph nodes are intensely FDG avid varus contralateral cervical lymph nodes demonstrate moderate FDG avidity. An index, *Left level 2 B lymph node measures 2.6 x 1.6 cm with max SUV of 26.1. *Left level 2A lymph node measures 1.2 x 1.2 cm with max SUV of 4.1. *Left level 1A lymph node measuring about 0.7 cm with max SUV of 1.8. *Right level 2A lymph node measuring 0.9 cm in short axis with max SUV of 3.2 *Right level 2b lymph node measuring 1.4 x 0.5 cm with max SUV of 2.1. *More superiorly right level 2 lymph node measuring 0.7 x 0.4 cm with max SUV of 1.9. Unremarkable thyroid gland. CHEST: Centrally cavitating FDG avid right upper lobe lung nodule measuring 1.1 x 0.9 cm with max SUV of 2.4. No other enlarged or FDG avid pulmonary nodule identified on this low-dose CT study. No evidence of FDG avid mediastinal, hilar or axillary lymphadenopathy. ABDOMEN AND PELVIS: Physiological radiotracer uptake is seen in liver and spleen parenchyma without any focality. Unremarkable gallbladder. Physiological radiotracer uptake is seen in bilateral kidneys and bladder. Severe stool burden. Scattered colonic diverticula. Pelvic free fluid. MUSCULOSKELETAL: FDG avid lytic changes involving the left C1 vertebral body and its posterior elements with max SUV of 12.2. [facility] Davdi Rothman MD - 09/18/2024 Interpreted By: David Rothman, STUDY: NM PET CT FDG ONCOLOGY; 09/18/2024 1:57 pm INDICATION: Newly diagnosed squamous cell carcinoma. Large mass involving the sinuses, orbits, skull base and avid cervical lymph nodes. COMPARISON: CT head and neck 09/11/2024 ACCESSION NUMBER(S): [id number] ORDERING CLINICIAN: SUNNY CRUZ TECHNIQUE: DIVISION OF NUCLEAR MEDICINE POSITRON EMISSION TOMOGRAPHY (PET-CT) The patient received an intravenous dose of 10.5 mCi of Fluorine-18 fluorodeoxyglucose (FDG). Positron emission tomographic (PET) images from mid thigh to skull base were then acquired after a one hour delay. Also acquired was a contemporaneous low dose non-contrast CT scan performed for attenuation correction of PET images and anatomic localization. The PET and CT images were digitally fused for display. All images were acquired on a combined PET-CT scanner unit. Some areas of FDG accumulation may be described in standardized uptake value (SUV) units. CODING: Initial Treatment Strategy (PI) CALIBRATION: Dose Chadufjpn-xn-Ugbr Interval (mins): 65 min Mediastinal bloodpool SUV (normal 1.5-2.5): 1.3 Blood glucose: 109 mg/dL FINDINGS: HEAD AND NECK: Heterogeneous large FDG avid mass involving the left nasal fossa and maxillary sinus extending into the floor of left orbit, left alignment technician space, hard palate and oral cavity. Multiple bilateral FDG avid level 1 and 2 lymph node. Left level 2 cervical lymph nodes are intensely FDG avid varus contralateral cervical lymph nodes demonstrate moderate FDG avidity. An index, *Left level 2 B lymph node measures 2.6 x 1.6 cm with max SUV of 26.1. *Left level 2A lymph node measures 1.2 x 1.2 cm with max SUV of 4.1. *Left level 1A lymph node measuring about 0.7 cm with max SUV of 1.8. *Right level 2A lymph node measuring 0.9 cm in short axis with max SUV of 3.2 *Right level 2b lymph node measuring 1.4 x 0.5 cm with max SUV of 2.1. *More superiorly right level 2 lymph node measuring 0.7 x 0.4 cm with max SUV of 1.9. Unremarkable thyroid gland. CHEST: Centrally cavitating FDG avid right upper lobe lung nodule measuring 1.1 x 0.9 cm with max SUV of 2.4. No other enlarged or FDG avid pulmonary nodule identified on this low-dose CT study. No evidence of FDG avid mediastinal, hilar or axillary lymphadenopathy. ABDOMEN AND PELVIS: Physiological radiotracer uptake is seen in liver and spleen parenchyma without any focality. Unremarkable gallbladder. Physiological radiotracer uptake is seen in bilateral kidneys and bladder. Severe stool burden. Scattered colonic diverticula. Pelvic free fluid. MUSCULOSKELETAL: FDG avid lytic changes involving the left C1 vertebral body and its posterior elements with max SUV of 12.2. IMPRESSION: 1. FDG avid large heterogeneous mass likely arising in the left nasal fossa or left maxillary sinus is a site of biopsy-proven squamous cell carcinoma. 2. Left level 2 cervical lymph nodes are consistent with max metastases. Right level II and left submental lymph node are also highly suspicious for max metastases. 3. FDG avid lytic changes involving the left C1 vertebral body, is suggestive of an osseous metastases. 4. FDG avid right upper lobe pulmonary nodule, is concerning for a site of lung metastases. I personally reviewed the image(s) / study and agree with the findings and interpretation as stated. This study was interpreted at [facility]. Signed by: David Rothman 09/18/2024 4:02 PM Dictation workstation: [id number] [facility] Work Phone: Radiology Study observation (narrative) [facility] Work Phone: PT Guidance for radiation tr eatment of Unspecified body regionOrdered By: David Rothman on 09-18-2024 [facility] Work Phone: CBC W Auto Differential pane l (Bld)on 09-11-2024 Basophils (Bld) [#/Vol] 0.09 x10*3/uL Normal 0.00-0.10 [facility] Comment on above: Performed By: #### 5 7021-8 ####LIANE Steinberg'PETRA ([id number])[facility] (ANNA)[address] [place] [address] Basophils/100 WBC (Bld) 0.6 % Normal 0.0-2.0 [facility] Comment on above: Performed By: #### 5 7021-8 ####LIANE Steinberg'PETRA ([id number])[facility] (ANNA)[address] [place] [address] Eosinophils (Bld) [#/Vol] 0.38 x10*3/uL Normal 0.00-0.70 [facility] Comment on above: Performed By: #### 5 7021-8 ####LIANE Steinberg'PETRA ([id number])[facility] (ANNA)[address] [place] [address] Eosinophils/100 WBC (Bld) 2.6 % Normal 0.0-6.0 [facility] Comment on above: Performed By: #### 5 7021-8 ####LIANE FRANCE ([id number])[facility] (ANNA)[address] [place] [address] Erythrocyte distribution width (RBC) [Ratio] 16.2 % High 11.5-14.5 [facility] Comment on above: Performed By: #### 5 7021-8 ####LIANE FRANCE ([id number])[facility] (ANNA)[address] [place] [address] Hematocrit (Bld) [Volume fraction] 37.4 % Normal 36.0-46.0 [facility] Comment on above: Performed By: #### 5 7021-8 ####LIANE FRANCE ([id number])[facility] (ANNA)[address] [place] [address] Hemoglobin (Bld) [Mass/Vol] 11.8 g/dL Low 12.0-16.0 [facility] Comment on above: Performed By: #### 5 7021-8 ####LIANE FRANCE ([id number])[facility] (ANNA)[address] [place] [address] Immature granulocytes (Bld) [#/Vol] 0.05 x10*3/uL Normal 0.00-0.70 [facility] Comment on above: Performed By: #### 5 7021-8 ####LIANE Steinberg'PETRA ([id number])[facility] (ANNA)[address] [place] [address] Immature granulocytes/100 WBC (Bld) 0.3 % Normal 0.0-0.9 [facility] Comment on above: Result Comment: Joelle ture Granulocyte Count (IG) includes promyelocytes, myelocytes and metamyelocytes but does not include bands. Percent differential counts (%) should be interpreted in the context of the absolute cell counts (cells/UL). Performed By: #### 5 7021-8 ####LIANE Steinberg'PETRA ([id number])[facility] (ANNA)[address] [place] [address] Lymphocytes (Bld) [#/Vol] 1.22 x10*3/uL Normal 1.20-4.80 [facility] Comment on above: Performed By: #### 5 7021-8 ####LIANE Steinberg'PETRA ([id number])[facility] (ANNA)[address] [place] [address] Lymphocytes/100 WBC (Bld) 8.5 % Normal 13.0-44.0 [facility] Comment on above: Performed By: #### 5 7021-8 ####LIANE Steinberg'PETRA ([id number])[facility] (ANNA)[address] [place] [address] MCH (RBC) [Entitic mass] 28.0 pg Normal 26.0-34.0 [facility] Comment on above: Performed By: #### 5 7021-8 ####LIANE FRANCE ([id number])[facility] (ANNA)[address] [place] [address] MCHC (RBC) [Mass/Vol] 31.6 g/dL Low 32.0-36.0 [facility] Comment on above: Performed By: #### 5 7021-8 ####LIANE Steinberg'PETRA ([id number])[facility] (ANNA)[address] [place] [address] MCV (RBC) [Entitic vol] 89 fL Normal 80-100 [facility] Comment on above: Performed By: #### 5 7021-8 ####LIANE FRANCE ([id number])[facility] (ANNA)[address] [place] [address] Monocytes (Bld) [#/Vol] 1.63 x10*3/uL High 0.10-1.00 [facility] Comment on above: Performed By: #### 5 7021-8 ####LIANE FRANCE ([id number])[facility] (ANNA)[address] [place] [address] Monocytes/100 WBC (Bld) 11.4 % Normal 2.0-10.0 [facility] Comment on above: Performed By: #### 5 7021-8 ####LIANE Steinberg'PETRA ([id number])[facility] (ANNA)[address] [place] [address] Neutrophils (Bld) [#/Vol] 10.98 x10*3/uL High 1.20-7.70 [facility] Comment on above: Result Comment: Perc ent differential counts (%) should be interpreted in the context of the absolute cell counts (cells/uL). Performed By: #### 5 7021-8 ####LIANE Steinberg'PETRA ([id number])[facility] (ANNA)[address] [place] [address] Neutrophils/100 WBC (Bld) 76.6 % Normal 40.0-80.0 [facility] Comment on above: Performed By: #### 5 7021-8 ####LIANE FRANCE ([id number])[facility] (ANNA)[address] [place] [address] Nucleated RBC/100 WBC (Bld) [Ratio] 0.0 /100 WBCs Normal 0.0-0.0 [facility] Comment on above: Performed By: #### 5 7021-8 ####LIANE Steinberg'PETRA ([id number])[facility] (ANNA)[address] [place] [address] Platelets (Bld) [#/Vol] 643 x10*3/uL High 150-450 [facility] Comment on above: Performed By: #### 5 7021-8 ####LIANE FRANCE ([id number])[facility] (ANNA)[address] [place] [address] RBC (Bld) [#/Vol] 4.22 x10*6/uL Normal 4.00-5.20 [facility] Comment on above: Performed By: #### 5 7021-8 ####LIANE FRANCE ([id number])[facility] (ANNA)[address] [place] [address] WBC (Bld) [#/Vol] 14.4 x10*3/uL High 4.4-11.3 [facility] Comment on above: Performed By: #### 5 7021-8 ####LIANE FRANCE ([id number])[facility] (ANNA)[address] [place] [address] CT SOFT TISSUE NECK W IV CON TRASTon 09-11-2024 CT SOFT TISSUE NECK W IV CONTRAST Normal [facility] Comprehensive metabolic 2000 panelon 09-11-2024 Albumin BCP dye [Mass/Vol] 4.2 g/dL Normal 3.4-5.0 [facility] Comment on above: Performed By: #### 2 4323-8 ####LIANE FRANCE ([id number])[facility] (ANNA)[address] [place] [address] ALP [Catalytic activity/Vol] 61 U/L Normal 33-110 [facility] Comment on above: Performed By: #### 2 4323-8 ####LIANE FRANCE ([id number])[facility] (ANNA)[address] [place] [address] ALT With P-5'-P [Catalytic activity/Vol] 8 U/L Normal 7-45 [facility] Comment on above: Result Comment: Cara ents treated with Sulfasalazine may generate falsely decreased results for ALT. Performed By: #### 2 4323-8 ####LIANE FRANCE ([id number])[facility] (ANNA)[address] [place] [address] Anion gap [Moles/Vol] 13 mmol/L Normal 10-20 [facility] Comment on above: Performed By: #### 2 4323-8 ####LIANE Steinberg'PETRA ([id number])[facility] (ANNA)[address] [place] [address] AST With P-5'-P [Catalytic activity/Vol] 12 U/L Normal 9-39 [facility] Comment on above: Performed By: #### 2 4323-8 ####LIANE Steinberg'PETRA ([id number])[facility] (ANNA)[address] [place] [address] Bilirubin [Mass/Vol] 0.3 mg/dL Normal 0.0-1.2 [facility] Comment on above: Performed By: #### 2 4323-8 ####LIANE Steinberg'PETRA ([id number])[facility] (ANNA)[address] [place] [address] Calcium [Mass/Vol] 10.4 mg/dL High 8.6-10.3 [facility] Comment on above: Performed By: #### 2 4323-8 ####LIANE Steinberg'PETRA ([id number])[facility] (ANNA)[address] [place] [address] Chloride [Moles/Vol] 97 mmol/L Low 98-107 [facility] Comment on above: Performed By: #### 2 4323-8 ####LIANE Steinberg'PETRA ([id number])[facility] (ANNA)[address] [place] [address] CO2 [Moles/Vol] 28 mmol/L Normal 21-[address] [facility] Comment on above: Performed By: #### 2 4323-8 ####LIANE Steinberg'PETRA ([id number])[facility] (ANNA)[address] [place] [address] Creatinine [Mass/Vol] 0.65 mg/dL Normal 0.50-1.05 [facility] Comment on above: Performed By: #### 2 4323-8 ####LIANE Steinberg'PETRA ([id number])[facility] (ANNA)[address]004 [place] [address] GFR/1.73 sq M.predicted MDRD (S/P/Bld) [Vol rate/Area] mL/min/{1.73_m2} Normal >60 [facility] Comment on above: Result Comment: Calc ulations of estimated GFR are performed using the 2020 CKD-EPI Study Refit equation without the race variable for the IDMS-Traceable creatinine methods.https://jasn.asnjournals.org/content/early//A SN.0256624900 Performed By: #### 2 4323-8 ####LIANE Steinberg'PETRA ([id number])[facility] (ANNA)[address] [place] [address] Glucose [Mass/Vol] 95 mg/dL Normal 74-99 [facility] Comment on above: Performed By: #### 2 4323-8 ####LIANE Steinberg'PETRA ([id number])[facility] (ANNA)[address]95 [place] [address] Potassium [Moles/Vol] 4.0 mmol/L Normal 3.5-5.3 [facility] Comment on above: Performed By: #### 2 4323-8 ####LIANE Steinberg'PETRA ([id number])[facility] (ANNA)18158 [place] [address] Protein [Mass/Vol] 8.1 g/dL Normal 6.4-8.2 [facility] Comment on above: Performed By: #### 2 4323-8 ####LIANE Steinberg'PETRA ([id number])[facility] (ANNA)95938 [place] [address] Sodium [Moles/Vol] 134 mmol/L Low 136-145 [facility] Comment on above: Performed By: #### 2 4323-8 ####LIANE FRANCE ([id number])[facility] (ANNA)36414 [place] [address] Urea nitrogen [Mass/Vol] 21 mg/dL Normal 6-23 [facility] Comment on above: Performed By: #### 2 4323-8 ####LIANE Steinberg'PETRA ([id number])[facility] (ANNA)[address] [place] [address] Surgical pathology studyon 0 08-29-2024 Surgical pathology study Pathology report.total SEE COMMENT Surgical Pathology Case: [id number] Authorizing Provider: Ej Martinez MD Collected: 08/29/2024 1152 Ordering Location: [facility] Received: 08/29/2024 1152 Pathologist: Estefania Fontaine DO Specimen: PALATE HARD LEFT BIOPSY Path report.final diagnosis SEE COMMENT A. 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 This case was also reviewed at the ENT/Thoracic Pathology Consensus Conference, via Zoom, on 09/04/2024. at 1101 EDT Laboratory comment By the signature on this report, the individual or group listed as making the Final Interpretation/Diagnos is certifies that they have reviewed this case. Path report.addendum SEE COMMENT Additional ancillary testing can be ordered per clinical request. Tumor Block: A1 Preliminary Assessment of Specimen Adequacy for Ancillary Testing: Adequate Viable tumor nuclei: 50% PD-L1 22C3 by Immunohistochemistry with Interpretation, pembrolizumab (KEYTRUDA) Block used: A1 Interpretation: Low Expression Tumor Proportion Score (TPS): 40% Intended use: PD-L1 22C3 by IHC with Interpretation is a qualitative immunohistochemical assay using Monoclonal Mouse Anti-PD-L1, Clone 22C3 intended for use in the detection of PD-L1 protein in formalin-fixed, paraffin-embedded (FFPE) non-small cell lung cancer (NSCLC) tissue using the Optiview detection on a Ajaline BenchMark Ultra. The specimen submitted for testing should contain at least 100 viable tumor cells to be considered adequate for evaluation. This assay is indicated as an aid in identifying NSCLC patients for treatment with pembrolizumab (KEYTRUDA). Methodology: PD-L1 protein expression is determined by using Tumor Proportion Score (TPS), which is the percentage of viable tumor cells showing partial or complete membrane staining at any intensity. In the clinical setting of first-line therapy (treatment-na???ve patients), the specimen is considered PD-L1 positive if the TPS is equal to or greater than 50 percent. In the setting of second-line therapy, the specimen is considered positive if the TPS is equal to or greater than 1 percent. Reference Range: High Expression >=50% TPS Low Expression 1-49% TPS No Expression <1% TPS This assay is validated and FDA-approved for lung cancer specimens only. For all other specimen types, results should be interpreted with caution and within the appropriate clinical context. The use of this assay on decalcified tissues has not been validated and is not recommended. One or more of the reagents used to perform assays on this specimen MAY have contained components considered to be Laboratory Developed Tests (LDT). LDT's have not been cleared or approved by the U.S. Food and Drug Administration. These assays/tests were developed and their performance characteristics determined by the Department of Pathology Immunohistochemistry Lab at [facility]. The FDA does not require this test to go through premarket FDA review. This test is used for clinical purposes. It should not be regarded as investigational or for research. This laboratory is certified under the Clinical Laboratory Improvement Amendments (CLIA) as qualified to perform high complexity clinical laboratory testing. The assays/tests were performed with appropriate positive and negative controls which stained appropriately. Addendum electronically signed by Estefania Fontaine DO on 09/28/2024 at 1315 EDT Path report.relevant Hx hard palate mass Path report.gross observation SEE COMMENT Received in formalin, labeled with the patient's name and hospital number and hard palate BX L, are multiple fragments of light crockett soft tissue aggregating to 1.1 x 0.7 x 0.2 cm. The specimen is submitted in toto in one cassette. [facility] Sinus/Facial Boneon 08-23-19 Sinus/Facial Bone [facility] Imaging Services [address] [place] [address] Sinus/Facial Bone MR#: [id number] Acct: [id number] Name: ARLINE KRUEGER Rep #: [id number] : 1980 F 44 From: Ranjit king MD PCP: Torie Diego [facility] TOM-C Status: REG CLI Study: Sinus/Facial Bone Date of Exam: 08/22/24 Exam# [id number] Ordering Dr: Rambo Ramon MD PROCEDURE: SINUS/FACIAL BONE REASON FOR EXAM: HARD PALATE MASS/SINUS NEOPLASM Left maxillary region. TECHNIQUE: CT of the paranasal sinuses without contrast. Coronal and Sagittal reconstruction series were provided. One or more dose reduction techniques were used (e.g., Automated exposure control, adjustment of the mA and/or kV according to patient size, use of iterative reconstruction technique). COMPARISON: None FINDINGS: There is a 4.5 cm 3.9 cm by 4.2 cm soft tissue mass arising in the region of the left maxilla with bony destruction and invasion of the left maxillary sinus extending into the left nasal fossa as well as in the posterior aspect of the right nasal fossa and into the nasopharynx posteriorly. This also extends into the base of the posterior aspect of the left orbit with bony destruction. CT/Sinus/Facial Bone IMPRESSION: Large mass as described with bony destruction. Reading Location: [place] [address] CC: Dr. Rambo Ramon MD; Jtjorge luis [facility] DEPUTY-C Johnathon Pole Inspector: Signed Normal [facility] Vital Signs Date Time Vital Sign Value Performing Clinician Facility 01-22-2025 12:26-0500 Body temperature 98.8 [degF] Sidra Ortiz PA-C Work Phone: [facility] 01-22-2025 12:26-050 Diastolic blood pressure 65 mm[Hg] Sidra Ortiz PA-C Work Phone: [facility] 01-22-2025 12:26-0500 Heart rate 73 /min Sidra Ortiz PA-C Work Phone: [facility] 01-22-2025 12:26-0500 Respiratory rate 16 /min Sidra Price PA-C Work Phone: [facility] 01-22-2025 12:26-0500 SaO2% (BldA) [Mass fraction] 100 % Xiarichard Price PA-C Work Phone: [facility] 01-22-2025 12:26-0500 Systolic blood pressure 98 mm[Hg] Sidra Price PA-C Work Phone: [facility] 01-21-2025 11:29-0500 Diastolic blood pressure 83 mm[Hg] [facility] 01-21-2025 11:29-0500 Heart rate 96 /min [facility] 01-21-2025 11:29-0500 Respiratory rate 18 /min [facility] 01-21-2025 11:29-0500 SaO2% (BldA) [Mass fraction] 99 % [facility] 01-21-2025 11:29-0500 Systolic blood pressure 123 mm[Hg] [facility] 01-21-2025 11:27-0500 Body mass index (BMI) [Ratio] 12.82 kg/m2 [facility] 01-21-2025 11:27-0500 Body temperature 98.8 [degF] [facility] 01-21-2025 11:27-0500 Body weight 35.06 kg [facility] 01-15-2025 15:00-0500 Body temperature 100 [degF] Sidra Price PA-C Work Phone: [facility] 01-15-2025 15:00-0500 Diastolic blood pressure 58 mm[Hg] Sidra Price PA-C Work Phone: [facility] 01-15-2025 15:00-0500 Heart rate 80 /min Sidra Price PA-C Work Phone: [facility] 01-15-2025 15:00-0500 Respiratory rate 20 /min Lakshmirichard Price MARTINEZ-C Work Phone: [facility] 01-15-2025 15:00-0500 SaO2% (BldA) [Mass fraction] 100 % Sidra Ortiz JUAN-C Work Phone: [facility] 01-15-2025 15:00-0500 Systolic blood pressure 97 mm[Hg] Lakshmirichard Price MARTINEZ-C Work Phone: [facility] 01-14-2025 11:31-0500 Diastolic blood pressure 88 mm[Hg] [facility] 01-14-2025 11:31-0500 Heart rate 105 /min [facility] 01-14-2025 11:31-0500 Respiratory rate 18 /min [facility] 01-14-2025 11:31-0500 SaO2% (BldA) [Mass fraction] 100 % [facility] 01-14-2025 11:31-0500 Systolic blood pressure 137 mm[Hg] [facility] 01-14-2025 11:29-0500 Body mass index (BMI) [Ratio] 13.46 kg/m2 [facility] 01-14-2025 11:29-0500 Body temperature 97.2 [degF] [facility] 01-14-2025 11:29-0500 Body weight 36.83 kg [facility] 01-02-2025 11:51-0400 Diastolic blood pressure 95 mm[Hg] [facility] 01-02-2025 11:51-0400 Heart rate 83 /min [facility] 01-02-2025 11:51-0400 SaO2% (BldA) [Mass fraction] 99 % [facility] 01-02-2025 11:51-0400 Systolic blood pressure 141 mm[Hg] [facility] 01-02-2025 11:50-0400 Body mass index (BMI) [Ratio] 14.35 kg/m2 [facility] 01-02-2025 11:50-0400 Body temperature 98.4 [degF] [facility] 01-02-2025 11:50-0400 Body weight 39.25 kg [facility] 01-02-2025 11:50-0400 Respiratory rate 18 /min [facility] 01-01-2025 11:54-0400 Body mass index (BMI) [Ratio] 13.98 kg/m2 Xiaoke Price PA-C Work Phone: [facility] 01-01-2025 11:54-0400 Body temperature 99.1 [degF] Xiaoke Price PA-C Work Phone: [facility] 01-01-2025 11:54-0400 Body weight 38.24 kg Xiaoke Price PA-C Work Phone: [facility] 01-01-2025 11:54-0400 Diastolic blood pressure 76 mm[Hg] Xiaoke Price PA-C Work Phone: [facility] 01-01-2025 11:54-0400 Heart rate 89 /min Xiaoke Price PA-C Work Phone: [facility] 01-01-2025 11:54-0400 Respiratory rate 16 /min Xiaoke Priec PA-C Work Phone: [facility] 01-01-2025 11:54-0400 SaO2% (BldA) [Mass fraction] 100 % Xiaoke Price PA-C Work Phone: [facility] 01-01-2025 11:54-0400 Systolic blood pressure 112 mm[Hg] Xiaoke Price PA-C Work Phone: [facility] 12-26-2024 10:45-0400 Diastolic blood pressure 101 mm[Hg] [facility] 12-26-2024 10:45-0400 Heart rate 106 /min [facility] 12-26-2024 10:45-0400 SaO2% (BldA) [Mass fraction] 99 % [facility] 12-26-2024 10:45-0400 Systolic blood pressure 138 mm[Hg] [facility] 12-26-2024 10:44-0400 Body mass index (BMI) [Ratio] 13.58 kg/m2 [facility] 12-26-2024 10:44-0400 Body temperature 98.8 [degF] [facility] 12-26-2024 10:44-0400 Body weight 37.15 kg [facility] 12-26-2024 10:44-0400 Respiratory rate 18 /min [facility] 12-25-2024 13:00-0400 Body temperature 99.5 [degF] Sidra Price PA-C Work Phone: [facility] 12-25-2024 13:00-0400 Diastolic blood pressure 72 mm[Hg] Xiaoke Price PA-C Work Phone: [facility] 12-25-2024 13:00-0400 Heart rate 92 /min Xiaoke Price PA-C Work Phone: [facility] 12-25-2024 13:00-0400 Respiratory rate 20 /min Xiaoke Price PA-C Work Phone: [facility] 12-25-2024 13:00-0400 SaO2% (BldA) [Mass fraction] 100 % Xiaoke Price PA-C Work Phone: [facility] 12-25-2024 13:00-0400 Systolic blood pressure 126 mm[Hg] Xiaoke Price PA-C Work Phone: [facility] 12-17-2024 11:24-0400 Diastolic blood pressure 92 mm[Hg] Zebulun Beam Other Phone: [facility] 12-17-2024 11:24-0400 Heart rate 97 /min Zebulun Beam Other Phone: [facility] 12-17-2024 11:24-0400 Respiratory rate 18 /min Zebulun Beam Other Phone: [facility] 12-17-2024 11:24-0400 SaO2% (BldA) [Mass fraction] 99 % Zebulun Beam Other Phone: [facility] 12-17-2024 11:24-0400 Systolic blood pressure 121 mm[Hg] Zebulun Beam Other Phone: [facility] 12-17-2024 11:23-0400 Body mass index (BMI) [Ratio] 13.53 kg/m2 Zebulun Beam Other Phone: [facility] 12-17-2024 11:23-0400 Body temperature 97.3 [degF] Zebulun Beam Other Phone: [facility] 12-17-2024 11:23-0400 Body weight 36.6 kg Zebulun Beam Other Phone: [facility] 12-06-2024 14:26-0400 Diastolic blood pressure 99 mm[Hg] [facility] 12-06-[facility]24 14:26-0400 Heart rate 99 /min [facility] 12-06-2024 14:26-0400 Respiratory rate 18 /min [facility] 12-06-2024 14:26-0400 SaO2% (BldA) [Mass fraction] 98 % [facility] 12-06-2024 14:26-0400 Systolic blood pressure 137 mm[Hg] [facility] 12-06-2024 14:24-0400 Body mass index (BMI) [Ratio] 14.75 kg/m2 [facility] 12-06-2024 14:24-0400 Body temperature 97.3 [degF] [facility] 12-06-2024 14:24-0400 Body weight 39.92 kg [facility] 11-08-2024 18:56-0400 Body temperature 97.6 [degF] Dr. Rambo Ramon MD Work Phone: [facility] 11-08-2024 18:56-0400 Diastolic blood pressure 94 mm[Hg] Dr. Rambo Ramon MD Work Phone: [facility] 11-08-2024 18:56-0400 Heart rate 68 /min Dr. Rambo Ramon MD Work Phone: [facility] 11-08-2024 18:56-0400 Respiratory rate 18 /min Dr. Rambo Ramon MD Work Phone: [facility] 11-08-2024 18:56-0400 SaO2% (BldA) [Mass fraction] 100 % Dr. Rambo Ramon MD Work Phone: [facility] 11-08-2024 18:56-0400 Systolic blood pressure 156 mm[Hg] Dr. Rambo Ramon MD Work Phone: [facility] 11-08-2024 11:39-0400 Body height 162.[address] Rambo Ramon MD Work Phone: [facility] 11-08-2024 11:39-0400 Body mass index (BMI) [Ratio] 16.3 kg/m2 Dr. Rambo Ramon MD Work Phone: [facility] 11-08-2024 11:39-0400 Body weight 43.[address] Rambo Ramon MD Work Phone: [facility] 11-06-2024 12:36-0400 Diastolic blood pressure 80 mm[Hg] Macrina Montano MD Work Phone: [facility] 11-06-2024 12:36-0400 Heart rate 88 /min Macrina Montano MD Work Phone: [facility] 11-06-2024 12:36-0400 SaO2% (BldA) [Mass fraction] 99 % Macrina Montano MD Work Phone: [facility] 11-06-2024 12:36-0400 Systolic blood pressure 114 mm[Hg] Macrina Montano MD Work Phone: [facility] 11-06-2024 12:35-0400 Body mass index (BMI) [Ratio] 16.41 kg/m2 Macrina Montano MD Work Phone: [facility] 11-06-2024 12:35-0400 Body temperature 98.1 [degF] Macrina Montano MD Work Phone: [facility] 11-06-2024 12:35-0400 Body weight 44.4 kg Macrina Montano MD Work Phone: [facility] 11-06-2024 12:35-0400 Respiratory rate 18 /min Macrina Montano MD Work Phone: [facility] 11-06-2024 08:47-0400 Body mass index (BMI) [Ratio] 15.78 kg/m2 Xiaoke Price PA-C Work Phone: [facility] 11-06-2024 08:47-0400 Body temperature 98.6 [degF] Xiaoke Price PA-C Work Phone: [facility] 11-06-2024 08:47-0400 Body weight 42.7 kg Xiaoke Price PA-C Work Phone: [facility] 11-06-2024 08:47-0400 Diastolic blood pressure 73 mm[Hg] Xiaoke Price PA-C Work Phone: [facility] 11-06-2024 08:47-0400 Heart rate 94 /min Xiaoke Price PA-C Work Phone: [facility] 11-06-2024 08:47-0400 Respiratory rate 16 /min Xiaoke Price PA-C Work Phone: [facility] 11-06-2024 08:47-0400 SaO2% (BldA) [Mass fraction] 99 % Xiaoke Price PA-C Work Phone: [facility] 11-06-2024 08:47-0400 Systolic blood pressure 101 mm[Hg] Xiaoke Price PA-C Work Phone: [facility] 10-23-2024 10:51-0400 Body mass index (BMI) [Ratio] 15.91 kg/m2 Xiaoke Price PA-C Work Phone: [facility] 10-23-2024 10:51-0400 Body temperature 98.8 [degF] Xiaoke Price PA-C Work Phone: [facility] 10-23-2024 10:51-0400 Body weight 43.05 kg Xiaoke Price PA-C Work Phone: [facility] 10-23-2024 10:51-0400 Diastolic blood pressure 72 mm[Hg] Xiaoke Price PA-C Work Phone: [facility] 10-23-2024 10:51-0400 Heart rate 97 /min Xiaoke Price PA-C Work Phone: [facility] 10-23-2024 10:51-0400 SaO2% (BldA) [Mass fraction] 97 % Xiaoke Price PA-C Work Phone: [facility] 10-23-2024 10:51-0400 Systolic blood pressure 102 mm[Hg] Xiaoke Price PA-C Work Phone: [facility] 10-16-2024 09:11-0400 Body mass index (BMI) [Ratio] 16.59 kg/m2 Sunny Cruz MD Work Phone: [facility] 10-16-2024 09:11-0400 Body temperature 98.4 [degF] Sunny Cruz MD Work Phone: [facility] 10-16-2024 09:11-0400 Body weight 44.91 kg Sunny Cruz MD Work Phone: [facility] 10-16-2024 09:11-0400 Diastolic blood pressure 59 mm[Hg] Sunny Cruz MD Work Phone: [facility] 10-16-2024 09:11-0400 Heart rate 65 /min Sunny Cruz MD Work Phone: [facility] 10-16-2024 09:11-0400 Respiratory rate 16 /min uSnny Cruz MD Work Phone: [facility] 10-16-2024 09:11-0400 SaO2% (BldA) [Mass fraction] 100 % Sunny Cruz MD Work Phone: [facility] 10-16-2024 09:11-0400 Systolic blood pressure 89 mm[Hg] Sunny Cruz MD Work Phone: [facility] 10-02-2024 15:53-0400 Heart rate 90 /min Xiaoke Price PA-C Work Phone: [facility] 10-02-2024 14:37-0400 Body mass index (BMI) [Ratio] 16.08 kg/m2 Xiaoke Price PA-C Work Phone: [facility] 10-02-2024 14:37-0400 Body temperature 98.6 [degF] Xiaoke Price PA-C Work Phone: [facility] 10-02-2024 14:37-0400 Body weight 43.5 kg Xiaoke Price PA-C Work Phone: [facility] 10-02-2024 14:37-0400 Diastolic blood pressure 67 mm[Hg] Xiaoke Price PA-C Work Phone: [facility] 10-02-2024 14:37-0400 Respiratory rate 16 /min Xiaoke Price PA-C Work Phone: [facility] 10-02-2024 14:37-0400 SaO2% (BldA) [Mass fraction] 99 % Sidra Ortiz PA-C Work Phone: [facility] 10-02-2024 14:37-0400 Systolic blood pressure 110 mm[Hg] Sidra Ortiz PA-C Work Phone: [facility] 09-18-2024 14:11-0400 Diastolic blood pressure 85 mm[Hg] Macrina Montano MD Work Phone: [facility] 09-18-2024 14:11-0400 Heart rate 56 /min Macrina Montano MD Work Phone: [facility] 09-18-2024 14:11-0400 SaO2% (BldA) [Mass fraction] 100 % Macrina Montano MD Work Phone: [facility] 09-18-2024 14:11-0400 Systolic blood pressure 132 mm[Hg] Macrina Montano MD Work Phone: [facility] 09-18-2024 14:10-0400 Body mass index (BMI) [Ratio] 16.94 kg/m2 Macrina Montano MD Work Phone: [facility] 09-18-2024 14:10-0400 Body temperature 98.1 [degF] Macrina Montano MD Work Phone: [facility] 09-18-2024 14:10-0400 Body weight 44.77 kg Mcarina Montano MD Work Phone: [facility] 09-18-2024 14:10-0400 Respiratory rate 18 /min Macrina Montano MD Work Phone: [facility] 09-11-2024 15:40-0400 Body mass index (BMI) [Ratio] 17.2 kg/m2 Ej Martinez MD Work Phone: [facility] 09-11-2024 15:40-0400 Body weight 45.45 kg Ej Martinez MD Work Phone: [facility] 09-11-2024 13:22-0400 Body mass index (BMI) [Ratio] 16.99 kg/m2 Sunny Cruz MD Work Phone: [facility] 09-11-2024 13:22-0400 Body temperature 98.8 [degF] Sunny Cruz MD Work Phone: [facility] 09-11-2024 13:22-0400 Body weight 44.9 kg Sunny Cruz MD Work Phone: [facility] 09-11-2024 13:22-0400 Diastolic blood pressure 80 mm[Hg] Sunny Cruz MD Work Phone: [facility] 09-11-2024 13:22-0400 Heart rate 104 /min Sunny Cruz MD Work Phone: [facility] 09-11-2024 13:22-0400 Respiratory rate 18 /min Sunny Cruz MD Work Phone: [facility] 09-11-2024 13:22-0400 SaO2% (BldA) [Mass fraction] 100 % Sunny Cruz MD Work Phone: [facility] 09-11-2024 13:22-0400 Systolic blood pressure 103 mm[Hg] Sunny Cruz MD Work Phone: [facility] 08-29-2024 11:24-0400 Body height 162.6 cm Ej Martinez MD Work Phone: [facility] 08-29-2024 11:24-0400 Body mass index (BMI) [Ratio] 16.48 kg/m2 Ej Martinez MD Work Phone: [facility] 08-29-2024 11:24-0400 Body weight 43.55 kg Ej Martinez MD Work Phone: [facility] Encounters Encounter Date Encounter Type Care Provider Facility Start: 01-22-2025 End: 01-22-2025 ambulatory [facility] Start: 01-22-2025 End: 01-22-2025 ambulatory SIDRA ORTIZ [facility] Start: 01-22-2025 ambulatory SUNNY CRUZ [facility] Start: 01-22-2025 End: 01-22-2025 Office outpatient visit 40 minutes Sidra Ortiz PA-C Work Phone: [facility] Comment on above: Malignant neoplasm m etastatic to lung, unspecified laterality (Multi) (Primary Dx); 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); Squamous cell carcinoma of maxillary sinus; Mass of hard palate; Neoplasm related pain; Hypomagnesemia; Mucositis due to radiation therapy; Chemotherapy induced nausea and vomiting; Gastroesophageal reflux disease, unspecified whether esophagitis present; Encounter for antineoplastic chemotherapy Start: 01-21-2025 End: 01-21-2025 ambulatory [facility] Start: 01-21-2025 End: 01-21-2025 Subsequent hospital visit by physician Hans [facility] Comment on above: Encounter for antine oplastic radiation therapy; 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) Arrived Start: 01-18-2025 End: 01-18-2025 [facility] Start: 01-18-2025 End: 01-18-2025 Subsequent hospital visit by physician Hans [facility] Comment on above: Encounter for antine oplastic radiation therapy; 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) Start: 01-18-2025 End: 01-18-2025 ambulatory SUNNY CRUZ [facility] Start: 01-16-2025 End: 01-16-2025 Subsequent hospital visit by physician Hans [facility] Comment on above: Encounter for antine oplastic radiation therapy; 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) Start: 01-16-2025 End: 01-16-2025 ambulatory [facility] Start: 01-15-2025 End: 01-15-2025 Subsequent hospital visit by physician Hans [facility] Comment on above: Encounter for antine oplastic radiation therapy; 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) Start: 01-15-2025 End: 01-15-2025 ambulatory [facility] Start: 01-15-2025 End: 01-15-2025 ambulatory SIDRA ORTIZ [facility] Start: 01-15-2025 End: 01-15-2025 Office outpatient visit 40 minutes Sidra Ortiz PA-C Work Phone: [facility] Comment on above: 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); 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); Malignant 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, unspecified laterality (Multi); Mucositis due to radiation therapy; Dysgeusia; Chemotherapy induced nausea and vomiting; Gastroesophageal reflux disease, unspecified whether esophagitis present; Encounter for antineoplastic chemotherapy; Neoplasm related pain Start: 01-14-2025 End: 01-14-2025 Subsequent hospital visit by physician Boris Montano [facility] Comment on above: Arrived Encounter for antine oplastic radiation therapy; 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) Start: 01-14-2025 End: 01-14-2025 ambulatory [facility] Start: 01-11-2025 End: 01-11-2025 ambulatory [facility] Start: 01-11-2025 End: 01-11-2025 Subsequent hospital visit by physician Hans [facility] Comment on above: Encounter for antine oplastic radiation therapy; 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) Start: 01-11-2025 End: 01-11-2025 ambulatory SUNNY CRUZ [facility] Start: 01-10-2025 End: 01-10-2025 Subsequent hospital visit by physician Hans [facility] Comment on above: Encounter for antine oplastic radiation therapy; 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) Start: 01-10-2025 End: 01-10-2025 ambulatory [facility] Start: 01-09-2025 End: 01-09-2025 Subsequent hospital visit by physician Hans [facility] Comment on above: Encounter for antine oplastic radiation therapy; 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) Start: 01-09-2025 End: 01-09-2025 [facility] Start: 01-08-2025 End: 01-08-2025 [facility] Start: 01-08-2025 End: 01-08-2025 Subsequent hospital visit by physician Hans [facility] Comment on above: Encounter for antine oplastic radiation therapy; 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) Start: 01-08-2025 End: 01-08-2025 Office outpatient visit 40 minutes Sidra Ortiz PA-C Work Phone: [facility] Comment on above: 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); Neoplasm related pain; Malignant 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, unspecified laterality (Multi); Squamous cell carcinoma of maxillary sinus; Hypokalemia; Mass of hard palate; Current mild episode of major depressive disorder without prior episode; Appetite loss; Chemotherapy induced nausea and vomiting Start: 01-08-2025 End: 01-08-2025 ambulatory SIDRA ORTIZ [facility] Start: 01-07-2025 End: 01-07-2025 [facility] Start: 01-07-2025 End: 01-07-2025 Subsequent hospital visit by physician Hans [facility] Comment on above: Encounter for antine oplastic radiation therapy; 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) Arrived Start: 01-04-2025 End: 01-04-2025 ambulatory [facility] Start: 01-04-2025 End: 01-04-2025 [facility] Comment on above: Encounter for antine oplastic radiation therapy; 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) Start: 01-04-2025 End: 01-04-2025 ambulatory SUNNY CRUZ [facility] Start: 01-03-2025 End: 01-03-2025 Subsequent hospital visit by physician Hans [facility] Comment on above: Encounter for antine oplastic radiation therapy; 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) Start: 01-03-2025 End: 01-03-2025 [facility] Start: 01-02-2025 End: 01-02-2025 Subsequent hospital visit by physician Boris Marcial [facility] Comment on above: Arrived Encounter for antine oplastic radiation therapy; 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) Start: 01-02-2025 End: 01-02-2025 [facility] Start: 01-01-2025 End: 01-01-2025 [facility] Start: 01-01-2025 End: 01-01-2025 Subsequent hospital visit by physician Hans [facility] Comment on above: Encounter for antine oplastic radiation therapy; 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) Start: 01-01-2025 End: 01-01-2025 ambulatory SUNNY CRUZ [facility] Start: 01-01-2025 End: 01-01-2025 ambulatory SIDRA ORTIZ [facility] Start: 01-01-2025 End: 01-01-2025 Office outpatient visit 40 minutes Sidra Ortiz PA-C Work Phone: [facility] Comment on above: 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); 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); Malignant 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, unspecified laterality (Multi); Drug-induced constipation; Gastroesophageal reflux disease, unspecified whether esophagitis present; Neoplasm related pain; Facial neuropathy; Mucositis due to radiation therapy Start: 12-28-2024 End: 12-28-2024 Subsequent hospital visit by physician Hans [facility] Comment on above: Encounter for antine oplastic radiation therapy; 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) Start: 12-28-2024 End: 12-28-2024 ambulatory [facility] Start: 12-28-2024 End: 12-28-2024 ambulatory SUNNY CRUZ [facility] Start: 12-27-2024 End: 12-27-2024 Subsequent hospital visit by physician Erin_Truebeeunice [facility] Comment on above: Encounter for antine oplastic radiation therapy; 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) Start: 12-27-2024 End: 12-27-2024 ambulatory [facility] Start: 12-26-2024 End: 12-26-2024 Subsequent hospital visit by physician Erin Ct Sim1 [facility] Comment on above: Malignant neoplasm o f overlapping sites of accessory sinuses (Multi) (Primary Dx) Start: 12-26-2024 End: 12-26-2024 ambulatory [facility] Start: 12-26-2024 End: 12-26-2024 Subsequent hospital visit by physician Boris Montano [facility] Comment on above: Arrived Encounter for antine oplastic radiation therapy; 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) Start: 12-26-2024 End: 12-26-2024 ambulatory [facility] Start: 12-26-2024 End: 12-26-2024 ambulatory MACRINA Parrish [facility] Start: 12-26-2024 End: 12-26-2024 Subsequent hospital visit by physician [facility] Comment on above: Malignant neoplasm o f overlapping sites of accessory sinuses (Multi) Start: 12-25-2024 End: 12-25-2024 Office outpatient visit 40 minutes Sidra Ortiz PA-C Work Phone: [facility] Comment on above: 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); 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); Malignant 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, unspecified laterality (Multi); Drug-induced constipation; Gastroesophageal reflux disease, unspecified whether esophagitis present; Neoplasm related pain; Facial neuropathy Start: 12-25-2024 End: 12-25-2024 ambulatory SIDRA ORTIZ [facility] Start: 12-25-2024 End: 12-25-2024 ambulatory SUNNY CHRISTIANSONJULIA [facility] Start: 12-21-2024 End: 12-21-2024 ambulatory SUNNY CRUZ [facility] Start: 12-21-2024 End: 12-21-2024 ambulatory MACRINA Parrish [facility] Start: 12-20-2024 End: 12-21-2024 Subsequent hospital visit by physician Hans [facility] Comment on above: Encounter for antine oplastic radiation therapy; 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) Malignant neoplasm o f overlapping sites of accessory sinuses (Multi) Start: 12-20-2024 End: 12-20-2024 ambulatory [facility] Start: 12-19-2024 End: 12-19-2024 ambulatory MACRINA Parrish [facility] Start: 12-19-2024 End: 12-19-2024 Subsequent hospital visit by physician Hans [facility] Comment on above: Encounter for antine oplastic radiation therapy; 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) Start: 12-18-2024 End: 12-18-2024 [facility] Start: 12-18-2024 End: 12-18-2024 Subsequent hospital visit by physician Hans [facility] Comment on above: Encounter for antine oplastic radiation therapy; 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) Start: 12-18-2024 End: 12-18-2024 Office outpatient visit 40 minutes Sunny Cruz MD Work Phone: [facility] Comment on above: 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); Malignant 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, unspecified laterality (Multi); Squamous cell carcinoma of maxillary sinus; Current mild episode of major depressive disorder without prior episode; Mass of hard palate; Neoplasm related pain Start: 12-18-2024 End: 12-18-2024 ambulatory [facility] Start: 12-17-2024 End: 12-17-2024 Subsequent hospital visit by physician Hans [facility] Comment on above: Encounter for antine oplastic radiation therapy; 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) Start: 12-17-2024 End: 12-17-2024 ambulatory [facility] Start: 12-07-2024 End: 12-07-2024 ambulatory SUNNY CRUZ [facility] Start: 12-07-2024 End: 12-07-2024 Subsequent hospital visit by physician Hans [facility] Comment on above: Encounter for antine oplastic radiation therapy; 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) Start: 12-06-2024 End: 12-06-2024 ambulatory [facility] Start: 12-06-2024 End: 12-06-2024 Subsequent hospital visit by physician Boris Fisher [facility] Comment on above: Arrived Encounter for antine oplastic radiation therapy; 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) Start: 12-06-2024 End: 12-06-2024 ambulatory [facility] Start: 12-05-2024 End: 12-05-2024 [facility] Start: 12-05-2024 End: 12-05-2024 Subsequent hospital visit by physician Hans [facility] Comment on above: Encounter for antine oplastic radiation therapy; 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) Arrived Start: 12-05-2024 End: 12-05-2024 Office outpatient visit 40 minutes Sunny Cruz MD Work Phone: [facility] Comment on above: 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); Malignant 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, unspecified laterality (Multi) Start: 12-05-2024 End: 12-05-2024 ambulatory [facility] Start: 12-03-2024 End: 12-03-2024 ambulatory [facility] Start: 12-03-2024 End: 12-03-2024 Subsequent hospital visit by physician Julio Pang [facility] Comment on above: Arrived Start: 11-22-2024 End: 11-22-2024 ambulatory MACRINA Parrish [facility] Start: 11-22-2024 End: 11-22-2024 Subsequent hospital visit by physician Erin [id number] Mri [facility] Comment on above: 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 Start: 11-20-2024 End: 11-20-2024 ambulatory SUNNY Andrae [email or web address]JULIA [facility] Start: 11-13-2024 End: 11-13-2024 Office outpatient visit 40 minutes Sidra Ortiz PA-C Work Phone: [facility] Comment on above: 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 Start: 11-06-2024 End: 11-06-2024 Subsequent hospital visit by physician Macrina Montano MD Work Phone: [facility] Comment on above: 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) Start: 11-06-2024 End: 11-06-2024 ambulatory MACRINA A [facility] Start: 11-06-2024 End: 11-06-2024 Office outpatient visit 40 minutes Sidra Ortiz PA-C Work Phone: [facility] Comment on above: Malignant neoplasm m etastatic to lung, unspecified laterality (Multi) (Primary Dx); Squamous cell carcinoma of maxillary sinus; Secondary malignant neoplasm of bone and bone marrow; Mass of hard palate; Neoplasm related pain; Left facial swelling; Facial neuropathy Start: 11-06-2024 End: 11-06-2024 ambulatory SUNNY Abebe [facility] [[email or web address]JULIA [facility] Start: 11-06-2024 End: 11-06-2024 ambulatory MACRINA Parrish [facility] Start: 11-05-2024 End: 11-05-2024 ambulatory SIDRA Oneal [facility] Start: 11-05-2024 End: 11-06-2024 Subsequent hospital visit by physician [facility] Comment on above: 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; Malignant 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, unspecified laterality (Multi); Secondary malignant neoplasm of bone and bone marrow Malignant neoplasm o f overlapping sites of accessory sinuses (Multi) Start: 10-23-2024 End: 10-23-2024 ambulatory SIDRA ORTIZ [facility] Start: 10-23-2024 End: 10-23-2024 Office outpatient visit 40 minutes Sidra Ortiz PA-C Work Phone: [facility] Comment on above: 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); Squamous cell carcinoma of maxillary sinus; Malignant 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, unspecified laterality (Multi); Neoplasm related pain; Left facial swelling; Facial neuropathy; Poor dentition Start: 10-16-2024 End: 10-16-2024 ambulatory SUNNY CRUZ [facility] Start: 10-16-2024 End: 10-16-2024 ambulatory TORIE DIEGO [facility] Start: 10-16-2024 End: 10-16-2024 Office outpatient visit 40 minutes Sunny Cruz MD Work Phone: [facility] Comment on above: 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; Malignant 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, unspecified laterality (Multi); Secondary malignant neoplasm of bone and bone marrow; Mass of hard palate Start: 10-09-2024 End: 10-09-2024 ambulatory SUNNY Abebe [facility] [[email or web address]JULIA [facility] Start: 10-02-2024 End: 10-02-2024 ambulatory SUNNY Abebe [facility] [[email or web address]JULIA [facility] Start: 10-02-2024 End: 10-02-2024 Office outpatient visit 40 minutes Sidra Ortiz PA-C Work Phone: [facility] Comment on above: 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); Malignant 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, unspecified laterality (Multi); Secondary malignant neoplasm of bone and bone marrow; Mass of hard palate; Neoplasm related pain; Left facial swelling; Tachycardia; Hypotension, unspecified hypotension type; Dizziness Start: 09-26-2024 End: 09-26-2024 ambulatory SUNNY Abebe ANTHONY [facility] Start: 09-25-2024 End: 09-25-2024 ambulatory SUNNY Abebe [facility] [[email or web address]JULIA [facility] Start: 09-25-2024 End: 09-25-2024 Office outpatient visit 40 minutes Sunny Cruz MD Work Phone: [facility] Comment on above: 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); Malignant 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, unspecified laterality (Multi); Secondary malignant neoplasm of bone and bone marrow; Mass of hard palate Start: 09-18-2024 End: 09-18-2024 Subsequent hospital visit by physician [facility] Comment on above: Mass of hard palate Start: 09-18-2024 End: 09-18-2024 ambulatory EJ MARTINEZ [facility] Start: 09-18-2024 End: 09-18-2024 Office outpatient visit 40 minutes Sunny Cruz MD Work Phone: [facility] Comment on above: Mass of hard palate (Primary Dx) Start: 09-18-2024 End: 09-18-2024 ambulatory MACRINA MONTANO [facility] Start: 09-18-2024 End: 09-18-2024 Office outpatient new 60 minutes Macrina Montano MD Work Phone: [facility] Comment on above: Mass of hard palate Start: 09-18-2024 End: 09-18-2024 ambulatory SUNNY CRUZ [facility] Start: 09-18-2024 End: 09-18-2024 Subsequent hospital visit by physician [facility] [address] [facility] Comment on above: Mass of hard palate Start: 09-11-2024 End: 09-11-2024 Office outpatient visit 25 minutes Ej Martinez MD Work Phone: [facility] Comment on above: Mass of hard palate (Primary Dx) Start: 09-11-2024 End: 09-11-2024 Subsequent hospital visit by physician [facility] [address] [facility] Comment on above: Mass of hard palate Start: 09-11-2024 End: 09-11-2024 ambulatory [facility] Start: 09-11-2024 End: 09-11-2024 ambulatory [facility] Start: 09-11-2024 End: 09-11-2024 Office outpatient new 60 minutes Sunny Cruz MD Work Phone: [facility] Comment on above: Mass of hard palate Start: 08-29-2024 End: 08-29-2024 ambulatory [facility] Start: 08-29-2024 End: 08-29-2024 Office consultation new/estab patient 60 min Ej Martinez MD Work Phone: [facility] Comment on above: Mass of hard palate Start: 08-22-2024 End: 08-22-[address] Rambo Ramon MD Work Phone: [facility] Work Phone: Start: 08-22-2024 End: 08-22-[address] Rambo Ramon MD -Cat Scan [facility] Work Phone: Start: 08-22-2024 End: 08-22-2024 ambulatory Rambo Tristen Facility:[facility] Procedures Date Procedure Procedure Detail Performing Clinician Start: 01-21-2025 RAD ONC MSQ TREATMENT SUMMARY Bari Hart MD Work Phone: Start: 01-18-2025 RAD ONC MSQ TREATMENT SUMMARY Bari Hart MD Work Phone: Start: 01-16-2025 RAD ONC MSQ TREATMENT SUMMARY Bari Hart MD Work Phone: Start: 01-15-2025 RAD ONC MSQ TREATMENT SUMMARY Bari Hart MD Work Phone: Start: 01-14-2025 RAD ONC MSQ TREATMENT SUMMARY Bari Hart MD Work Phone: Start: 01-11-2025 RAD ONC MSQ TREATMENT SUMMARY Bari Hart MD Work Phone: Start: 01-10-2025 RAD ONC MSQ TREATMENT SUMMARY Bari Hart MD Work Phone: Start: 01-09-2025 RAD ONC MSQ TREATMENT SUMMARY Bari Hart MD Work Phone: Start: 01-08-2025 RAD ONC MSQ TREATMENT SUMMARY Bari Hart MD Work Phone: Start: 01-07-2025 RAD ONC MSQ TREATMENT SUMMARY Bari Hart MD Work Phone: Start: 01-04-2025 RAD ONC MSQ TREATMENT SUMMARY Bari Hart MD Work Phone: Start: 01-03-2025 RAD ONC MSQ TREATMENT SUMMARY Bari Hart MD Work Phone: Start: 01-02-2025 RAD ONC MSQ TREATMENT SUMMARY Bari Hart MD Work Phone: Start: 01-01-2025 RAD ONC MSQ TREATMENT SUMMARY Bari Hart MD Work Phone: Start: 12-28-2024 RAD ONC MSQ TREATMENT SUMMARY Bari Hart MD Work Phone: Start: 12-27-2024 RAD ONC MSQ TREATMENT SUMMARY Bari Hart MD Work Phone: Start: 12-26-2024 RAD ONC MSQ TREATMENT SUMMARY Bari Hart MD Work Phone: Start: 12-26-[address] SIM IMAGES ONLY Macrina Bennett MD Work Phone: Start: 12-21-[address] SIM IMAGES ONLY Macrina Bennett MD Work Phone: Start: 12-20-2024 RAD ONC MSQ TREATMENT SUMMARY Bari Hart MD Work Phone: Start: 12-19-2024 RAD ONC MSQ TREATMENT SUMMARY Bari Hart MD Work Phone: Start: 12-18-2024 RAD ONC MSQ TREATMENT SUMMARY Bari Hart MD Work Phone: Start: 12-17-2024 RAD ONC MSQ TREATMENT SUMMARY Bari Hart MD Work Phone: Start: 12-07-2024 RAD ONC MSQ TREATMENT SUMMARY Bari Hart MD Work Phone: Start: 12-06-2024 RAD ONC MSQ TREATMENT SUMMARY Bari Hart MD Work Phone: Start: 12-05-2024 RAD ONC MSQ TREATMENT SUMMARY Bari Hart MD Work Phone: Start: 11-08-2024 Urnls dip stick/tablet reagent auto microscopy Dr. Rambo Ramon MD Work Phone: Start: 11-08-2024 D-dimer assay, quantitative Dr. Rambo knox MD Work Phone: Comment on above: D-Dimer ELEVATED (>0.49): Additional jaspreet dies and clinicalassessments are indicated to conclude diagnosis of:Deep Vein Thrombosis (DVT) or Pulmonary Embolism (PE)CRITICAL VALUE CALLED TO ALEJANDRA CHO (ER)11/08/24 1430 Sunny ClemensRESULTS READ BACK BY SAME. Start: 11-08-[address] Rambo Ramon MD Work Phone: Start: 11-06-[address] SIM IMAGES ONLY Macrina Bennett MD Work Phone: Start: 09-18-[address] attenuation skull base mid-thigh Sunny Cruz MD Work Phone: Start: 09-18-2024 Glucose quantitative blood xcpt reagent strip Interface Unspecifiedprovider Work Phone: Start: 08-22-[address] Rambo Ramon MD Work Phone: Plan of Treatment Date Care Activity Detail Author Start: 01-18-2032 Zoster Vaccines (1 of 2) Zoster Vaccines (1 of 2) [facility] Start: 02-05-2025 End: 02-05-2025 Patient encounter procedure 02/05/2025 11:00 AM EST Appointment [facility] [address] [place] [address] [facility] Start: 02-04-2025 End: 02-04-2025 Patient encounter procedure 02/04/2025 11:00 AM EST Appointment [facility] [address] [place] [address] [facility] Start: 02-01-2025 End: 02-01-2025 Patient encounter procedure [facility] Start: 01-31-2025 End: 01-31-2025 Patient encounter procedure 01/31/2025 11:00 AM EST Appointment [facility] [address] [place] [address] [facility] Start: 01-30-2025 End: 01-30-2025 ambulatory [facility] Start: 01-30-2025 End: 01-30-2025 Patient encounter procedure [facility] Start: 01-29-2025 End: 01-29-2025 Patient encounter procedure [facility] Start: 01-28-2025 End: 01-28-2025 Patient encounter procedure [facility] Start: 01-25-2025 End: 01-25-2025 ambulatory 01/25/2025 4:00 PM EST [facility]fusion [facility] [facility] [address] [place] [address] [facility] Start: 01-25-2025 End: 01-25-2025 Patient encounter procedure 01/25/2025 11:00 AM EST Appointment [facility] [address] [place] [address] [facility] Start: 01-24-2025 End: 01-24-2025 Patient encounter procedure 01/24/2025 11:00 AM EST Appointment [facility] [address] [place] [address] [facility] Start: 01-23-2025 End: 01-23-2025 ambulatory 01/23/2025 2:15 PM EST Infusion [facility] [address] [place] [address] [facility] Start: 01-23-2025 End: 01-23-2025 Patient encounter procedure [facility] Start: 01-22-2025 End: 01-22-2025 Patient encounter procedure [facility] Start: 01-22-2025 End: 01-22-2025 ambulatory [facility] Start: 01-21-2025 End: 01-21-2025 Patient encounter procedure [facility] Start: 01-18-2025 End: 01-18-2025 Patient encounter procedure [facility] Start: 01-18-2025 End: 01-18-2025 ambulatory [facility] Start: 2025 End: 2025 Patient encounter procedure 2025 11:00 AM EST Appointment [facility] [address] [place] [address] [facility] Start: 01-16-2025 End: 01-16-2025 Patient encounter procedure [facility] Start: 01-15-2025 End: 01-15-2025 ambulatory [facility] Start: 01-15-2025 End: 01-15-2025 Patient encounter procedure [facility] Start: 01-14-2025 End: 01-14-2025 Patient encounter procedure [facility] Start: 01-11-2025 End: 01-11-2025 Patient encounter procedure 01/11/2025 10:45 AM EDT Appointment [facility] [address] [place] [address] [facility] Start: 01-11-2025 End: 01-11-2025 ambulatory [facility] Start: 01-10-2025 End: 01-10-2025 Patient encounter procedure [facility] Start: 01-09-2025 End: 01-09-2025 Patient encounter procedure [facility] Start: 01-08-2025 End: 01-08-2025 Patient encounter procedure 01/08/2025 1:15 PM EDT Appointment [facility] [address] [place] [address] [facility] Start: 01-08-2025 End: 01-08-2025 Patient encounter procedure 01/08/2025 10:30 AM EDT Office Visit [facility] [address] [place] [address] Sidra Ortiz PA-C [address] [place] [address] [facility] Start: 01-08-2025 End: 01-08-2025 ambulatory [facility] Start: 01-07-2025 End: 01-07-2025 Patient encounter procedure [facility] Start: 01-04-2025 End: 01-04-2025 Patient encounter procedure Andrés [facility] Start: 01-04-2025 End: 01-04-2025 ambulatory [facility] Start: 01-03-2025 End: 01-03-2025 Patient encounter procedure 01/03/2025 11:00 AM EDT Appointment [facility] [address] [place] [address] [facility] Start: 01-02-2025 End: 01-02-2025 Patient encounter procedure [facility] Start: 01-01-2025 End: 01-01-2025 ambulatory 01/01/2025 11:30 AM EDT Infusion [facility] [address] [place] [address] [facility] Start: 01-01-2025 End: 01-01-2025 Patient encounter procedure Andrés [facility] Start: 12-31-2024 End: 12-31-2024 [facility] Start: 12-28-2024 End: 12-28-2024 Patient encounter procedure 12/28/2024 4:30 PM EDT Appointment [facility] [address] [place] [address] [facility] Start: 12-28-2024 End: 12-28-2024 ambulatory [facility] Start: 12-27-2024 End: 12-27-2024 Patient encounter procedure 12/27/2024 11:00 AM EDT Appointment [facility] [address] [place] [address] [facility] Start: 12-26-2024 End: 12-26-2024 Patient encounter procedure [facility] Start: 12-25-2024 End: 12-25-2024 Patient encounter procedure 12/25/2024 11:45 AM EDT Appointment [facility] [address] [place] [address] [facility] Start: 12-25-2024 End: 12-25-2024 Patient encounter procedure [facility] Start: 12-25-2024 End: 12-25-2024 ambulatory 12/25/2024 8:15 AM EDT Infusion [facility] [address] [place] [address] [facility] Start: 12-24-2024 End: 12-24-2024 Patient encounter procedure [facility] Start: 12-21-2024 End: 12-21-2024 Patient encounter procedure [facility] Start: 12-21-2024 End: 12-21-2024 ambulatory [facility] Start: 12-20-2024 End: 12-20-2024 Patient encounter procedure 12/20/2024 11:00 AM EDT Appointment [facility] [address] [place] [address] [facility] Start: 12-19-2024 End: 12-19-2024 ambulatory 12/19/2024 11:15 AM EDT Evaluation [facility] [address] [facility] [address] [place] [address] Marcela Benson, [employer] [address] [place] [address] [facility] Start: 12-19-2024 End: 12-19-2024 Patient encounter procedure 12/19/2024 11:00 AM EDT Appointment [facility] [address] [place] [address] [facility] Start: 12-18-2024 End: 12-18-2024 Patient encounter procedure 12/18/2024 11:30 AM EDT Appointment [facility] [address] [place] [address] [facility] Start: 12-18-2024 End: 12-18-2024 Patient encounter procedure 12/18/2024 9:20 AM EDT Office Visit [facility] [address] [place] [address] [place] [address] [place] [address] [facility] Start: 12-18-2024 End: 12-18-2024 ambulatory [facility] Start: 12-17-2024 End: 12-17-2024 Patient encounter procedure [facility] Start: 12-14-2024 End: 12-14-2024 Patient encounter procedure 12/14/2024 11:00 AM EDT Appointment [facility] [address] [place] [address] [facility] Start: 12-14-2024 End: 12-14-2024 ambulatory 12/14/2024 9:45 AM EDT Infusion [facility] [address] [place] [address] [facility] Start: 12-13-2024 End: 12-13-2024 Patient encounter procedure 12/13/2024 11:00 AM EDT Appointment [facility] [address] [place] [address] [facility] Start: 12-12-2024 End: 12-12-2024 Patient encounter procedure 12/12/2024 12:00 PM EDT Appointment [facility] [address] [place] [address] [facility] Start: 12-12-2024 End: 12-12-2024 ambulatory 12/12/2024 8:45 AM EDT Infusion [facility] [address] [place] [address] [facility] Start: 12-11-2024 End: 12-11-2024 Patient encounter procedure [facility] Start: 12-10-2024 End: 12-10-2024 Patient encounter procedure 12/10/2024 2:00 PM EDT Appointment [facility] [address] [place] [address] [facility] Start: 12-07-2024 End: 12-07-2024 ambulatory [facility] Start: 12-07-2024 End: 12-07-2024 Patient encounter procedure 12/07/2024 9:15 AM EDT Appointment [facility] [address] [place] [address] [facility] Start: 12-06-2024 End: 12-06-2024 Patient encounter procedure 12/06/2024 1:30 PM EDT Appointment [facility] [address] [place] [address] [facility] Start: 12-05-2024 End: 12-05-2024 Patient encounter procedure 12/05/2024 5:15 PM EDT Appointment [facility] [address] [place] [address] [facility] Start: 12-05-2024 End: 12-05-2024 ambulatory 12/05/2024 1:00 PM EDT Infusion [facility] [address] [place] [address] [facility] Start: 12-05-2024 End: 12-05-2024 Patient encounter procedure [facility] Start: 11-20-2024 End: 11-20-2025 CBC W Auto Differential panel - Blood CBC and Auto Differential Lab Routine 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, 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 Expected: 11/20/2024, Expires: 11/20/2025 [facility] Work Phone: Comment on above: Expected: 11/20/2024, Expires: Start: 11-20-2024 End: 11-20-2025 Comprehensive metabolic 2000 panel - Serum or Plasma Comprehensive Metabolic Panel Lab Routine 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, 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 Expected: 11/20/2024, Expires: 11/20/2025 [facility] Work Phone: Comment on above: Expected: 11/20/2024, Expires: Start: 11-20-2024 End: 11-20-2025 Magnesium [Mass/volume] in Serum or Plasma Magnesium Lab Routine 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, 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 Expected: 11/20/2024, Expires: 11/20/2025 [facility] Work Phone: Comment on above: Expected: 11/20/2024, Expires: Start: 11-20-2024 End: 11-20-2024 ambulatory 11/20/2024 9:00 AM EDT Infusion [facility] [address] [place] [address] [facility] Start: 11-19-2024 End: 11-19-2024 Patient encounter procedure 11/19/2024 1:00 PM EDT Office Visit [facility] [address] [place] [address] Bettye Maciel, [employer] [address] [place] [address] [facility] Start: 11-16-2024 End: 11-16-2024 Patient encounter procedure [facility] Start: 11-13-2024 End: 11-13-2024 ambulatory 11/13/2024 3:00 PM EDT Infusion [facility] [address] [place] [address] [facility] Start: 11-13-2024 End: 11-13-2024 Patient encounter procedure 11/13/2024 2:30 PM EDT Office Visit [facility] [address] [place] [address] Sidra Ortiz PA-C [address] [place], [place] [id number] [facility] Start: 11-13-2024 End: 11-13-2025 CBC W Auto Differential panel - Blood CBC and Auto Differential Lab Routine 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, 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 Expected: 11/13/2024, Expires: 11/13/2025 [facility] Work Phone: Comment on above: Expected: 11/13/2024, Expires: Start: 11-13-2024 End: 11-13-2025 Comprehensive metabolic 2000 panel - Serum or Plasma Comprehensive metabolic panel Lab Routine 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, 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 Expected: 11/13/2024, Expires: 11/13/2025 [facility] Work Phone: Comment on above: Expected: 11/13/2024, Expires: Start: 11-13-2024 End: 11-13-2025 Magnesium [Mass/volume] in Serum or Plasma Magnesium Lab Routine 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, 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 Expected: 11/13/2024, Expires: 11/13/2025 [facility] Work Phone: Comment on above: Expected: 11/13/2024, Expires: Start: 11-12-2024 Influenza vaccination [facility] Start: 11-08-2024 [facility] Start: 11-08-2024 Abdomen/Pelvis W IV Cont ONLY Abdomen/Pelvis W IV Cont ONLY [facility] Start: 11-08-2024 CT Abdomen and Pelvis W contrast IV [facility] Start: 11-08-2024 CTA Chest vessels WO and W contrast IV [facility] Start: 11-08-2024 CTA Chest W/WO Contrast CTA Chest W/WO Contrast [facility] Start: 11-08-2024 Chest 1 View (Portable) Chest 1 View (Portable) 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, 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 Expected: 11/06/2024, Expires: 11/06/2025 [facility] Work Phone: Comment on above: Expected: 11/06/2024, Expires: Start: 11-06-2024 End: 11-06-2025 Choriogonadotropin.beta subunit [Units/volume] in Serum or Plasma Hcg, Quantitative, Lab Routine 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, 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 Expected: 11/06/2024, Expires: 11/06/2025 [facility] Work Phone: Comment on above: Expected: 11/06/2024, Expires: Start: 11-06-2024 End: 11-06-2025 Comprehensive metabolic 2000 panel - Serum or Plasma Comprehensive metabolic panel Lab Routine 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, 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 Expected: 11/06/2024, Expires: 11/06/2025 [facility] Work Phone: Comment on above: Expected: 11/06/2024, Expires: Start: 11-06-2024 End: 11-06-2025 Corticotropin [Mass/volume] in Plasma Adrenocorticotropic Hormone (ACTH) Lab Routine 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, 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 Expected: 11/06/2024, Expires: 11/06/2025 [facility] Work Phone: Comment on above: Expected: 11/06/2024, Expires: Start: 11-06-2024 End: 11-06-2025 Cortisol [Mass or Moles/volume] in Serum or Plasma --AM peak specimen Cortisol AM Lab Routine 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, 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 Expected: 11/06/2024, Expires: 11/06/2025 [facility] Work Phone: Comment on above: Expected: 11/06/2024, Expires: Start: 11-06-2024 End: 11-06-2025 Magnesium [Mass/volume] in Serum or Plasma Magnesium Lab Routine 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, 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 Expected: 11/06/2024, Expires: 11/06/2025 [facility] Work Phone: Comment on above: Expected: 11/06/2024, Expires: Start: 11-06-2024 End: 11-06-2025 TSH with reflex to Free T4 if abnormal TSH with reflex to Free T4 if abnormal Lab Routine 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, 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 Expected: 11/06/2024, Expires: 11/06/2025 [facility] Work Phone: Comment on above: Expected: 11/06/2024, Expires: Start: 11-06-2024 Subsequent hospital visit by physician 11/06/2024 1:58 PM EDT Hospital Encounter [facility] [address] [place] [address] 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) [facility] Comment on above: 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) Start: 11-06-2024 End: 11-06-2024 ambulatory [facility] Start: 11-06-2024 End: 11-06-2024 Patient encounter procedure [facility] Start: 11-02-2024 End: 10-23-2025 CT Neck W contrast IV CT soft tissue neck w IV contrast Imaging Routine 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, 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 Expected: 11/02/2024, Expires: 10/23/2025 [facility] Work Phone: Comment on above: Expected: 11/02/2024, Expires: Start: 11-02-2024 End: 10-23-2025 MR Sinuses WO and W contrast IV MR sinuses w and wo IV contrast Imaging Routine 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, 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 Expected: 11/02/2024, Expires: 10/23/2025 [facility] Work Phone: Comment on above: Expected: 11/02/2024, Expires: Start: 10-30-2024 End: 10-30-2024 Patient encounter procedure 10/30/2024 2:30 PM EDT Office Visit [facility] [address] [place] [address] Bettye Maciel, [employer] [address] [place] [address] [facility] Start: 10-30-2024 End: 10-30-2025 CBC W Auto Differential panel - Blood CBC and Auto Differential Lab Routine 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, 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 Expected: 10/30/2024, Expires: 10/30/2025 [facility] Work Phone: Comment on above: Expected: 10/30/2024, Expires: Start: 10-30-2024 End: 10-30-2025 Comprehensive metabolic 2000 panel - Serum or Plasma Comprehensive Metabolic Panel Lab Routine 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, 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 Expected: 10/30/2024, Expires: 10/30/2025 [facility] Work Phone: Comment on above: Expected: 10/30/2024, Expires: Start: 10-30-2024 End: 10-30-2025 Magnesium [Mass/volume] in Serum or Plasma Magnesium Lab Routine 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, 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 Expected: 10/30/2024, Expires: 10/30/2025 [facility] Work Phone: Comment on above: Expected: 10/30/2024, Expires: Start: 10-30-2024 End: 10-30-2024 ambulatory 10/30/2024 11:00 AM EDT Infusion [facility] [address] [place] [address] [facility] Start: 10-23-2024 End: 10-23-2025 CBC W Auto Differential panel - Blood CBC and Auto Differential Lab Routine 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, 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 Expected: 10/23/2024, Expires: 10/23/2025 [facility] Work Phone: Comment on above: Expected: 10/23/2024, Expires: Start: 10-23-2024 End: 10-23-2025 Comprehensive metabolic 2000 panel - Serum or Plasma Comprehensive metabolic panel Lab Routine 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, 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 Expected: 10/23/2024, Expires: 10/23/2025 [facility] Work Phone: Comment on above: Expected: 10/23/2024, Expires: Start: 10-23-2024 End: 10-23-2025 Magnesium [Mass/volume] in Serum or Plasma Magnesium Lab Routine 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, 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 Expected: 10/23/2024, Expires: 10/23/2025 [facility] Work Phone: Comment on above: Expected: 10/23/2024, Expires: Start: 10-23-2024 End: 10-23-2024 ambulatory 10/23/2024 11:00 AM EDT Infusion [facility] [address] [address] [facility] Start: 10-23-2024 End: 10-23-2024 Patient encounter procedure 10/23/2024 10:20 AM EDT Office Visit [facility] [address] [place] [address] [place] [address] [place] [address] [facility] Start: 10-16-2024 End: 10-16-2025 CBC W Auto Differential panel - Blood CBC and Auto Differential Lab Routine 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, 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 Expected: 10/16/2024, Expires: 10/16/2025 [facility] Work Phone: Comment on above: Expected: 10/16/2024, Expires: Start: 10-16-2024 End: 10-16-2025 Choriogonadotropin.beta subunit [Units/volume] in Serum or Plasma Hcg, Quantitative, Lab Routine 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, 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 Expected: 10/16/2024, Expires: 10/16/2025 [facility] Work Phone: Comment on above: Expected: 10/16/2024, Expires: Start: 10-16-2024 End: 10-16-2025 Comprehensive metabolic 2000 panel - Serum or Plasma Comprehensive metabolic panel Lab Routine 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, 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 Expected: 10/16/2024, Expires: 10/16/2025 [facility] Work Phone: Comment on above: Expected: 10/16/2024, Expires: Start: 10-16-2024 End: 10-16-2025 Corticotropin [Mass/volume] in Plasma Adrenocorticotropic Hormone (ACTH) Lab Routine 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, 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 Expected: 10/16/2024, Expires: 10/16/2025 [facility] Work Phone: Comment on above: Expected: 10/16/2024, Expires: Start: 10-16-2024 End: 10-16-2025 Cortisol [Mass or Moles/volume] in Serum or Plasma --AM peak specimen Cortisol AM Lab Routine 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, 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 Expected: 10/16/2024, Expires: 10/16/2025 [facility] Work Phone: Comment on above: Expected: 10/16/2024, Expires: Start: 10-16-2024 End: 10-16-2025 Magnesium [Mass/volume] in Serum or Plasma Magnesium Lab Routine 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, 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 Expected: 10/16/2024, Expires: 10/16/2025 [facility] Work Phone: Comment on above: Expected: 10/16/2024, Expires: Start: 10-16-2024 End: 10-16-2025 TSH with reflex to Free T4 if abnormal TSH with reflex to Free T4 if abnormal Lab Routine 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, 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 Expected: 10/16/2024, Expires: 10/16/2025 [facility] Service Area Work Phone: Comment on above: Expected: 10/16/2024, Expires: Start: 10-16-2024 End: 10-16-2024 ambulatory 10/16/2024 9:30 AM EDT Infusion [facility] [address] [place] [phone] [facility] Start: 10-16-2024 End: 10-16-2024 Patient encounter procedure 10/16/2024 8:20 AM EDT Office Visit [facility] [address] [place] [phone] [place] [address] [place] [address] [facility] Start: 10-12-2024 Influenza vaccination Influenza Vaccine (#1) [facility] Start: 10-09-2024 End: 10-09-2024 ambulatory 10/09/2024 2:00 PM EDT Infusion [facility] [address] [place] [address] [facility] Start: 10-09-2024 End: 10-09-2025 CBC W Auto Differential panel - Blood CBC and Auto Differential Lab Routine 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, 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 Expected: 10/09/2024, Expires: 10/09/2025 [facility] Work Phone: Comment on above: Expected: 10/09/2024, Expires: Start: 10-09-2024 End: 10-09-2025 Comprehensive metabolic 2000 panel - Serum or Plasma Comprehensive Metabolic Panel Lab Routine 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, 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 Expected: 10/09/2024, Expires: 10/09/2025 [facility] Work Phone: Comment on above: Expected: 10/09/2024, Expires: Start: 10-09-2024 End: 10-09-2025 Magnesium [Mass/volume] in Serum or Plasma Magnesium Lab Routine 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, 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 Expected: 10/09/2024, Expires: 10/09/2025 [facility] Work Phone: Comment on above: Expected: 10/09/2024, Expires: Start: 10-05-2024 End: 10-05-2024 Patient encounter procedure 10/05/2024 11:00 AM EDT Office Visit [facility] [address] [place] [address] [place] [address] [place] [address] [facility] Start: 10-02-2024 End: 10-02-2024 ambulatory 10/02/2024 3:00 PM EDT Infusion [facility] [address] [place] [address] [facility] Start: 10-02-2024 End: 10-02-2024 Patient encounter procedure 10/02/2024 2:00 PM EDT Office Visit [facility] [address] [place] [address] Sidra Ortiz PA-C [address] [place], [place] [phone] [facility] Start: 09-28-2024 End: 09-28-2024 Patient encounter procedure 09/28/2024 11:15 AM EDT Office Visit [facility] [address] [place] [phone] [place] [address] [place] [address] [facility] Start: 09-25-2024 End: 09-25-2025 CBC W Auto Differential panel - Blood CBC and Auto Differential Lab Routine Mass of hard palate Expected: 09/25/2024, Expires: 09/25/2025 [facility] Work Phone: Comment on above: Expected: 09/25/2024, Expires: Start: 09-25-2024 End: 09-25-2025 Choriogonadotropin.beta subunit [Units/volume] in Serum or Plasma Hcg, Quantitative, Lab Routine Mass of hard palate Expected: 09/25/2024, Expires: 09/25/2025 [facility] Work Phone: Comment on above: Expected: 09/25/2024, Expires: Start: 09-25-2024 End: 09-25-2025 Comprehensive metabolic 2000 panel - Serum or Plasma Comprehensive metabolic panel Lab Routine Mass of hard palate Expected: 09/25/2024, Expires: 09/25/2025 [facility] Work Phone: Comment on above: Expected: 09/25/2024, Expires: Start: 09-25-2024 End: 09-25-2025 Corticotropin [Mass/volume] in Plasma Adrenocorticotropic Hormone (ACTH) Lab Routine Mass of hard palate Expected: 09/25/2024, Expires: 09/25/2025 [facility] Work Phone: Comment on above: Expected: 09/25/2024, Expires: Start: 09-25-2024 End: 09-25-2025 Cortisol [Mass or Moles/volume] in Serum or Plasma --AM peak specimen Cortisol AM Lab Routine Mass of hard palate Expected: 09/25/2024, Expires: 09/25/2025 [facility] Work Phone: Comment on above: Expected: 09/25/2024, Expires: Start: 09-25-2024 End: 09-25-2025 Hepatitis B virus core Ab [Presence] in Serum Hepatitis B Core Antibody, Total Lab Routine Mass of hard palate Expected: 09/25/2024, Expires: 09/25/2025 [facility] Work Phone: Comment on above: Expected: 09/25/2024, Expires: Start: 09-25-2024 End: 09-25-2025 Hepatitis B virus surface Ab [Units/volume] in Serum Hepatitis B surface antibody Lab Routine Mass of hard palate Expected: 09/25/2024, Expires: 09/25/2025 [facility] Work Phone: Comment on above: Expected: 09/25/2024, Expires: Start: 09-25-2024 End: 09-25-2025 Hepatitis B virus surface Ag [Presence] in Serum or Plasma by Immunoassay Hepatitis B surface antigen Lab Routine Mass of hard palate Expected: 09/25/2024, Expires: 09/25/2025 [facility] Work Phone: Comment on above: Expected: 09/25/2024, Expires: Start: 09-25-2024 End: 09-25-2025 Magnesium [Mass/volume] in Serum or Plasma Magnesium Lab Routine Mass of hard palate Expected: 09/25/2024, Expires: 09/25/2025 [facility] Work Phone: Comment on above: Expected: 09/25/2024, Expires: Start: 09-25-2024 End: 09-25-2025 TSH with reflex to Free T4 if abnormal TSH with reflex to Free T4 if abnormal Lab Routine Mass of hard palate Expected: 09/25/2024, Expires: 09/25/2025 [facility] Service Area Work Phone: Comment on above: Expected: 09/25/2024, Expires: Start: 09-25-2024 End: 09-25-2024 ambulatory 09/25/2024 8:00 AM EDT Infusion [facility] [address] [place] [phone] [facility] Start: 09-25-2024 End: 09-25-2024 Patient encounter procedure 09/25/2024 8:00 AM EDT Office Visit [facility] [address] [place] [address] [place] [address] [place] [address] [facility] Start: 09-18-2024 End: 09-11-2025 PT Guidance for radiation treatment of Unspecified body region NM PET CT FDG oncology Imaging STAT Mass of hard palate Expected: 09/18/2024, Expires: 09/11/2025 [facility] Service Area Work Phone: Comment on above: Expected: 09/18/2024, Expires: Start: 09-18-2024 End: 09-18-2024 Patient encounter procedure [facility] Start: 09-11-2024 End: 09-11-2025 Tempus Solid Tumor DNA/RNA (xT/xR, paired Germline testing optional) [facility] Work Phone: Comment on above: Expected: 09/11/2024 (Approximate), Expi res: 09/11/2025 Start: 11-13-2023 COVID-19 Vaccine ( season) COVID-19 Vaccine ( season) [facility] Start: 2022 Screening for malignant neoplasm of breast Mammogram [facility] Start: 2009 HPV Vaccines (1 - 3-dose standard series) [facility] Start: 01-18-2004 DTaP/Tdap/Td Vaccines (1 - Tdap) DTaP/Tdap/Td Vaccines (1 - Tdap) [facility] Start: 2003 Screening for malignant neoplasm of cervix [facility] Start: 2001 Hepatitis B Vaccines (1 of 3 - 19+ 3-dose series) Hepatitis B Vaccines (1 of 3 - 19+ 3-dose series) [facility] Start: 2001 Pneumococcal Vaccine: Pediatrics and At-Risk Adult Patients (1 of 2 - PCV) Pneumococcal Vaccine: Pediatrics and At-Risk Adult Patients (1 of 2 - PCV) [facility] Start: 2001 Zoster Vaccines (1 of 2) Zoster Vaccines (1 of 2) [facility] Start: 01-18-2000 Hepatitis C screening Hepatitis C Screening [facility] Start: 1995 Varicella vaccination Varicella Vaccines (1 of 2 - 13+ 2-dose series) [facility] Start: 1987 COVID-19 Vaccine (#1) COVID-19 Vaccine (#1) [facility] Start: 1983 MMR Vaccines (1 of 1 - Standard series) MMR Vaccines (1 of 1 - Standard series) [facility] Start: 1982 Lipid panel Lipid Panel [facility] Start: 1982 Yearly Adult Physical Yearly Adult Physical [facility] End: 09-11-2024 CT Neck W contrast IV [facility] Service Area Work Phone: Comment on above: Once for 1 Occurrences starting 09/12/19 until 09/11/2024 End: 11-05-2024 CT Neck W contrast IV [facility] Work Phone: Comment on above: Once for 1 Occurrences starting 11/06/19 until 11/05/2024 End: 11-22-2024 MR Cervical spine WO and W contrast IV [facility] Work Phone: Comment on above: Once for 1 Occurrences starting 11/23/19 until 11/22/2024 End: 09-18-2024 MR Sinuses WO and W contrast IV [facility] Work Phone: Comment on above: Once for 1 Occurrences starting 09/19/19 until 09/18/2024 End: 11-05-2024 MR Sinuses WO and W contrast IV [facility] Work Phone: Comment on above: Once for 1 Occurrences starting 11/06/19 until 11/05/2024 End: 11-22-2024 MR Thoracic spine WO and W contrast IV [facility] Service Area Work Phone: Comment on above: Once for 1 Occurrences starting 11/23/19 until 11/22/2024 Patient Education ED Dyspnea ED Vomiting (Adult) [facility] Work Phone: Rad Onc Intent to Treat Rad Onc Intent to Treat Radiation Oncology Routine Squamous cell carcinoma of maxillary sinus Ordered: 11/08/2024 [facility] Work Phone: Comment on above: Ordered: 11/08/2024 Surgical pathology study Surgica l Pathology Exam Pathology and Cytology Routine Mass of hard palate 08/29/2024 11:[address] [facility] Work Phone: Tempus xT DNA and RN A Solid Tumor Tempus xT DNA and RNA Solid Tumor Lab Routine Mass of hard palate 09/11/2024 6:51 PM EDT [facility] Work Phone: Troponin T.cardiac [Mass/volume] in Serum or Plasma by High sensitivity method [facility] Payers Date Payer Category Payer Self-pay 07-12-2024 Medicaid [facility] MEDICAID [id number] 07-12-2024 Medicaid [id number] 03-14-2024 Managed Care (Private) 1.2.8 [id number] 03-14-2024 Unknown [id number] 03-14-2024 Unknown [id number] 1982 Unknown [id number] 2.16.840.1.531402.3.579.2. 124 1982 Unknown [id number] 2..840.1.028672.3.579.2. 1242 1982 Unknown [id number] 2.16840.1.265290.3.579.2. 124 1982 Unknown [id number] 2.16840.1.929302.3.579.2. 124 1982 Unknown [id number] 2.16.840.1.052782.3.579.2. 1244 1982 Unknown [id number] 2.16.840.1.214240.3.579.2. 124 1982 Unknown [id number] 2.16840.1.255244.3.579.2. 1244 1982 Unknown [id number] 2.16.840.1.591405.3.579.2. 1244 1982 Unknown [id number] 2.16.840.1.816351.3.579.2. 1244 1982 Unknown [id number] 2.16.840.1.385480.3.579.2. 1244 1982 Unknown [id number] 2.16.840.1.213882.3.579.2. 1244 1982 Unknown [id number] 2.16.840.1.057495.3.579.2. 1244 1982 Unknown [id number] 2.16.840.1.143776.3.579.2. 1244 1982 Unknown [id number] 2.16840.1.209965.3.579.2. 1244 1982 Unknown [id number] 2.16.840.1.883353.3.579.2. 1244 1982 Unknown [id number] 2.16.840.1.853025.3.579.2. 1244 1982 Unknown [id number] 2.16.840.1.884191.3.579.2. 1244 1982 Unknown [id number] 2.16840.1.752009.3.579.2. 1244 1982 Unknown [id number] 2.16.840.1.435639.3.579.2. 1244 1982 Unknown [id number] 2.16.840.1.981837.3.579.2. 1244 1982 Unknown [id number] 2.16.840.1.355295.3.579.2. 1244 1982 Unknown [id number] 2.16.840.1.230725.3.579.2. 1244 1982 Unknown [id number] 2.16.840.1.016544.3.579.2. 1244 1982 Unknown [id number] 2.16.840.1.913186.3.579.2. 1244 1982 Unknown [id number] 2.16.840.1.580468.3.579.2. 1244 1982 Unknown [id number] 2.16.840.1.333197.3.579.2. 1244 1982 Unknown [id number] 2.16.840.1.335632.3.579.2. 1244 1982 Unknown [id number] 2.16.840.1.743764.3.579.2. 1244 1982 Unknown [id number] 2.16.840.1.402595.3.579.2. 1244 1982 Unknown [id number] 2.16.840.1.156652.3.579.2. 1244 1982 Unknown [id number] 2.16.840.1.810452.3.579.2. 1244 1982 Unknown [id number] 2.16.840.1.010709.3.579.2. 1244 1982 Unknown [id number] 2.16.840.1.191749.3.579.2. 1244 1982 Unknown [id number] 2.16.840.1.718807.3.579.2. 1244 1982 Unknown [id number] 2.16.840.1.154247.3.579.2. 1244 1982 Unknown [id number] 2.16.840.1.798301.3.579.2. 1244 1982 Unknown [id number] 2.16.840.1.168924.3.579.2. 1244 1982 Unknown [id number] 2.16.840.1.653801.3.579.2. 1244 1982 Unknown [id number] 2.16.840.1.462537.3.579.2. 1244 1982 Unknown [id number] 2.16.840.1.278816.3.579.2. 1244 1982 Unknown [id number] 2.16.840.1.422664.3.579.2. 1244 1982 Unknown [id number] 2.16.840.1.059278.3.579.2. 1244 1982 Unknown [id number] 2.16.840.1.485947.3.579.2. 1244 1982 Unknown [id number] 2.16.840.1.209537.3.579.2. 1244 1982 Unknown [id number] 2.16.840.1.294615.3.579.2. 1244 1982 Unknown [id number] 2.16840.1.598516.3.579.2. 1244 1982 Unknown [id number] 2.16.840.1.606809.3.579.2. 1244 1982 Unknown [id number] 2.16.840.1.703730.3.579.2. 1244 1982 Unknown [id number] 2.16.840.1.229980.3.579.2. 1244 1982 Unknown [id number] 2.16.840.1.882073.3.579.2. 1244 1982 Unknown [id number] 2.16.840.1.686596.3.579.2. 1244 1982 Unknown [id number] 2.16.840.1.431189.3.579.2. 1244 1982 Unknown [id number] 2.16.840.1.493198.3.579.2. 1244 1982 Unknown [id number] 2.16.840.1.334393.3.579.2. 1244 1982 Unknown [id number] 2.16.840.1.489345.3.579.2. 1244 1982 Unknown [id number] 2.16.840.1.558555.3.579.2. 1244 1982 Unknown [id number] 2.16.840.1.760348.3.579.2. 1244 1982 Unknown [id number] 2.16.840.1.931154.3.579.2. 1244 1982 Unknown [id number] 2.16.840.1.964175.3.579.2. 1244 1982 Unknown [id number] 2.16.840.1.518610.3.579.2. 1244 1982 Unknown [id number] 2.16840.1.079277.3.579.2. 1244 1982 Unknown [id number] 2.16840.1.539787.3.579.2. 1244 1982 Unknown [id number] 2.16840.1.437722.3.579.2. 1244 1982 Unknown [id number] 2.16840.1.643863.3.579.2. 1244 1982 Unknown [id number] 2.16840.1.465925.3.579.2. 1244 1982 Unknown [id number] 2.16.840.1.885029.3.579.2. 1244 1982 Unknown [id number] 2.16.840.1.196812.3.579.2. 1244 1982 Unknown [id number] 2.16.840.1.410968.3.579.2. 1244 1982 Unknown [id number] 2.16840.1.904417.3.579.2. 1244 1982 Unknown [id number] 2.16.840.1.814661.3.579.2. 1244 1982 Unknown [id number] 2.16.840.1.495468.3.579.2. 1244 1982 Unknown [id number] 2.16.840.1.110872.3.579.2. 1244 1982 Unknown [id number] 2.16.840.1.606400.3.579.2. 1244 1982 Unknown [id number] 2.16.840.1.242411.3.579.2. 1244 1982 Unknown [id number] 2.16.840.1.787417.3.579.2. 1244 1982 Unknown [id number] 2.16.840.1.074611.3.579.2. 1244 1982 Unknown [id number] 2.840.1.664001.3.579.2. 1244 1982 Unknown [id number] 2.840.1.565071.3.579.2. 1244 1982 Unknown [id number] 2.840.1.527364.3.579.2. 1244 1982 Unknown [id number] 2.16.840.1.191915.3.579.2. 1244 1982 Unknown [id number] 2.840.1.635692.3.579.2. 1244 1982 Unknown [id number] 2.16840.1.020622.3.579.2. 1244 1982 Unknown [id number] 2.16840.1.831449.3.579.2. 1244 1982 Unknown [id number] 2.16.840.1.422853.3.579.2. 1244 1982 Unknown [id number] 2.16840.1.160893.3.579.2. 1244 1982 Unknown [id number] 2.16.840.1.399088.3.579.2. 1244 1982 Unknown [id number] 2.16.840.1.273623.3.579.2. 1244 1982 Unknown [id number] 2.16.840.1.082266.3.579.2. 1244 1982 Unknown [id number] 2.16.840.1.894987.3.579.2. 1244 1982 Unknown [id number] 2.16.840.1.192093.3.579.2. 1244 1982 Unknown [id number] 2.16840.1.477432.3.579.2. 1244 1982 Unknown [id number] 2.16840.1.525460.3.579.2. 1244 1982 Unknown [id number] 2.840.1.186021.3.579.2. 1244 1982 Unknown [id number] 2.16840.1.902912.3.579.2. 1244 1982 Unknown [id number] 2.16840.1.339501.3.579.2. 1244 1982 Unknown [id number] 2.16840.1.764624.3.579.2. 1244 1982 Unknown [id number] 2.16840.1.306379.3.579.2. 1244 1982 Unknown [id number] 2.16840.1.418196.3.579.2. 1244 1982 Unknown [id number] 2.16840.1.991764.3.579.2. 1244 1982 Unknown [id number] 2.16.840.1.674713.3.579.2. 1244 1982 Unknown [id number] 2.16840.1.147241.3.579.2. 5 1982 Unknown [id number] 2.16.840.1.357270.3.579.2. 1245 Unknown [id number] 2.16.840.1.209648.3.579.2. 462 Unknown [id number] 2.16.840.1.509161.3.579.2. 462 Social History Date Type Detail Facility Tobacco smoking status NHIS Unknown if ever smoked [facility] Work Phone: Start: 1980 Sex Assigned At Female W [facility] Start: 08-29-2024 End: 09-18-2024 Tobacco smoking status NHIS Ex-smoker [facility] Work Phone: History of tobacco use Current smoker [facility] Work Phone: History of tobacco use Cigarette Smoker [facility] Work Phone: Start: 08-29-2024 End: 09-18-2024 Tobacco use and exposure Smokeless tobacco non-user [facility] Work Phone: Start: 08-29-2024 End: 09-18-2024 History of Social function [facility] Work Phone: Start: 08-29-2024 End: 09-18-2024 Tobacco use panel [facility] Work Phone: Start: 1980 Sex assigned at Not on file [facility] Work Phone: Start: 09-18-2024 End: 01-15-2025 Alcoholic beverage intake Ex-drinker (finding) [facility] Work Phone: Start: 08-27-2024 Sex Female [facility] Start: 08-27-2024 Sex Female (finding) [facility] NEGATED: Highlighted rowStart: NINF History of tobacco use Passive smoker [facility] Work Phone: Functional Status Date Assessment Result [facility] Functional status [facility] 01-21-2025 Functional status 123/83 025 11:29 AM Olivia Almeida MA 123/83 [facility] 01-21-2025 Vital signs 96 01/21/2025 11 :29 AM Olivia Almeida MA [facility] Work Phone: 01-18-2025 [facility] 01-18-2025 Functional status 115/95 [facility] 01-18-2025 [facility] Work [facility]: 01-15-2025 [facility] 01-15-2025 Functional status [facility] 01-15-2025 [facility] Work [facility]: 01-14-2025 [facility] 01-14-2025 Functional status 137/88 025 11:31 AM Olivia Almeida MA 137/88 [facility] 01-14-2025 Vital signs 105 01/14/2025 1 1:31 AM Olivia Almeida MA [facility] Work Phone: 01-11-2025 Functional status 115/71 025 10:42 AM Argelia Rodriges 115/71 [facility] 01-11-2025 Vital signs 75 01/11/2025 10 :42 AM IVONNET Argelia Mera [facility] Work Phone: 01-08-2025 [facility] Work [facility]: 01-08-2025 Functional status 104/81 [facility] 01-08-2025 Vital signs 98 01/08/2025 10 :57 AM Argelia Rodriges [facility] Work Phone: 01-04-2025 [facility] Work [facility]: 01-04-2025 Functional status 113/75 [facility] 01-04-2025 Vital signs 70 01/04/2025 1: 05 PM EDT Argelia Mera [facility] Work Phone: 01-02-2025 Functional status 141/95 11:51 AM EDT Meet Montez MA 141/95 [facility] 01-02-2025 Vital signs 83 01/02/2025 11 :51 AM EDT Meet Montez MA [facility] Work Phone: 01-01-2025 [facility] 01-01-2025 Functional status 112/76 11:54 AM EDT Stacey Mckinney MA 112/76 [facility] 01-01-2025 Vital signs 89 01/01/2025 11 :54 AM EDT Stacey Mckinney MA [facility] Work Phone: 12-28-2024 Functional status 103/70 [facility] 12-28-2024 Vital signs 66 12/28/2024 2: 38 PM EDT Mirian Green MA [facility] Work Phone: 12-28-2024 [facility] Work Phone: 12-26-2024 Functional status 138/101 2024 10:45 AM EDT Meet Montez MA 138/101 [facility] 12-26-2024 Vital signs 106 12/26/2024 1 0:45 AM EDT Meet Montez MA [facility] Work Phone: 12-25-2024 [facility] 12-25-2024 Functional status [facility] 12-21-2024 [facility] Work Phone: 12-21-2024 Functional status 128/83 [facility] 12-21-2024 Vital signs 73 12/21/2024 9: 17 AM EDT Berenice Messer MA [facility] Work Phone: 12-19-2024 [facility] Work Phone: 12-18-2024 Functional status [facility] 12-18-2024 [facility] Work Phone: 12-17-2024 Functional status 121/92 025 11:24 AM EDT Olivia Prado MA 121/92 [facility] 12-17-2024 Vital signs 97 12/17/2024 11 :24 AM EDT Olivia Prado MA [facility] Work Phone: 12-07-2024 Functional status 131/92 [facility] 12-07-2024 Vital signs 104 12/07/2024 9 :57 AM EDT Edgar Morales MA [facility] Work Phone: 12-07-2024 [facility] Work Phone: 12-06-2024 Functional status 137/99 025 2:26 PM EDT Olivia Prado MA 137/99 [facility] 12-06-2024 Vital signs 99 12/06/2024 2: 26 PM EDT Olivia Prado MA [facility] Work Phone: 12-05-2024 [facility] 12-05-2024 Functional status 126/98 025 12:43 PM EDT Berenice Messer MA 126/98 [facility] 12-05-2024 Vital signs 108 12/05/2024 1 2:43 PM EDT Berenice Messer MA [facility] Work Phone: 09-18-2024 Patient Health Quest ionnaire 2 item (PHQ-2) [Reported] [facility] Work Phone: 09-18-2024 Callahan - suicide s everity rating scale screener - recent [C-SSRS] [facility] Work Phone: 09-11-2024 Patient Health Quest ionnaire 2 item (PHQ-2) [Reported] [facility] 08-29-2024 Patient Health Quest ionnaire 2 item (PHQ-2) [Reported] [facility] Work Phone: [facility]: Clinical Notes 08-22-2024 to 01-22-2025 Sidra Ortiz PA-C - 01/22/2025 9:00 AM Bebe Montano MD - 01/21/2025 11:15 AM Kenton Ortiz PA-C - 01/15/2025 10:00 AM Bebe Montano MD - 01/14/2025 11:15 AM EST Note Date & Type Note Facility 01-22-2025 History of Present illness Narrative Images from the original note were not included. Patient ID: Arline Krueger is a 45 y.o. female Primary Care Provider: Torie Diego DIAGNOSIS AND STAGING Diagnosis: L maxillary sinus squamous cell carcinoma Date of Diagnosis: 08/29/2024 Providers: ENT Surgeon: Dr. Ej Martinoc: Dr. Macrina Montano [facility]: Dr. 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 * Lab Notes: Tumor Percentage: 40% * Germline Notes: No normal sample was received, therefore tumor/normal matched analysis was not performed. * Treatment Notes: No reportable treatment options found. Molecular Findings: * TP53, Missense variant - LOF, Biologically Relevant, [id number] (Allele Frequency - 40.8%) * NF1, Inframe deletion - LOF, Biologically Relevant, [id number]* (Allele Frequency - 35.7%) * PBRM1, Splice region variant - LOF, Biologically Relevant, [id number], Splice Site (Allele Frequency - 7.6%) * MCL1, Amplification, Copy number gain, Biologically Relevant * Biomarker: Microsatellite Instability, Status: stable * Biomarker: Tumor Mutation [place], Status: (Value: 5.8 Muts/Mb, Percentile: 64) * 10 variants of unknown significance End of copied information PRIOR THERAPIES 09/25/2024: Cycle 1 cisplatin (60 mg/m2), docetaxel (75 mg/m2), pembrolizumab. 2 cycles of triplet therapy followed by single dose pembrolizumab CURRENT THERAPY 12/05/2024: Cycle 1 concurrent chemoradiotherapy with carboplatin (AUC 2) paclitaxel (45 mg/m2) CURRENT ONCOLOGICAL PROBLEMS Pain Odynophagia Weight loss Gastritis HISTORY OF PRESENT ILLNESS Arline Krueger is a 45 y.o. year old female patient without PMH seen as initial consultation for L maxillary sinus squamous cell carcinoma. She initially noted what she thought was a tooth abscess in L mouth. She treated it with amoxicillin without improvement. She was then seen by Dr. Rambo Ramon and subsequently referred to Dr. Martinez for evaluation. She underwent nasal endoscopy on 08/29 demonstrating: FINAL DIAGNOSIS A. 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 She presented for initial medical oncology consultation 09/1109/11/2024 CT of the neck demonstrated primary neoplasm arising in the left nasal fossa or left maxillary sinus w/ extensive involvement of the left orbit, left maxillary sinus, left cavernous sinus, hard palate and oral cavity. Also visualized bilateral suprahyoid adenopathy. 09/18/2024 Underwent PET-CT, MRI sinuses. Patient met with radiation-oncology. PAST MEDICAL HISTORY None SURGICAL HISTORY None SOCIAL HISTORY Born near [place], lives in [place] with mother Alfredo also nearby. 3 kids (24 , 23 in [place], 20). 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 Prior EtOH use, quit 2 years ago. Enjoys cooking for her family - favorite meal is lasagna + fried chicken with sweet potato pie. FAMILY HISTORY Daughter of sarcoma CURRENT MEDS REVIEWED Current Outpatient Medications Medication Instructions dexAMETHasone (DECADRON) 8 mg, oral, Daily, For 3 days starting the day after treatment. diphenhydramine/Maalox/lidocaine (Magic Mouthwash) - Compounded - Outpatient 10 mL, Swish & Spit, 4 times daily PRN escitalopram (LEXAPRO) 10 mg, oral, Daily gabapentin (NEURONTIN) 300 mg, oral, 3 times daily, Start with 1 capsule at bedtime for 2 days, then add 1 capsule in the morning for 2 days, then add the mid-day dose. loratadine (CLARITIN) 10 mg, oral, Daily morphine CR (MS CONTIN) 30 mg, oral, 2 times daily, Do not crush, chew, or split. Mucus Relief ER 1,200 mg, oral, 2 times daily, Do not crush, chew, or split. naloxone (NARCAN) 4 mg, nasal, As needed, May repeat every 2-3 minutes if needed, alternating nostrils, until medical assistance becomes available. naloxone (NARCAN) 4 mg, nasal, As needed, May repeat every 2-3 minutes if needed, alternating nostrils, until medical assistance becomes available. OLANZapine (ZYPREXA) 5 mg, oral, Nightly ondansetron (ZOFRAN) 8 mg, oral, Every 8 hours PRN ondansetron ODT (ZOFRAN-ODT) 8 mg, oral, Every 8 hours PRN oxyCODONE (ROXICODONE) 10 mg, oral, Every 6 hours PRN pantoprazole (PROTONIX) 40 mg, oral, Daily, For Acid Reflux. Do not crush, chew, or split. predniSONE (Deltasone) 10 mg tablet Take 4 tablets (40 mg) by mouth once daily for 10 days, THEN 3 tablets (30 mg) once daily for 10 days, THEN 2 tablets (20 mg) once daily for 10 days, THEN 1 tablet (10 mg) once daily for 10 days. prochlorperazine (COMPAZINE) 10 mg, oral, Every 6 hours PRN sennosides-docusate sodium (Senokot-S) 8.6-50 mg tablet 1 tablet, oral, Daily, For Constipation zinc sulfate (Zincate) 220 mg (50 mg elemental) capsule 1 capsule, oral, Daily, with Food. ALLERGIES REVIEWED RX Allergies[1] Subjective Interval History Patient presents for C7 concurrent chemoRT with carboplatin/paclitaxel. C2 was delayed 1 week. Patient reports she's feeling well and continue to have a good appetite. However she is having more pain in the oral cavity from RT related mucositis and left side of her face is sore. Her left ear also feels full. She feels her speech is a little affected by the oral pain. Her weight has been largely stable and she continue to tolerate PO intake. Oral pain is controlled on current pain regimen. She had nausea the 3 days after chemo but it's controlled and anti-emetics. No abd pain and will finish her Prednisone 10mg on 01/27. Acid reflux is well controlled on Pantoprazole. Her mood is better after starting lexapro. 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 Review of Systems Constitutional: Negative for chills and fever. HENT: Negative for hearing loss, lump/mass, mouth sores, nosebleeds, sore throat, tinnitus and trouble swallowing. Respiratory: Negative for cough and shortness of breath. Cardiovascular: Negative for chest pain and leg swelling. Gastrointestinal: Negative for abdominal pain, constipation, diarrhea, nausea and vomiting. Musculoskeletal: Negative for arthralgias. Skin: Negative for rash. Neurological: Negative for headaches, light-headedness and numbness. Objective VS: BP 98/65 Pulse 73 Temp 37.1 C (98.8 F) Resp 16 SpO2 100% There is no height or weight on file to calculate BSA. Wt Readings from Last 5 Encounters: 01/22/25 (!) 36.4 kg (80 lb 4 oz) 01/21/25 (!) 35.1 kg (77 lb 4.8 oz) 01/18/25 (!) 35.3 kg (77 lb 13.2 oz) 01/15/25 (!) 37.4 kg (82 lb 7.2 oz) 01/14/25 (!) 36.8 kg (81 lb 3.2 oz) ECOG SCORE: 2 Physical Exam Vitals reviewed. Constitutional: Appearance: She is underweight. HENT: Head: Normocephalic and atraumatic. Nose: Nose normal. Mouth/Throat: Mouth: Mucous membranes are moist. Oral lesions present. Comments: Mucositis in posterior oropharynx, left lateral tongue, left buccal surfface Eyes: Extraocular Movements: Extraocular movements intact. Conjunctiva/sclera: Conjunctivae normal. Pupils: Pupils are equal, round, and reactive to light. Cardiovascular: Rate and Rhythm: Normal rate and regular rhythm. Pulses: Normal pulses. Heart sounds: Normal heart sounds. Pulmonary: Effort: Pulmonary effort is normal. Breath sounds: Normal breath sounds. Abdominal: General: Abdomen is flat. Palpations: Abdomen is soft. Musculoskeletal: General: Normal range of motion. Cervical back: Normal range of motion and neck supple. Skin: General: Skin is warm. Neurological: General: No focal deficit present. Mental Status: She is alert and oriented to person, place, and time. Psychiatric: Mood and Affect: Mood normal. Behavior: Behavior normal. Diagnostic Results The below results were reviewed today. Labs: Lab Results Component Value Date WBC 5.2 01/22/2025 HGB 11.5 (L) 01/22/2025 HCT 36.5 01/22/2025 MCV 94 01/22/2025 PLT 485 (H) 01/22/2025 Lab Results Component Value Date NEUTROABS 4.46 01/22/2025 Lab Results Component Value Date GLUCOSE 141 (H) 01/22/2025 CALCIUM 8.2 (L) 01/22/2025 NA 139 01/22/2025 K 3.6 01/22/2025 CO2 28 01/22/2025 CL 102 01/22/2025 BUN 10 01/22/2025 CREATININE 0.41 (L) 01/22/2025 MG 1.53 (L) 01/22/2025 Lab Results Component Value Date ALT 10 01/22/2025 AST 14 01/22/2025 ALKPHOS 52 01/22/2025 BILITOT 0.3 01/22/2025 Lab Results Component Value Date ACTH 40.1 11/06/2024 CORTISOL 22.6 (H) 11/06/2024 TSH 1.28 12/05/2024 FREET4 1.13 11/06/2024 IMAGES 09/11/2024 CT soft tissue neck w contrast IMPRESSION: *Primary neoplasm likely arising in the left nasal fossa or left maxillary sinus with extensive involvement of the left orbit, left maxillary sinus, left cavernous sinus, hard palate and oral cavity *Bilateral suprahyoid adenopathy as described. 09/18/[address] FDG ONCOLOGY - Impression - 1. FDG avid large heterogeneous mass likely arising in the left nasal fossa or left maxillary sinus is a site of biopsy-proven squamous cell carcinoma. 2. Left level 2 cervical lymph nodes are consistent with max metastases. Right level II and left submental lymph node are also highly suspicious for max metastases. 3. FDG avid lytic changes involving the left C1 vertebral body, is suggestive of an osseous metastases. 4. FDG avid right upper lobe pulmonary nodule, is concerning for a site of lung metastases. Assessment/Plan No matching staging information was found for the patient. Arline Krueger is a 45 y.o. year old female patient without PMH seen as follow up for L maxillary sinus squamous cell carcinoma. She is undergoing systemic imaging and will be seen by my radiation colleague Dr. Montano. She was initially thought to be candidate for induction systemic therapy with cisplatin/docetaxel/pembro modeling [email or web address]://www.nature.com/articles/s [email or web address]-s Concurrent chemoRT with carboplatin/paclitaxel first dose 12/05/2024. 01/22/25: Patient continue to do well and tolerating treatment well with good control of nausea and pain, continuing to tolerate PO intake with largely stable weight. Expect mucositis from radiation at the soft palate and left buccal region may worsen, so will continue to monitor and adjust pain regimen as needed. She started Gabapentin 01/15/25 in addition to Oxycodone and MS Contin. Her left sided subjective hearing loss is likely 2/2 ears not draining well from swelling in the area from RT. Recall we were concerned about a grade I-II ICI gastritis and will continue prednisone taper and continue treatment. She's down to Prednisone 10mg daily with no gastritis symptoms. She's been taking Pantoprazole daily. 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 - 09/18/24 seen by Rad-onc, plan to treat oligometastatically - 09/25/24: Start Cycle 1 cisplatin (60 mg/m2), docetaxel (75 mg/m2), pembro. G-CSF support - 11/05/[address] Neck showed decrease in size of left maxillary mass. Proceed to C3 with Pembro only today. CT Sim after chemo. - 11/13: 1L NS today for hydration. STAT MR C-spine and T-spine per [facility]. Awaiting finalizing RT plan to start chemoRT - 12/05/24: First dose carbo (AUC 2) taxol (45 mg/m2) with radiation. -12/18/24: Second dose carbo/taxol with radiation delayed 2 week PLAN: Proceed to C7 Carbo/Taxol today. Plan for 1 additional cycle of Carbo/Taxol on 01/30 as patient has been tolerating chemo very well and she still has 2 weeks of RT (last RT 02/05). MagOx 400mg given in infusion for Hypomagnesemia # Mucositis due to radiation #Cancer-related Pain - Continue MS contin 30mg BID, Oxycodone 10mg Q4-6hr PRN, Gabapentin 300 mg 3 times daily. #Grade I-II ICI gastritis -Second course prednisone 40 mg (1 mg/kg) daily x 10 days -> 30 mg x 10 days -> 20 mg x 10 days -> 10 mg x 10 days, started 12/18. Anticipate taper down to 20mg QD on 01/07 - Pantoprazole 40mg QD, bactrim to pharmacy # Constipation - Restart Senna S 1 tab nightly. Start Miralax daily until BM occurs, then Q48 hr PRN. #MDD -Likely worsened by malignancy. Continuing lexapro 10 mg daily. Refill sent today -Urgent onco-psych referral requested I spent more than 40 minutes in the care of this patient. Jannette. July Ortiz PA-C [1] No Known Allergies documented in this encounter [facility] Work Phone: 01-21-2025 History of Present illness Narrative Images from the original note were not included. 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 She has more pain in mouth, up to 11/21. Using short and long acting narcotics. She continues to report the defect posterior to R RMT bothers her the most. She has appt with Dr. Swartz's office to consider obturator. She is taking 3 bottles of VHC and eating normally. She gained 3lbs since last week. Nausea is well controlled. Transportation situation improves after we discussed with social worker palliative care. Patient missed 1 treatment since last wekk. OBJECTIVE: Vital Signs: BP 123/83 Pulse 96 Temp 37.1 C (98.8 F) (Temporal) Resp 18 Wt (!) 35.1 kg (77 lb 4.8 oz) SpO2 99% BMI 12.82 kg/m Other Pertinent Findings: Defect posterior to L RMT. No skin change or thrush. mucositis at soft palate and in L buccal mucosa. 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 Anxiety Grade 0 Dehydration Grade 0 Vitals stable Grade 1 HR slightly elevated but overall ok Grade 0 vitals stable Grade 0 Grade 0 vitals are stable Depression Grade 0 Dermatitis Radiation Grade 0 creams provided Grade 0 creams at home Grade 0 Grade 0 Grade 1 some pinkness to skin Diarrhea Grade 0 Fatigue Grade 0 Grade 0 Grade 1 Starting to notice, Rest and activity balance Grade 0 improved energy Grade 1 starting to feel tired a little bit. Fibrosis Deep Connective Tissue Grade 0 Fracture Grade 0 Nausea Grade 1 while infusion Grade 1 pt having post Chemo nausea, meds at home helping Grade 0 Grade 0 Grade 0 Pain Grade 1 pain regimen at home Grade 1 pain meds at home Grade 1 pain meds at home Grade 0 Grade 1 Pain regimen is working, request for refill placed Treatment Related Secondary Malignancy Grade 0 Tumor Pain Grade 2 left oral/facial ; taking long/short acting pain med Vomiting Grade 1 while infusion Grade 0 Grade 0 Grade 0 Grade 0 Dysphagia Grade 0 Grade 1 Hole in L soft/hard palate Grade 1 Hole in upper palate Grade 0 Liquid diet, Hole in roof of mouth, seeing Dentist this week Mucositis Oral Grade 0 Discussed Glutamine Grade 0 Glutamine at home Grade 1 Redness, Possible thrush Grade 2 redness, sores Blurred Vision Grade 0 glasses at baseline Dry Mouth Grade 0 Grade 0 Grade 1 Grade 1 excess mucous Ear Pain Grade 0 External Ear Pain Grade 0 Tinnitus Grade 0 Grade 2 Started last week, L ear only Watering Eyes Grade 0 Grade 1 Both eyes water at times Oral Pain Grade 0 Grade 0 Grade 1 Grade 2 Grade 1 Oral Mucocitis causing pain Salivary Duct Inflammation Grade 1 mouth rinses/water at night Edema Face Grade 0 Malaise Grade 0 Sinusitis Grade 0 Nose bleed at times Dysgeusia Grade 0 Grade 1 Grade 1 Grade 1 Grade 2 Aspiration Grade 0 Grade 0 Grade 0 Grade 0 Hoarseness Grade 0 Grade 0 Grade 0 Grade 0 Voice Alteration Grade 0 Grade 0 Grade 0 Grade 0 Assessment / Plan: The patient is tolerating radiation therapy as anticipated. Continue per current treatment plan. We started a new RT plan the week of 12/21/26 given her weight loss. Reviewed with patient their Symptom Management Form for Head and Neck Cancer: FEN: patient's weight is slightly decreased. Using liquid supplements. Aim for >2000 calories and >60grams of protein daily. Will see a van driver for more specific recommendations. All diet is oral and no feeding tube. She continues taking 3 bottles of VHC. Continue using Pedialyte. Met with [facility] prior to starting RT and doing daily exercises to maintain swallowing function. Nausea: Reviewed use of Dexamethasone and Olanzapine after chemo each week to prevent nausea and Compazine/Zofran PRN for breakthrough nausea Pain control: Patient reporting ongoing pain rated 9 out of 10, so recommended continue current regimen, MS Contin 30mg bid, oxycodone 10mg q6h PRN. Try to avoid Ibuprofen as can cause gastritis/renal insufficiency, which can also be exacerbated by ongoing chemo. Will see med onc tomorrow to discuss pain med refills with them since they have been managing pain. Oral Care: Patient is using Glutamine 10g TID on days of RT to promote ongoing healing of mucositis. No need currently for Guaifenesin for thick saliva or Xylimelt for dry mouth Skin Care: Continue Aquaphor within the RT field. Reviewed how to apply and to avoid within 3 hours prior to RT. Diarrhea/Constipation: Reviewed use of Immodium for diarrhea. Reviewed use of Miralax or Senna if develops constipation. We will work with social worker palliative care for transportation. documented in this encounter [facility] Work Phone: 01-15-2025 History of Present illness Narrative Images from the original note were not included. Patient ID: Arline Krueger is a 44 y.o. female Primary Care Provider: Torie Diego DIAGNOSIS AND STAGING Diagnosis: L maxillary sinus squamous cell carcinoma Date of Diagnosis: 08/29/2024 Providers: ENT Surgeon: Dr. Ej Martino: [facility] Macrina [facility]ano [facility] Dr. 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 * Lab Notes: Tumor Percentage: 40% * Germline Notes: No normal sample was received, therefore tumor/normal matched analysis was not performed. * Treatment Notes: No reportable treatment options found. Molecular Findings: * TP53, Missense variant - LOF, Biologically Relevant, p.G245S (Allele Frequency - 40.8%) * NF1, Inframe deletion - LOF, Biologically Relevant, [id number]* (Allele Frequency - 35.7%) * PBRM1, Splice region variant - LOF, Biologically Relevant, [id number], Splice Site (Allele Frequency - 7.6%) * MCL1, Amplification, Copy number gain, Biologically Relevant * Biomarker: Microsatellite Instability, Status: stable * Biomarker: Tumor Mutation [place], Status: (Value: 5.8 Muts/Mb, Percentile: 64) * 10 variants of unknown significance End of copied information PRIOR THERAPIES 09/25/2024: Cycle 1 cisplatin (60 mg/m2), docetaxel (75 mg/m2), pembrolizumab. 2 cycles of triplet therapy followed by single dose pembrolizumab CURRENT THERAPY 12/05/2024: Cycle 1 concurrent chemoradiotherapy with carboplatin (AUC 2) paclitaxel (45 mg/m2) CURRENT ONCOLOGICAL PROBLEMS Pain Odynophagia Weight loss Gastritis HISTORY OF PRESENT ILLNESS Arline Krueger is a 44 y.o. year old female patient without PMH seen as initial consultation for L maxillary sinus squamous cell carcinoma. She initially noted what she thought was a tooth abscess in L mouth. She treated it with amoxicillin without improvement. She was then seen by Dr. Rambo Ramon and subsequently referred to Dr. Martinez for evaluation. She underwent nasal endoscopy on 08/29 demonstrating: FINAL DIAGNOSIS A. 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 She presented for initial medical oncology consultation 09/1109/11/2024 CT of the neck demonstrated primary neoplasm arising in the left nasal fossa or left maxillary sinus w/ extensive involvement of the left orbit, left maxillary sinus, left cavernous sinus, hard palate and oral cavity. Also visualized bilateral suprahyoid adenopathy. 09/18/2024 Underwent PET-CT, MRI sinuses. Patient met with radiation-oncology. PAST MEDICAL HISTORY None SURGICAL HISTORY None SOCIAL HISTORY Born near [place], lives in [place] with mother Alfredo also nearby. 3 kids (24 , 23 in [place], 20). 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 Prior EtOH use, quit 2 years ago. Enjoys cooking for her family - favorite meal is lasagna + fried chicken with sweet potato pie. FAMILY HISTORY Daughter of sarcoma CURRENT MEDS REVIEWED Current Outpatient Medications Medication Instructions dexAMETHasone (DECADRON) 8 mg, oral, Daily, For 3 days starting the day after treatment. escitalopram (LEXAPRO) 10 mg, oral, Daily loratadine (CLARITIN) 10 mg, oral, Daily morphine CR (MS CONTIN) 30 mg, oral, 2 times daily, Do not crush, chew, or split. Mucus Relief ER 1,200 mg, oral, 2 times daily, Do not crush, chew, or split. naloxone (NARCAN) 4 mg, nasal, As needed, May repeat every 2-3 minutes if needed, alternating nostrils, until medical assistance becomes available. naloxone (NARCAN) 4 mg, nasal, As needed, May repeat every 2-3 minutes if needed, alternating nostrils, until medical assistance becomes available. OLANZapine (ZYPREXA) 5 mg, oral, Nightly ondansetron (ZOFRAN) 8 mg, oral, Every 8 hours PRN ondansetron ODT (ZOFRAN-ODT) 8 mg, oral, Every 8 hours PRN oxyCODONE (ROXICODONE) 10 mg, oral, Every 6 hours PRN pantoprazole (PROTONIX) 40 mg, oral, Daily, For Acid Reflux. Do not crush, chew, or split. predniSONE (Deltasone) 10 mg tablet Take 4 tablets (40 mg) by mouth once daily for 10 days, THEN 3 tablets (30 mg) once daily for 10 days, THEN 2 tablets (20 mg) once daily for 10 days, THEN 1 tablet (10 mg) once daily for 10 days. prochlorperazine (COMPAZINE) 10 mg, oral, Every 6 hours PRN sennosides-docusate sodium (Senokot-S) 8.6-50 mg tablet 1 tablet, oral, Daily, For Constipation ALLERGIES REVIEWED RX Allergies[1] Subjective Interval History Patient presents for C6 concurrent chemoRT with carboplatin/paclitaxel. C2 was delayed 1 week. Patient reports she's feeling better than last week. Still feels energy and appetite are good. Does report she has taste changes and also burning feeling in the oral cavity likely from RT. The MS Contin and Oxycodone don't seem to help with this pain. She denies n/v/d/c. No abd pain and will finish her Prednisone 10mg on 01/17. Acid reflux is well controlled on Pantoprazole. Food still gets stuck in the left buccal area where the tumor was. Her mood is better after starting lexapro. 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 Review of Systems Constitutional: Negative for chills and fever. HENT: Negative for hearing loss, lump/mass, mouth sores, nosebleeds, sore throat, tinnitus and trouble swallowing. Respiratory: Negative for cough and shortness of breath. Cardiovascular: Negative for chest pain and leg swelling. Gastrointestinal: Negative for abdominal pain, constipation, diarrhea, nausea and vomiting. Musculoskeletal: Negative for arthralgias. Skin: Negative for rash. Neurological: Negative for headaches, light-headedness and numbness. Objective VS: BP 97/58 Pulse 80 Temp 37.8 C (100 F) Resp 20 SpO2 100% There is no height or weight on file to calculate BSA. Wt Readings from Last 5 Encounters: 01/14/25 (!) 36.8 kg (81 lb 3.2 oz) 01/11/25 (!) 38.2 kg (84 lb 3.2 oz) 01/08/25 (!) 37.9 kg (83 lb 9.6 oz) 01/04/25 (!) 38.1 kg (83 lb 15.9 oz) 01/02/25 (!) 39.3 kg (86 lb 8.5 oz) ECOG SCORE: 2 Physical Exam Vitals reviewed. Constitutional: Appearance: She is underweight. HENT: Head: Normocephalic and atraumatic. Nose: Nose normal. Mouth/Throat: Mouth: Mucous membranes are moist. Eyes: Extraocular Movements: Extraocular movements intact. Conjunctiva/sclera: Conjunctivae normal. Pupils: Pupils are equal, round, and reactive to light. Cardiovascular: Rate and Rhythm: Normal rate and regular rhythm. Pulses: Normal pulses. Heart sounds: Normal heart sounds. Pulmonary: Effort: Pulmonary effort is normal. Breath sounds: Normal breath sounds. Abdominal: General: Abdomen is flat. Palpations: Abdomen is soft. Musculoskeletal: General: Normal range of motion. Cervical back: Normal range of motion and neck supple. Skin: General: Skin is warm. Neurological: General: No focal deficit present. Mental Status: She is alert and oriented to person, place, and time. Psychiatric: Mood and Affect: Mood normal. Behavior: Behavior normal. Diagnostic Results The below results were reviewed today. Labs: Lab Results Component Value Date WBC 2.5 (L) 01/08/2025 HGB 11.1 (L) 01/08/2025 HCT 35.5 (L) 01/08/2025 MCV 92 01/08/2025 PLT 340 01/08/2025 Lab Results Component Value Date NEUTROABS 1.89 01/08/2025 Lab Results Component Value Date GLUCOSE 85 01/08/2025 CALCIUM 8.5 (L) 01/08/2025 NA 142 01/08/2025 K 3.4 (L) 01/08/2025 CO2 30 01/08/2025 CL 104 01/08/2025 BUN 14 01/08/2025 CREATININE 0.42 (L) 01/08/2025 MG 1.64 01/08/2025 Lab Results Component Value Date ALT 13 01/08/2025 AST 13 01/08/2025 ALKPHOS 36 01/08/2025 BILITOT 0.4 01/08/2025 Lab Results Component Value Date ACTH 40.1 11/06/2024 CORTISOL 22.6 (H) 11/06/2024 TSH 1.28 12/05/2024 FREET4 1.13 11/06/2024 IMAGES 09/11/2024 CT soft tissue neck w contrast IMPRESSION: *Primary neoplasm likely arising in the left nasal fossa or left maxillary sinus with extensive involvement of the left orbit, left maxillary sinus, left cavernous sinus, hard palate and oral cavity *Bilateral suprahyoid adenopathy as described. 09/18/[address] FDG ONCOLOGY - Impression - 1. FDG avid large heterogeneous mass likely arising in the left nasal fossa or left maxillary sinus is a site of biopsy-proven squamous cell carcinoma. 2. Left level 2 cervical lymph nodes are consistent with max metastases. Right level II and left submental lymph node are also highly suspicious for max metastases. 3. FDG avid lytic changes involving the left C1 vertebral body, is suggestive of an osseous metastases. 4. FDG avid right upper lobe pulmonary nodule, is concerning for a site of lung metastases. Assessment/Plan No matching staging information was found for the patient. Arline Kureger is a 44 y.o. year old female patient without PMH seen as follow up for L maxillary sinus squamous cell carcinoma. She is undergoing systemic imaging and will be seen by my radiation colleague Dr. Montano. She was initially thought to be candidate for induction systemic therapy with cisplatin/docetaxel/pembro modeling [email or web address].com/articles/s [email or web address]-j Concurrent chemoRT with carboplatin/paclitaxel first dose 12/05/2024. 01/15/25: Patient continue to do well and tolerating treatment well. Her nausea is well managed and her energy has been stable and appetite has been good. However she is experiencing taste changes and has some mucositis from radiation at the soft palate and left buccal region, this may be hindering her p.o. intake slightly as she has some weight loss this week. Will plan to start gabapentin, try BMX prior to eating, and started zinc. Recall we were concerned about a grade I-II ICI gastritis and will continue prednisone taper and continue treatment. She's down to Prednisone 10mg daily with no gastritis symptoms. She's been taking Pantoprazole daily. 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 - 09/18/24 seen by Rad-onc, plan to treat oligometastatically - 09/25/24: Start Cycle 1 cisplatin (60 mg/m2), docetaxel (75 mg/m2), pembro. G-CSF support - 11/05/[address] Neck showed decrease in size of left maxillary mass. Proceed to C3 with Pembro only today. CT Sim after chemo. - 11/13: 1L NS today for hydration. STAT MR C-spine and T-spine per [facility]. Awaiting finalizing RT plan to start chemoRT - 12/05/24: First dose carbo (AUC 2) taxol (45 mg/m2) with radiation. -12/18/24: Second dose carbo/taxol with radiation delayed 2 week. - 01/15/25: Proceed to C6 Carbo/Taxol. Continue Olanzapine 5mg nightly for appetite and nausea control. Zinc 50 mg daily for dysgeusia. # Mucositis due to radiation #Cancer-related Pain - Start gabapentin 300 mg 3 times daily. - Continue MS contin 30mg BID, Oxycodone 10mg Q4-6hr PRN. #Grade I-II ICI gastritis -Second course prednisone 40 mg (1 mg/kg) daily x 10 days -> 30 mg x 10 days -> 20 mg x 10 days -> 10 mg x 10 days, started 12/18. Anticipate taper down to 20mg QD on 01/07 - Pantoprazole 40mg QD, bactrim to pharmacy # Constipation - Restart Senna S 1 tab nightly. Start Miralax daily until BM occurs, then Q48 hr PRN. #MDD -Likely worsened by malignancy. Continuing lexapro 10 mg daily. Refill sent today -Urgent onco-psych referral requested [1] No Known Allergies documented in this encounter [facility] Work Phone: 01-14-2025 History of Present illness Narrative Images from the original note were not included. 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 She has more pain in mouth, up to /10. Using short and long acting narcotics. She continues to report the defect posterior to R RMT bothers her the most. She has appt with Dr. Swartz's office to consider obturator. She is taking 3 bottles of VHC and eating normally. She gained 3lbs since last week. Nausea is well controlled. Transportation situation improves after we discussed with social worker palliative care. Patient missed 1 treatment since last wekk. OBJECTIVE: Vital Signs: BP 137/88 Pulse 105 Temp 36.2 C (97.2 F) (Temporal) Resp 18 Wt (!) 36.8 kg (81 lb 3.2 oz) SpO2 100% BMI 13.46 kg/m Other Pertinent Findings: Defect posterior to R RMT. No skin change or thrush. mucositis at soft palate and in L buccal mucosa. 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 Head and neck Head and neck Head and neck Head and neck Anorexia Grade 0 First weight during RT Grade 0 pt gained about 1lbs since last week Grade 0 Pt gained about 2.6lbs since last visit Grade 1 Anxiety Grade 0 Dehydration Grade 0 Vitals stable Grade 1 HR slightly elevated but overall ok Grade 0 vitals stable Grade 0 Depression Grade 0 Dermatitis Radiation Grade 0 creams provided Grade 0 creams at home Grade 0 Grade 0 Diarrhea Grade 0 Fatigue Grade 0 Grade 0 Grade 1 Starting to notice, Rest and activity balance Grade 0 improved energy Fibrosis Deep Connective Tissue Grade 0 Fracture Grade 0 Nausea Grade 1 while infusion Grade 1 pt having post Chemo nausea, meds at home helping Grade 0 Grade 0 Pain Grade 1 pain regimen at home Grade 1 pain meds at home Grade 1 pain meds at home Grade 0 Treatment Related Secondary Malignancy Grade 0 Tumor Pain Grade 2 left oral/facial ; taking long/short acting pain med Vomiting Grade 1 while infusion Grade 0 Grade 0 Grade 0 Dysphagia Grade 0 Grade 1 Hole in L soft/hard palate Grade 1 Hole in upper palate Mucositis Oral Grade 0 Discussed Glutamine Grade 0 Glutamine at home Grade 1 Redness, Possible thrush Dry Mouth Grade 0 Grade 0 Grade 1 Ear Pain Grade 0 External Ear Pain Grade 0 Tinnitus Grade 0 Watering Eyes Grade 0 Oral Pain Grade 0 Grade 0 Grade 1 Grade 2 Salivary Duct Inflammation Grade 1 mouth rinses/water at night Edema Face Grade 0 Malaise Grade 0 Dysgeusia Grade 0 Grade 1 Grade 1 Grade 1 Aspiration Grade 0 Grade 0 Grade 0 Hoarseness Grade 0 Grade 0 Grade 0 Voice Alteration Grade 0 Grade 0 Grade 0 Assessment / Plan: The patient is tolerating radiation therapy as anticipated. Continue per current treatment plan. We started a new RT plan the week of 12/21/26 given her weight loss. Reviewed with patient their Symptom Management Form for Head and Neck Cancer: FEN: patient's weight is slightly decreased. Using liquid supplements. Aim for >2000 calories and >60grams of protein daily. Will see a van driver for more specific recommendations. All diet is oral and no feeding tube. She continues taking 3 bottles of VHC. Continue using Pedialyte. Met with [facility] prior to starting RT and doing daily exercises to maintain swallowing function. Nausea: Reviewed use of Dexamethasone and Olanzapine after chemo each week to prevent nausea and Compazine/Zofran PRN for breakthrough nausea Pain control: Patient reporting ongoing pain rated 9 out of 10, so recommended continue current regimen, MS Contin 30mg bid, oxycodone 10mg q6h PRN. Try to avoid Ibuprofen as can cause gastritis/renal insufficiency, which can also be exacerbated by ongoing chemo. Will see med onc tomorrow to discuss pain med refills with them since they have been managing pain. Oral Care: Patient will continue fluoride trays per dentist. Patient is using Glutamine 10g TID on days of RT to promote ongoing healing of mucositis. No need currently for Guaifenesin for thick saliva or Xylimelt for dry mouth Skin Care: Continue Aquaphor within the RT field. Reviewed how to apply and to avoid within 3 hours prior to RT. Diarrhea/Constipation: Reviewed use of Immodium for diarrhea. Reviewed use of Miralax or Senna if develops constipation. We will work with social worker palliative care for transportation. Patient is seen and discussed with Dr. Marcial. All questions are answered at this time. Michelle Vazquez MD PhD, PGY-3, Radiation Oncology documented in this encounter [facility] Work Phone: 01-08-2025 History of Present illness Narrative Images from the original note were not included. Patient ID: Arline Krueger is a 44 y.o. female Primary Care Provider: Torie Diego DIAGNOSIS AND STAGING Diagnosis: L maxillary sinus squamous cell carcinoma Date of Diagnosis: 08/29/2024 Providers: ENT Surgeon: Dr. Ej Beltran: Dr. Macrina Villarreal: Dr. 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 * Lab Notes: Tumor Percentage: 40% * Germline Notes: No normal sample was received, therefore tumor/normal matched analysis was not performed. * Treatment Notes: No reportable treatment options found. Molecular Findings: * TP53, Missense variant - LOF, Biologically Relevant, [id number] (Allele Frequency - 40.8%) * NF1, Inframe deletion - LOF, Biologically Relevant, [id number]* (Allele Frequency - 35.7%) * PBRM1, Splice region variant - LOF, Biologically Relevant, [id number], Splice Site (Allele Frequency - 7.6%) * MCL1, Amplification, Copy number gain, Biologically Relevant * Biomarker: Microsatellite Instability, Status: stable * Biomarker: Tumor Mutation [place], Status: (Value: 5.8 Muts/Mb, Percentile: 64) * 10 variants of unknown significance End of copied information PRIOR THERAPIES 09/25/2024: Cycle 1 cisplatin (60 mg/m2), docetaxel (75 mg/m2), pembrolizumab. 2 cycles of triplet therapy followed by single dose pembrolizumab CURRENT THERAPY 12/05/2024: Cycle 1 concurrent chemoradiotherapy with carboplatin (AUC 2) paclitaxel (45 mg/m2) CURRENT ONCOLOGICAL PROBLEMS Pain Odynophagia Weight loss Gastritis HISTORY OF PRESENT ILLNESS Arline Krueger is a 44 y.o. year old female patient without PMH seen as initial consultation for L maxillary sinus squamous cell carcinoma. She initially noted what she thought was a tooth abscess in L mouth. She treated it with amoxicillin without improvement. She was then seen by Dr. Rambo Ramon and subsequently referred to Dr. Martinez for evaluation. She underwent nasal endoscopy on 08/29 demonstrating: FINAL DIAGNOSIS A. 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 She presented for initial medical oncology consultation 09/1109/11/2024 CT of the neck demonstrated primary neoplasm arising in the left nasal fossa or left maxillary sinus w/ extensive involvement of the left orbit, left maxillary sinus, left cavernous sinus, hard palate and oral cavity. Also visualized bilateral suprahyoid adenopathy. 09/18/2024 Underwent PET-CT, MRI sinuses. Patient met with radiation-oncology. PAST MEDICAL HISTORY None SURGICAL HISTORY None SOCIAL HISTORY Born near [place], lives in [place] with mother Alfredo also nearby. 3 kids (24 , 23 in [place], 20). 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 Prior EtOH use, quit 2 years ago. Enjoys cooking for her family - favorite meal is lasagna + fried chicken with sweet potato pie. FAMILY HISTORY Daughter of sarcoma CURRENT MEDS REVIEWED Current Outpatient Medications Medication Instructions dexAMETHasone (DECADRON) 8 mg, oral, Daily, For 3 days starting the day after treatment. escitalopram (LEXAPRO) 10 mg, oral, Daily loratadine (CLARITIN) 10 mg, oral, Daily morphine CR (MS CONTIN) 30 mg, oral, 2 times daily, Do not crush, chew, or split. Mucus Relief ER 1,200 mg, oral, 2 times daily, Do not crush, chew, or split. naloxone (NARCAN) 4 mg, nasal, As needed, May repeat every 2-3 minutes if needed, alternating nostrils, until medical assistance becomes available. naloxone (NARCAN) 4 mg, nasal, As needed, May repeat every 2-3 minutes if needed, alternating nostrils, until medical assistance becomes available. OLANZapine (ZYPREXA) 5 mg, oral, Nightly, For 4 days starting the evening of treatment. ondansetron (ZOFRAN) 8 mg, oral, Every 8 hours PRN ondansetron ODT (ZOFRAN-ODT) 8 mg, oral, Every 8 hours PRN oxyCODONE (ROXICODONE) 10 mg, oral, Every 6 hours PRN pantoprazole (PROTONIX) 40 mg, oral, Daily, For Acid Reflux. Do not crush, chew, or split. predniSONE (Deltasone) 10 mg tablet Take 4 tablets (40 mg) by mouth once daily for 10 days, THEN 3 tablets (30 mg) once daily for 10 days, THEN 2 tablets (20 mg) once daily for 10 days, THEN 1 tablet (10 mg) once daily for 10 days. prochlorperazine (COMPAZINE) 10 mg, oral, Every 6 hours PRN sennosides-docusate sodium (Senokot-S) 8.6-50 mg tablet 1 tablet, oral, Daily, For Constipation ALLERGIES REVIEWED RX Allergies[1] Subjective Interval History Patient presents for C5 concurrent chemoRT with carboplatin/paclitaxel. C2 was delayed 1 week. Patient continue to do well this week. Her nausea is well managed and had no vomiting or abd pain. She continues Prednisone 10mg to complete 01/17. She is eating regular meals and adding Boost VHC TID. She's motivated to eat and gain weight, interested in staying on an appetite stimulant. She still has numbness and pain in the left maxillary region. Food still gets stuck in the left buccal area where the tumor was. Her mood is better after starting lexapro. 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 Review of Systems Constitutional: Negative for chills and fever. HENT: Negative for hearing loss, lump/mass, mouth sores, nosebleeds, sore throat, tinnitus and trouble swallowing. Respiratory: Negative for cough and shortness of breath. Cardiovascular: Negative for chest pain and leg swelling. Gastrointestinal: Negative for abdominal pain, constipation, diarrhea, nausea and vomiting. Musculoskeletal: Negative for arthralgias. Skin: Negative for rash. Neurological: Negative for headaches, light-headedness and numbness. Objective VS: There were no vitals taken for this visit. BP 104/81, HR 98, R 19, O2 100% RA There is no height or weight on file to calculate BSA. Wt Readings from Last 5 Encounters: 01/08/25 (!) 37.9 kg (83 lb 9.6 oz) 01/04/25 (!) 38.1 kg (83 lb 15.9 oz) 01/02/25 (!) 39.3 kg (86 lb 8.5 oz) 01/01/25 (!) 38.2 kg (84 lb 4.8 oz) 12/28/24 (!) 36.5 kg (80 lb 8 oz) ECOG SCORE: 2 Physical Exam Vitals reviewed. Constitutional: Appearance: She is underweight. HENT: Head: Normocephalic and atraumatic. Nose: Nose normal. Mouth/Throat: Mouth: Mucous membranes are moist. Eyes: Extraocular Movements: Extraocular movements intact. Conjunctiva/sclera: Conjunctivae normal. Pupils: Pupils are equal, round, and reactive to light. Cardiovascular: Rate and Rhythm: Normal rate and regular rhythm. Pulses: Normal pulses. Heart sounds: Normal heart sounds. Pulmonary: Effort: Pulmonary effort is normal. Breath sounds: Normal breath sounds. Abdominal: General: Abdomen is flat. Palpations: Abdomen is soft. Musculoskeletal: General: Normal range of motion. Cervical back: Normal range of motion and neck supple. Skin: General: Skin is warm. Neurological: General: No focal deficit present. Mental Status: She is alert and oriented to person, place, and time. Psychiatric: Mood and Affect: Mood normal. Behavior: Behavior normal. Diagnostic Results The below results were reviewed today. Labs: Lab Results Component Value Date WBC 2.5 (L) 01/08/2025 HGB 11.1 (L) 01/08/2025 HCT 35.5 (L) 01/08/2025 MCV 92 01/08/2025 PLT 340 01/08/2025 Lab Results Component Value Date NEUTROABS 1.89 01/08/2025 Lab Results Component Value Date GLUCOSE 85 01/08/2025 CALCIUM 8.5 (L) 01/08/2025 NA 142 01/08/2025 K 3.4 (L) 01/08/2025 CO2 30 01/08/2025 CL 104 01/08/2025 BUN 14 01/08/2025 CREATININE 0.42 (L) 01/08/2025 MG 1.64 01/08/2025 Lab Results Component Value Date ALT 13 01/08/2025 AST 13 01/08/2025 ALKPHOS 36 01/08/2025 BILITOT 0.4 01/08/2025 Lab Results Component Value Date ACTH 40.1 11/06/2024 CORTISOL 22.6 (H) 11/06/2024 TSH 1.28 12/05/2024 FREET4 1.13 11/06/2024 IMAGES 09/11/2024 CT soft tissue neck w contrast IMPRESSION: *Primary neoplasm likely arising in the left nasal fossa or left maxillary sinus with extensive involvement of the left orbit, left maxillary sinus, left cavernous sinus, hard palate and oral cavity *Bilateral suprahyoid adenopathy as described. 09/18/[address] FDG ONCOLOGY - Impression - 1. FDG avid large heterogeneous mass likely arising in the left nasal fossa or left maxillary sinus is a site of biopsy-proven squamous cell carcinoma. 2. Left level 2 cervical lymph nodes are consistent with max metastases. Right level II and left submental lymph node are also highly suspicious for max metastases. 3. FDG avid lytic changes involving the left C1 vertebral body, is suggestive of an osseous metastases. 4. FDG avid right upper lobe pulmonary nodule, is concerning for a site of lung metastases. Assessment/Plan No matching staging information was found for the patient. Arline Krueger is a 44 y.o. year old female patient without PMH seen as follow up for L maxillary sinus squamous cell carcinoma. She is undergoing systemic imaging and will be seen by my radiation colleague Dr. Montano. She was initially thought to be candidate for induction systemic therapy with cisplatin/docetaxel/pembro modeling https://www.nature.com/articles/s [email or web address]-j Concurrent chemoRT with carboplatin/paclitaxel first dose 12/05/2024. 01/08/25: Patient continue to do well and tolerating treatment well. Her nausea is well managed and eating better, drinking Boost VHC TID and has gained weight. She still has pain in the left maxilliary, has some mucositis in the left buccal, soft/hard palate region, which is expected from RT. She's managing SEs well. Recall we were concerned about a grade I-II ICI gastritis and will continue prednisone taper and continue treatment. She's down to Prednisone 10mg daily with no gastritis symptoms. She's been taking Pantoprazole daily. We will try Olanzapine 5mg nightly for appetite stimulation and nausea control. 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 - 09/18/24 seen by Rad-onc, plan to treat oligometastatically - 09/25/24: Start Cycle 1 cisplatin (60 mg/m2), docetaxel (75 mg/m2), pembro. G-CSF support - 11/05/[address] Neck showed decrease in size of left maxillary mass. Proceed to C3 with Pembro only today. CT Sim after chemo. - 11/13: 1L NS today for hydration. STAT MR C-spine and T-spine per [facility]. Awaiting finalizing RT plan to start chemoRT - 12/05/24: First dose carbo (AUC 2) taxol (45 mg/m2) with radiation. -12/18/24: Second dose carbo/taxol with radiation delayed 2 week. - 01/08/25: Proceed to C5 Carbo/Taxol. Start Olanzapine 5mg nightly. Kcl 20meq given today for mild hypokalemia #Grade I-II ICI gastritis -Second course prednisone 40 mg (1 mg/kg) daily x 10 days -> 30 mg x 10 days -> 20 mg x 10 days -> 10 mg x 10 days, started 12/18. Anticipate taper down to 20mg QD on 01/07 - Pantoprazole 40mg QD, bactrim to pharmacy # Constipation - Restart Senna S 1 tab nightly. Start Miralax daily until BM occurs, then Q48 hr PRN. #Cancer-related Pain - MS contin 30mg BID, Oxycodone 10mg Q4-6hr PRN. Pain well controlled. #MDD -Likely worsened by malignancy. Continuing lexapro 10 mg daily. Refill sent today -Urgent onco-psych referral requested [1] No Known Allergies documented in this encounter [facility] Work Phone: 01-02-2025 History of Present illness Narrative Images from the original note were not included. Radiation Oncology On Treatment Visit Patient Name: Arline Krueger : 1980 Referring Provider: Ej Martinez MD Primary Care Provider: Torie Diego Care Team: Patient Care Team: Torie Diego as PCP - General Rambo Ramon MD as Referring Physician (Otolaryngology) Macrina Montano MD as Radiation Oncologist (Radiation Oncology) Sunny Cruz MD as Consulting Physician (Hematology and Oncology) VALENCIA Triplett as Ex Chef (Stamp Analyst) MARINE Boothe as Ex Chef (Stamp Analyst) Date of Service: 01/02/2025 Diagnosis: Specialty Problems Radiation Oncology Problems Squamous cell carcinoma of maxillary sinus 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) Secondary malignant neoplasm of lung (Multi) Treatment Summary: Radiation Therapy Treatment Period Technique Fraction Dose Fractions Total Dose Course 1 12/05/2024-01/02/2025 (days elapsed: 28) sinonasal+neck 12/05/2024-01/02/2025 VMAT 200 / 200 cGy 2,400 / 7,000 cGy SUBJECTIVE: Patient reports dry nose and occasional epistaxis when she blew her it. She denies any pain. She continues to report the defect posterior to R RMT bothers her the most. She will call Dr. Swartz's office to make a dental appointment (contact provided). She is taking 2 bottles of VHC and eating normally. She gained 3lbs since last week. Nausea is well controlled. Transportation situation improves after we discussed with social worker palliative care. Patient missed 1 treatment since last wekk. OBJECTIVE: Vital Signs: BP (!) 141/95 Pulse 83 Temp 36.9 C (98.4 F) (Temporal) Resp 18 Wt (!) 39.3 kg (86 lb 8.5 oz) SpO2 99% BMI 14.35 kg/m Other Pertinent Findings: Defect posterior to R RMT. No skin change or thrush. Mild mucositis at soft palate. 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 Head and neck Head and neck Head and neck Anorexia Grade 0 First weight during RT Grade 0 pt gained about 1lbs since last week Grade 0 Pt gained about 2.6lbs since last visit Dehydration Grade 0 Vitals stable Grade 1 HR slightly elevated but overall ok Grade 0 vitals stable Dermatitis Radiation Grade 0 creams provided Grade 0 creams at home Grade 0 Fatigue Grade 0 Grade 0 Grade 1 Starting to notice, Rest and activity balance Nausea Grade 1 while infusion Grade 1 pt having post Chemo nausea, meds at home helping Grade 0 Pain Grade 1 pain regimen at home Grade 1 pain meds at home Grade 1 pain meds at home Vomiting Grade 1 while infusion Grade 0 Grade 0 Dysphagia Grade 0 Grade 1 Hole in L soft/hard palate Grade 1 Hole in upper palate Mucositis Oral Grade 0 Discussed Glutamine Grade 0 Glutamine at home Grade 1 Redness, Possible thrush Dry Mouth Grade 0 Grade 0 Grade 1 Oral Pain Grade 0 Grade 0 Grade 1 Dysgeusia Grade 0 Grade 1 Grade 1 Aspiration Grade 0 Grade 0 Grade 0 Hoarseness Grade 0 Grade 0 Grade 0 Voice Alteration Grade 0 Grade 0 Grade 0 Assessment / Plan: The patient is tolerating radiation therapy as anticipated. Continue per current treatment plan. Reviewed with patient their Symptom Management Form for Head and Neck Cancer: FEN: patient's weight has increased. Using liquid supplements. Aim for >2000 calories and >60grams of protein daily. Will see a van driver for more specific recommendations. All diet is oral and no feeding tube. Recommend taking 3 bottles of VHC. Continue using Pedialyte. Met with [facility] prior to starting RT and doing daily exercises to maintain swallowing function. Nausea: Reviewed use of Dexamethasone and Olanzapine after chemo each week to prevent nausea and Compazine/Zofran PRN for breakthrough nausea Pain control: Patient reporting ongoing pain rated 0 out of 10, so recommended continue current regimen, MS Contin 40mg bid, oxycodone 10mg q6h PRN. Try to avoid Ibuprofen as can cause gastritis/renal insufficiency, which can also be exacerbated by ongoing chemo. Oral Care: Patient will continue fluoride trays per dentist. Patient is using Glutamine 10g TID on days of RT to promote ongoing healing of mucositis. No need currently for Guaifenesin for thick saliva or Xylimelt for dry mouth Skin Care: Continue Aquaphor within the RT field. Reviewed how to apply and to avoid within 3 hours prior to RT. Diarrhea/Constipation: Reviewed use of Immodium for diarrhea. Reviewed use of Miralax or Senna if develops constipation. We will work with social worker palliative care for transportation. Patient is seen and discussed with Dr. Marcial. All questions are answered at this time. Michelle Vazquez MD PhD, PGY-3, Radiation Oncology Cosigned by Joy Marcial DO at 01/02/2025 1:14 PM EDT Associated attestation - Joy Marcial DO - 01/02/2025 1:14 PM EDT I saw and evaluated the patient. I personally obtained the storey and critical portions of the history and physical exam or was physically present for storey and critical portions performed by the resident/fellow. I reviewed the resident/fellow's documentation and discussed the patient with the resident/fellow. I agree with the resident/fellow's medical decision making as documented in the note with the exception/addition of the following: Tolerating as expected - discussed using saline rinses and humidifier for dry nasal passages/epistaxis documented in this encounter [facility] Work Phone: 01-01-2025 History of Present illness Narrative Images from the original note were not included. Patient ID: Arline Krueger is a 44 y.o. female Primary Care Provider: Torie Diego DIAGNOSIS AND STAGING Diagnosis: L maxillary sinus squamous cell carcinoma Date of Diagnosis: 08/29/2024 Providers: ENT Surgeon: Dr. Ej Martinoc: [facility] 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 * Lab Notes: Tumor Percentage: 40% * Germline Notes: No normal sample was received, therefore tumor/normal matched analysis was not performed. * Treatment Notes: No reportable treatment options found. Molecular Findings: * TP53, Missense variant - LOF, Biologically Relevant, [id number].[id number] (Allele Frequency - 40.8%) * NF1, Inframe deletion - LOF, Biologically Relevant, [id number]* (Allele Frequency - 35.7%) * PBRM1, Splice region variant - LOF, Biologically Relevant, [id number], Splice Site (Allele Frequency - 7.6%) * MCL1, Amplification, Copy number gain, Biologically Relevant * Biomarker: Microsatellite Instability, Status: stable * Biomarker: Tumor Mutation [place], Status: (Value: 5.8 Muts/Mb, Percentile: 64) * 10 variants of unknown significance End of copied information PRIOR THERAPIES 09/25/2024: Cycle 1 cisplatin (60 mg/m2), docetaxel (75 mg/m2), pembrolizumab. 2 cycles of triplet therapy followed by single dose pembrolizumab CURRENT THERAPY 12/05/2024: Cycle 1 concurrent chemoradiotherapy with carboplatin (AUC 2) paclitaxel (45 mg/m2) CURRENT ONCOLOGICAL PROBLEMS Pain Odynophagia Weight loss Gastritis HISTORY OF PRESENT ILLNESS Arline Krueger is a 44 y.o. year old female patient without PMH seen as initial consultation for L maxillary sinus squamous cell carcinoma. She initially noted what she thought was a tooth abscess in L mouth. She treated it with amoxicillin without improvement. She was then seen by Dr. Rambo Ramon and subsequently referred to Dr. Martinez for evaluation. She underwent nasal endoscopy on 08/29 demonstrating: FINAL DIAGNOSIS A. 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 She presented for initial medical oncology consultation 09/1109/11/2024 CT of the neck demonstrated primary neoplasm arising in the left nasal fossa or left maxillary sinus w/ extensive involvement of the left orbit, left maxillary sinus, left cavernous sinus, hard palate and oral cavity. Also visualized bilateral suprahyoid adenopathy. 09/18/2024 Underwent PET-CT, MRI sinuses. Patient met with radiation-oncology. PAST MEDICAL HISTORY None SURGICAL HISTORY None SOCIAL HISTORY Born near [place], lives in [place] with mother Alfredo also nearby. 3 kids (24 , 23 in [place], 20). 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 Prior EtOH use, quit 2 years ago. Enjoys cooking for her family - favorite meal is lasagna + fried chicken with sweet potato pie. FAMILY HISTORY Daughter of sarcoma CURRENT MEDS REVIEWED Current Outpatient Medications Medication Instructions dexAMETHasone (DECADRON) 8 mg, oral, Daily, For 3 days starting the day after treatment. escitalopram (LEXAPRO) 10 mg, oral, Daily loratadine (CLARITIN) 10 mg, oral, Daily morphine CR (MS CONTIN) 30 mg, oral, 2 times daily, Do not crush, chew, or split. Mucus Relief ER 1,200 mg, oral, 2 times daily, Do not crush, chew, or split. naloxone (NARCAN) 4 mg, nasal, As needed, May repeat every 2-3 minutes if needed, alternating nostrils, until medical assistance becomes available. naloxone (NARCAN) 4 mg, nasal, As needed, May repeat every 2-3 minutes if needed, alternating nostrils, until medical assistance becomes available. OLANZapine (ZYPREXA) 5 mg, oral, Nightly, For 4 days starting the evening of treatment. ondansetron (ZOFRAN) 8 mg, oral, Every 8 hours PRN ondansetron ODT (ZOFRAN-ODT) 8 mg, oral, Every 8 hours PRN pantoprazole (PROTONIX) 40 mg, oral, Daily, For Acid Reflux. Do not crush, chew, or split. predniSONE (Deltasone) 10 mg tablet Take 4 tablets (40 mg) by mouth once daily for 10 days, THEN 3 tablets (30 mg) once daily for 10 days, THEN 2 tablets (20 mg) once daily for 10 days, THEN 1 tablet (10 mg) once daily for 10 days. prochlorperazine (COMPAZINE) 10 mg, oral, Every 6 hours PRN sennosides-docusate sodium (Senokot-S) 8.6-50 mg tablet 1 tablet, oral, Daily, For Constipation ALLERGIES REVIEWED RX Allergies[1] Subjective Interval History Patient presents for C4 concurrent chemoRT with carboplatin/paclitaxel. C2 was delayed 1 week. Patient continue to do well this week. Her nausea is well managed and had no vomiting or abd pain. She continues Prednisone 30mg until the next step down on 01/07. She is eating regular meals and adding Boost VHC TID. She has some mucositis left buccal region and the roof of her mouth. She's using lidocain, baking soda/salt rinse prior to eating. Her pain is well managed. Still has pain in the left maxillary region. She believes her mood is better after starting lexapro. 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 Review of Systems Constitutional: Negative for chills and fever. HENT: Negative for hearing loss, lump/mass, mouth sores, nosebleeds, sore throat, tinnitus and trouble swallowing. Respiratory: Negative for cough and shortness of breath. Cardiovascular: Negative for chest pain and leg swelling. Gastrointestinal: Negative for abdominal pain, constipation, diarrhea, nausea and vomiting. Musculoskeletal: Negative for arthralgias. Skin: Negative for rash. Neurological: Negative for headaches, light-headedness and numbness. Objective VS: BP 112/76 (BP Location: Right arm, Patient Position: Sitting, BP Cuff Size: Small adult) Pulse 89 Temp 37.3 C (99.1 F) (Temporal) Resp 16 Wt (!) 38.2 kg (84 lb 4.8 oz) SpO2 100% BMI 13.98 kg/m Body surface area is 1.32 meters squared. Wt Readings from Last 5 Encounters: 01/01/25 (!) 38.2 kg (84 lb 4.8 oz) 12/28/24 (!) 36.5 kg (80 lb 8 oz) 12/26/24 (!) 37.1 kg (81 lb 14.4 oz) 12/25/24 (!) 37.6 kg (82 lb 14.3 oz) 12/21/24 (!) 36 kg (79 lb 5.9 oz) ECOG SCORE: 2 Physical Exam Vitals reviewed. Constitutional: Appearance: She is underweight. HENT: Head: Normocephalic and atraumatic. Nose: Nose normal. Mouth/Throat: Mouth: Mucous membranes are moist. Eyes: Extraocular Movements: Extraocular movements intact. Conjunctiva/sclera: Conjunctivae normal. Pupils: Pupils are equal, round, and reactive to light. Cardiovascular: Rate and Rhythm: Normal rate and regular rhythm. Pulses: Normal pulses. Heart sounds: Normal heart sounds. Pulmonary: Effort: Pulmonary effort is normal. Breath sounds: Normal breath sounds. Abdominal: General: Abdomen is flat. Palpations: Abdomen is soft. Musculoskeletal: General: Normal range of motion. Cervical back: Normal range of motion and neck supple. Skin: General: Skin is warm. Neurological: General: No focal deficit present. Mental Status: She is alert and oriented to person, place, and time. Psychiatric: Mood and Affect: Mood normal. Behavior: Behavior normal. Diagnostic Results The below results were reviewed today. Labs: Lab Results Component Value Date WBC 3.1 (L) 01/01/2025 HGB 11.5 (L) 01/01/2025 HCT 36.0 01/01/2025 MCV 89 01/01/2025 PLT 328 01/01/2025 Lab Results Component Value Date NEUTROABS 2.21 01/01/2025 Lab Results Component Value Date GLUCOSE 90 01/01/2025 CALCIUM 7.6 (L) 01/01/2025 NA 140 01/01/2025 K 3.7 01/01/2025 CO2 29 01/01/2025 CL 104 01/01/2025 BUN 17 01/01/2025 CREATININE 0.36 (L) 01/01/2025 MG 1.51 (L) 01/01/2025 Lab Results Component Value Date ALT 16 01/01/2025 AST 14 01/01/2025 ALKPHOS 39 01/01/2025 BILITOT 0.3 01/01/2025 Lab Results Component Value Date ACTH 40.1 11/06/2024 CORTISOL 22.6 (H) 11/06/2024 TSH 1.28 12/05/2024 FREET4 1.13 11/06/2024 IMAGES 09/11/2024 CT soft tissue neck w contrast IMPRESSION: *Primary neoplasm likely arising in the left nasal fossa or left maxillary sinus with extensive involvement of the left orbit, left maxillary sinus, left cavernous sinus, hard palate and oral cavity *Bilateral suprahyoid adenopathy as described. 09/18/[address] FDG ONCOLOGY - Impression - 1. FDG avid large heterogeneous mass likely arising in the left nasal fossa or left maxillary sinus is a site of biopsy-proven squamous cell carcinoma. 2. Left level 2 cervical lymph nodes are consistent with max metastases. Right level II and left submental lymph node are also highly suspicious for max metastases. 3. FDG avid lytic changes involving the left C1 vertebral body, is suggestive of an osseous metastases. 4. FDG avid right upper lobe pulmonary nodule, is concerning for a site of lung metastases. Assessment/Plan No matching staging information was found for the patient. Arline Krueger is a 44 y.o. year old female patient without PMH seen as follow up for L maxillary sinus squamous cell carcinoma. She is undergoing systemic imaging and will be seen by my radiation colleague Dr. Montano. She was initially thought to be candidate for induction systemic therapy with cisplatin/docetaxel/pembro modeling [email or web address].com/articles/s [email or web address]-j Concurrent chemoRT with carboplatin/paclitaxel first dose 12/05/2024. 01/01/25: Patient continue to do well and tolerating treatment well. Her nausea is well managed and eating better, able to increase Boost VHC to TID and has gained weight. She still has pain in the left maxilliary, has some mucositis in the left buccal, soft/hard palate region, which is expected from RT. She's managing SEs well. Recall we were concerned about a grade I-II ICI gastritis and will continue prednisone taper and continue treatment. 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 - 09/18/24 seen by Rad-onc, plan to treat oligometastatically - 09/25/24: Start Cycle 1 cisplatin (60 mg/m2), docetaxel (75 mg/m2), pembro. G-CSF support - 11/05/[address] Neck showed decrease in size of left maxillary mass. Proceed to C3 with Pembro only today. CT Sim after chemo. - 11/13: 1L NS today for hydration. STAT MR C-spine and T-spine per RadOnc. Awaiting finalizing RT plan to start chemoRT - 12/05/24: First dose carbo (AUC 2) taxol (45 mg/m2) with radiation. -12/18/24: Second dose carbo/taxol with radiation delayed 2 week. - 01/01/25: Proceed to C4 Carbo/Taxol. #Grade I-II ICI gastritis -Second course prednisone 40 mg (1 mg/kg) daily x 10 days -> 30 mg x 10 days -> 20 mg x 10 days -> 10 mg x 10 days, started 12/18. Anticipate taper down to 20mg QD on 01/07 - Pantoprazole 40mg QD, bactrim to pharmacy # Constipation - Restart Senna S 1 tab nightly. Start Miralax daily until BM occurs, then Q48 hr PRN. #Cancer-related Pain - MS contin 30mg BID, Oxycodone 10mg Q4-6hr PRN. Pain well controlled. #MDD -Likely worsened by malignancy. Continuing lexapro -Urgent onco-psych referral requested [1] No Known Allergies documented in this encounter [facility] Work Phone: 12-26-2024 Miscellaneous Notes Encounter addended by: Michelle Vazquez MD on: 12/26/2024 3:58 PM Actions taken: Clinical Note Signed documented in this encounter [facility] Work Phone: 12-26-2024 Note Encounter addended b y: Michelle Vazquez MD on: 12/26/2024 3:58 PM Actions taken: Clinical Note Signed [facility] Work Phone: 12-25-2024 History of Present illness Narrative Images from the original note were not included. Patient ID: Arline Krueger is a 44 y.o. female Primary Care Provider: Torie Diego DIAGNOSIS AND STAGING Diagnosis: L maxillary sinus squamous cell carcinoma Date of Diagnosis: 08/29/2024 Providers: ENT Surgeon: Dr. Ej Beltran: Dr. Macrina Montano [facility]: Dr. 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 * Lab Notes: Tumor Percentage: 40% * Germline Notes: No normal sample was received, therefore tumor/normal matched analysis was not performed. * Treatment Notes: No reportable treatment options found. Molecular Findings: * TP53, Missense variant - LOF, Biologically Relevant, p.G245S (Allele Frequency - 40.8%) * NF1, Inframe deletion - LOF, Biologically Relevant, [id number]* (Allele Frequency - 35.7%) * PBRM1, Splice region variant - LOF, Biologically Relevant, [id number], Splice Site (Allele Frequency - 7.6%) * MCL1, Amplification, Copy number gain, Biologically Relevant * Biomarker: Microsatellite Instability, Status: stable * Biomarker: Tumor Mutation [place], Status: (Value: 5.8 Muts/Mb, Percentile: 64) * 10 variants of unknown significance End of copied information PRIOR THERAPIES 09/25/2024: Cycle 1 cisplatin (60 mg/m2), docetaxel (75 mg/m2), pembrolizumab. 2 cycles of triplet therapy followed by single dose pembrolizumab CURRENT THERAPY 12/05/2024: Cycle 1 concurrent chemoradiotherapy with carboplatin (AUC 2) paclitaxel (45 mg/m2) CURRENT ONCOLOGICAL PROBLEMS Pain Odynophagia Weight loss Gastritis HISTORY OF PRESENT ILLNESS Arline Krueger is a 44 y.o. year old female patient without PMH seen as initial consultation for L maxillary sinus squamous cell carcinoma. She initially noted what she thought was a tooth abscess in L mouth. She treated it with amoxicillin without improvement. She was then seen by Dr. Rambo Ramon and subsequently referred to Dr. Martinez for evaluation. She underwent nasal endoscopy on 08/29 demonstrating: FINAL DIAGNOSIS A. 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 She presented for initial medical oncology consultation 09/1109/11/2024 CT of the neck demonstrated primary neoplasm arising in the left nasal fossa or left maxillary sinus w/ extensive involvement of the left orbit, left maxillary sinus, left cavernous sinus, hard palate and oral cavity. Also visualized bilateral suprahyoid adenopathy. 09/18/2024 Underwent PET-CT, MRI sinuses. Patient met with radiation-oncology. PAST MEDICAL HISTORY None SURGICAL HISTORY None SOCIAL HISTORY Born near [place], lives in [place] with mother Alfredo also nearby. 3 kids (24 , 23 in [place], 20). 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 Prior EtOH use, quit 2 years ago. Enjoys cooking for her family - favorite meal is lasagna + fried chicken with sweet potato pie. FAMILY HISTORY Daughter of sarcoma CURRENT MEDS REVIEWED Current Outpatient Medications Medication Instructions dexAMETHasone (DECADRON) 8 mg, oral, Daily, For 3 days starting the day after treatment. escitalopram (LEXAPRO) 10 mg, oral, Daily loratadine (CLARITIN) 10 mg, oral, Daily morphine CR (MS CONTIN) 30 mg, oral, 2 times daily, Do not crush, chew, or split. Mucus Relief ER 1,200 mg, oral, 2 times daily, Do not crush, chew, or split. naloxone (NARCAN) 4 mg, nasal, As needed, May repeat every 2-3 minutes if needed, alternating nostrils, until medical assistance becomes available. naloxone (NARCAN) 4 mg, nasal, As needed, May repeat every 2-3 minutes if needed, alternating nostrils, until medical assistance becomes available. OLANZapine (ZYPREXA) 5 mg, oral, Nightly, For 4 days starting the evening of treatment. ondansetron (ZOFRAN) 8 mg, oral, Every 8 hours PRN ondansetron ODT (ZOFRAN-ODT) 8 mg, oral, Every 8 hours PRN pantoprazole (PROTONIX) 40 mg, oral, Daily, For Acid Reflux. Do not crush, chew, or split. predniSONE (Deltasone) 10 mg tablet Take 4 tablets (40 mg) by mouth once daily for 10 days, THEN 3 tablets (30 mg) once daily for 10 days, THEN 2 tablets (20 mg) once daily for 10 days, THEN 1 tablet (10 mg) once daily for 10 days. prochlorperazine (COMPAZINE) 10 mg, oral, Every 6 hours PRN sennosides-docusate sodium (Senokot-S) 8.6-50 mg tablet 1 tablet, oral, Daily, For Constipation sulfamethoxazole-trimethoprim (Bactrim) 400-80 mg tablet 1 tablet, oral, Daily ALLERGIES REVIEWED RX Allergies[1] Subjective Interval History Patient presents for C3 concurrent chemoRT with carboplatin/paclitaxel. C2 was delayed 1 week. Her nausea was better while on prednisone and is managed on Dex, Olanzapine, Zofran and compazine. She continues on the prednisone taper for ICI gastritis. She is feeling better, her gums have healed, thought food still gets stuck on the left side of her cheek. She's eating better and has gained weight. She reports having a lot of burping and has not started on the PPI. She is also constipated, no BM for 1 week and has not taken any laxatives. She believes her mood is better after starting lexapro. 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 Review of Systems Constitutional: Negative for chills and fever. HENT: Negative for hearing loss, lump/mass, mouth sores, nosebleeds, sore throat, tinnitus and trouble swallowing. Respiratory: Negative for cough and shortness of breath. Cardiovascular: Negative for chest pain and leg swelling. Gastrointestinal: Negative for abdominal pain, constipation, diarrhea, nausea and vomiting. Musculoskeletal: Negative for arthralgias. Skin: Negative for rash. Neurological: Negative for headaches, light-headedness and numbness. Objective VS: BP 126/72 Pulse 92 Temp 37.5 C (99.5 F) Resp 20 SpO2 100% There is no height or weight on file to calculate BSA. Wt Readings from Last 5 Encounters: 12/25/24 (!) 37.6 kg (82 lb 14.3 oz) 12/21/24 (!) 36 kg (79 lb 5.9 oz) 12/18/24 (!) 36.3 kg (80 lb) 12/17/24 (!) 36.6 kg (80 lb 11.2 oz) 12/07/24 (!) 37.3 kg (82 lb 3.7 oz) ECOG SCORE: 2 Physical Exam Vitals reviewed. Constitutional: Appearance: She is underweight. HENT: Head: Normocephalic and atraumatic. Nose: Nose normal. Mouth/Throat: Mouth: Mucous membranes are moist. Eyes: Extraocular Movements: Extraocular movements intact. Conjunctiva/sclera: Conjunctivae normal. Pupils: Pupils are equal, round, and reactive to light. Cardiovascular: Rate and Rhythm: Normal rate and regular rhythm. Pulses: Normal pulses. Heart sounds: Normal heart sounds. Pulmonary: Effort: Pulmonary effort is normal. Breath sounds: Normal breath sounds. Abdominal: General: Abdomen is flat. Palpations: Abdomen is soft. Musculoskeletal: General: Normal range of motion. Cervical back: Normal range of motion and neck supple. Skin: General: Skin is warm. Neurological: General: No focal deficit present. Mental Status: She is alert and oriented to person, place, and time. Psychiatric: Mood and Affect: Mood normal. Behavior: Behavior normal. Diagnostic Results Labs: Lab Results Component Value Date WBC 3.5 (L) 12/25/2024 HGB 12.3 12/25/2024 HCT 38.4 12/25/2024 MCV 89 12/25/2024 PLT 345 12/25/2024 Lab Results Component Value Date NEUTROABS 2.21 12/25/2024 Lab Results Component Value Date GLUCOSE 94 12/25/2024 CALCIUM 8.2 (L) 12/25/2024 NA 143 12/25/2024 K 3.5 12/25/2024 CO2 30 12/25/2024 CL 106 12/25/2024 BUN 18 12/25/2024 CREATININE 0.44 (L) 12/25/2024 MG 1.81 12/25/2024 Lab Results Component Value Date ALT 20 12/25/2024 AST 16 12/25/2024 ALKPHOS 41 12/25/2024 BILITOT 0.3 12/25/2024 Lab Results Component Value Date ACTH 40.1 11/06/2024 CORTISOL 22.6 (H) 11/06/2024 TSH 1.28 12/05/2024 FREET4 1.13 11/06/2024 IMAGES 09/11/2024 CT soft tissue neck w contrast IMPRESSION: *Primary neoplasm likely arising in the left nasal fossa or left maxillary sinus with extensive involvement of the left orbit, left maxillary sinus, left cavernous sinus, hard palate and oral cavity *Bilateral suprahyoid adenopathy as described. 09/18/[address] FDG ONCOLOGY - Impression - 1. FDG avid large heterogeneous mass likely arising in the left nasal fossa or left maxillary sinus is a site of biopsy-proven squamous cell carcinoma. 2. Left level 2 cervical lymph nodes are consistent with max metastases. Right level II and left submental lymph node are also highly suspicious for max metastases. 3. FDG avid lytic changes involving the left C1 vertebral body, is suggestive of an osseous metastases. 4. FDG avid right upper lobe pulmonary nodule, is concerning for a site of lung metastases. Assessment/Plan No matching staging information was found for the patient. Arline Krueger is a 44 y.o. year old female patient without PMH seen as follow up for L maxillary sinus squamous cell carcinoma. She is undergoing systemic imaging and will be seen by my radiation colleague Dr. Montano. She was initially thought to be candidate for induction systemic therapy with cisplatin/docetaxel/pembro modeling https://www.nature.com/articles/s 59131-227-02008-o Concurrent chemoRT with carboplatin/paclitaxel first dose 12/05/2024. 12/25/24: Patient doing better this week, facial neuropathy unchanged, pain well managed, nausea improved, continuing anti-emetic regimen. Gums have healed and eating better, gained a little weight. Recall we were concerned about a grade I-II ICI gastritis and will continue prednisone taper and continue treatment. 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 - 09/18/24 seen by Rad-onc, plan to treat oligometastatically - 09/25/24: Start Cycle 1 cisplatin (60 mg/m2), docetaxel (75 mg/m2), pembro. G-CSF support - 11/05/[address] Neck showed decrease in size of left maxillary mass. Proceed to C3 with Pembro only today. CT Sim after chemo. - 11/13: 1L NS today for hydration. STAT MR C-spine and T-spine per RadOnc. Awaiting finalizing RT plan to start chemoRT - 12/05/24: First dose carbo (AUC 2) taxol (45 mg/m2) with radiation. -12/18/24: Second dose carbo/taxol with radiation delayed 2 week. - 12/25/24: Proceed to C3 Carbo/Taxol. #Grade I-II ICI gastritis -Second course prednisone 40 mg (1 mg/kg) daily x 10 days -> 30 mg x 10 days -> 20 mg x 10 days -> 10 mg x 10 days, started 12/18 - Pantoprazole 40mg QD, bactrim to pharmacy # Constipation - Restart Senna S 1 tab nightly. Start Miralax daily until BM occurs, then Q48 hr PRN. #Cancer-related Pain - MS contin 30mg BID, Oxycodone 10mg Q4-6hr PRN. Pain well controlled. #MDD -Likely worsened by malignancy. Continuing lexapro -Urgent onco-psych referral requested [1] No Known Allergies documented in this encounter [facility] Work Phone: 12-18-2024 History of Present illness Narrative Images from the original note were not included. Patient ID: Arline Krueger is a 44 y.o. female Primary Care Provider: Torie Diego DIAGNOSIS AND STAGING Diagnosis: L maxillary sinus squamous cell carcinoma Date of Diagnosis: 08/29/2024 Providers: ENT Surgeon: Dr. Ej Martinoc: [facility] Macrina [facility]ano [facility] Dr. 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 * Lab Notes: Tumor Percentage: 40% * Germline Notes: No normal sample was received, therefore tumor/normal matched analysis was not performed. * Treatment Notes: No reportable treatment options found. Molecular Findings: * TP53, Missense variant - LOF, Biologically Relevant, p.G245S (Allele Frequency - 40.8%) * NF1, Inframe deletion - LOF, Biologically Relevant, [id number]* (Allele Frequency - 35.7%) * PBRM1, Splice region variant - LOF, Biologically Relevant, [id number], Splice Site (Allele Frequency - 7.6%) * MCL1, Amplification, Copy number gain, Biologically Relevant * Biomarker: Microsatellite Instability, Status: stable * Biomarker: Tumor Mutation [place], Status: (Value: 5.8 Muts/Mb, Percentile: 64) * 10 variants of unknown significance End of copied information PRIOR THERAPIES 09/25/2024: Cycle 1 cisplatin (60 mg/m2), docetaxel (75 mg/m2), pembrolizumab. 2 cycles of triplet therapy followed by single dose pembrolizumab CURRENT THERAPY 12/05/2024: Cycle 1 concurrent chemoradiotherapy with carboplatin (AUC 2) paclitaxel (45 mg/m2) CURRENT ONCOLOGICAL PROBLEMS Pain Odynophagia Weight loss Gastritis HISTORY OF PRESENT ILLNESS Arline Krueger is a 44 y.o. year old female patient without PMH seen as initial consultation for L maxillary sinus squamous cell carcinoma. She initially noted what she thought was a tooth abscess in L mouth. She treated it with amoxicillin without improvement. She was then seen by Dr. Rambo Ramon and subsequently referred to Dr. Martinez for evaluation. She underwent nasal endoscopy on 08/29 demonstrating: FINAL DIAGNOSIS A. 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 She presented for initial medical oncology consultation 09/1109/11/2024 CT of the neck demonstrated primary neoplasm arising in the left nasal fossa or left maxillary sinus w/ extensive involvement of the left orbit, left maxillary sinus, left cavernous sinus, hard palate and oral cavity. Also visualized bilateral suprahyoid adenopathy. 09/18/2024 Underwent PET-CT, MRI sinuses. Patient met with radiation-oncology. PAST MEDICAL HISTORY None SURGICAL HISTORY None SOCIAL HISTORY Born near [place], lives in [place] with mother Alfredo also nearby. 3 kids (24 , 23 in [place], 20). 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 Prior EtOH use, quit 2 years ago. Enjoys cooking for her family - favorite meal is lasagna + fried chicken with sweet potato pie. FAMILY HISTORY Daughter of sarcoma CURRENT MEDS REVIEWED Current Outpatient Medications Medication Instructions dexAMETHasone (DECADRON) 8 mg, oral, Daily, For 3 days starting the day after treatment. escitalopram (LEXAPRO) 10 mg, oral, Daily loratadine (CLARITIN) 10 mg, oral, Daily morphine CR (MS CONTIN) 30 mg, oral, 2 times daily, Do not crush, chew, or split. Mucus Relief ER 1,200 mg, oral, 2 times daily, Do not crush, chew, or split. naloxone (NARCAN) 4 mg, nasal, As needed, May repeat every 2-3 minutes if needed, alternating nostrils, until medical assistance becomes available. naloxone (NARCAN) 4 mg, nasal, As needed, May repeat every 2-3 minutes if needed, alternating nostrils, until medical assistance becomes available. OLANZapine (ZYPREXA) 5 mg, oral, Nightly, For 4 days starting the evening of treatment. ondansetron (ZOFRAN) 8 mg, oral, Every 8 hours PRN ondansetron ODT (ZOFRAN-ODT) 8 mg, oral, Every 8 hours PRN pantoprazole (PROTONIX) 40 mg, oral, Daily, Do not crush, chew, or split. predniSONE (Deltasone) 10 mg tablet Take 4 tablets (40 mg) by mouth once daily for 10 days, THEN 3 tablets (30 mg) once daily for 10 days, THEN 2 tablets (20 mg) once daily for 10 days, THEN 1 tablet (10 mg) once daily for 10 days. prochlorperazine (COMPAZINE) 10 mg, oral, Every 6 hours PRN sulfamethoxazole-trimethoprim (Bactrim) 400-80 mg tablet 1 tablet, oral, Daily ALLERGIES REVIEWED RX Allergies[1] Subjective Interval History Patient presents for second cycle concurrent chemoRT with carboplatin/paclitaxel. Her nausea was better while on prednisone but she has completed this. She is here with her sister who live nearby. She believes her mood is better after starting lexapro. 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 14 point ROS reviewed and otherwise negative unless stated above. Objective VS: There were no vitals taken for this visit. There is no height or weight on file to calculate BSA. Wt Readings from Last 5 Encounters: 12/18/24 (!) 36.3 kg (80 lb) 12/17/24 (!) 36.6 kg (80 lb 11.2 oz) 09/26/25 (!) 37.3 kg (82 lb 3.7 oz) 12/06/24 (!) 39.9 kg (88 lb) 12/05/24 (!) 36.4 kg (80 lb 4 oz) ECOG SCORE: 2 Gen: A&O, NAD Head: Normocephalic, atraumatic Eyes: no scleral icterus ENT: mucous membranes moist, no oropharyngeal lesions Resp: Lungs CTAB Cardiac: Normal rate, regular rhythm, no murmurs appreciated Abdomen: Soft, nondistended, nontender, +BS Neuro: CNII-XII grossly intact Psych: appropriate mood & affect Skin: warm, dry, no apparent rashes Diagnostic Results Labs: Lab Results Component Value Date WBC 6.1 12/18/2024 HGB 12.7 12/18/2024 HCT 39.4 12/18/2024 MCV 86 12/18/2024 PLT 378 12/18/2024 Lab Results Component Value Date NEUTROABS 5.21 12/18/2024 Lab Results Component Value Date GLUCOSE 95 12/18/2024 CALCIUM 8.5 (L) 12/18/2024 NA 140 12/18/2024 K 3.2 (L) 12/18/2024 CO2 30 12/18/2024 CL 103 12/18/2024 BUN 17 12/18/2024 CREATININE 0.49 (L) 12/18/2024 MG 1.87 12/18/2024 Lab Results Component Value Date ALT 15 12/18/2024 AST 16 12/18/2024 ALKPHOS 33 12/18/2024 BILITOT 0.4 12/18/2024 Lab Results Component Value Date ACTH 40.1 11/06/2024 CORTISOL 22.6 (H) 11/06/2024 TSH 1.28 12/05/2024 FREET4 1.13 11/06/2024 IMAGES 09/11/2024 CT soft tissue neck w contrast IMPRESSION: *Primary neoplasm likely arising in the left nasal fossa or left maxillary sinus with extensive involvement of the left orbit, left maxillary sinus, left cavernous sinus, hard palate and oral cavity *Bilateral suprahyoid adenopathy as described. 09/18/[address] FDG ONCOLOGY - Impression - 1. FDG avid large heterogeneous mass likely arising in the left nasal fossa or left maxillary sinus is a site of biopsy-proven squamous cell carcinoma. 2. Left level 2 cervical lymph nodes are consistent with max metastases. Right level II and left submental lymph node are also highly suspicious for max metastases. 3. FDG avid lytic changes involving the left C1 vertebral body, is suggestive of an osseous metastases. 4. FDG avid right upper lobe pulmonary nodule, is concerning for a site of lung metastases. Assessment/Plan No matching staging information was found for the patient. Arline Krueger is a 44 y.o. year old female patient without PMH seen as follow up for L maxillary sinus squamous cell carcinoma. She is undergoing systemic imaging and will be seen by my radiation colleague Dr. Montano. She was initially thought to be candidate for induction systemic therapy with cisplatin/docetaxel/pembro modeling https://www.nature.com/articles/s [email or web address]-x Proceeding with concurrent chemoRT with carboplatin/paclitaxel first dose 12/05/2024. I am concerned about a grade I-II ICI gastritis and will continue treatment. 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 - 09/18/24 seen by Rad-onc, plan to treat oligometastatically - 09/25/24: Start Cycle 1 cisplatin (60 mg/m2), docetaxel (75 mg/m2), pembro. G-CSF support - 11/05/[address] Neck showed decrease in size of left maxillary mass. Proceed to C3 with Pembro only today. CT Sim after chemo. - 11/13: 1L NS today for hydration. STAT MR C-spine and T-spine per RadOnc. Awaiting finalizing RT plan to start chemoRT - 12/05/24: First dose carbo (AUC 2) taxol (45 mg/m2) with radiation. -12/18/24: Second dose carbo/taxol with radiation #Grade I-II ICI gastritis -Second course prednisone 40 mg (1 mg/kg) daily x 10 days -> 30 mg x 10 days -> 20 mg x 10 days -> 10 mg x 10 days -PPI, bactrim to pharmacy #Cancer-related Pain - MS contin 30mg BID, Oxycodone 10mg Q4-6hr PRN. Pain well controlled. Refilled MS Contin today. #MDD -Likely worsened by malignancy. Continuing lexapro -Urgent onco-psych referral requested Greater than 40 min spent in care of this patient. Sunny Cruz MD Thoracic + [facility] Medical Oncology [address] [place] [address] [1] No Known Allergies documented in this encounter [facility] Work Phone: 12-06-2024 History of Present illness Narrative Images from the original note were not included. Radiation Oncology On Treatment Visit Patient Name: Arline Krueger : 1980 Referring Provider: Ej Martinez MD Primary Care Provider: Torie Diego Care Team: Patient Care Team: Torie Diego as PCP - General Rambo Ramon MD as Referring Physician (Otolaryngology) Macrina Montano MD as Radiation Oncologist (Radiation Oncology) Sunny Cruz MD as Consulting Physician (Hematology and Oncology) VALENCIA Triplett as Ex Chef (Stamp Analyst) Date of Service: 12/06/2024 Diagnosis: Specialty Problems Radiation Oncology Problems Squamous cell carcinoma of maxillary sinus 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) Secondary malignant neoplasm of lung (Multi) Treatment Summary: Radiation Therapy Treatment Period Technique Fraction Dose Fractions Total Dose Course 1 12/05/2024-12/06/2024 (days elapsed: 1) sinonasal+neck 12/05/2024-12/06/2024 VMAT 200 / 200 cGy 400 / 7,000 cGy SUBJECTIVE: The patient feels well and has no issues. 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 Continue per current treatment plan. documented in this encounter [facility] Work Phone: 12-05-2024 History of Present illness Narrative Images from the original note were not included. Patient ID: Arline Krueger is a 44 y.o. female Primary Care Provider: Torie Diego DIAGNOSIS AND STAGING Diagnosis: L maxillary sinus squamous cell carcinoma Date of Diagnosis: 08/29/2024 Providers: ENT Surgeon: Dr. Ej Martinoc: Dr. Macrina Montano Metcalfec: Dr. 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 * Lab Notes: Tumor Percentage: 40% * Germline Notes: No normal sample was received, therefore tumor/normal matched analysis was not performed. * Treatment Notes: No reportable treatment options found. Molecular Findings: * TP53, Missense variant - LOF, Biologically Relevant, p.G245S (Allele Frequency - 40.8%) * NF1, Inframe deletion - LOF, Biologically Relevant, p.[id number]* (Allele Frequency - 35.7%) * PBRM1, Splice region variant - LOF, Biologically Relevant, [id number], Splice Site (Allele Frequency - 7.6%) * MCL1, Amplification, Copy number gain, Biologically Relevant * Biomarker: Microsatellite Instability, Status: stable * Biomarker: Tumor Mutation [place], Status: (Value: 5.8 Muts/Mb, Percentile: 64) * 10 variants of unknown significance End of copied information PRIOR THERAPIES 09/25/2024: Cycle 1 cisplatin (60 mg/m2), docetaxel (75 mg/m2), pembrolizumab. 2 cycles of triplet therapy followed by single dose pembrolizumab CURRENT THERAPY 12/05/2024: Cycle 1 concurrent chemoradiotherapy with carboplatin (AUC 2) paclitaxel (45 mg/m2) CURRENT ONCOLOGICAL PROBLEMS Pain Odynophagia Weight loss Gastritis HISTORY OF PRESENT ILLNESS Arline Krueger is a 44 y.o. year old female patient without PMH seen as initial consultation for L maxillary sinus squamous cell carcinoma. She initially noted what she thought was a tooth abscess in L mouth. She treated it with amoxicillin without improvement. She was then seen by Dr. Rambo Ramon and subsequently referred to Dr. Martinez for evaluation. She underwent nasal endoscopy on 08/29 demonstrating: FINAL DIAGNOSIS A. 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 She presented for initial medical oncology consultation 09/1109/11/2024 CT of the neck demonstrated primary neoplasm arising in the left nasal fossa or left maxillary sinus w/ extensive involvement of the left orbit, left maxillary sinus, left cavernous sinus, hard palate and oral cavity. Also visualized bilateral suprahyoid adenopathy. 09/18/2024 Underwent PET-CT, MRI sinuses. Patient met with radiation-oncology. PAST MEDICAL HISTORY None SURGICAL HISTORY None SOCIAL HISTORY Born near [place], lives in [place] with mother Alfredo also nearby. 3 kids (24 , 23 in [place], 20). 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 Prior EtOH use, quit 2 years ago. Enjoys cooking for her family - favorite meal is lasagna + fried chicken with sweet potato pie. FAMILY HISTORY Daughter of sarcoma CURRENT MEDS REVIEWED Current Outpatient Medications Medication Instructions dexAMETHasone (DECADRON) 8 mg, oral, Daily, For 3 days starting the day after treatment. loratadine (CLARITIN) 10 mg, oral, Daily morphine CR (MS CONTIN) 30 mg, oral, 2 times daily, Do not crush, chew, or split. Mucus Relief ER 1,200 mg, oral, 2 times daily, Do not crush, chew, or split. naloxone (NARCAN) 4 mg, nasal, As needed, May repeat every 2-3 minutes if needed, alternating nostrils, until medical assistance becomes available. naloxone (NARCAN) 4 mg, nasal, As needed, May repeat every 2-3 minutes if needed, alternating nostrils, until medical assistance becomes available. OLANZapine (ZYPREXA) 5 mg, oral, Nightly, For 4 days starting the evening of treatment. ondansetron (ZOFRAN) 8 mg, oral, Every 8 hours PRN ondansetron ODT (ZOFRAN-ODT) 8 mg, oral, Every 8 hours PRN oxyCODONE (ROXICODONE) 10 mg, oral, Every 6 hours PRN pantoprazole (PROTONIX) 40 mg, oral, Daily, Do not crush, chew, or split. predniSONE (Deltasone) 10 mg tablet Take 4 tablets (40 mg) by mouth once daily for 10 days, THEN 3 tablets (30 mg) once daily for 10 days, THEN 2 tablets (20 mg) once daily for 10 days, THEN 1 tablet (10 mg) once daily for 10 days. prochlorperazine (COMPAZINE) 10 mg, oral, Every 6 hours PRN sulfamethoxazole-trimethoprim (Bactrim) 400-80 mg tablet 1 tablet, oral, Daily ALLERGIES REVIEWED RX Allergies[1] Subjective Interval History Patient presents for first cycle concurrent chemoRT with carboplatin/paclitaxel. She is having persistent nausea. It is associated with anorexia. She has lost 8 pounds in last 3 weeks. She is depressed, spends most of her time in her room and feels isolated. 14 point ROS reviewed and otherwise negative unless stated above. Objective VS: There were no vitals taken for this visit. There is no height or weight on file to calculate BSA. Wt Readings from Last 5 Encounters: 12/05/24 (!) 36.4 kg (80 lb 4 oz) 11/22/24 (!) 39.5 kg (87 lb) 11/22/24 (!) 39.7 kg (87 lb 8.4 oz) 11/20/24 (!) 39.7 kg (87 lb 8.4 oz) 11/13/24 (!) 40.3 kg (88 lb 13.5 oz) ECOG SCORE: 1 Gen: A&O, NAD Head: Normocephalic, atraumatic Eyes: no scleral icterus ENT: mucous membranes moist, no oropharyngeal lesions Resp: Lungs CTAB Cardiac: Normal rate, regular rhythm, no murmurs appreciated Abdomen: Soft, nondistended, nontender, +BS Neuro: CNII-XII grossly intact Psych: appropriate mood & affect Skin: warm, dry, no apparent rashes Diagnostic Results Labs: Lab Results Component Value Date WBC 16.4 (H) 12/05/2024 HGB 13.6 12/05/2024 HCT 40.6 12/05/2024 MCV 82 12/05/2024 PLT 533 (H) 12/05/2024 Lab Results Component Value Date NEUTROABS 14.07 (H) 12/05/2024 Lab Results Component Value Date GLUCOSE 94 12/05/2024 CALCIUM 8.2 (L) 12/05/2024 NA 130 (L) 12/05/2024 K 3.7 12/05/2024 CO2 26 12/05/2024 CL 95 (L) 12/05/2024 BUN 15 12/05/2024 CREATININE 0.47 (L) 12/05/2024 MG 1.62 12/05/2024 Lab Results Component Value Date ALT 7 12/05/2024 AST 15 12/05/2024 ALKPHOS 44 12/05/2024 BILITOT 0.3 12/05/2024 Lab Results Component Value Date ACTH 40.1 11/06/2024 CORTISOL 22.6 (H) 11/06/2024 TSH 0.25 (L) 11/06/2024 FREET4 1.13 11/06/2024 IMAGES 09/11/2024 CT soft tissue neck w contrast IMPRESSION: *Primary neoplasm likely arising in the left nasal fossa or left maxillary sinus with extensive involvement of the left orbit, left maxillary sinus, left cavernous sinus, hard palate and oral cavity *Bilateral suprahyoid adenopathy as described. 09/18/[address] FDG ONCOLOGY - Impression - 1. FDG avid large heterogeneous mass likely arising in the left nasal fossa or left maxillary sinus is a site of biopsy-proven squamous cell carcinoma. 2. Left level 2 cervical lymph nodes are consistent with max metastases. Right level II and left submental lymph node are also highly suspicious for max metastases. 3. FDG avid lytic changes involving the left C1 vertebral body, is suggestive of an osseous metastases. 4. FDG avid right upper lobe pulmonary nodule, is concerning for a site of lung metastases. Assessment/Plan No matching staging information was found for the patient. Arline Krueger is a 44 y.o. year old female patient without PMH seen as follow up for L maxillary sinus squamous cell carcinoma. She is undergoing systemic imaging and will be seen by my radiation colleague Dr. Montano. She was initially thought to be candidate for induction systemic therapy with cisplatin/docetaxel/pembro modeling https://www.nature.com/articles/s 29173-708-19849-p Proceeding with concurrent chemoRT with carboplatin/paclitaxel first dose 12/05/2024. I am concerned about a grade I-II ICI gastritis and will begin treatment. 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 - 09/18/24 seen by Rad-onc, plan to treat oligometastatically - 09/25/24: Start Cycle 1 cisplatin (60 mg/m2), docetaxel (75 mg/m2), pembro. G-CSF support - 11/05/[address] Neck showed decrease in size of left maxillary mass. Proceed to C3 with Pembro only today. CT Sim after chemo. - 11/13: 1L NS today for hydration. STAT MR C-spine and T-spine per RadOnc. Awaiting finalizing RT plan to start chemoRT - 12/05/24: First dose carbo (AUC 2) taxol (45 mg/m2) with radiation. #Grade I-II ICI gastritis -Prednisone 40 mg (1 mg/kg) daily x 10 days -> 30 mg x 10 days -> 20 mg x 10 days -> 10 mg x 10 days -PPI, bactrim to pharmacy #Cancer-related Pain - MS contin 30mg BID, Oxycodone 10mg Q4-6hr PRN. Pain well controlled. Refilled MS Contin today. #MDD -Likely worsened by malignancy -Urgent onco-psych referral requested Greater than 40 min spent in care of this patient. Sunny Cruz MD Thoracic + H&N Medical Oncology [address] [place] [address] [1] No Known Allergies documented in this encounter [facility] Work Phone: 11-13-2024 History of Present illness Narrative Images from the original note were not included. Patient ID: Arline Krueger is a 44 y.o. female Primary Care Provider: Torie Diego DIAGNOSIS AND STAGING Diagnosis: L maxillary sinus squamous cell carcinoma Date of Diagnosis: 08/29/2024 Providers: ENT Surgeon: Dr. Ej Martinoc: Dr. Macrina Montano [facility]: Dr. Sunny Cruz SITES OF DISEASE L maxillary sinus/hard palate C spine Cavitary lesion of R lung MOLECULAR GENOMICS Tempus xT requested PRIOR THERAPIES CURRENT THERAPY 09/25/24: Started Induction chemo with Cisplatin (60 mg/m2)/Docetaxel (75mg/m2)/Pembrolizumab CURRENT ONCOLOGICAL PROBLEMS Pain Odynophagia Weight loss HISTORY OF PRESENT ILLNESS Arline Krueger is a 44 y.o. year old female patient without PMH seen as initial consultation for L maxillary sinus squamous cell carcinoma. She initially noted what she thought was a tooth abscess in L mouth. She treated it with amoxicillin without improvement. She was then seen by Dr. Rambo Ramon and subsequently referred to Dr. Martinez for evaluation. She underwent nasal endoscopy on 08/29 demonstrating: FINAL DIAGNOSIS A. 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 She presented for initial medical oncology consultation 09/1109/11/2024 CT of the neck demonstrated primary neoplasm arising in the left nasal fossa or left maxillary sinus w/ extensive involvement of the left orbit, left maxillary sinus, left cavernous sinus, hard palate and oral cavity. Also visualized bilateral suprahyoid adenopathy. 09/18/2024 Underwent PET-CT, MRI sinuses. Patient met with radiation-oncology. PAST MEDICAL HISTORY None SURGICAL HISTORY None SOCIAL HISTORY Born near [place], lives in [place] with mother Alfredo also nearby. 3 kids (24 , 23 in [place], 20). 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 Prior EtOH use, quit 2 years ago. Enjoys cooking for her family - favorite meal is lasagna + fried chicken with sweet potato pie. FAMILY HISTORY Daughter of sarcoma CURRENT MEDS REVIEWED Current Outpatient Medications Medication Instructions bisacodyl (DULCOLAX) 5 mg, oral, Daily PRN, Do not crush, chew, or split. dexAMETHasone (DECADRON) 8 mg, oral, Daily, For 3 days starting the day after treatment. loratadine (CLARITIN) 10 mg, oral, Daily morphine CR (MS CONTIN) 30 mg, oral, 2 times daily, Do not crush, chew, or split. Mucus Relief ER 1,200 mg, oral, 2 times daily, Do not crush, chew, or split. naloxone (NARCAN) 4 mg, nasal, As needed, May repeat every 2-3 minutes if needed, alternating nostrils, until medical assistance becomes available. naloxone (NARCAN) 4 mg, nasal, As needed, May repeat every 2-3 minutes if needed, alternating nostrils, until medical assistance becomes available. OLANZapine (ZYPREXA) 5 mg, oral, Nightly, For 4 days starting the evening of treatment. ondansetron (ZOFRAN) 8 mg, oral, Every 8 hours PRN ondansetron ODT (ZOFRAN-ODT) 8 mg, oral, Every 8 hours PRN oxyCODONE (ROXICODONE) 10 mg, oral, Every 6 hours PRN prochlorperazine (COMPAZINE) 10 mg, oral, Every 6 hours PRN ALLERGIES REVIEWED RX Allergies[1] Subjective Interval History Patient presents for tox check following C3 induction with only Pembrolizumab last week. On 11/08 she went to the ED at [facility] for intractable vomiting and pain. She states she forgot to take her nausea medications. She is now feeling better, nausea resolved, and she it taking anti-emetics. Her left facial pain is well controlled, still has unchanged numbness above the left upper lip. Pain is well managed on Morphine ER to 30mg BID. Taking Oxy 10mg Q4-6hr PRN for pain spikes which is occurring less frequently. Ritchie are managed with Bisacodyl 5mg daily, Miralax every 3 days or so. She notes improvement in hearing in her left ear. She's eating everything by mouth, tolerating soft foods. Still drinking Ensure max protein TID Review of Systems Constitutional: Negative for chills and fever. HENT: Positive for lump/mass. Negative for hearing loss. Respiratory: Negative for cough and shortness of breath. Cardiovascular: Negative for chest pain and leg swelling. Gastrointestinal: Negative for abdominal pain, constipation, diarrhea, nausea and vomiting. Musculoskeletal: Negative for arthralgias. Skin: Negative for rash. Neurological: Negative for headaches, light-headedness and numbness. Objective VS: There were no vitals taken for this visit. BP108/85, HR 108, Resp 18, O2 100% RA There is no height or weight on file to calculate BSA. Wt Readings from Last 5 Encounters: 11/13/24 (!) 40.3 kg (88 lb 13.5 oz) 11/06/24 (!) 44.4 kg (97 lb 14.2 oz) 11/07/24 (!) 44.4 kg (97 lb 14.2 oz) 11/06/24 (!) 42.7 kg (94 lb 2.2 oz) 10/23/24 (!) 43 kg (94 lb 14.4 oz) ECOG SCORE: 1 Physical Exam Vitals reviewed. Constitutional: Appearance: Normal appearance. She is underweight. HENT: Head: Normocephalic and atraumatic. Comments: Mild swelling in the left side of face. Right Ear: External ear normal. No tenderness. Left Ear: External ear normal. No tenderness. Nose: Nose normal. Mouth/Throat: Lips: [place]. Mouth: Mucous membranes are moist. No oral lesions. Tongue: No lesions. Comments: S/p full upper dental extraction Eyes: General: Lids are normal. Extraocular Movements: Extraocular movements intact. Conjunctiva/sclera: Conjunctivae normal. Pupils: Pupils are equal, round, and reactive to light. Neck: Thyroid: No thyroid mass. Comments: Tender to palpation of left neck Cardiovascular: Rate and Rhythm: Normal rate and regular rhythm. Pulses: Normal pulses. Heart sounds: No murmur heard. No gallop. Pulmonary: Effort: Pulmonary effort is normal. No respiratory distress. Breath sounds: Normal breath sounds and air entry. Abdominal: General: Abdomen is flat. Bowel sounds are normal. Palpations: Abdomen is soft. There is no mass. Tenderness: There is no abdominal tenderness. Musculoskeletal: General: Normal range of motion. Cervical back: Normal range of motion and neck supple. Normal range of motion. Right lower leg: No edema. Left lower leg: No edema. Lymphadenopathy: Cervical: No cervical adenopathy. Skin: General: Skin is warm and dry. Neurological: General: No focal deficit present. Mental Status: She is alert and oriented to person, place, and time. Mental status is at baseline. Gait: Gait is intact. Psychiatric: Attention and Perception: Attention normal. Mood and Affect: Mood and affect normal. Behavior: Behavior is cooperative. Diagnostic Results Labs: The below labs were reviewed. Leukocytosis likely 2ry to GCSF Lab Results Component Value Date WBC 19.7 (H) 11/13/2024 HGB 13.7 11/13/2024 HCT 42.5 11/13/2024 MCV 85 11/13/2024 PLT 602 (H) 11/13/2024 Lab Results Component Value Date NEUTROABS 16.05 (H) 11/13/2024 Lab Results Component Value Date GLUCOSE 87 11/06/2024 CALCIUM 9.8 11/06/2024 NA 136 11/06/2024 K 4.0 11/06/2024 CO2 28 11/06/2024 CL 97 (L) 11/06/2024 BUN 16 11/06/2024 CREATININE 0.66 11/06/2024 MG 1.52 (L) 11/06/2024 Lab Results Component Value Date ALT 13 11/06/2024 AST 23 11/06/2024 ALKPHOS 69 11/06/2024 BILITOT 0.5 11/06/2024 Lab Results Component Value Date ACTH 40.1 11/06/2024 CORTISOL 22.6 (H) 11/06/2024 TSH 0.25 (L) 11/06/2024 FREET4 1.13 11/06/2024 IMAGES 09/11/2024 CT soft tissue neck w contrast IMPRESSION: *Primary neoplasm likely arising in the left nasal fossa or left maxillary sinus with extensive involvement of the left orbit, left maxillary sinus, left cavernous sinus, hard palate and oral cavity *Bilateral suprahyoid adenopathy as described. 09/18/[address] FDG ONCOLOGY - Impression - 1. FDG avid large heterogeneous mass likely arising in the left nasal fossa or left maxillary sinus is a site of biopsy-proven squamous cell carcinoma. 2. Left level 2 cervical lymph nodes are consistent with max metastases. Right level II and left submental lymph node are also highly suspicious for max metastases. 3. FDG avid lytic changes involving the left C1 vertebral body, is suggestive of an osseous metastases. 4. FDG avid right upper lobe pulmonary nodule, is concerning for a site of lung metastases. Assessment/Plan No matching staging information was found for the patient. Arline Krueger is a 44 y.o. year old female patient without PMH seen as follow up for L maxillary sinus squamous cell carcinoma. She is undergoing systemic imaging and will be seen by my radiation colleague Dr. Montano. She was initially thought to be candidate for induction systemic therapy with cisplatin/docetaxel/pembro modeling https://www.nature.com/articles/s [email or web address]-s 11/13/24: Patient began treatment w/ Cis/Doce/Pembro on 09/25/24 and tolerated first 2 cycles well without n/v/c/d but had intractable n/v after 3rd cycle with Pembro. Nausea now resolved w/ anti-emetics. Her facial swelling, pain, and neuropathy are all improved. Her 11/05/24 MR Sinus and showed significant shrinkage in the left maxillary mass. She had full upper dental extraction on 10/30 and is healing well. We're planning to start chemoRT in the coming weeks. 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 - 09/18/24 seen by Rad-onc, plan to treat oligometastatically - 09/25/24: Start Cycle 1 cisplatin (60 mg/m2), docetaxel (75 mg/m2), pembro. G-CSF support - 11/05/[address] Neck showed decrease in size of left maxillary mass. Proceed to C3 with Pembro only today. CT Sim after chemo. - 2: 1L NS today for hydration. STAT MR C-spine and T-spine per [facility]. Awaiting finalizing RT plan to start chemoRT #Cancer-related Pain - MS contin 30mg BID, Oxycodone 10mg Q4-6hr PRN. Pain well controlled. Refilled MS Contin today. [1] No Known Allergies documented in this encounter [facility] Work Phone: 11-13-2024 Instructions Sidra Ortiz PA-C - 11/13/2024 2:30 PM EDT Please call [phone] to schedule your MRI of the spine. This is needed as part of your Radiation plan planning. documented in this encounter [facility] Work Phone: 11-08-2024 Radiology Diagnostic study note [facility] Imaging Services [address], [place] [id number] Abdomen/Pelvis W IV Cont ONLY MR#: [id number] Acct: [id number] Name: ARLINE KRUEGER Rep #: [id number] : 1980 F 44 From: Ramana Willson MD PCP: Torie Diego [facility] DEPUTY-C Status: REG ER Study:Abdomen/Pelvis W IV Cont ONLY Date of E xam: 11/08/24 Exam# [id number] Ordering Dr: Tani Posadas DO PROCEDURE: ABDOMEN/PELVIS W IV CONT ONLY 11/08/2024 REASON FOR EXAM: ABD PAIN TECHNIQUE: ABDOMEN/PELVIS W IV CONT ONLY Coronal and Sagittal reconstruction series were provided. CONTRAST: Isovue 370 VOLUME: 100 mL One or more dose reduction techniques were used (e.g., Automated exposure control, adjustment of the mA and/or kV according to patient size, use of iterative reconstruction technique. RADIATION DOSE SUMMARY: CTDlvol: 23.27, 6.04, 6.06 mGy DLP: 514.03 mGycm COMPARISON: None FINDINGS: LUNG BASES: No basilar airspace consolidation or pleural effusion. LIVER: Hypodense 5.4 mm lesion in the inferior right lobe, likely a cyst. GALLBLADDER: Unremarkable. No calcified stone. BILE DUCTS: No ductal dilation. PANCREAS: Unremarkable. SPLEEN: Unremarkable. ADRENAL GLANDS: Unremarkable. KIDNEYS: Unremarkable. The kidneys enhance symmetrically. No hydronephrosis or hydroureter. STOMACH AND BOWEL: No obstruction or perforation. No wall thickening. No CT evidence of colitis or acute diverticulitis. APPENDIX: No CT evidence for appendicitis. RETRO/PERITONEUM: Mild pelvic fluid, possibly physiologic. No free air or fluid collections. LYMPH NODES: No lymphadenopathy. PELVIC ORGANS: Unremarkable as visualized. VASCULATURE: No aortic aneurysm. ABDOMINAL WALL AND SOFT TISSUES: Unremarkable. BONES: No fracture or suspicious osseous abnormality. CT/Abdomen/Pelvis W IV Cont ONLY IMPRESSION: NO ACUTE FINDINGS IN THE ABDOMEN OR PELVIS. Reading Location: [facility] CC: Dr. Deborah Posadas DO; Torie [facility] DEPUTY-C Johnathon ~ Pole Inspector: Signed [facility] 11-08-2024 Radiology Diagnostic study note [facility] Imaging Services [address], [place] [id number] CTA Chest W/WO Contrast MR#: [id number] Acct: [id number] Name: ARLINE KRUEGER Rep #: [id number] : 1980 F 44 From: Ashli Gould MD PCP: Torie Diego [facility] DEPUTYCarlos Status: REG ER Study:CTA Chest W/WO Contrast Date of Exam: 11/08/24 Exam# [id number] Ordering Dr: Tani Posadas DO PROCEDURE: CTA CHEST W/WO CONTRAST 11/08/2024 REASON FOR EXAM: SOB, ELEVATED DIMER TECHNIQUE: CTA CHEST W/WO CONTRAST Multiplanar Sagittal and Coronal images were obtained. 3D post processing was performed CONTRAST: Isovue 370 VOLUME: 100 mL One or more dose reduction techniques were used (e.g., Automated exposure control, adjustment of the mA and/or kV according to patient size, use of iterative reconstruction technique). RADIATION DOSE SUMMARY: CTDlvol: 23.27 mGy DLP: 514.03 mGycm COMPARISON: None # of known CTs in the past 12 months: 1 # of known Cardiac Nuclear Medicine Studies in the past 12 months: 0 FINDINGS: The thoracic aorta tapers normally without aneurysm or dissection. Pulmonary arteries enhance avidly without evidence of low-density filling defectto suspect PE. The thyroid gland is unremarkable, no suspicious axillary, mediastinal or perihilar adenopathy. Lung windows show underlying emphysema with chronic bronchitis but no superimposed infiltrate or effusion, no suspicious noncalcified mass or nodule. Limited cuts through the upper abdomen do not show a suspicious abnormality. Bony structures are normal CT/CTA Chest W/WO Contrast IMPRESSION: No demonstrated PE, or thoracic aortic aneurysm or dissection Hyperexpanded lungs with evidence of chronic bronchitis but no superimposed infiltrate effusion or suspicious noncalcified mass or nodule No suspicious adenopathy Reading Location: [id number] CC: Dr. Deborah Posadas DO; Torie [facility] DEPUTY-C Johnathon ~ Pole Inspector: Signed [facility] 11-08-2024 Radiology Diagnostic study note [facility] Imaging Services [address] [place] [id number] Chest 1 View (Portable) MR#: [id number] Acct: [id number] Name: ARLINE KRUEGER Rep #: [id number] : 1980 F 44 From: Mervin Ceja MD PCP: Torie Diego COURT DEPUTYBenC Status: REG ER Study:Chest 1 View (Portable) Date of Exam: 11/08/24 Exam# [id number] Ordering Dr: Tani Posadas DO PROCEDURE: CHEST 1 VIEW (PORTABLE) 11/08/2024 REASON FOR EXAM: SOB TECHNIQUE: Frontal view of the chest. COMPARISON: None FINDINGS: Hardware: EKG electrodes are seen. Heart: Cardiac and mediastinal contours are stable. Lungs: The lungs are clear. Bones: The bones are unremarkable. Other: RAD/Chest 1 View (Portable) IMPRESSION: No Acute Findings. Reading Location: [id number] CC: [facility] Deborah Posadas DO; [facility]C Johnathon ~ Pole Inspector: Signed [facility] 11-06-2024 Hospital Discharge instructions Additional Instructions Please continue to follow-up with oncology. Is very important that you continue to take your prescribed olanzapine and dexamethasone to help with your symptoms in addition to your pain medications as needed. If you have further concerns or symptoms please call the oncology nurse line for recommendations. Please follow-up with your infusion on Tuesday. Call them to see if you need your infusion sooner if your symptoms are worsening or if you have further concerns. [facility] Work Phone: 11-06-2024 History of Present illness Narrative Radiation Oncology Nursing Note Pain: The patient's current pain level was assessed. They report currently having a pain of 8 out of 10. They feel their pain is under control with the use of pain medications. Review of Systems: Review of Systems Constitutional: Positive for fatigue. HENT: Positive for sore throat. Teeth extraction Eyes: Positive for eye problems. Glasses at baseline Respiratory: Negative. Sinus tumor Cardiovascular: Negative. Gastrointestinal: Positive for constipation. Endocrine: Negative. Genitourinary: Negative. Musculoskeletal: Negative. Skin: Negative. Neurological: Negative. Hematological: Negative. Psychiatric/Behavioral: Negative. Radiation Oncology Follow-Up Patient Name: Arline Krueger : 1980 Referring Provider: Ej Martinez MD Primary Care Provider: Torie Diego Care Team: Patient Care Team: Torie Diego as PCP - General Rambo Ramon MD as Referring Physician (Otolaryngology) Macrina Montano MD as Radiation Oncologist (Radiation Oncology) Sunny Cruz MD as Consulting Physician (Hematology and Oncology) VALENCIA Triplett as Ex Chef (Stamp Analyst) Date of Service: 11/06/2024 SUBJECTIVE History of Present Illness: Arline Krueger is a 44 y.o. 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 She treated it with amoxicillin without improvement. 08/29/24: Dr. Martinez did nasal endoscopy with biopsy of hard palate demonstrating invasive keratinizing SCC 09/11/24: CT showed 5 cm/6 cm heterogeneous mass in the left nasal fossa and maxillary sinus with extension to the floor of the left orbit. Extension to the left maxillary sinus including a 4 cm nodule which extends through the anterolateral wall of the left maxillary sinus presenting in the left alignment technician space adjacent to the left zygomatic arch. There is extension to the posterior recesses of the left maxillary sinus with extension to the pterygoid palatine fissure, pterygoid palatine fossa, alignment technician space and pterygoid muscles. Thickening and expansion of the left cavernous sinus suggesting perineural extension through the foramen ovale. There is extension medially and inferiorly into the hard palate crossing the midline and presenting in the right nasal fossa & extension into the adjacent oral cavity on the [id number]-right. 09/18/24: MRI showed: 5 cm x 6 cm x 7 cm mass which likely arises in the left maxillary sinus. Extension through the anterior and lateral left maxillary sinus wall with presentation of a 1.5 cm x 3 cm tumor nodule through the left zygomatic arch presenting in the prezygomatic fat and extending to the skin surface. Additionally, extension through the anterior margin of the left maxillary sinus--There is extension along the maxillary division of the right trigeminal nerve (V2) and mandibular division of the right trigeminal nerve (V3) posteriorly to the left cavernous sinus where a 5 mm x 10 mm tumor nodule is present in the left cavernous sinus. There is extension to the pterygoid palatine fissure and pterygoid palatine fossa There is extension into the left parapharyngeal space wearing 3 cm nodule extends to the medial aspect of the left mandible and into the left temporomandibular joint There are postobstructive changes in the left middle ear and mastoid air cells. There is extension into the pterygoid recess of the left sphenoid sinus where a 1.5 cm x 1 cm nodule is present. Extension to the floor of the left orbit with suspected extension to the inferior rectus muscle; no evidence of extension to the left orbital apex. There is extension to the left hard palate and left soft palate. There is abundant bilateral cervical adenopathy with larger and more numerous lymph nodes on the left than the right. 09/18/24: PET: additionally demonstrated PET avid Left level 2 cervical lymph nodes, consistent with max metastases and right level II and left submental lymph node are also highly suspicious for max metastases. FDG avid lytic changes involving the left C1 vertebral body, is suggestive of an osseous metastases & FDG avid right upper lobe pulmonary nodule, is concerning for a site of lung metastases. 09/18/24: Saw Dr. Cruz--will begin induction chemo next week with with cisplatin (75 mg/m2)/docetaxel (75mg/m2)/pembrolizumab. Added Tempus xT NGS to better characterize malignancy - 09/25/24: Start Cycle 1 cisplatin (60 mg/m2), docetaxel (75 mg/m2), pembro to commence today. G-CSF support - 10/02/24: 1L NS for hydration. - 10/16/24: Doing well with treatment. Decreasing need for pain meds (refilled morphine 30BID). Will add dulcolax for constipation. Soft BP, will give fluids with treatment. No infectious sxs. To date, has received two cycles of chemoimmunotherapy and a third dose of pembro alone today. Reimaging studies were performed with MR sinuses and CT neck on 11/05. Findings revealed: CT neck IMPRESSION: 1. Interval decrease in size of heterogeneously enhancing lesion arising within left maxillary sinus. Non enhancing soft tissue thickening/edematous changes are seen within left maxillary sinus, left alignment technician space, left pterygopalatine fossa, pterygoid muscles and soft palate when compared to prior CT 09/11/2024, likely posttherapy. No residual measurable mass appreciated. 2. Interval decreased with persistent enlarged necrotic bilateral cervical (left more than right) lymph nodes as detailed above, consistent with treatment response but persistent disease. 3. Stable erosive changes involving left maxillary sinus swanson, left pterygoid plate, left zygomatic arch and floor of left wall orbit when compared to prior. MRI sinuses IMPRESSION: 1. 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 Altered signal intensity with mild post contrast enhancement seen involving left parapharyngeal and alignment technician space with extensions as described, likely posttherapy changes. No measurable enhancing lesion seen. 2. Persistent abnormal appearance but interval decrease in size of cervical lymph nodes at level 2 and 3 bilaterally (left more than right), consistent with treatment response. 3. Status post extraction multiple left mandibular dentition. Edema/enhancement within the left mandibular body may represent a combination of postsurgical and posttreatment change. Currently, the patient is doing well. She reports huge improvement in previous facial pain and L WILLIAMSON after first dose of chemoimmuno. She just had dental extractions at [facility] earlier this week. Eating without difficulty. Treatment Rendered: No radiation treatments to show. (Treatments may have been administered in another system.) Review of Systems: Review of Systems - Oncology Performance Status: The Karnofsky performance scale today is 80, Normal activity with effort; some signs or symptoms of disease (ECOG equivalent 1). OBJECTIVE Vital Signs: BP 114/80 Pulse 88 Temp 36.7 C (98.1 F) (Temporal) Resp 18 Wt (!) 44.4 kg (97 lb 14.2 oz) SpO2 99% BMI 16.41 kg/m Physical Exam Constitutional: General: Patient is not in acute distress. HEENT: Decreased swelling of left cheek up to ear compared to previous Dental extraction sites with sutures in place and healing with no exposed bone Decreased size of prev enlarged LN in bilateral neck Cardiovascular: Rate and Rhythm: Normal rate and regular rhythm. Pulmonary: Effort: Pulmonary effort is normal. No respiratory distress. Breath sounds: Normal breath sounds. Abdominal: General: Abdomen is flat. Bowel sounds are normal. There is no distension. Palpations: Abdomen is soft. Skin: General: Skin is warm and dry. No lesions visualized. Neurological: General: No focal deficit present. Mental Status: alert and oriented to person, place, and time. Psychiatric: Mood and Affect: Mood normal. Behavior: Behavior normal. Thought Content: Thought content normal. Extremities: No cyanosis, clubbing or edema Fiberoptic Nasal endoscopy: previously seen tumor has largely resolved. There is slight prominence of maxilla along alveolar ridge on L side up to incisor, also along hard palate, crosses midline into retromolar trigone on L Complete resolution in nares of tumor that was previously seen on R side in the nasal cavity attached to the turbinate; no findings in L nares Nasopharynx: Scant areas of dry mucous. There are no noted lesions in the nasopharynx. . The mucosal surface of nasopharynx is clear without appreciated masses. The nasopharyngeal surface of the palate has no abnormal lesions. Mucosal lining appears dry throughout. Oropharynx: The tonsillar fossa appears normal bilaterally. The tongue base and vallecula show no lesions. The lingual surface of the epiglottis is normal. The oropharynx is clear of any masses. Larynx: The laryngeal surface of epiglottis, the aryepiglottic folds, the false cords, and the arytenoids are clear of any lesions. The vocal cords have normal mobility and there are no noted lesions. There are no lesions noted in the subglottis. Hypopharynx: The hypopharynx appears normal. There are no noted lesions in the pyriform sinus or postcricoid area. Scope was removed. The patient tolerated the procedure well. ASSESSMENT: Arline Krueger is a 44 y.o. 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 Induction chemotherapy and immunotherapy has achieved goal in shrinking tumor that extended to the cavernous sinus and the inferior orbital wall, as well as to treat the metastatic sites. Given she has had a good response to systemic therapy, she would be a good candidate for consolidation chemoradiation to the head and neck as well as two sites of metastatic disease to potentially improve disease free and overall survival per the SABR-COMET trial (Garcia, Lancet, 2019). In addition, definitive INSTALLATION ENGINEER to the head and neck has the potential to signficantly improve quality of life by offering halfway control of tumor that is invading the orbit and cavernous sinus. We discussed the short-term side effects and risks of radiation treatment, which include, but are not limited to, fatigue, mucositis, dysphagia, odynophagia, xerostomia, dermatitis, loss of taste, thick saliva, and need to alter diet to soft foods and/or liquids, thick saliva. The majority of these side effects resolve within weeks to months of finishing RT. There is a risk of difficulty of pain with swallowing in the short and/or termination clerk that could require a temporary or permanent feeding tube. In the long-term, there is a risk for persistent or permanent side effects which could include neck fibrosis, trismus, osteoradionecrosis, hypothyroidism, carotid artery stenosis, neck swelling, hypopituitarism, as well as a small risk of damage to her vision. We discussed that there are many proactive strategies we use to prevent these side effects and/or mitigate their severity should they develop. The patient demonstrated understanding and all questions were answered to satisfaction. Plan: -referral to speech and language pathology for baseline assessment of swallowing function and to give propylactic exercises to prevent RT-related dysfunction -underwent CT simulation scan to plan RT concurrent with chemo to the head and neck NCCN Guidelines were applicable to guide this patients treatment plan. Macrina Montano MD documented in this encounter [facility] Work Phone: 11-06-2024 History of Present illness Narrative Images from the original note were not included. Patient ID: Arline Krueger is a 44 y.o. female Primary Care Provider: Torie Diego DIAGNOSIS AND STAGING Diagnosis: L maxillary sinus squamous cell carcinoma Date of Diagnosis: 08/29/2024 Providers: ENT Surgeon[facility] Mac[facility]: Dr. Sunny Cruz SITES OF DISEASE L maxillary sinus/hard palate C spine Cavitary lesion of R lung MOLECULAR GENOMICS Tempus xT requested PRIOR THERAPIES CURRENT THERAPY 09/25/24: Started Induction chemo with Cisplatin (60 mg/m2)/Docetaxel (75mg/m2)/Pembrolizumab CURRENT ONCOLOGICAL PROBLEMS Pain Odynophagia Weight loss HISTORY OF PRESENT ILLNESS Arline Krueger is a 44 y.o. year old female patient without PMH seen as initial consultation for L maxillary sinus squamous cell carcinoma. She initially noted what she thought was a tooth abscess in L mouth. She treated it with amoxicillin without improvement. She was then seen by Dr. Rambo Ramon and subsequently referred to Dr. Martinez for evaluation. She underwent nasal endoscopy on 08/29 demonstrating: FINAL DIAGNOSIS A. 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 She presented for initial medical oncology consultation 09/1109/11/2024 CT of the neck demonstrated primary neoplasm arising in the left nasal fossa or left maxillary sinus w/ extensive involvement of the left orbit, left maxillary sinus, left cavernous sinus, hard palate and oral cavity. Also visualized bilateral suprahyoid adenopathy. 09/18/2024 Underwent PET-CT, MRI sinuses. Patient met with radiation-oncology. PAST MEDICAL HISTORY None SURGICAL HISTORY None SOCIAL HISTORY Born near [place], lives in [place] with mother Alfredo also nearby. 3 kids (24 , 23 in [place], 20). 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 Prior EtOH use, quit 2 years ago. Enjoys cooking for her family - favorite meal is lasagna + fried chicken with sweet potato pie. FAMILY HISTORY Daughter of sarcoma CURRENT MEDS REVIEWED Current Outpatient Medications Medication Instructions bisacodyl (DULCOLAX) 5 mg, oral, Daily PRN, Do not crush, chew, or split. dexAMETHasone (DECADRON) 8 mg, oral, Daily, For 3 days starting the day after treatment. loratadine (CLARITIN) 10 mg, oral, Daily morphine CR (MS CONTIN) 30 mg, oral, 2 times daily, Do not crush, chew, or split. Mucus Relief ER 1,200 mg, oral, 2 times daily, Do not crush, chew, or split. naloxone (NARCAN) 4 mg, nasal, As needed, May repeat every 2-3 minutes if needed, alternating nostrils, until medical assistance becomes available. naloxone (NARCAN) 4 mg, nasal, As needed, May repeat every 2-3 minutes if needed, alternating nostrils, until medical assistance becomes available. OLANZapine (ZYPREXA) 5 mg, oral, Nightly, For 4 days starting the evening of treatment. ondansetron (ZOFRAN) 8 mg, oral, Every 8 hours PRN ondansetron ODT (ZOFRAN-ODT) 8 mg, oral, Every 8 hours PRN oxyCODONE (ROXICODONE) 10 mg, oral, Every 6 hours PRN prochlorperazine (COMPAZINE) 10 mg, oral, Every 6 hours PRN ALLERGIES REVIEWED RX Allergies[1] Subjective Interval History Patient presents for C3 Cisplatin/Docetaxel/Pembrolizumab . She had full upper dental extraction on 10/30. She was started on 2 weeks of abx, and still has 1 week left. As a result of pain from her dental extractions she has not been eating as much and has a little weight loss. She reports pain in the left neck that radiates up to her left ear. Has improved left facial numbness.Numbness is now only localized to above her left upper lip. She reports hard stools, taking Bisacodyl 5mg daily, Miralax every 3 days or so. Pain is well managed on Morphine ER to 30mg BID. Taking Oxy 10mg Q4-6hr PRN for pain spikes which is occurring less frequently. She notes improvement in hearing in her left ear. She's eating everything by mouth, tolerating soft foods. Still drinking Ensure max protein TID Review of Systems Constitutional: Negative for chills and fever. HENT: Positive for lump/mass. Negative for hearing loss. Respiratory: Negative for cough and shortness of breath. Cardiovascular: Negative for chest pain and leg swelling. Gastrointestinal: Negative for abdominal pain, constipation, diarrhea, nausea and vomiting. Musculoskeletal: Negative for arthralgias. Skin: Negative for rash. Neurological: Negative for headaches, light-headedness and numbness. Objective VS: BP 101/73 Pulse 94 Temp 37 C (98.6 F) (Core) Resp 16 Wt (!) 42.7 kg (94 lb 2.2 oz) SpO2 99% BMI 15.78 kg/m Body surface area is 1.4 meters squared. Wt Readings from Last 5 Encounters: 11/06/24 (!) 42.7 kg (94 lb 2.2 oz) 10/23/24 (!) 43 kg (94 lb 14.4 oz) 10/16/24 (!) 44.9 kg (99 lb) 10/16/24 (!) 44.9 kg (99 lb) 10/09/24 (!) 45 kg (99 lb 3.2 oz) ECOG SCORE: 1 Physical Exam Vitals reviewed. Constitutional: Appearance: Normal appearance. She is well-developed. HENT: Head: Normocephalic and atraumatic. Comments: Mild swelling in the left side of face. Right Ear: External ear normal. No tenderness. Left Ear: External ear normal. No tenderness. Nose: Nose normal. Mouth/Throat: Lips: [place]. Mouth: Mucous membranes are moist. No oral lesions. Tongue: No lesions. Comments: S/p full upper dental extraction Eyes: General: Lids are normal. Extraocular Movements: Extraocular movements intact. Conjunctiva/sclera: Conjunctivae normal. Pupils: Pupils are equal, round, and reactive to light. Neck: Thyroid: No thyroid mass. Comments: Tender to palpation of left neck Cardiovascular: Rate and Rhythm: Normal rate and regular rhythm. Pulses: Normal pulses. Heart sounds: No murmur heard. No gallop. Pulmonary: Effort: Pulmonary effort is normal. No respiratory distress. Breath sounds: Normal breath sounds and air entry. Abdominal: General: Abdomen is flat. Bowel sounds are normal. Palpations: Abdomen is soft. There is no mass. Tenderness: There is no abdominal tenderness. Musculoskeletal: General: Normal range of motion. Cervical back: Normal range of motion and neck supple. Normal range of motion. Right lower leg: No edema. Left lower leg: No edema. Lymphadenopathy: Cervical: No cervical adenopathy. Skin: General: Skin is warm and dry. Neurological: General: No focal deficit present. Mental Status: She is alert and oriented to person, place, and time. Mental status is at baseline. Gait: Gait is intact. Psychiatric: Attention and Perception: Attention normal. Mood and Affect: Mood and affect normal. Behavior: Behavior is cooperative. Diagnostic Results Labs: The below labs were reviewed. Leukocytosis likely 2ry to GCSF Lab Results Component Value Date WBC 15.5 (H) 11/06/2024 HGB 11.0 (L) 11/06/2024 HCT 34.5 (L) 11/06/2024 MCV 85 11/06/2024 PLT 505 (H) 11/06/2024 Lab Results Component Value Date NEUTROABS 13.00 (H) 11/06/2024 Lab Results Component Value Date GLUCOSE 87 11/06/2024 CALCIUM 9.8 11/06/2024 NA 136 11/06/2024 K 4.0 11/06/2024 CO2 28 11/06/2024 CL 97 (L) 11/06/2024 BUN 16 11/06/2024 CREATININE 0.66 11/06/2024 MG 1.52 (L) 11/06/2024 Lab Results Component Value Date ALT 13 11/06/2024 AST 23 11/06/2024 ALKPHOS 69 11/06/2024 BILITOT 0.5 11/06/2024 Lab Results Component Value Date ACTH 5.1 (L) 10/16/2024 CORTISOL 22.6 (H) 11/06/2024 TSH 0.25 (L) 11/06/2024 FREET4 1.13 11/06/2024 IMAGES 09/11/2024 CT soft tissue neck w contrast IMPRESSION: *Primary neoplasm likely arising in the left nasal fossa or left maxillary sinus with extensive involvement of the left orbit, left maxillary sinus, left cavernous sinus, hard palate and oral cavity *Bilateral suprahyoid adenopathy as described. 09/18/[address] FDG ONCOLOGY - Impression - 1. FDG avid large heterogeneous mass likely arising in the left nasal fossa or left maxillary sinus is a site of biopsy-proven squamous cell carcinoma. 2. Left level 2 cervical lymph nodes are consistent with max metastases. Right level II and left submental lymph node are also highly suspicious for max metastases. 3. FDG avid lytic changes involving the left C1 vertebral body, is suggestive of an osseous metastases. 4. FDG avid right upper lobe pulmonary nodule, is concerning for a site of lung metastases. Assessment/Plan No matching staging information was found for the patient. Arline Krueger is a 44 y.o. year old female patient without PMH seen as follow up for L maxillary sinus squamous cell carcinoma. She is undergoing systemic imaging and will be seen by my radiation colleague Dr. Montano. She was initially thought to be candidate for induction systemic therapy with cisplatin/docetaxel/pembro modeling https://www.nature.com/articles/s 53921-492-54150-c 11/06/24: Patient began treatment w/ Cis/Doce/Pembro on 09/25/24 and tolerated first 2 cycles well without n/v/c/d. Left facial swelling, pain, and neuropathy are all improved. Her 11/05/24 MR Sinus and showed significant shrinkage in the left maxillary mass. She had full upper dental extraction on 10/30 and is healing well. We discussed that we will proceed w/ just Pembro today so she can recover and be in better shape for chemoRT in a few weeks. 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 - 09/18/24 seen by Rad-onc, plan to treat oligometastatically - 09/25/24: Start Cycle 1 cisplatin (60 mg/m2), docetaxel (75 mg/m2), pembro. G-CSF support - 11/05/[address] Neck showed decrease in size of left maxillary mass. Proceed to C3 with Pembro only today. CT Sim after chemo. #Cancer-related Pain - MS contin 30mg BID, Oxycodone 10mg Q4-6hr PRN. Pain well controlled. Refilled MS Contin today. [1] No Known Allergies Patient is here for a follow up with July Ortiz Pa-C. She is doing okay. Had a tooth pulled last week which is causing her some pain. July murdock. documented in this encounter [facility] Work Phone: 10-23-2024 History of Present illness Narrative Images from the original note were not included. Patient ID: Arline Krueger is a 44 y.o. female Primary Care Provider: Torie Diego DIAGNOSIS AND STAGING Diagnosis: L maxillary sinus squamous cell carcinoma Date of Diagnosis: 08/29/2024 Providers: ENT Surgeon: Dr. Ej Beltran: Dr. Macrina Bueno: Dr. Sunny Cruz SITES OF DISEASE L maxillary sinus/hard palate C spine Cavitary lesion of R lung MOLECULAR GENOMICS Tempus xT requested PRIOR THERAPIES CURRENT THERAPY 09/25/24: Started Induction chemo with Cisplatin (60 mg/m2)/Docetaxel (75mg/m2)/Pembrolizumab CURRENT ONCOLOGICAL PROBLEMS Pain Odynophagia Weight loss HISTORY OF PRESENT ILLNESS Arline Krueger is a 44 y.o. year old female patient without PMH seen as initial consultation for L maxillary sinus squamous cell carcinoma. She initially noted what she thought was a tooth abscess in L mouth. She treated it with amoxicillin without improvement. She was then seen by Dr. Rambo Ramon and subsequently referred to Dr. Martinez for evaluation. She underwent nasal endoscopy on 08/29 demonstrating: FINAL DIAGNOSIS A. 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 She presented for initial medical oncology consultation 09/1109/11/2024 CT of the neck demonstrated primary neoplasm arising in the left nasal fossa or left maxillary sinus w/ extensive involvement of the left orbit, left maxillary sinus, left cavernous sinus, hard palate and oral cavity. Also visualized bilateral suprahyoid adenopathy. 09/18/2024 Underwent PET-CT, MRI sinuses. Patient met with radiation-oncology. PAST MEDICAL HISTORY None SURGICAL HISTORY None SOCIAL HISTORY Born near [place], lives in [place] with mother Alfredo also nearby. 3 kids (24 , 23 in [place], 20). 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 Prior EtOH use, quit 2 years ago. Enjoys cooking for her family - favorite meal is lasagna + fried chicken with sweet potato pie. FAMILY HISTORY Daughter of sarcoma CURRENT MEDS REVIEWED Current Outpatient Medications Medication Instructions bisacodyl (DULCOLAX) 5 mg, oral, Daily PRN, Do not crush, chew, or split. dexAMETHasone (DECADRON) 8 mg, oral, Daily, For 3 days starting the day after treatment. loratadine (CLARITIN) 10 mg, oral, Daily morphine CR (MS CONTIN) 30 mg, oral, 2 times daily, Do not crush, chew, or split. Mucus Relief ER 1,200 mg, oral, 2 times daily, Do not crush, chew, or split. naloxone (NARCAN) 4 mg, nasal, As needed, May repeat every 2-3 minutes if needed, alternating nostrils, until medical assistance becomes available. naloxone (NARCAN) 4 mg, nasal, As needed, May repeat every 2-3 minutes if needed, alternating nostrils, until medical assistance becomes available. OLANZapine (ZYPREXA) 5 mg, oral, Nightly, For 4 days starting the evening of treatment. ondansetron (ZOFRAN) 8 mg, oral, Every 8 hours PRN ondansetron ODT (ZOFRAN-ODT) 8 mg, oral, Every 8 hours PRN oxyCODONE (ROXICODONE) 10 mg, oral, Every 6 hours PRN prochlorperazine (COMPAZINE) 10 mg, oral, Every 6 hours PRN ALLERGIES REVIEWED RX Allergies[1] Subjective Interval History Patient presents for tox check following C2 Cisplatin/Docetaxel/Pembrolizumab . Patient continue to feel better this week with decreasing swelling in her left side of face and better pain control. Pain is well managed on Morphine ER to 30mg BID. Taking Oxy 10mg Q4-6hr PRN for pain spikes which is occurring less frequently. Her left facial numbness is also improved. Numbness is now only localized to above her left upper lip. She notes improvement in hearing in her left ear. Denies n/v/d/c. She's eating everything by mouth, tolerating soft foods. Still drinking Ensure max protein TID Review of Systems Constitutional: Negative for chills and fever. HENT: Positive for lump/mass. Negative for hearing loss. Respiratory: Negative for cough and shortness of breath. Cardiovascular: Negative for chest pain and leg swelling. Gastrointestinal: Negative for abdominal pain, constipation, diarrhea, nausea and vomiting. Musculoskeletal: Negative for arthralgias. Skin: Negative for rash. Neurological: Negative for headaches, light-headedness and numbness. Objective VS: BP 102/72 (BP Location: Right arm, Patient Position: Sitting, BP Cuff Size: Small adult) Pulse 97 Temp 37.1 C (98.8 F) (Temporal) Wt (!) 43 kg (94 lb 14.4 oz) SpO2 97% BMI 15.91 kg/m Body surface area is 1.4 meters squared. Wt Readings from Last 5 Encounters: 10/23/24 (!) 43 kg (94 lb 14.4 oz) 10/16/24 (!) 44.9 kg (99 lb) 10/16/24 (!) 44.9 kg (99 lb) 10/09/24 (!) 45 kg (99 lb 3.2 oz) 10/02/24 (!) 43.5 kg (95 lb 14.4 oz) ECOG SCORE: 1 Physical Exam Vitals reviewed. Constitutional: Appearance: Normal appearance. She is well-developed. HENT: Head: Normocephalic and atraumatic. Comments: large exophytic mass over the left maxilla. Swelling in the left side of face. There's an area of firmness in the left cheek. Right Ear: External ear normal. No tenderness. Left Ear: External ear normal. No tenderness. Nose: Nose normal. Mouth/Throat: Lips: [place]. Mouth: Mucous membranes are moist. No oral lesions. Tongue: No lesions. Eyes: General: Lids are normal. Extraocular Movements: Extraocular movements intact. Conjunctiva/sclera: Conjunctivae normal. Pupils: Pupils are equal, round, and reactive to light. Neck: Thyroid: No thyroid mass. Cardiovascular: Rate and Rhythm: Normal rate and regular rhythm. Pulses: Normal pulses. Heart sounds: No murmur heard. No gallop. Pulmonary: Effort: Pulmonary effort is normal. No respiratory distress. Breath sounds: Normal breath sounds and air entry. Abdominal: General: Abdomen is flat. Bowel sounds are normal. Palpations: Abdomen is soft. There is no mass. Tenderness: There is no abdominal tenderness. Musculoskeletal: General: Normal range of motion. Cervical back: Normal range of motion and neck supple. Normal range of motion. Right lower leg: No edema. Left lower leg: No edema. Lymphadenopathy: Cervical: No cervical adenopathy. Skin: General: Skin is warm and dry. Neurological: General: No focal deficit present. Mental Status: She is alert and oriented to person, place, and time. Mental status is at baseline. Gait: Gait is intact. Psychiatric: Attention and Perception: Attention normal. Mood and Affect: Mood and affect normal. Behavior: Behavior is cooperative. Diagnostic Results Labs: The below labs were reviewed. Leukocytosis likely 2ry to GCSF Lab Results Component Value Date WBC 19.8 (H) 10/23/2024 HGB 10.5 (L) 10/23/2024 HCT 33.5 (L) 10/23/2024 MCV 86 10/23/2024 PLT 479 (H) 10/23/2024 Lab Results Component Value Date NEUTROABS 10.49 (H) 10/16/2024 Lab Results Component Value Date GLUCOSE 72 (L) 10/16/2024 CALCIUM 9.6 10/16/2024 NA 139 10/16/2024 K 4.2 10/16/2024 CO2 30 10/16/2024 CL 101 10/16/2024 BUN 11 10/16/2024 CREATININE 0.69 10/16/2024 MG 1.68 10/16/2024 Lab Results Component Value Date ALT 11 10/16/2024 AST 15 10/16/2024 ALKPHOS 77 10/16/2024 BILITOT 0.2 10/16/2024 Lab Results Component Value Date ACTH 5.1 (L) 10/16/2024 CORTISOL 8.3 10/16/2024 TSH 0.71 10/16/2024 FREET4 1.18 09/25/2024 IMAGES 09/11/2024 CT soft tissue neck w contrast IMPRESSION: *Primary neoplasm likely arising in the left nasal fossa or left maxillary sinus with extensive involvement of the left orbit, left maxillary sinus, left cavernous sinus, hard palate and oral cavity *Bilateral suprahyoid adenopathy as described. 09/18/[address] FDG ONCOLOGY - Impression - 1. FDG avid large heterogeneous mass likely arising in the left nasal fossa or left maxillary sinus is a site of biopsy-proven squamous cell carcinoma. 2. Left level 2 cervical lymph nodes are consistent with max metastases. Right level II and left submental lymph node are also highly suspicious for max metastases. 3. FDG avid lytic changes involving the left C1 vertebral body, is suggestive of an osseous metastases. 4. FDG avid right upper lobe pulmonary nodule, is concerning for a site of lung metastases. Assessment/Plan No matching staging information was found for the patient. Arline Krueger is a 44 y.o. year old female patient without PMH seen as follow up for L maxillary sinus squamous cell carcinoma. She is undergoing systemic imaging and will be seen by my radiation colleague Dr. Montano. She was initially thought to be candidate for induction systemic therapy with cisplatin/docetaxel/pembro modeling https://www.nature.com/articles/s 21247-252-33785-z 10/23/24: Began treatment w/ Cis/Doce/Pembro on 09/25/24 and tolerated first 2 cycles well without n/v/c/d. Left facial swelling, pain, and neuropathy are all improved. She requires Oxycodone less frequently for breakthrough pain. She will be meeting with [facility] oral surgeon on 10/25 for extraction of multiple broken/decayed teeth. 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 - 09/18/24 seen by Rad-onc, plan to treat oligometastatically - 09/25/24: Start Cycle 1 cisplatin (60 mg/m2), docetaxel (75 mg/m2), pembro. G-CSF support - IVF for hydration today, planning for MRI Sinus and CT Neck prior to C3 Cis/Doce/Pembro on 11/06 #Cancer-related Pain - MS contin 30mg BID, Oxycodone 10mg Q4-6hr PRN [1] No Known Allergies Patient is here for a follow up with July Ortiz Pa-C. Patient states she is doing good, a lot more energy and eating well. She does state she is having pain on her left side of her face 10/21. She said she has a cut on her cheek and she is seeing a dentist on . July is aware. documented in this encounter [facility] Work Phone: 10-23-2024 Instructions Sidra Ortiz PA-C - 10/23/2024 10:00 AM EDT We will plan to get a MRI and CT Neck BEFORE your 3rd cycle. Please call [phone] to schedule your MRI and CT Neck. Encourage increasing oral intake. Continue to drink your shakes! documented in this encounter [facility] Work Phone: 10-16-2024 History of Present illness Narrative Patient ID: Arline Krueger is a 44 y.o. female Primary Care Provider: Torie Diego Providers: ENT Surgeon: Dr. Ej WatermanOnc: [facility]. Macrina [facility]ano [facility] Dr. Sunny Cruz SITES OF DISEASE L maxillary sinus/hard palate C spine Cavitary lesion of R lung [facility]LECULAR GENOMICS [facility] 16-Oct-[facility]24 07:17PM by Sunny Cruz Test Name: [place] [facility] (XT.V4) Laboratory Name: [facility] Specimen Source: Hard palate, left Collection Date: 29-Aug-2024 Cancer Type: Invasive keratinizing squamous cell carcinoma Report Id: [id number] Result Interpretation: * No potentially actionable variants and no reportable treatment options found. * Lab Notes: Tumor Percentage: 40% * Germline Notes: No normal sample was received, therefore tumor/normal matched analysis was not performed. * Treatment Notes: No reportable treatment options found. Molecular Findings: * Gene: TP53, Variant: Missense variant - LOF, Biologically Relevant, [id number] (Allele Frequency - 40.8%) * Gene: NF1, Variant: Inframe deletion - LOF, Biologically Relevant, [id number]* (Allele Frequency - 35.7%) * Gene: PBRM1, Variant: Splice region variant - LOF, Biologically Relevant, [id number], Splice Site (Allele Frequency - 7.6%) * Gene: MCL1, Variant: Amplification, Copy number gain, Biologically Relevant * Biomarker: Microsatellite Instability, Status: stable * Biomarker: Tumor Mutation [place] (Value: 5.8 Muts/Mb, Percentile: 64) * 10 variants of unknown significance End of copied information PRIOR THERAPIES CURRENT THERAPY 09/25/24: Cycle 1 Induction chemo with Cisplatin (60 mg/m2)/Docetaxel (75mg/m2)/Pembrolizumab CURRENT ONCOLOGICAL PROBLEMS Pain Odynophagia Weight loss HISTORY OF PRESENT ILLNESS Arline Krueger is a 44 y.o. year old female patient without PMH seen as initial consultation for L maxillary sinus squamous cell carcinoma. She initially noted what she thought was a tooth abscess in L mouth. She treated it with amoxicillin without improvement. She was then seen by Dr. Rambo Ramon and subsequently referred to Dr. Martinez for evaluation. She underwent nasal endoscopy on 08/29 demonstrating: FINAL DIAGNOSIS A. 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 She presented for initial medical oncology consultation 09/1109/11/2024 CT of the neck demonstrated primary neoplasm arising in the left nasal fossa or left maxillary sinus w/ extensive involvement of the left orbit, left maxillary sinus, left cavernous sinus, hard palate and oral cavity. Also visualized bilateral suprahyoid adenopathy. 09/18/2024 Underwent PET-CT, MRI sinuses. Patient met with radiation-oncology. PAST MEDICAL HISTORY None SURGICAL HISTORY None SOCIAL HISTORY Born near [place], lives in [place] with mother Alfredo also nearby. 3 kids (24 , 23 in [place], 20). 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 Prior EtOH use, quit 2 years ago. Enjoys cooking for her family - favorite meal is lasagna + fried chicken with sweet potato pie. FAMILY HISTORY Daughter of sarcoma CURRENT ONCOLOGICAL PROBLEMS L maxillary sinus squamous cell carcinoma Pain Constipation Interval History Ms. Krueger reports feeling better overall. Pain: better -morphine 30 BID and oxy almost once or twice/day. Hearing in L ear is improving. Still has numbness in left facial area but improving in severity. She feels she's still eating ok, can eat soft foods but having trouble finding soft foods to eat. Continues to drink Boost VHC TID. Reports constipation (Q 2-3 days). Denies fever, chills, chest pain, abdominal pain, or urinary sxs., OBJECTIVE: Vitals: 10/16/24 0911 BP: 89/59 Pulse: 65 Resp: 16 Temp: 36.9 C (98.4 F) SpO2: 100% There is no height or weight on file to calculate BSA. Wt Readings from Last 5 Encounters: 10/16/24 (!) 44.9 kg (99 lb) 10/09/24 (!) 45 kg (99 lb 3.2 oz) 10/02/24 (!) 43.5 kg (95 lb 14.4 oz) 09/25/24 (!) 44.3 kg (97 lb 9.6 oz) 09/25/24 (!) 44.3 kg (97 lb 9.6 oz) Physical exam: Physical Exam Constitutional: General: She is not in acute distress. Appearance: She is not ill-appearing. HENT: Head: Comments: Decreased swelling of left facial/neck area Cardiovascular: Rate and Rhythm: Normal rate and regular rhythm. Heart sounds: No murmur heard. Pulmonary: Effort: Pulmonary effort is normal. No respiratory distress. Breath sounds: No wheezing or rales. Abdominal: General: Abdomen is flat. There is no distension. Tenderness: There is no abdominal tenderness. There is no guarding. Skin: General: Skin is warm. Neurological: General: No focal deficit present. Mental Status: She is alert and oriented to person, place, and time. ECOGSCORE: 1- Restricted in physically strenuous activity. Carries out light duty. Diagnostic Results Results: Labs: Lab Results Component Value Date WBC 13.3 (H) 10/16/2024 HGB 10.1 (L) 10/16/2024 HCT 33.0 (L) 10/16/2024 MCV 89 10/16/2024 PLT 621 (H) 10/16/2024 Lab Results Component Value Date NEUTROABS 10.49 (H) 10/16/2024 Lab Results Component Value Date GLUCOSE 72 (L) 10/16/2024 CALCIUM 9.6 10/16/2024 NA 139 10/16/2024 K 4.2 10/16/2024 CO2 30 10/16/2024 CL 101 10/16/2024 BUN 11 10/16/2024 CREATININE 0.69 10/16/2024 MG 1.68 10/16/2024 Lab Results Component Value Date ALT 11 10/16/2024 AST 15 10/16/2024 ALKPHOS 77 10/16/2024 BILITOT 0.2 10/16/2024 Lab Results Component Value Date ACTH 46.0 09/25/2024 CORTISOL 8.3 10/16/2024 TSH 0.71 10/16/2024 FREET4 1.18 09/25/2024 No images are attached to the encounter or orders placed in the encounter. Assessment/Plan Arline Krueger is a 44 y.o. year old female patient without PMH seen as follow up for L maxillary sinus squamous cell carcinoma. She is undergoing systemic imaging and will be seen by my radiation colleague Dr. Montano. She was initially thought to be candidate for induction systemic therapy with cisplatin/docetaxel/pembro modeling https://www.nature.com/articles/s 20765-604-57948-i We will continue induction and refer back to radiation for CCRT and SBRT to oligometastatic lesions. 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 - 09/18 seen by Rad-onc, plan to treat oligometastatically - 09/25/24: Start Cycle 1 cisplatin (60 mg/m2), docetaxel (75 mg/m2), pembro to commence today. G-CSF support - 10/02/24: 1L NS for hydration. - 10/16/24: Doing well with treatment. Decreasing need for pain meds (refilled morphine 30BID). Will add dulcolax for constipation. Soft BP, will give fluids with treatment. No infectious sxs. #Cancer-related Pain - MS contin 30mg BID, Oxycodone 10mg Q4-6hr PRN #Constipation -Miralax and added dulcolax Pooja Yanez MD PGY-III Department of Internal Medicine And Sunny Cruz MD Thoracic + [facility] Medical Oncology [address] [place] [address] documented in this encounter [facility] Work Phone: 10-02-2024 History of Present illness Narrative Images from the original note were not included. Patient ID: Arline Krueger is a 44 y.o. female Primary Care Provider: Torie Diego DIAGNOSIS AND STAGING Diagnosis: L maxillary sinus squamous cell carcinoma Date of Diagnosis: 08/29/2024 Providers: ENT Surgeon: Dr. Ej Martinez [facility]: Dr. Macrina Montano [facility]: Dr. Sunny Cruz SITES OF DISEASE L maxillary sinus/hard palate C spine Cavitary lesion of R lung MOLECULAR GENOMICS [facility] xT requested PRIOR THERAPIES CURRENT THERAPY 09/25/24: Started Induction chemo with Cisplatin (60 mg/m2)/Docetaxel (75mg/m2)/Pembrolizumab CURRENT ONCOLOGICAL PROBLEMS Pain Odynophagia Weight loss HISTORY OF PRESENT ILLNESS Arline Krueger is a 44 y.o. year old female patient without PMH seen as initial consultation for L maxillary sinus squamous cell carcinoma. She initially noted what she thought was a tooth abscess in L mouth. She treated it with amoxicillin without improvement. She was then seen by Dr. Rambo Ramon and subsequently referred to Dr. Martinez for evaluation. She underwent nasal endoscopy on 08/29 demonstrating: FINAL DIAGNOSIS A. 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 She presented for initial medical oncology consultation 09/1109/11/2024 CT of the neck demonstrated primary neoplasm arising in the left nasal fossa or left maxillary sinus w/ extensive involvement of the left orbit, left maxillary sinus, left cavernous sinus, hard palate and oral cavity. Also visualized bilateral suprahyoid adenopathy. 09/18/2024 Underwent PET-CT, MRI sinuses. Patient met with radiation-oncology. PAST MEDICAL HISTORY None SURGICAL HISTORY None SOCIAL HISTORY Born near [place], lives in [place] with mother Alfredo also nearby. 3 kids (24 , 23 in [place], 20). 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 Prior EtOH use, quit 2 years ago. Enjoys cooking for her family - favorite meal is lasagna + fried chicken with sweet potato pie. FAMILY HISTORY Daughter of sarcoma CURRENT MEDS REVIEWED Current Outpatient Medications Medication Instructions dexAMETHasone (DECADRON) 8 mg, oral, Daily, For 3 days starting the day after treatment. morphine CR (MS CONTIN) 30 mg, oral, 2 times daily, Do not crush, chew, or split. Mucus Relief ER 1,200 mg, oral, 2 times daily, Do not crush, chew, or split. naloxone (NARCAN) 4 mg, nasal, As needed, May repeat every 2-3 minutes if needed, alternating nostrils, until medical assistance becomes available. naloxone (NARCAN) 4 mg, nasal, As needed, May repeat every 2-3 minutes if needed, alternating nostrils, until medical assistance becomes available. OLANZapine (ZYPREXA) 5 mg, oral, Nightly, For 4 days starting the evening of treatment. ondansetron (ZOFRAN) 8 mg, oral, Every 8 hours PRN ondansetron ODT (ZOFRAN-ODT) 8 mg, oral, Every 8 hours PRN oxyCODONE (ROXICODONE) 10 mg, oral, Every 6 hours PRN prochlorperazine (COMPAZINE) 10 mg, oral, Every 6 hours PRN ALLERGIES REVIEWED RX Allergies[1] Subjective Interval History Patient presents for tox check following C1 Cisplatin/Docetaxel/Pembrolizumab . Patient is feeling improved this week with decreased swelling in her left side of face and better pain control since increasing Morphine ER to 30mg BID on 09/28. She reports less pain spike throughout to day. Taking Oxy 10mg Q4-6hr PRN for pain spikes. Still can't hear from the left ear, denies any vision changes. She feels she's still eating ok, can eat soft foods but having trouble finding soft foods to eat. Has started to drink Boost VHC TID. Reports some dizziness/lightheadedness upon standing in the last couple month, not acutely worse since starting chemo. Review of Systems Constitutional: Negative for chills and fever. HENT: Positive for lump/mass. Negative for hearing loss. Respiratory: Negative for cough and shortness of breath. Cardiovascular: Negative for chest pain and leg swelling. Gastrointestinal: Negative for abdominal pain, constipation, diarrhea, nausea and vomiting. Musculoskeletal: Negative for arthralgias. Skin: Negative for rash. Neurological: Negative for headaches, light-headedness and numbness. Objective VS: BP 110/67 Pulse 90 Temp 37 C (98.6 F) (Core) Resp 16 Wt (!) 43.5 kg (95 lb 14.4 oz) SpO2 99% BMI 16.08 kg/m Body surface area is 1.41 meters squared. Wt Readings from Last 5 Encounters: 10/02/24 (!) 43.5 kg (95 lb 14.4 oz) 09/25/24 (!) 44.3 kg (97 lb 9.6 oz) 09/25/24 (!) 44.3 kg (97 lb 9.6 oz) 09/18/24 (!) 44.8 kg (98 lb 11.2 oz) 09/11/24 45.5 kg (100 lb 3.2 oz) ECOG SCORE: 1 Physical Exam Vitals reviewed. Constitutional: Appearance: Normal appearance. She is well-developed. HENT: Head: Normocephalic and atraumatic. Comments: large exophytic mass over the left maxilla. Swelling in the left side of face. There's an area of firmness in the left cheek. Right Ear: External ear normal. No tenderness. Left Ear: External ear normal. No tenderness. Nose: Nose normal. Mouth/Throat: Lips: [place]. Mouth: Mucous membranes are moist. No oral lesions. Tongue: No lesions. Eyes: General: Lids are normal. Extraocular Movements: Extraocular movements intact. Conjunctiva/sclera: Conjunctivae normal. Pupils: Pupils are equal, round, and reactive to light. Neck: Thyroid: No thyroid mass. Cardiovascular: Rate and Rhythm: Normal rate and regular rhythm. Pulses: Normal pulses. Heart sounds: No murmur heard. No gallop. Pulmonary: Effort: Pulmonary effort is normal. No respiratory distress. Breath sounds: Normal breath sounds and air entry. Abdominal: General: Abdomen is flat. Bowel sounds are normal. Palpations: Abdomen is soft. There is no mass. Tenderness: There is no abdominal tenderness. Musculoskeletal: General: Normal range of motion. Cervical back: Normal range of motion and neck supple. Normal range of motion. Right lower leg: No edema. Left lower leg: No edema. Lymphadenopathy: Cervical: No cervical adenopathy. Skin: General: Skin is warm and dry. Neurological: General: No focal deficit present. Mental Status: She is alert and oriented to person, place, and time. Mental status is at baseline. Gait: Gait is intact. Psychiatric: Attention and Perception: Attention normal. Mood and Affect: Mood and affect normal. Behavior: Behavior is cooperative. Diagnostic Results Labs: Lab Results Component Value Date WBC 17.3 (H) 10/02/2024 HGB 11.1 (L) 10/02/2024 HCT 36.0 10/02/2024 MCV 87 10/02/2024 PLT 580 (H) 10/02/2024 Lab Results Component Value Date NEUTROABS 11.47 (H) 09/25/2024 Lab Results Component Value Date GLUCOSE 155 (H) 10/02/2024 CALCIUM 9.9 10/02/2024 NA 135 (L) 10/02/2024 K 3.7 10/02/2024 CO2 32 10/02/2024 CL 94 (L) 10/02/2024 BUN 20 10/02/2024 CREATININE 0.66 10/02/2024 MG 2.02 10/02/2024 Lab Results Component Value Date ALT 18 10/02/2024 AST 14 10/02/2024 ALKPHOS 115 (H) 10/02/2024 BILITOT 0.3 10/02/2024 Lab Results Component Value Date ACTH 46.0 09/25/2024 CORTISOL 25.8 (H) 09/25/2024 TSH 0.43 (L) 09/25/2024 FREET4 1.18 09/25/2024 IMAGES 09/11/2024 CT soft tissue neck w contrast IMPRESSION: *Primary neoplasm likely arising in the left nasal fossa or left maxillary sinus with extensive involvement of the left orbit, left maxillary sinus, left cavernous sinus, hard palate and oral cavity *Bilateral suprahyoid adenopathy as described. 09/18/[address] FDG ONCOLOGY - Impression - 1. FDG avid large heterogeneous mass likely arising in the left nasal fossa or left maxillary sinus is a site of biopsy-proven squamous cell carcinoma. 2. Left level 2 cervical lymph nodes are consistent with max metastases. Right level II and left submental lymph node are also highly suspicious for max metastases. 3. FDG avid lytic changes involving the left C1 vertebral body, is suggestive of an osseous metastases. 4. FDG avid right upper lobe pulmonary nodule, is concerning for a site of lung metastases. Assessment/Plan No matching staging information was found for the patient. Arline Krueger is a 44 y.o. year old female patient without PMH seen as follow up for L maxillary sinus squamous cell carcinoma. She is undergoing systemic imaging and will be seen by my radiation colleague Dr. Montano. She was initially thought to be candidate for induction systemic therapy with cisplatin/docetaxel/pembro modeling https://www.nature.com/articles/s 24391-554-19630-h 10/02/24: Began treatment w/ Cis/Doce/Pembro on 09/25/24. Adding grab bar and shower chair for balance concerns with ongoing chemotherapy. Left facial swelling improved since chemo and pain better controlled on increased Morphine ER 30mg. A little tachy today likely 2ry to hypotension/dehydration, will give IVF today. 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 - 09/18 seen by Rad-onc, plan to treat oligometastatically - 09/25/24: Start Cycle 1 cisplatin (60 mg/m2), docetaxel (75 mg/m2), pembro to commence today. G-CSF support - 10/02/24: 1L NS for hydration. #Cancer-related Pain - MS contin 30mg BID, Oxycodone 10mg Q4-6hr PRN [1] No Known Allergies Patient is here for a follow up with July Ortiz Pa-C. Patient states she is still having increased mucus in her mouth, but eating has been okay. She believes her taste buds are changing. Having 8/10 pain in her mouth. July is aware. documented in this encounter [facility] Work Phone: 09-25-2024 History of Present illness Narrative Images from the original note were not included. Patient ID: Arline Krueger is a 44 y.o. female Primary Care Provider: Torie Diego DIAGNOSIS AND STAGING Diagnosis: L maxillary sinus squamous cell carcinoma Date of Diagnosis: 08/29/2024 Providers: ENT Surgeon: Dr. Ej Martinoc: Dr. Macrina Montano [facility]: Dr. Sunny Cruz SITES OF DISEASE L maxillary sinus/hard palate C spine Cavitary lesion of R lung MOLECULAR GENOMICS Tempus xT requested PRIOR THERAPIES CURRENT THERAPY 09/25/24: Started Induction chemo with Cisplatin (60 mg/m2)/Docetaxel (75mg/m2)/Pembrolizumab CURRENT ONCOLOGICAL PROBLEMS Pain Odynophagia Weight loss HISTORY OF PRESENT ILLNESS Arline Krueger is a 44 y.o. year old female patient without PMH seen as initial consultation for L maxillary sinus squamous cell carcinoma. She initially noted what she thought was a tooth abscess in L mouth. She treated it with amoxicillin without improvement. She was then seen by Dr. Rambo Ramon and subsequently referred to Dr. Martinez for evaluation. She underwent nasal endoscopy on 08/29 demonstrating: FINAL DIAGNOSIS A. 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 She presented for initial medical oncology consultation 09/1109/11/2024 CT of the neck demonstrated primary neoplasm arising in the left nasal fossa or left maxillary sinus w/ extensive involvement of the left orbit, left maxillary sinus, left cavernous sinus, hard palate and oral cavity. Also visualized bilateral suprahyoid adenopathy. 09/18/2024 Underwent PET-CT, MRI sinuses. Patient met with radiation-oncology. PAST MEDICAL HISTORY None SURGICAL HISTORY None SOCIAL HISTORY Born near [place], lives in [place] with mother Alfredo also nearby. 3 kids (24 , 23 in [place], 20). 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 Prior EtOH use, quit 2 years ago. Enjoys cooking for her family - favorite meal is lasagna + fried chicken with sweet potato pie. FAMILY HISTORY Daughter of sarcoma CURRENT MEDS REVIEWED Current Outpatient Medications Medication Instructions dexAMETHasone (DECADRON) 8 mg, oral, Daily, For 3 days starting the day after treatment. guaiFENesin (MUCINEX) 1,200 mg, oral, 2 times daily, Do not crush, chew, or split. morphine CR (MS CONTIN) 15 mg, oral, 2 times daily, Do not crush, chew, or split. naloxone (NARCAN) 4 mg, nasal, As needed, May repeat every 2-3 minutes if needed, alternating nostrils, until medical assistance becomes available. naloxone (NARCAN) 4 mg, nasal, As needed, May repeat every 2-3 minutes if needed, alternating nostrils, until medical assistance becomes available. OLANZapine (ZYPREXA) 5 mg, oral, Nightly, For 4 days starting the evening of treatment. ondansetron (ZOFRAN) 8 mg, oral, Every 8 hours PRN ondansetron ODT (ZOFRAN-ODT) 8 mg, oral, Every 8 hours PRN oxyCODONE (ROXICODONE) 5 mg, oral, Every 6 hours PRN prochlorperazine (COMPAZINE) 10 mg, oral, Every 6 hours PRN ALLERGIES REVIEWED Subjective Interval History Patient presents for C1 Cisplatin/Docetaxel/Pembrolizumab . Her pain is improved. She is anxious to start treatment. She notes a plateau along her jawline. ROS: A pertinent review of systems was performed, with significant findings documented above in subjective history. Objective VS: There were no vitals taken for this visit. There is no height or weight on file to calculate BSA. Wt Readings from Last 5 Encounters: 09/25/24 (!) 44.3 kg (97 lb 9.6 oz) 09/18/24 (!) 44.8 kg (98 lb 11.2 oz) 09/11/24 45.5 kg (100 lb 3.2 oz) 09/11/24 (!) 44.9 kg (98 lb 15.8 oz) 08/29/24 (!) 43.5 kg (96 lb) ECOGSCORE: 1 Physical Exam Vitals reviewed. Constitutional: Appearance: Normal appearance. She is well-developed. HENT: Head: Normocephalic and atraumatic. Right Ear: External ear normal. No tenderness. Left Ear: External ear normal. No tenderness. Nose: Nose normal. Comments: large exophytic mass over the left maxilla. Mild facial symmetry. Mouth/Throat: Lips: [place]. Mouth: Mucous membranes are moist. No oral lesions. Tongue: No lesions. Eyes: General: Lids are normal. Extraocular Movements: Extraocular movements intact. Conjunctiva/sclera: Conjunctivae normal. Pupils: Pupils are equal, round, and reactive to light. Neck: Thyroid: No thyroid mass. Cardiovascular: Rate and Rhythm: Normal rate and regular rhythm. Pulses: Normal pulses. Heart sounds: No murmur heard. No gallop. Pulmonary: Effort: Pulmonary effort is normal. No respiratory distress. Breath sounds: Normal breath sounds and air entry. Abdominal: General: Abdomen is flat. Bowel sounds are normal. Palpations: Abdomen is soft. There is no mass. Tenderness: There is no abdominal tenderness. Musculoskeletal: General: Normal range of motion. Cervical back: Normal range of motion and neck supple. Normal range of motion. Right lower leg: No edema. Left lower leg: No edema. Lymphadenopathy: Cervical: No cervical adenopathy. Skin: General: Skin is warm and dry. Neurological: General: No focal deficit present. Mental Status: She is alert and oriented to person, place, and time. Mental status is at baseline. Gait: Gait is intact. Psychiatric: Attention and Perception: Attention normal. Mood and Affect: Mood and affect normal. Behavior: Behavior is cooperative. Diagnostic Results Labs: Lab Results Component Value Date WBC 14.5 (H) 09/25/2024 HGB 10.8 (L) 09/25/2024 HCT 34.2 (L) 09/25/2024 MCV 86 09/25/2024 PLT 792 (H) 09/25/2024 Lab Results Component Value Date NEUTROABS 11.47 (H) 09/25/2024 Lab Results Component Value Date GLUCOSE 110 (H) 09/25/2024 CALCIUM 12.1 (H) 09/25/2024 NA 136 09/25/2024 K 3.9 09/25/2024 CO2 30 09/25/2024 CL 95 (L) 09/25/2024 BUN 13 09/25/2024 CREATININE 0.56 09/25/2024 MG 1.81 09/25/2024 Lab Results Component Value Date ALT 9 09/25/2024 AST 13 09/25/2024 ALKPHOS 59 09/25/2024 BILITOT 0.4 09/25/2024 No results found for: ACTH, CORTISOL, TSH, FREET4 IMAGES 09/11/2024 CT soft tissue neck w contrast IMPRESSION: *Primary neoplasm likely arising in the left nasal fossa or left maxillary sinus with extensive involvement of the left orbit, left maxillary sinus, left cavernous sinus, hard palate and oral cavity *Bilateral suprahyoid adenopathy as described. 09/18/[address] FDG ONCOLOGY - Impression - 1. FDG avid large heterogeneous mass likely arising in the left nasal fossa or left maxillary sinus is a site of biopsy-proven squamous cell carcinoma. 2. Left level 2 cervical lymph nodes are consistent with max metastases. Right level II and left submental lymph node are also highly suspicious for max metastases. 3. FDG avid lytic changes involving the left C1 vertebral body, is suggestive of an osseous metastases. 4. FDG avid right upper lobe pulmonary nodule, is concerning for a site of lung metastases. Assessment/Plan No matching staging information was found for the patient. Arline Krueger is a 44 y.o. year old female patient without PMH seen as follow up for L maxillary sinus squamous cell carcinoma. She is undergoing systemic imaging and will be seen by my radiation colleague Dr. Montano. She was initially thought to be candidate for induction systemic therapy with cisplatin/docetaxel/pembro modeling https://www.nature.com/articles/s [email or web address]-t Began treatment on 09/25/24. 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 -09/18 seen by Rad-onc, plan to treat oligometastatically -Cycle 1 cisplatin (60 mg/m2), docetaxel (75 mg/m2), pembro to commence today. G-CSF support Sunny Cruz MD Thoracic + H&N Medical Oncology [address] [place] [address] documented in this encounter [facility] Work Phone: 09-18-2024 History of Present illness Narrative Images from the original note were not included. Patient ID: Arline Krueger is a 44 y.o. female Primary Care Provider: Torie Diego DIAGNOSIS AND STAGING Diagnosis: L maxillary sinus squamous cell carcinoma Date of Diagnosis: 08/29/2024 Providers: ENT Surgeon: Dr. Ej Martino: Dr. Macrina Montano SITES OF DISEASE L maxillary sinus/hard palate C spine Cavitary lesion of R lung MOLECULAR GENOMICS Tempus xT requested PRIOR THERAPIES CURRENT THERAPY CURRENT ONCOLOGICAL PROBLEMS Pain Odynophagia Weight loss HISTORY OF PRESENT ILLNESS Ms. Arline Krueger is a 44 YO without PMH seen as initial consultation for L maxillary sinus squamous cell carcinoma. She initially noted what she thought was a tooth abscess in L mouth. She treated it with amoxicillin without improvement. She was then seen by Dr. Rambo Ramon and subsequently referred to Dr. Martinez for evaluation. She underwent nasal endoscopy on 08/29 demonstrating: FINAL DIAGNOSIS A. 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 She presented for initial medical oncology consultation 09/1109/11/2024 CT of the neck demonstrated primary neoplasm arising in the left nasal fossa or left maxillary sinus w/ extensive involvement of the left orbit, left maxillary sinus, left cavernous sinus, hard palate and oral cavity. Also visualized bilateral suprahyoid adenopathy. 09/18/2024 Underwent PET-CT, MRI sinuses. Patient met with radiation-oncology. PAST MEDICAL HISTORY None SURGICAL HISTORY None SOCIAL HISTORY Born near [place], lives in [place] with mother Alfredo also nearby. 3 kids (24 , 23 in [place], 20). 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 Prior EtOH use, quit 2 years ago. Enjoys cooking for her family - favorite meal is lasagna + fried chicken with sweet potato pie. FAMILY HISTORY Daughter of sarcoma CURRENT MEDS REVIEWED ALLERGIES REVIEWED SUBJECTIVE: At visit 09/18 patient endorsed significant pain that has been impairing her appetite and sleep. Specifically, she states the mass will move and shift when she sleeps on her left or right side and this causes her discomfort. She has been taking 10mg 4x daily with no relief in pain symptoms. She notes being unable to open her mouth unless she lifts her head back. Due to inflammation in her upper palate, she has noted blood when she coughs up congestion. She states when she rinses her mouth with mouthwash, her upper cheek will become numb. Her hearing has improved. She has managed to maintain weight relatively well. She reports a 2lb weight loss as of this visit and states she has been drinking Ensure to help keep this up. She intends to supplement with Boost/VHC. She notes some pain in her neck recently. ROS: A pertinent review of systems was performed, with significant findings documented above in subjective history. OBJECTIVE: There were no vitals filed for this visit. There is no height or weight on file to calculate BSA. Wt Readings from Last 5 Encounters: 09/18/24 (!) 44.8 kg (98 lb 11.2 oz) 09/11/24 45.5 kg (100 lb 3.2 oz) 09/11/24 (!) 44.9 kg (98 lb 15.8 oz) 08/29/24 (!) 43.5 kg (96 lb) ECOGSCORE: 1 Gen: A&O, NAD Head: Normocephalic, atraumatic Eyes: no scleral icterus, perrla. ENT: mucous membranes moist, large exophytic mass over the left maxilla. Mild facial symmetry. Resp: Lungs CTAB Cardiac: Normal rate, regular rhythm, no murmurs appreciated Abdomen: Soft, nondistended, nontender Neuro: CNII-XII grossly intact Psych: appropriate mood & affect Skin: warm, dry, no apparent rashes Diagnostic Results Results: Labs: Lab Results Component Value Date WBC 14.4 (H) 09/11/2024 HGB 11.8 (L) 09/11/2024 HCT 37.4 09/11/2024 MCV 89 09/11/2024 PLT 643 (H) 09/11/2024 Lab Results Component Value Date NEUTROABS 10.98 (H) 09/11/2024 Lab Results Component Value Date GLUCOSE 95 09/11/2024 CALCIUM 10.4 (H) 09/11/2024 NA 134 (L) 09/11/2024 K 4.0 09/11/2024 CO2 28 09/11/2024 CL 97 (L) 09/11/2024 BUN 21 09/11/2024 CREATININE 0.65 09/11/2024 Lab Results Component Value Date ALT 8 09/11/2024 AST 12 09/11/2024 ALKPHOS 61 09/11/2024 BILITOT 0.3 09/11/2024 No results found for: ACTH, CORTISOL, TSH, FREET4 No images are attached to the encounter or orders placed in the encounter. CT soft tissue neck w contrast 09/11/2024 IMPRESSION: *Primary neoplasm likely arising in the left nasal fossa or left maxillary sinus with extensive involvement of the left orbit, left maxillary sinus, left cavernous sinus, hard palate and oral cavity *Bilateral suprahyoid adenopathy as described. PET-CT obtained 09/18/2024 - reading pending Assessment/Plan No matching staging information was found for the patient. Ms. Arline Krueger is a 44 YO without PMH seen as follow up for L maxillary sinus squamous cell carcinoma. She is undergoing systemic imaging and will be seen by my radiation colleague Dr. Montano. She was initially thought to be candidate for induction systemic therapy with cisplatin/docetaxel/pembro modeling https://www.nature.com/articles/s 77618-668-81966-t She now (09/18) follows with us a week later for further treatment discussions. We added on Tempus xT NGS to better characterize her malignancy. Plan was to proceed with cisplatin/docetaxel/pembro with concurrent radiotherapy, however initial PET-CT shows a focus of FDG avidity in the right lung as well as the cervical spine, which may explain her neck pain. Will confer with colleague in radiation-oncology prior to making a definitive decision on whether oligometastatic therapy will provide a benefit, as this will determine whether we proceed with CCRT or if we start with chemotherapy alone. She will initiate chemotherapy in 1 week regardless. 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 -PET/CT and MRI performed 09/18 -09/18 seen by Rad-onc Plan: - Review imaging from MRI, PET-CT for staging - Initial review of PET-CT from 09/18 shows an area of FDG avidity in the R lung and c-spine concerning for metastatic disease - Will plan to start with cisplatin (75 mg/m2)/docetaxel (75mg/m2)/pembrolizumab - Pain medication added from Radiation oncology. We will add on zofran prn for nausea. Arnold Heart MD Department of Medicine - PGY1 [facility] documented in this encounter [facility] Work Phone: 09-18-2024 History of Present illness Narrative Radiation Oncology Nursing Note Prior Radiotherapy: No No radiation treatments to show. (Treatments may have been administered in another system.) Current Systemic Treatment: No Presence of Pacemaker or ICD: No History of Autoimmune or Connective Tissue Disorders: No Pain: The patient's current pain level was assessed. They report currently having a pain of 10 out of 10. They feel their pain is under control with the use of pain medications. Review of Systems: Review of Systems Constitutional: Positive for fatigue. Tired some times HENT: Positive for mouth sores and sore throat. Eyes: Positive for eye problems. Glasses at baseline Respiratory: Positive for cough and shortness of breath. Cardiovascular: Positive for palpitations. Gastrointestinal: Positive for constipation. OTC meds if possible Endocrine: Negative. Genitourinary: Negative. Skin: Negative. Neurological: Positive for dizziness. Equilibrium is off Hematological: Negative. Psychiatric/Behavioral: Positive for sleep disturbance. 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 She treated it with amoxicillin without improvement. 08/29/24: Dr. Martinez did nasal endoscopy with biopsy of hard palate demonstrating invasive keratinizing SCC 09/11/24: CT showed 5 cm/6 cm heterogeneous mass in the left nasal fossa and maxillary sinus with extension to the floor of the left orbit. Extension to the left maxillary sinus including a 4 cm nodule which extends through the anterolateral wall of the left maxillary sinus presenting in the left alignment technician space adjacent to the left zygomatic arch. There is extension to the posterior recesses of the left maxillary sinus with extension to the pterygoid palatine fissure, pterygoid palatine fossa, alignment technician space and pterygoid muscles. Thickening and expansion of the left cavernous sinus suggesting perineural extension through the foramen ovale. There is extension medially and inferiorly into the hard palate crossing the midline and presenting in the right nasal fossa & extension into the adjacent oral cavity on the [id number]-right. 09/18/24: MRI showed: 5 cm x 6 cm x 7 cm mass which likely arises in the left maxillary sinus. Extension through the anterior and lateral left maxillary sinus wall with presentation of a 1.5 cm x 3 cm tumor nodule through the left zygomatic arch presenting in the prezygomatic fat and extending to the skin surface. Additionally, extension through the anterior margin of the left maxillary sinus--There is extension along the maxillary division of the right trigeminal nerve (V2) and mandibular division of the right trigeminal nerve (V3) posteriorly to the left cavernous sinus where a 5 mm x 10 mm tumor nodule is present in the left cavernous sinus. There is extension to the pterygoid palatine fissure and pterygoid palatine fossa There is extension into the left parapharyngeal space wearing 3 cm nodule extends to the medial aspect of the left mandible and into the left temporomandibular joint There are postobstructive changes in the left middle ear and mastoid air cells. There is extension into the pterygoid recess of the left sphenoid sinus where a 1.5 cm x 1 cm nodule is present. Extension to the floor of the left orbit with suspected extension to the inferior rectus muscle; no evidence of extension to the left orbital apex. There is extension to the left hard palate and left soft palate. There is abundant bilateral cervical adenopathy with larger and more numerous lymph nodes on the left than the right. 09/18/24: PET: additionally demonstrated PET avid Left level 2 cervical lymph nodes, consistent with max metastases and right level II and left submental lymph node are also highly suspicious for max metastases. FDG avid lytic changes involving the left C1 vertebral body, is suggestive of an osseous metastases & FDG avid right upper lobe pulmonary nodule, is concerning for a site of lung metastases. 09/18/24: Saw Dr. Cruz--will begin induction chemo next week with with cisplatin (75 mg/m2)/docetaxel (75mg/m2)/pembrolizumab. Added Tempus xT NGS to better characterize malignancy Currently, she states she is in so much pain that she cannot eat or sleep. She has been taking oxy 10mg 4x/day with no relief. She struggles with sleeping as she can t find a comfortable position; admits to increased swelling of L side of face. Per EORTC HN43 questionnaire, she admits to having very much: pain in mouth, jaw, soreness in mouth, problems opening mouth, problems eating in front of others, enjoying food. Admits to being very worried about results of tests and exams and her health in the future, and problems with appearance and well as increasingly sticky saliva. Prior Radiotherapy: No radiation treatments to show. (Treatments may have been administered in another system.) Past Medical History: Medical History[1] Past Surgical History: Surgical History[2] Family History: Cancer-related family history is not on file. Social History: Social History[3] Allergies: Allergies[4] Medications: Current Medications[5] Review of Systems: ROS: 12 point review of systems performed, negative except for listed in HPI Performance Status: The Karnofsky performance scale today is 90, Able to carry on normal activity; minor signs or symptoms of disease (ECOG equivalent 0). OBJECTIVE BP 132/85 Pulse 56 Temp 36.7 C (98.1 F) (Temporal) Resp 18 Wt (!) 44.8 kg (98 lb 11.2 oz) SpO2 100% BMI 16.94 kg/m Constitutional: General: Patient is not in acute distress. HEENT: left cheek up to ear very swollen, TTP Multiple broken teeth throughout mouth Multiple enlarged LN in bilateral neck Cardiovascular: Rate and Rhythm: Normal rate and regular rhythm. Pulmonary: Effort: Pulmonary effort is normal. No respiratory distress. Breath sounds: Normal breath sounds. Abdominal: General: Abdomen is flat. Bowel sounds are normal. There is no distension. Palpations: Abdomen is soft. Skin: General: Skin is warm and dry. No lesions visualized. Neurological: General: No focal deficit present. Mental Status: alert and oriented to person, place, and time. Psychiatric: Mood and Affect: Mood normal. Behavior: Behavior normal. Thought Content: Thought content normal. Extremities: No cyanosis, clubbing or edema Fiberoptic Nasal endoscopy: tumor is along maxilla alveolar ridge L side up to incisor, also along hard palate, crosses midline into retromolar trigone on L, mandibular alveolar ridge spared as well as tongue and floor of mouth; broken teeth throughout. Nose: superior to inferior friable mass on R side in the nasal cavity attached to the turbinate; no findings in L nares Patient did not tolerate additional scoping into the nasopharynx Laboratory Review: There are no laboratory contraindications to radiation therapy. The pertinent lab results were reviewed and discussed with the patient. Last CBC w. Diff.: Lab Results Component Value Date/Time WBC 14.4 (H) 09/11/2024 1333 NRBC 0.0 09/11/2024 1333 RBC 4.22 09/11/2024 1333 HGB 11.8 (L) 09/11/2024 1333 HCT 37.4 09/11/2024 1333 MCV 89 09/11/2024 1333 MCH 28.0 09/11/2024 1333 MCHC 31.6 (L) 09/11/2024 1333 RDW 16.2 (H) 09/11/2024 1333 PLT 643 (H) 09/11/2024 1333 NEUTOPHILPCT 76.6 09/11/2024 1333 IGPCT 0.3 09/11/2024 1333 LYMPHOPCT 8.5 09/11/2024 1333 MONOPCT 11.4 09/11/2024 1333 EOSPCT 2.6 09/11/2024 1333 BASOPCT 0.6 09/11/2024 1333 NEUTROABS 10.98 (H) 09/11/2024 1333 IGABSOL 0.05 09/11/2024 1333 LYMPHSABS 1.22 09/11/2024 1333 MONOSABS 1.63 (H) 09/11/2024 1333 EOSABS 0.38 09/11/2024 1333 BASOSABS 0.09 09/11/2024 1333 Last CMP: Lab Results Component Value Date/Time GLUCOSE 95 09/11/2024 1333 NA 134 (L) 09/11/2024 1333 K 4.0 09/11/2024 1333 CL 97 (L) 09/11/2024 1333 CO2 28 09/11/2024 1333 ANIONGAP 13 09/11/2024 1333 BUN 21 09/11/2024 1333 CREATININE 0.65 09/11/2024 1333 EGFR >90 09/11/2024 1333 CALCIUM 10.4 (H) 09/11/2024 1333 ALBUMIN 4.2 09/11/2024 1333 ALKPHOS 61 09/11/2024 1333 PROT 8.1 09/11/2024 1333 AST 12 09/11/2024 1333 BILITOT 0.3 09/11/2024 1333 ALT 8 09/11/2024 1333 Pathology Review: The pertinent pathology results were reviewed and discussed with the patient. Imaging: The pertinent imaging results were reviewed and discussed with the patient. ASSESSMENT: Arline Krueger is a 44 y.o. 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 We briefly discussed side effects of radiation to H&N which she will have after induction chemo, along with concurrent chemo; discussed logistics of CT SIM and treatment; additionally side effects, including fatigue, skin redness, mucositis, pain and difficulty with swallowing, need for feeding tube in the short and/or long-term, altered taste, thick saliva, carotid stenosis, neck fibrosis. We recommend induction chemotherapy and immunotherapy to hopefully shrink tumor that extends to the cavernous sinus and off the inferior orbital wall, as well as to treat the metastatic sites. If she has a good response to induction chemoimmunotherapy, then she could be a good candidate for consolidation chemoradiation to the head and neck as well as two sites of metastatic disease to potentially improve disease free and overall survival per the SABR-COMET trial (Garcia, Lancet, 2019). In addition, definitive INSTALLATION ENGINEER to the head and neck has the potential to signficantly improve quality of life by offering termination clerk control of tumor that is invading the orbit and cavernous sinus. PLAN: -induction chemo next week with Dr. Cruz -sent in 15mg BID MS contin and 10mg oxy prn for pain control; Narcan as well for precaution -FISHER TRAWL LINE -refer to [facility] for extraction of multiple broken/decayed teeth -Recommend she get very high calorie shakes to supplement her nutrition given she has trismus and difficulty eating due to tumor involving the maxilla Macrina Montano MD [1] Past Medical History: Diagnosis Date Lesion of hard palate [2] No past surgical history on file. [3] Social History Tobacco Use Smoking status: Former Types: Cigarettes Passive exposure: Never (started 1994, smoked for 28 years 1.5packs a day) Smokeless tobacco: Never Vaping Use Vaping status: Every Day Substance Use Topics Alcohol use: Not Currently Drug use: Yes Types: Marijuana Comment: Edibles [4] No Known Allergies [5] Current Outpatient Medications: dexAMETHasone (Decadron) 4 mg tablet, Take 2 tablets (8 mg) by mouth once daily. For 3 days starting the day after treatment., Disp: 18 tablet, Rfl: 3 morphine CR (MS Contin) 15 mg 12 hr tablet, Take 2 tablets (30 mg) by mouth 2 times a day. Do not crush, chew, or split., Disp: 120 tablet, Rfl: 0 naloxone (Narcan) 4 mg/0.1 mL nasal spray, Administer 1 spray (4 mg) into affected nostril(s) if needed for opioid reversal or respiratory depression. May repeat every 2-3 minutes if needed, alternating nostrils, until medical assistance becomes available., Disp: 2 each, Rfl: 11 OLANZapine (ZyPREXA) 5 mg tablet, Take 1 tablet (5 mg) by mouth once daily at bedtime. For 4 days starting the evening of treatment., Disp: 30 tablet, Rfl: 2 ondansetron (Zofran) 8 mg tablet, Take 1 tablet (8 mg) by mouth every 8 hours if needed for nausea or vomiting., Disp: 30 tablet, Rfl: 5 oxyCODONE (Roxicodone) 10 mg immediate release tablet, Take 1 tablet (10 mg) by mouth every 6 hours if needed for severe pain (7 - 10)., Disp: 120 tablet, Rfl: 0 prochlorperazine (Compazine) 10 mg tablet, Take 1 tablet (10 mg) by mouth every 6 hours if needed for nausea or vomiting., Disp: 30 tablet, Rfl: 5 No current facility-administered medications for this encounter. documented in this encounter [facility] Work Phone: 09-11-2024 History of Present illness Narrative History of Present Illness Arline Krueger was seen in August 2024 at the request of Dr. Rambo Ramon. She has had some dental issues on the left upper side for quite some time. More recently she started having some discomfort over the area and she also has had some issues with opening her mouth for the past few weeks or so. She also feels that she has some type of sinus condition. She had a scan of her sinuses which was done on August 22, 2024 that shows this a very large lesion involving mainly the maxillary sinus of but extending in every direction from there. She had a CT scan of her neck done on August 29, 2024 that I personally reviewed that in addition of showing this large mass involving the sinuses and orbit and base of skull also involves some of the cervical nodes. The biopsy that was done was consistent with squamous cell carcinoma. She has already seen my colleagues in medical oncology and radiation therapy. Will be starting induction chemotherapy next week. Physical Exam Examination of the oral cavity and oropharynx shows this lesion involving almost the entire hard palate mainly on the left. There is good mobility of the tongue and palate. There is significant restriction in mandibular excursion. Palpation of the parotid, neck, and thyroid field shows a definite level 2 adenopathy on the left. 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 The patient has been seen by my colleagues in medical oncology and will be starting induction chemotherapy in the near future. I did discuss with her and her family all the different treatment options for this condition. I will see her in 1 month. documented in this encounter [facility] Work Phone: 09-11-2024 Miscellaneous Notes Addended by: MILTON VOSS on: 09/11/2024 04:43 PM Modules accepted: Orders documented in this encounter [facility] Work Phone: 09-11-2024 Note Addended by: MILTON VOSS on: 09/11/2024 04:43 PM Modules accepted: Orders [facility] Work Phone: 09-11-2024 History of Present illness Narrative Images from the original note were not included. Patient ID: Arline Krueger is a 44 y.o. female Primary Care Provider: Torie Diego DIAGNOSIS AND STAGING Diagnosis: L maxillary sinus squamous cell carcinoma Date of Diagnosis: 08/29/2024 Providers: ENT Surgeon: [facility] Ej [facility] Macrina Montano SITES OF DISEASE L maxillary sinus/hard palate MOLECULAR GENOMICS PRIOR THERAPIES CURRENT THERAPY CURRENT ONCOLOGICAL PROBLEMS HISTORY OF PRESENT ILLNESS Ms. Arline Krueger is a 44 YO without PMH seen as initial consultation for L maxillary sinus squamous cell carcinoma. She initially noted what she thought was a tooth abscess in L mouth. She treated it with amoxicillin without improvement. She was then seen by Dr. Rambo Ramon and subsequently referred to Dr. Martinez for evaluation. She underwent nasal endoscopy on 08/29 demonstrating: FINAL DIAGNOSIS A. 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 She presents for initial medical oncology consultation. PAST MEDICAL HISTORY None SURGICAL HISTORY None SOCIAL HISTORY Born near [place], lives in [place] with mother Alfredo also nearby. 3 kids (24 , 23 in [place], 20). 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 Prior EtOH use, quit 2 years ago. Enjoys cooking for her family - favorite meal is lasagna + fried chicken with sweet potato pie. FAMILY HISTORY Daughter of sarcoma CURRENT MEDS REVIEWED ALLERGIES REVIEWED SUBJECTIVE: Patient doing physically well. She moved back to live with her mother in [place] due to recent health issues. She is active at home, but notes she feels a bit lazy sometimes. She has no vision changes or headaches. A 13 point review of systems was performed, with significant findings documented above in subjective history. OBJECTIVE: Vitals: 09/11/24 1322 BP: 103/80 Pulse: 104 Resp: 18 Temp: 37.1 C (98.8 F) SpO2: 100% Body surface area is 1.42 meters squared. Wt Readings from Last 5 Encounters: 09/11/24 (!) 44.9 kg (98 lb 15.8 oz) 08/29/24 (!) 43.5 kg (96 lb) ECOGSCORE: 0- Fully active, able to carry on all pre-disease performance w/o restriction. Gen: A&O, NAD Head: Normocephalic, atraumatic Eyes: no scleral icterus ENT: mucous membranes moist, no oropharyngeal lesions. Mild facial symmetry. Resp: Lungs CTAB Cardiac: Normal rate, regular rhythm, no murmurs appreciated Abdomen: Soft, nondistended, nontender, +BS Neuro: CNII-XII grossly intact Psych: appropriate mood & affect Skin: warm, dry, no apparent rashes Diagnostic Results Results: Labs: Lab Results Component Value Date WBC 14.4 (H) 09/11/2024 HGB 11.8 (L) 09/11/2024 HCT 37.4 09/11/2024 MCV 89 09/11/2024 PLT 643 (H) 09/11/2024 Lab Results Component Value Date NEUTROABS 10.98 (H) 09/11/2024 Lab Results Component Value Date GLUCOSE 95 09/11/2024 CALCIUM 10.4 (H) 09/11/2024 NA 134 (L) 09/11/2024 K 4.0 09/11/2024 CO2 28 09/11/2024 CL 97 (L) 09/11/2024 BUN 21 09/11/2024 CREATININE 0.65 09/11/2024 Lab Results Component Value Date ALT 8 09/11/2024 AST 12 09/11/2024 ALKPHOS 61 09/11/2024 BILITOT 0.3 09/11/2024 No results found for: ACTH, CORTISOL, TSH, FREET4 No images are attached to the encounter or orders placed in the encounter. Assessment/Plan No matching staging information was found for the patient. Ms. Arline Krueger is a 44 YO without PMH seen as initial consultation for L maxillary sinus squamous cell carcinoma. She is still awaiting systemic imaging and will be seen by my radiation colleague Dr. Montano. Assuming she is without distant metastasis she is a candidate for induction systemic therapy with either single agent pembro per Keynote 689 or cisplatin/docetaxel/pembro modeling https://www.nature.com/articles/s 73004-665-12227-x We will follow in 1 week with further treatment discussions. I will add on Tempus xT NGS to better characterize her malignancy. Sunny Cruz MD Thoracic + H&N Medical Oncology [address] [place] [address] documented in this encounter [facility] Work Phone: 08-29-2024 History of Present illness Narrative History of Present Illness Arline Krueger is a 44 y.o. female who is seen at the request of Dr. Rambo Ramon. She has had some dental issues on the left upper side for quite some time. More recently she started having some discomfort over the area and she also has had some issues with opening her mouth for the past few weeks or so. She also feels that she has some type of sinus condition. She had a scan of her sinuses which was done on August 22, 2024 that shows this a very large lesion involving mainly the maxillary sinus of but extending in every direction from there. This was done without contrast. Past Medical History The past medical history review of system is otherwise completely negative. She does not take any medication. She used to smoke about a pack a day. She smoked for about 30 years or so. She stopped 2 years ago. 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 She is here alone today. Physical Exam The patient is alert and oriented. Examination of the external ears, ear canals, and eardrums, is within normal limits. Examination of the anterior and external nose is negative. Examination of the oral cavity and oropharynx shows this lesion involving almost the entire hard palate mainly on the left. There is good mobility of the tongue and palate. There is significant restriction in mandibular excursion. Palpation of the parotid, neck, and thyroid field is negative except for a small the submandibular adenopathy on the left side. A nasal endoscopy was carried out. Under topical Xylocaine and Elias-Synephrine the scope was introduced through both nostrils. There is no evidence of any secretions, irritation, or polyps. The floor the nose on the left side is elevated but there is no mucosal ulceration. The nasopharynx, base of tongue, hypopharynx, and larynx are visualized. They are felt to be within normal limits. After verbal consent and under Xylocaine 1% to 100,000 epinephrine a cup biopsy was performed of this palatal lesion. The base was cauterized with silver nitrate. This was well-tolerated. Assessment and Plan Large lesion of the left maxillary sinus and adjacent tissues. A biopsy was done today. The patient will be sent for further imaging hopefully an MRI of the sinuses as well as a neck and chest image. Will obtain the opinion of my colleagues in medical oncology and radiation oncology. documented in this encounter [facility] Work Phone: 08-22-2024 Radiology Diagnostic study note [facility] Imaging Services [address] [place] [id number] Sinus/Facial Bone MR#: [id number] Acct: [id number] Name: ARLINE KRUEGER Rep #: [id number] : 1980 F 44 From: Mervin Ceja MD PCP: Torie Diego [facility] DEPUTY-C Status: REG CLI Study:Sinus/Facial Bone Date of Exam: Exam# [id number] Ordering Dr: Kimmy Ramon MD PROCEDURE: SINUS/FACIAL BONE REASON FOR EXAM: HARD PALATE MASS/SINUS NEOPLASM Left maxillary region. TECHNIQUE: CT of the paranasal sinuses without contrast. Coronal and Sagittal reconstruction series were provided. One or more dose reduction techniques were used (e.g., Automated exposure control, adjustment of the mA and/or kV according to patient size, use of iterative reconstruction technique). COMPARISON: None FINDINGS: There is a 4.5 cm 3.9 cm by 4.2 cm soft tissue mass arising in the region of theleft maxilla with bony destruction and invasion of the left maxillary sinus extending into the left nasal fossa as well as in the posterior aspect of the right nasal fossa and into the nasopharynx posteriorly. This also extends into the base of the posterior aspect of the left orbit with bony destruction. CT/Sinus/Facial Bone IMPRESSION: Large mass as described with bony destruction. Reading Location: [place] [address] CC: Dr. Rambo Ramon MD; Torie [address] DEPUTY-C Beam ~ Pole Inspector: Signed [facility] Evaluation note No assessment inform ation available [facility] Work Phone: Evaluation note Diagnosis Mass of hard palate documented in this encounter [facility] Work Phone: Evaluation note* Diagnosis Mass of hard palate- Primary documented in this encounter [facility] Work Phone: Evaluation note* Diagnosis Mass of hard palate documented in this encounter [facility] Work Phone: Evaluation note* Diagnosis Mass of hard palate documented in this encounter [facility] Work Phone: Evaluation note* Diagnosis Mass of hard palate- Primary documented in this encounter [facility] Work Phone: Evaluation note* Diagnosis Mass of hard palate documented in this encounter [facility] Work Phone: Evaluation note* Diagnosis Mass of hard palate documented in this encounter [facility] Work Phone: Evaluation note* Diagnosis Mass of hard palate documented in this encounter [facility] Work Phone: [phone] note* Diagnosis Mass of hard palate Squamous cell carcinoma of maxillary sinus- Primary documented in this encounter [facility] Work Phone: Evaluation note* Diagnosis Squamous cell carcinoma of maxillary sinus- Primary Malignant 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, 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 Mass of hard palate documented in this encounter [facility] Work Phone: Evaluation note* Diagnosis Squamous cell carcinoma of maxillary sinus- Primary Malignant 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, 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 Mass of hard palate Neoplasm related pain Neoplasm related pain (acute) (chronic) Left facial swelling Swelling, mass, or lump in head and neck Tachycardia Unspecified tachycardia Hypotension, unspecified hypotension type Dizziness Dizziness and giddiness documented in this encounter [facility] Work Phone: Evaluation note* Diagnosis 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, 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 Mass of hard palate documented in this encounter [facility] Work Phone: [phone] note* Diagnosis Secondary malignant neoplasm of bone and bone marrow- Primary 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, unspecified laterality (Multi) Neoplasm related pain Neoplasm related pain (acute) (chronic) Left facial swelling Swelling, mass, or lump in head and neck Facial neuropathy Ramsey's palsy Poor dentition documented in this encounter [facility] Work Phone: [phone] note* Diagnosis 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, 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 Neoplasm related pain- Primary Neoplasm related pain (acute) (chronic) 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, 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 Mass of hard palate documented in this encounter [facility] Work Phone: [phone] note* Diagnosis Malignant 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, unspecified laterality (Multi)- Primary Squamous cell carcinoma of maxillary sinus Secondary malignant neoplasm of bone and bone marrow Mass of hard palate Neoplasm related pain Neoplasm related pain (acute) (chronic) Left facial swelling Swelling, mass, or lump in head and neck 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)- Primary documented in this encounter [facility] Work Phone: [phone] note* Diagnosis 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) documented in this encounter [facility] Work Phone: [phone] note* Diagnosis Squamous cell carcinoma of maxillary sinus- Primary documented in this encounter [facility] Work Phone: [phone] note* Diagnosis 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) documented in this encounter [facility] Work Phone: [phone] note* Diagnosis Squamous cell carcinoma of maxillary sinus documented in this encounter [facility] Work Phone: [phone] note* Diagnosis Squamous cell carcinoma of maxillary sinus- Primary Malignant 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, 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 Neoplasm related pain Neoplasm related pain (acute) (chronic) Left facial swelling Swelling, mass, or lump in head and neck Facial neuropathy Ramsey's palsy Chemotherapy induced nausea and vomiting documented in this encounter [facility] Work Phone: [phone] note* Diagnosis Squamous cell carcinoma of maxillary sinus documented in this encounter [facility] Work Phone: [phone] note* Diagnosis Squamous cell carcinoma of maxillary sinus documented in this encounter [facility] Work Phone: [phone] note* Diagnosis Secondary malignant neoplasm of bone and bone marrow- Primary Malignant 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, unspecified laterality (Multi) documented in this encounter [facility] Work Phone: [phone] note* Diagnosis Encounter for antineoplastic radiation therapy 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) documented in this encounter [facility] Work Phone: [phone] note* Diagnosis Encounter for antineoplastic radiation therapy 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) documented in this encounter [facility] Work Phone: [phone] note* Diagnosis Encounter for antineoplastic radiation therapy 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) documented in this encounter [facility] Work Phone: [phone] note* Diagnosis 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 Malignant 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, unspecified laterality (Multi) Squamous cell carcinoma of maxillary sinus Current mild episode of major depressive disorder without prior episode Mass of hard palate Neoplasm related pain Neoplasm related pain (acute) (chronic) documented in this encounter [facility] Work Phone: [phone] note* Diagnosis Encounter for antineoplastic radiation therapy 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) documented in this encounter [facility] Work Phone: [phone] note* Diagnosis Encounter for antineoplastic radiation therapy 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) documented in this encounter [facility] Work Phone: [phone] note* Diagnosis 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) documented in this encounter [facility] Work Phone: [phone] note* Diagnosis 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 Malignant 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, unspecified laterality (Multi) Drug-induced constipation Other constipation Gastroesophageal reflux disease, unspecified whether esophagitis present Neoplasm related pain Neoplasm related pain (acute) (chronic) Facial neuropathy Ramsey's palsy documented in this encounter [facility] Work Phone: [phone] note* Diagnosis Encounter for antineoplastic radiation therapy 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) documented in this encounter [facility] Work Phone: [phone] note* Diagnosis 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) documented in this encounter [facility] Work Phone: [phone] note* Diagnosis 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) documented in this encounter [facility] Work Phone: [phone] note* Diagnosis Encounter for antineoplastic radiation therapy 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) documented in this encounter [facility] Work Phone: [phone] note* Diagnosis 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 Malignant 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, unspecified laterality (Multi) Drug-induced constipation Other constipation Gastroesophageal reflux disease, unspecified whether esophagitis present Neoplasm related pain Neoplasm related pain (acute) (chronic) Facial neuropathy Ramsey's palsy Mucositis due to radiation therapy Mucositis (ulcerative) due to antineoplastic therapy documented in this encounter [facility] Work Phone: [phone] note* Diagnosis Encounter for antineoplastic radiation therapy 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) documented in this encounter [facility] Work Phone: [phone] note* Diagnosis Encounter for antineoplastic radiation therapy 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 Neoplasm related pain Neoplasm related pain (acute) (chronic) documented in this encounter [facility] Work Phone: [phone] note* Diagnosis Encounter for antineoplastic radiation therapy 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 Neoplasm related pain Neoplasm related pain (acute) (chronic) documented in this encounter [facility] Work Phone: [phone] note* Diagnosis Encounter for antineoplastic radiation therapy 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 Neoplasm related pain Neoplasm related pain (acute) (chronic) documented in this encounter [facility] Work Phone: [phone] note* Diagnosis Encounter for antineoplastic radiation therapy 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 Neoplasm related pain Neoplasm related pain (acute) (chronic) documented in this encounter [facility] Work Phone: [phone] note* Diagnosis Encounter for antineoplastic radiation therapy 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) documented in this encounter [facility] Work Phone: [phone] note* Diagnosis Encounter for antineoplastic radiation therapy 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) documented in this encounter [facility] Work Phone: [phone] note* Diagnosis Encounter for antineoplastic radiation therapy 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) documented in this encounter [facility] Work Phone: Evaluation note* Diagnosis 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 Neoplasm related pain Neoplasm related pain (acute) (chronic) Malignant 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, unspecified laterality (Multi) Squamous cell carcinoma of maxillary sinus Hypokalemia Hypopotassemia Mass of hard palate Current mild episode of major depressive disorder without prior episode Appetite loss Anorexia Chemotherapy induced nausea and vomiting documented in this encounter [facility] Work Phone: [phone] note* Diagnosis Encounter for antineoplastic radiation therapy 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) documented in this encounter [facility] Work Phone: [phone] note* Diagnosis Encounter for antineoplastic radiation therapy 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) documented in this encounter [facility] Work Phone: [phone] note* Diagnosis 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 Malignant 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, unspecified laterality (Multi) Mucositis due to radiation therapy Mucositis (ulcerative) due to antineoplastic therapy Dysgeusia Disturbances of sensation of smell and taste Chemotherapy induced nausea and vomiting Gastroesophageal reflux disease, unspecified whether esophagitis present Encounter for antineoplastic chemotherapy Neoplasm related pain Neoplasm related pain (acute) (chronic) documented in this encounter [facility] Work Phone: [phone] note* Diagnosis Encounter for antineoplastic radiation therapy 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) documented in this encounter [facility] Work Phone: [phone] note* Diagnosis Encounter for antineoplastic radiation therapy 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) documented in this encounter [facility] Work Phone: [phone] note* Diagnosis Encounter for antineoplastic radiation therapy 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) 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 Malignant 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, unspecified laterality (Multi) Squamous cell carcinoma of maxillary sinus Mass of hard palate Neoplasm related pain Neoplasm related pain (acute) (chronic) documented in this encounter [facility] Work Phone: Evaluation note* Diagnosis Malignant 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, unspecified laterality (Multi)- Primary 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 Mass of hard palate Neoplasm related pain Neoplasm related pain (acute) (chronic) Hypomagnesemia Disorders of magnesium metabolism Mucositis due to radiation therapy Mucositis (ulcerative) due to antineoplastic therapy Chemotherapy induced nausea and vomiting Gastroesophageal reflux disease, unspecified whether esophagitis present Encounter for antineoplastic chemotherapy documented in this encounter [facility] Work Phone: Reason for referral (narrative)No reason for referral information availableWKettering Health [facility] Work Phone: Reason for visit Narrative* SCC Consult (Routine) - Authorized Specialty Diagnoses / Procedures Referred By Delfina palacio Referred To Contact Hematology and Oncology Diagnoses [place] [address] [place] [address] Phone: tel: [place]: [place] [address] [place] [address] Phone: tel: fax: Referral ID Status Reason Start Date Expiration Date Visits Requested Visits Authorized [id number] Authorized Specialty Services Required 08/29/2024 08/29/2025 1 1 [facility] Work Phone: Reason for visit Narrative* Imaging (Routine) - Authorized Specialty Diagnoses / Procedures Referred By Delfina palacio Referred To Contact Radiology Diagnoses Mass of hard palate Procedures CT soft [place] [address] [place] [address] Phone: tel: fax: Referral ID Status Reason Start Date Expiration Date Visits Requested Visits Authorized [id number] Authorized Perform Procedure 08/29/2024 08/29/2025 1 1 [facility] Work Phone: Reason for visit Narrative* Imaging (Routine) - Authorized Specialty Diagnoses / Procedures Referred By Delfina t Referred To Contact Radiology Diagnoses Mass of hard palate Procedures MR sinuses w and wo IV contrast Ej Martinez [place] [id number] [place] [address] Phone: tel: fax: Referral ID Status Reason Start Date Expiration Date Visits Requested Visits Authorized [id number] Authorized Perform Procedure 08/29/2024 08/29/2025 1 1 [facility] Work Phone: Reason for visit Narrative* Imaging (Emergency) - Authorized Specialty Diagnoses / Procedures Referred By Delfina t Referred To Contact Radiology Diagnoses Mass of hard palate Procedures NM PET CT [facility] oncology Sunny Cruz MD [address] [place] [address] Phone: tel: fax: Referral ID Status Reason Start Date Expiration Date Visits Requested Visits Authorized [id number] Authorized Perform Procedure 09/11/2024 11/10/2024 3 3 [facility] Work Phone: Resbun for visit Narrative* Imaging (Emergency) - Authorized Specialty Diagnoses / Procedures Referred By Delfina palacio Referred To Contact Radiology Diagnoses Mass of hard palate Procedures NM PET CT FDG oncology Sunny Cruz MD [address] [place] [address] Phone: tel: fax: Referral ID Status Reason Start Date Expiration Date Visits Requested Visits Authorized [id number] Authorized Perform Procedure 09/11/2024 11/10/2024 3 3 [facility] Work Phone: Reftkc for visit Narrative* Episode Based Medications (Routine) - Authorized Specialty Diagnoses / Procedures Referred By Delfina palacio Referred To Contact Diagnoses 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, 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 Sunny Cruz MD [address] [place], [place] [address] [place] [address] Phone: tel: fax: Sunny Cruz MD [id number] [place] [address] Phone: tel: fax: Referral ID Status Reason Start Date Expiration Date V isits Requested Visits Authorized [id number] Authorized 09/25/2024 10/26/2024 1 99 [facility] Work Phone: reason for visit Narrative* Episode Based Medications (Routine) - Authorized Specialty Diagnoses / Procedures Referred By Delfina t Referred To Contact Diagnoses 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, 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 Sunny Cruz MD [address] [place] [address] Phone: tel: fax: Sunny Cruz MD [address] [place] [address] Phone: tel: fax: Referral ID Status Reason Start Date Expiration Date V isits Requested Visits Authorized [id number] Authorized 09/25/2024 10/26/2024 1 99 [facility] Work Phone: reason for visit Narrative* Episode Based Medications (Routine) - Authorized Specialty Diagnoses / Procedures Referred By Delfina t Referred To Contact Diagnoses 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, 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 Sunny Cruz MD [id number] [place] [address] Phone: tel: fax: Sunny Cruz MD [address] [place] [address] Phone: tel: fax: Referral ID Status Reason Start Date Expiration Date V isits Requested Visits Authorized [id number] Authorized 09/25/2024 11/11/2024 1 99 [facility] Work Phone: reason for visit Narrative* Imaging (Emergency) - Authorized Specialty Diagnoses / Procedures Referred By Delfina palacio Referred To Contact Radiology Diagnoses 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, 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 Procedures MR sinuses w and wo IV contrast MR sinuses w and wo IV contrast Sidra Ortiz PA-C [address] [place] [address] Phone: tel: fax: Referral ID Status Reason Start Date Expiration Date Visits Requested Visits Authorized [id number] Authorized Perform Procedure 10/23/2024 10/23/2025 1 1 [facility] Work Phone: Reason for visit Narrative* Imaging (Emergency) - Authorized Specialty Diagnoses / Procedures Referred By Delfina palacio Referred To Contact Radiology Diagnoses 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, 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 Procedures CT soft tissue neck w IV contrast CT soft tissue neck w IV contrast Sidra Ortiz PA-C [id number] [place] [address] Phone: tel: fax: Referral ID Status Reason Start Date Expiration Date Visits Requested Visits Authorized [id number] Authorized Perform Procedure 10/23/2024 10/23/2025 1 1 [facility] Work Phone: Reason for visit Narrative* Episode Based Medications (Routine) - Authorized Specialty Diagnoses / Procedures Referred By Delfina palacio Referred To Contact Diagnoses 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, 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 [address] [place] [address] Phone: tel: fax: Sunny Cruz MD [id number] [place], [place] [address] [place] [address] Phone: tel: fax: Referral ID Status Reason Start Date Expiration Date V isits Requested Visits Authorized [id number] Authorized 09/25/2024 02/11/2025 1 99 [facility] Work Phone: reason for visit Narrative* Imaging (Emergency) - Authorized Specialty Diagnoses / Procedures Referred By Kristinaac t Referred To Contact Radiology Diagnoses Squamous cell carcinoma of maxillary sinus Procedures MR cervical spine w and wo IV contrast Macrina Montano MD [id number] [place] [address] [place] [address] Phone: tel: fax: Referral ID Status Reason Start Date Expiration Date Visits Requested Visits Authorized [id number] Authorized Perform Procedure 11/13/2024 12/13/2025 1 1 [facility] Work Phone: reason for visit Narrative* Imaging (Emergency) - Pending Review Specialty Diagnoses / Procedures Referred By Delfina t Referred To Contact Radiology Diagnoses Squamous cell carcinoma of maxillary sinus Procedures MR thoracic spine w and wo IV contrast Macrina Montano MD [id number] [place] [address] Department [place] [address] Phone: tel: fax: Referral ID Status Reason Start Date Expiration Date Visits Requested Visits Authorized [id number] Pending Review Perform Procedure 11/13/2024 12/13/2025 1 1 [facility] Work Phone: reason for visit Narrative* Episode Based Medications (Routine) - Authorized Specialty Diagnoses / Procedures Referred By Delfina t Referred To Contact Diagnoses Secondary malignant neoplasm of bone and bone marrow Malignant 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, unspecified laterality (Multi) Squamous cell carcinoma of maxillary sinus Sunny Cruz MD [id number] [place] [address] Phone: tel: fax: Sunny Cruz MD [address] [place] [address] Phone: tel: fax: Referral ID Status Reason Start Date Expiration Date V isits Requested Visits Authorized [id number] Authorized 12/05/2024 01/28/2025 1 99 [facility] Work Phone: reason for visit Narrative* Episode Based Medications (Routine) - Authorized Specialty Diagnoses / Procedures Referred By Delfina palacio Referred To Contact Diagnoses 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) Malignant 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, unspecified laterality (Multi) Squamous [place] [address] [place] [address] Phone: tel: fax:[phone] Sunny Cruz MD [address] [place] [address] Phone: tel: fax:[phone] Referral ID Status Reason Start Date Expiration Date V isits Requested Visits Authorized [id number] Authorized 12/05/2024 01/28/2025 1 99 [facility] Work Phone: reason for visit Narrative* Episode Based Medications (Routine) - Authorized Specialty Diagnoses / Procedures Referred By Delfina palacio Referred To Contact Diagnoses 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) Malignant 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, unspecified laterality (Multi) Squamous cell carcinoma of maxillary sinus Sunny Cruz MD [id number] [place] [address] Phone: tel: fax: Sunny Cruz MD [address] [place], [place] [id number] Phone: tel: fax: Referral ID Status Reason Start Date Expiration Date V isits Requested Visits Authorized [id number] Authorized 12/05/2024 01/28/2025 1 99 [facility] Work Phone: Chief Complaint and Reason for Visit Chief Complaint Admit Date C05.0 (STAT) August 22, 2024 2:30 pm Chief Complaint Admit Date C05.0 (STAT) August 22, 2024 2:30 pm sob November 08, 2024 11 :38am Summary Purpose Family History No Family History Records FoundNo Family History Records FoundNo Family History Records FoundNo Family History Records Found Advance Directives Advance Directive Response Recorded Date/ Time Do you have a Healthcare Power of Optical Coating Technician? No November 08, 2024 11:39am Additional Source Comments Care Teams (unrecognized sec tion and content) Team Status: Active Member Role Status Dates Torie Beam VSC, COURT DEPUTY-C Primary Care Provider Active Team Status: Inactive Member Role Status Dates Dr. Rambo Ramon MD Attending Provider Active Start: August 22, 2024 End: August 22, 2024 Dr. Rambo Ramon MD Referring Provider Active Start: August 22, 2024 End: August 22, 2024 Zebulun Beam VSC, COURT DEPUTY-C Primary Care Provider Active Start: August 22, 2024 End: August 22, 2024 Spindle Frame Carver Relationship Specialty Start Date End Date Johnathon Jtroxi PCP - General 08/27/24 Rambo Ramon MD [address] [facility] [place] [facility] [place] [address] Referring Physician Otolaryngology 08/27/24 Spindle Frame Carver Relationship Specialty Start Date End Date Johnathon Jtroxi PCP - General 08/27/24 Rambo Ramon MD [address] [facility] [place] [facility] [place] [address] Referring Physician Otolaryngology 08/27/24 [place] [address] [address] Department [place] [address] Radiation Oncologist Radiation Oncology 09/04/24 [place] [address] [place] [address] Consulting Physician Hematology and Oncology 09/11/24 Spindle Frame Carver Relationship Specialty Start Date End Date BeamJtlun PCP - General 08/27/24 Rambo Ramon MD [address] [place] [facility] [place] [address] Referring Physician Otolaryngology 08/27/24 [place] [address] [facility] Department [place] [address] Radiation Oncologist Radiation Oncology 09/04/24 [place] [address] [place] [address] Consulting Physician Hematology and Oncology 09/11/24 Spindle Frame Carver Relationship Specialty Start Date End Date Beam Jtroxi PCP - General 08/27/24 Rambo Ramon MD [address] [facility] Ear, [place] [address] Referring Physician Otolaryngology 08/27/24 [place] [address] [facility] Department [place] [address] Radiation Oncologist Radiation Oncology 09/04/24 [place] [address] [place] [address] Consulting Physician Hematology and Oncology 09/11/24 Spindle Frame Carver Relationship Specialty Start Date End Date Beam Jthussainn PCP - General 08/27/24 Rambo Ramon MD [address] [place] [facility] [place] [address] Referring Physician Otolaryngology 08/27/24 [place] [address] [facility] Department [place] [address] Radiation Oncologist Radiation Oncology 09/04/24 [place] [address] [place] [address] Consulting Physician Hematology and Oncology 09/11/24 Spindle Frame Carver Relationship Specialty Start Date End Date Torie Diego PCP - General 08/27/24 Rambo Ramon MD [facility] [place] [facility] [place] [address] Referring Physician Otolaryngology 08/27/24 [place] [address] [facility] Department [place] [address] Radiation Oncologist Radiation Oncology 09/04/24 [place] [address] [place] [address] Consulting Physician Hematology and Oncology 09/11/24 Spindle Frame Carver Relationship Specialty Start Date End Date Torie Diego PCP - General 08/27/24 Rambo Ramon MD [address] [place] [facility] [place] [address] Referring Physician Otolaryngology 08/27/24 [place] [address] Department [place] [address] Radiation Oncologist Radiation Oncology 09/04/24 [place] [address] [place] [address] Consulting Physician Hematology and Oncology 09/11/24 Spindle Frame Carver Relationship Specialty Start Date End Date Beam, Zebulun PCP - General 08/27/24 Rambo Ramon MD [address] [place] [facility] [place] [address] Referring Physician Otolaryngology 08/27/24 [place] [address] Department [place] [address] Radiation Oncologist Radiation Oncology 09/04/24 [place] [address] [place] [address] Consulting Physician Hematology and Oncology 09/11/24 Spindle Frame Carver Relationship Specialty Start Date End Date BeamCesarbulun PCP - General 08/27/24 Rambo Ramon MD [address] [place] [facility] [place] [address] Referring Physician Otolaryngology 08/27/24 [place] [address] Department [place] [address] Radiation Oncologist Radiation Oncology 09/04/24 [place] [address] [place] [address] Consulting Physician Hematology and Oncology 09/11/24 Spindle Frame Carver Relationship Specialty Start Date End Date BeamJtroxi PCP - General 08/27/24 Rambo Ramon MD [address] [place] [facility] [place] [address] Referring Physician Otolaryngology 08/27/24 [place] [address] [facility] Department [place] [address] Radiation Oncologist Radiation Oncology 09/04/24 [place] [address] [place] [address] Consulting Physician Hematology and Oncology 09/11/24 Laura Barrios, CUSTOMER SERVICE ADVISOR Ex Chef Stamp Analyst 09/20/24 Spindle Frame Carver Relationship Specialty Start Date End Date BeamJtroxi PCP - General 08/27/24 Rambo Ramon MD [address] [place] [facility] [place] [address] Referring Physician Otolaryngology 08/27/24 [place] [address] [facility] Department [place] [address] Radiation Oncologist Radiation Oncology 09/04/24 [place] [address] [place] [address] Consulting Physician Hematology and Oncology 09/11/24 Laura Barrios, [facility] Ex Chef Stamp Analyst 09/20/24 Spindle Frame Carver Relationship Specialty Start Date End Date BeamJtroxi PCP - General 08/27/24 Rambo Ramon MD [address] [place] [facility] [place] [address] Referring Physician Otolaryngology 08/27/24 [place] [address] [address] [facility] Department [place] [address] Radiation Oncologist Radiation Oncology 09/04/24 [place] [address] [place] [address] Consulting Physician Hematology and Oncology 09/11/24 Laura Barrios, [facility] Ex Chef Stamp Analyst 09/20/24 Spindle Frame Carver Relationship Specialty Start Date End Date BeamJtroxi PCP - General 08/27/24 Rambo Ramon MD [address] [place] [facility] [place] [address] Referring Physician Otolaryngology 08/27/24 [place] [address] [facility] Department [place] [address] Radiation Oncologist Radiation Oncology 09/04/24 [place] [address] [place] [address] Consulting Physician Hematology and Oncology 09/11/24 Laura Barrios, [facility] Ex Chef Stamp Analyst 09/20/24 Spindle Frame Carver Relationship Specialty Start Date End Date [facility] PCP - General 08/27/24 Rambo Ramon MD [address] [place] [facility] [place] [address] Referring Physician Otolaryngology 08/27/24 [place] [address] [address] [facility] Department [place] [address] Radiation Oncologist Radiation Oncology 09/04/24 [place] [address] [place] [address] Consulting Physician Hematology and Oncology 09/11/24 Laura Barrios, [facility] Ex Chef Stamp Analyst 09/20/24 Spindle Frame Carver Relationship Specialty Start Date End Date Torie Diego PCP - General 08/27/24 Rambo Ramon MD [address] [place] [facility] [place] [address] Referring Physician Otolaryngology 08/27/24 [place] [address] [address] [facility] Department [place] [address] Radiation Oncologist Radiation Oncology 09/04/24 [place] [address] [place] [address] Consulting Physician Hematology and Oncology 09/11/24 Laura Barrios, [facility] Ex Chef Stamp Analyst 09/20/24 Spindle Frame Carver Relationship Specialty Start Date End Date [facility] PCP - General 08/27/24 Rambo Ramon MD [address] [place] [facility] [place] [address] Referring Physician Otolaryngology 08/27/24 [place] [address] [address] [facility] Department [place] [address] Radiation Oncologist Radiation Oncology 09/04/24 [place] [address] [place] [address] Consulting Physician Hematology and Oncology 09/11/24 Laura Barrios, [facility] Ex Chef Stamp Analyst 09/20/24 Spindle Frame Carver Relationship Specialty Start Date End Date Christiano Diego PCP - General 08/27/24 Rambo Ramon MD [address] [place] [facility] [place] [address] Referring Physician Otolaryngology 08/27/24 [place] [address] [address] [facility] Department [place] [address] Radiation Oncologist Radiation Oncology 09/04/24 [place] [address] [place] [address] Consulting Physician Hematology and Oncology 09/11/24 Laura Barrios, [employer]ENC[employer] Ex Chef Stamp Analyst 09/20/24 Team Status: Active Member Role/Relationship Status Dates Zebulun Beam VSC, COURT DEPUTY-C Primary Care Provider Active Team Status: Inactive Member Role/Relationship Status Dates Dr. Rambo Ramon MD Attending Provider Active Start: August 22, 2024 End: August 22, 2024 Dr. Rambo Ramon MD Referring Provider Active Start: August 22, 2024 End: August 22, 2024 Zebulun Beam VSC, COURT DEPUTY-C Primary Care Provider Active Start: August 22, 2024 End: August 22, 2024 Team Status: Inactive Member Role/Relationship Status Dates Zebulun Beam VSC, COURT DEPUTY-C Primary Care Provider Active Start: November 08, 2024 End: November 08, 2024 Dr. Deborah Posadas , DO Emergency Provider Active Start: November 08, 2024 End: November 08, 2024 Spindle Frame Carver Relationship Specialty Start Date End Date Torie Diego PCP - General 08/27/24 Rambo Ramon MD [address] [facility] Ear, [place] [address] Referring Physician Otolaryngology 08/27/24 [place] [address] [address] Department [place] [address] Radiation Oncologist Radiation Oncology 09/04/24 [place] [address] [place] [address] Consulting Physician Hematology and Oncology 09/11/24 Laura Barrios, [facility] Ex Chef Stamp Analyst 09/20/24 Spindle Frame Carver Relationship Specialty Start Date End Date Torie Diego PCP - General 08/27/24 Rambo Ramon MD [address] [place] [facility] [place] [address] Referring Physician Otolaryngology 08/27/24 [place] [address] Department of Radiation Oncology [place], [place] [address] Radiation Oncologist Radiation Oncology 09/04/24 [place] [address] [place], [place] [address] Consulting Physician Hematology and Oncology 09/11/24 Laura Barriso, [facility] Ex Chef Stamp Analyst 09/20/24 Spindle Frame Carver Relationship Specialty Start Date End Date Torie Diego PCP - General 08/27/24 Rambo Ramon MD [address] [facility] [place] [facility] [address] Referring Physician Otolaryngology 08/27/24 [place] [address] Department of Radiation Oncology [place], [place] [address] Radiation Oncologist Radiation Oncology 09/04/24 [place] [address] [place] [address] Consulting Physician Hematology and Oncology 09/11/24 Laura Barrios, [facility] Ex Chef Stamp Analyst 09/20/24 Spindle Frame Carver Relationship Specialty Start Date End Date Torie Diego PCP - General 08/27/24 Rambo Ramon MD [address] [facility] Ear, [place] [address] Referring Physician Otolaryngology 08/27/24 [place] [address] Department of Radiation Oncology [place], [place] [id number] Radiation Oncologist Radiation Oncology 09/04/24 [place] [address] [place] [address] Consulting Physician Hematology and Oncology 09/11/24 Laura Barrios, [facility] Ex Chef Stamp Analyst 09/20/24 Spindle Frame Carver Relationship Specialty Start Date End Date Torie Diego PCP - General 08/27/24 Rambo Ramon MD [address] [facility] Ear, [place] [address] Referring Physician Otolaryngology 08/27/24 [place] [address] Department of Radiation Oncology [place], [place] [address] Radiation Oncologist Radiation Oncology 09/04/24 [place] [address] [place] [address] Consulting Physician Hematology and Oncology 09/11/24 Laura Barrios, [facility] Ex Chef Stamp Analyst 09/20/24 Spindle Frame Carver Relationship Specialty Start Date End Date Torie Diego PCP - General 08/27/24 Rambo Ramon MD [address] [place] [facility] [place] [address] Referring Physician Otolaryngology 08/27/24 [place] [address] Department of Radiation Oncology [place], [place] [address] Radiation Oncologist Radiation Oncology 09/04/24 [place] [address] [place] [address] Consulting Physician Hematology and Oncology 09/11/24 Laura Barrios, [facility] Ex Chef Stamp Analyst 09/20/24 Spindle Frame Carver Relationship Specialty Start Date End Date Torie Diego PCP - General 08/27/24 Rambo Ramon MD [address] [place] [facility] [place] [address] Referring Physician Otolaryngology 08/27/24 [place] [address] Department [place] [address] Radiation Oncologist Radiation Oncology 09/04/24 [place] [address] [place] [address] Consulting Physician Hematology and Oncology 09/11/24 Laura Barrios [facility] Ex Chef Stamp Analyst 09/20/24 Spindle Frame Carver Relationship Specialty Start Date End Date Torie Diego PCP - General 08/27/24 Rambo Ramon MD [address] [place] [facility] [place] [address] Referring Physician Otolaryngology 08/27/24 [place] [address] Department of Radiation Oncology [place], [place] [address] Radiation Oncologist Radiation Oncology 09/04/24 [place] [address] [place] [address] Consulting Physician Hematology and Oncology 09/11/24 Laura Barrios [facility] Ex Chef Stamp Analyst 09/20/24 Spindle Frame Carver Relationship Specialty Start Date End Date Torie Diego PCP - General 08/27/24 Rambo Ramon MD [address] [place] [facility] [place] [address] Referring Physician Otolaryngology 08/27/24 [place] [address] Department [place] [address] Radiation Oncologist Radiation Oncology 09/04/24 [place] [address] [place] [address] Consulting Physician Hematology and Oncology 09/11/24 Laura Barrios [facility] Ex Chef Stamp Analyst 09/20/24 Spindle Frame Carver Relationship Specialty Start Date End Date Torie Diego PCP - General 08/27/24 Rambo Ramon MD [address] [place] [facility] [place] [address] Referring Physician Otolaryngology 08/27/24 [place] [address] Department of Radiation Oncology [place], [place] [id number] Radiation Oncologist Radiation Oncology 09/04/24 [place] [address] [place] [address] Consulting Physician Hematology and Oncology 09/11/24 Laura Barrios [facility] Ex Chef Stamp Analyst 09/20/24 Spindle Frame Carver Relationship Specialty Start Date End Date Torie Diego PCP - General 08/27/24 Rambo Ramon MD [address] [facility] [place] [address] Referring Physician Otolaryngology 08/27/24 [place] [address] Department [place] [address] Radiation Oncologist Radiation Oncology 09/04/24 [place] [address] [place] [address] Consulting Physician Hematology and Oncology 09/11/24 Laura Barrios [facility] Ex Chef Stamp Analyst 09/20/24 Spindle Frame Carver Relationship Specialty Start Date End Date Torie Diego PCP - General 08/27/24 Rambo Ramon MD [address] [place] [facility] [place] [address] Referring Physician Otolaryngology 08/27/24 [place] [address] Department of Radiation Oncology [place], [place] [id number] Radiation Oncologist Radiation Oncology 09/04/24 [place] [address] [place] [address] Consulting Physician Hematology and Oncology 09/11/24 Laura Barrios [facility] Ex Chef Stamp Analyst 09/20/24 Dorinda Amin, RN PSYCHIATRIC-S Ex Chef Stamp Analyst 12/18/24 Spindle Frame Carver Relationship Specialty Start Date End Date Torie Diego PCP - General 08/27/24 Rambo Ramon MD [address] [place] [facility] [place] [address] Referring Physician Otolaryngology 08/27/24 [place] [address] Department [place] [address] Radiation Oncologist Radiation Oncology 09/04/24 [place] [address] [place] [address] Consulting Physician Hematology and Oncology 09/11/24 Laura Barrios LSW Ex Chef Stamp Analyst 09/20/24 Dorinda Amin LISW-S Ex Chef Stamp Analyst 12/18/24 Spindle Frame Carver Relationship Specialty Start Date End Date Torie Diego PCP - General 08/27/24 Rambo Ramon MD [address] [place] [facility] [place] [address] Referring Physician Otolaryngology 08/27/24 [place] [address] Department [place] [address] Radiation Oncologist Radiation Oncology 09/04/24 [place] [address] [place] [address] Consulting Physician Hematology and Oncology 09/11/24 Laura Barrios CUSTOMER SERVICE ADVISOR Ex Chef Stamp Analyst 09/20/24 Dorinda Amin LISW-S Ex Chef Stamp Analyst 12/18/24 Spindle Frame Carver Relationship Specialty Start Date End Date Johnathon Jtroxi PCP - General 08/27/24 Rambo Ramon MD [address] [place] [facility] [place] [address] Referring Physician Otolaryngology 08/27/24 [place] [address] Department [place] [address] Radiation Oncologist Radiation Oncology 09/04/24 [place] [address] [place] [address] Consulting Physician Hematology and Oncology 09/11/24 Laura Barrios LSW Ex Chef Stamp Analyst 09/20/24 Dorinda Amin LISW-S Ex Chef Stamp Analyst 12/18/24 Spindle Frame Carver Relationship Specialty Start Date End Date BeamJtroxi PCP - General 08/27/24 Rambo Ramon MD [address] [place] [facility] [place] [address] Referring Physician Otolaryngology 08/27/24 [place] [address] [facility] Department [place] [address] Radiation Oncologist Radiation Oncology 09/04/24 [place] [address] [place] [address] Consulting Physician Hematology and Oncology 09/11/24 Laura Barrios [facility] Ex Chef Stamp Analyst 09/20/24 Dorinda Amin, MIKE-S Ex Chef Stamp Analyst 12/18/24 Spindle Frame Carver Relationship Specialty Start Date End Date BeamTorie PCP - General 08/27/24 Rambo Ramon MD [address] [place] [facility] [address] Referring Physician Otolaryngology 08/27/24 [place] [address] [facility] Department [place] [address] Radiation Oncologist Radiation Oncology 09/04/24 [place] [address] [place] [address] Consulting Physician Hematology and Oncology 09/11/24 Laura Barrios LSW Ex Chef Stamp Analyst 09/20/24 Dorinda Amin LISW-S Ex Chef Stamp Analyst 12/18/24 Spindle Frame Carver Relationship Specialty Start Date End Date BeamTorie PCP - General 08/27/24 Rambo Ramon MD [address] [place] [facility] [address] Referring Physician Otolaryngology 08/27/24 [place] [address] [facility] Department [place] [address] Radiation Oncologist Radiation Oncology 09/04/24 [place] [address] [place] [address] Consulting Physician Hematology and Oncology 09/11/24 Laura Barrios LSW Ex Chef Stamp Analyst 09/20/24 Dorinda Amin LISW-S Ex Chef Stamp Analyst 12/18/24 Spindle Frame Carver Relationship Specialty Start Date End Date BeamTorie PCP - General 08/27/24 Rambo Ramon MD [address] [place] [facility] [address] Referring Physician Otolaryngology 08/27/24 [place] [address] [facility] [place] [address] Radiation Oncologist Radiation Oncology 09/04/24 [place] [address] [place] [address] Consulting Physician Hematology and Oncology 09/11/24 Laura Barrios LSW Ex Chef Stamp Analyst 09/20/24 Dorinda Amin LISW-S Ex Chef Stamp Analyst 12/18/24 Spindle Frame Carver Relationship Specialty Start Date End Date Torie Diego PCP - General 08/27/24 Rambo Ramon MD [address] [facility] Ear, [place] [address] Referring Physician Otolaryngology 08/27/24 [place] [address] [facility] [place] [address] Radiation Oncologist Radiation Oncology 09/04/24 [place] [address] [place] [address] Consulting Physician Hematology and Oncology 09/11/24 Laura Barrios LSW Ex Chef Stamp Analyst 09/20/24 Dorinda Amin LISW-S Ex Chef Stamp Analyst 12/18/24 Spindle Frame Carver Relationship Specialty Start Date End Date Torie Diego PCP - General 08/27/24 Rambo Ramon MD [address] [place] [facility] [place] [address] Referring Physician Otolaryngology 08/27/24 [place] [address] [facility] Department [place] [address] Radiation Oncologist Radiation Oncology 09/04/24 [place] [address] [place] [address] Consulting Physician Hematology and Oncology 09/11/24 Laura Barrios LSW Ex Chef Stamp Analyst 09/20/24 Dorinda Amin LISW-S Ex Chef Stamp Analyst 12/18/24 Spindle Frame Carver Relationship Specialty Start Date End Date Torie Diego PCP - General 08/27/24 Rambo Ramon MD [address] [place] [facility] [place] [address] Referring Physician Otolaryngology 08/27/24 [place] [address] [facility] Department [place] [address] Radiation Oncologist Radiation Oncology 09/04/24 [place] [address] [place] [address] Consulting Physician Hematology and Oncology 09/11/24 Laura Barrios LSW Ex Chef Stamp Analyst 09/20/24 Dorinda Amin LISW-S Ex Chef Stamp Analyst 12/18/24 Spindle Frame Carver Relationship Specialty Start Date End Date Torie Diego PCP - General 08/27/24 Rambo Ramon MD [address] [place] [facility] [place] [address] Referring Physician Otolaryngology 08/27/24 [place] [address] [facility] Department [place] [address] Radiation Oncologist Radiation Oncology 09/04/24 [place] [address] [place] [address] Consulting Physician Hematology and Oncology 09/11/24 Laura Barrios, CUSTOMER SERVICE ADVISOR Ex Chef Stamp Analyst 09/20/24 Dorinda Amin LISW-S Ex Chef Stamp Analyst 12/18/24 Spindle Frame Carver Relationship Specialty Start Date End Date Torie Diego PCP - General 08/27/24 Rambo Ramon MD [address] [place] [facility] [place] [address] Referring Physician Otolaryngology 08/27/24 [place] [address] [facility] Department [place] [address] Radiation Oncologist Radiation Oncology 09/04/24 [place] [address] [place] [address] Consulting Physician Hematology and Oncology 09/11/24 Laura Barrios LSW Ex Chef Stamp Analyst 09/20/24 Dorinda Amin LISW-S Ex Chef Stamp Analyst 12/18/24 Spindle Frame Carver Relationship Specialty Start Date End Date Torie Diego PCP - General 08/27/24 Rambo Ramon MD [address] [place] [facility] [address] Referring Physician Otolaryngology 08/27/24 [place] [address] Department [place] [address] Radiation Oncologist Radiation Oncology 09/04/24 [place] [address] [place] [address] Consulting Physician Hematology and Oncology 09/11/24 Laura Barrios LSW Ex Chef Stamp Analyst 09/20/24 Dorinda Amin LISW-S Ex Chef Stamp Analyst 12/18/24 Spindle Frame Carver Relationship Specialty Start Date End Date Torie Diego PCP - General 08/27/24 Rambo Ramon MD [address] [place] [facility] [place] [address] Referring Physician Otolaryngology 08/27/24 [place] [address] Department [place] [address] Radiation Oncologist Radiation Oncology 09/04/24 [place] [address] [place] [address] Consulting Physician Hematology and Oncology 09/11/24 Laura Barrios LSW Ex Chef Stamp Analyst 09/20/24 Dorinda Amin LISW-S Ex Chef Stamp Analyst 12/18/24 Spindle Frame Carver Relationship Specialty Start Date End Date BeamTorie PCP - General 08/27/24 Rambo Ramon MD [address] [place] [facility] [place] [address] Referring Physician Otolaryngology 08/27/24 [place] [address] [facility] Department [place] [address] Radiation Oncologist Radiation Oncology 09/04/24 [place] [address] [place] [address] Consulting Physician Hematology and Oncology 09/11/24 Laura Barrios LSW Ex Chef Stamp Analyst 09/20/24 Dorinda Amin LISW-S Ex Chef Stamp Analyst 12/18/24 Spindle Frame Carver Relationship Specialty Start Date End Date Torie Diego PCP - General 08/27/24 Rambo Ramon MD [address] [place] [facility] [place] [address] Referring Physician Otolaryngology 08/27/24 [place] [address] [facility] Department [place] [address] Radiation Oncologist Radiation Oncology 09/04/24 [place] [address] [place] [address] Consulting Physician Hematology and Oncology 09/11/24 Laura Barrios LSW Ex Chef Stamp Analyst 09/20/24 Dorinda Amin LISW-S Ex Chef Stamp Analyst 12/18/24 Spindle Frame Carver Relationship Specialty Start Date End Date BeamJthussainn PCP - General 08/27/24 Rambo Ramon MD [address] [place] [facility] [place] [address] Referring Physician Otolaryngology 08/27/24 [place] [address] [facility] Department [place] [address] Radiation Oncologist Radiation Oncology 09/04/24 [place] [address] [place] [address] Consulting Physician Hematology and Oncology 09/11/24 Laura Barrios LSW Ex Chef Stamp Analyst 09/20/24 Dorinda Amin LISW-S Ex Chef Stamp Analyst 12/18/24 Spindle Frame Carver Relationship Specialty Start Date End Date BeamCesarlarsroxi PCP - General 08/27/24 Rambo Ramon MD [address] [place] [facility] [place] [address] Referring Physician Otolaryngology 08/27/24 [place] [address] [facility] Department [place] [address] Radiation Oncologist Radiation Oncology 09/04/24 [place] [address] [place] [address] Consulting Physician Hematology and Oncology 09/11/24 Laura Barrios LSW Ex Chef Stamp Analyst 09/20/24 Dorinda Amin LISW-S Ex Chef Stamp Analyst 12/18/24 Spindle Frame Carver Relationship Specialty Start Date End Date Torie Diego PCP - General 08/27/24 Rambo Ramon MD [address] [facility] Ear, [place] [address] Referring Physician Otolaryngology 08/27/24 [place] [address] [facility] Department [place] [address] Radiation Oncologist Radiation Oncology 09/04/24 [place] [address] [place] [address] Consulting Physician Hematology and Oncology 09/11/24 Laura Barrios LSW Ex Chef Stamp Analyst 09/20/24 Dorinda Amin LISW-S Ex Chef Stamp Analyst 12/18/24 Goals (unrecognized section and content) Goals may be documented in a n alternate sectionGoals may be documented in an alternate section Reason for Visit (unrecogniz ed section and content) Reason Comments Follow-up Specialty Diagnoses / Procedures Referred By Contac t Referred To Contact Diagnoses 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, 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 [address] [place] [address] Phone: tel: fax: [place] [address] [place] [address] Phone: tel: fax: Referral ID Status Reason Start Date Expiration Date V isits Requested Visits Authorized [id number] Authorized 09/25/2024 10/26/2024 1 99 Reason Comments New Patient Visit Abscess of toothSinu s infectionGrowth in mouthEar infection Reason Comments New Patient Visit Specialty Diagnoses / Procedures Referred By Delfina palacio Referred To Contact Radiation Oncology Diagnoses [place] [address] [place] [address] Phone: tel: [place]: [place] [address] [facility] Department [place] [address] Phone: tel: fax: Referral ID Status Reason Start Date Expiration Date Visits Requested Visits Authorized [id number] Authorized Specialty Services Required 08/29/2024 08/29/2025 1 1 Referral ID Status Reason Start Date Expiration Date V isits Requested Visits Authorized [id number] Pending Review 09/25/2024 11/11/2024 1 99 Reason Comments Follow-up Reason Comments OTV INFORMATION SOURCE (unrecogn ized section and content) DATE CREATED AUTHOR 10/01/2024 [facility] DATE CREATED AUTHOR AUTHOR'S ORGANIZ ATION 12/23/2024 [facility] DATE CREATED AUTHOR AUTHOR'S ORGANIZ ATION 01/09/2025 [facility] DATE CREATED AUTHOR AUTHOR'S ORGANIZ ATION 01/23/2025 [facility] FOR RECORDS PERTAINING TO PATIENTS WHO ARE OR HAVE BEEN ENROLLED IN A CHEMICAL DEPENDENCY/SUBSTANCEABUSE PROGRAM, SOME INFORMATION MAY BE OMITTED. This clinical summary was aggregated from multiple sources. Caution should be exercised in using it in the provision of clinical care. This summary normalizes information from multiple sources, and as a consequence, information in this document may materially change the coding, format and clinical context of patient data. In addition, data may be omitted in some cases. CLINICAL DECISIONS SHOULD BE BASED ON THE PRIMARY CLINICAL RECORDS. [facility] [employer] [facility]. provides no warranty or guarantee of the accuracy or completeness of information in this document.
--- NOTE | 2025-02-11 22:30 | ED.RN ---
2230: This RN and Dr. Donaldson at bedside. Dr. Donaldson explained to the patient all the risks of leaving AMA and not going to for further care. The patient was agreeable to sign the AMA paperwork despite all of the risks of leaving, the patient had no questions at this time. The patient's mother at bedside and agreeable for the patient to go home under the patient's mothers care. The patient signed the paperwork at this time. The patient was informed that Dr. Donaldson was working on paperwork in order to further describe on paper the risks of leaving AMA. 2300: The patient walked into the hallway and asked what she was waiting on and why it was taking too long. This RN informed the patient that Dr. Donaldson was still working on the patient's paperwork and was having issues with the patient's chart because the patient was admitted in the computer prior. 2305: This RN went into the patient's room to find it empty, this RN unable to find the patient in the waiting room to give the patient the appropriate paperwork.
--- NOTE | 2025-02-11 23:26 | ED.RN ---
This RN attempted to call the patient to inform them that a prescription was sent to her pharmacy. No one answered at either number that was on file.
== END 2025-02-11 23:05 | disposition left against medical advice (07) ==
LOC: ED 11:34 → MS3 22:31
PROVIDERS: Surgery; Emergency Provider Emergency Medicine; Visit Provider Emergency Medicine
DX: J18.9 Pneumonia, unspecified organism (principal); C78.00 Secondary malignant neoplasm of unspecified lung; C79.51 Secondary malignant neoplasm of bone; C76.0 Malignant neoplasm of head, face and neck; Z92.21 Personal history of antineoplastic chemotherapy; Z87.891 Personal history of nicotine dependence; D70.9 Neutropenia, unspecified; R53.81 Other malaise; E86.0 Dehydration; Z53.20 Procedure and treatment not carried out because of patient's decision for unspecified reasons; R60.0 Localized edema
CPT/HCPCS: 71275; 80053; 81001; 83605; 83690; 83735; 85025; 85610; 85730; 87040; 87086; 87088; 87631; 93005; 96361; 96365; 96366; 96367; 96375; 99284; Q9967; A4216; J2405